=== PATIENT | female | born 1970 | race Caucasian/White ===

== ENCOUNTER 2018-07-19 05:11 | Inpatient (IN) | payer MEDICARE, OTHER ==
[~2018-07-19] VITALS: Ht 162.6 cm; Wt 72.1 kg
[~2018-07-19 05:11] MED LIST: ALBU90OI INH; ALBU90OI6 INH; ALPR.25; ALPR.25 PO; AMIT50 PO; AMOX500 PO; ATOR40TA PO; AZIT500 PO; CALCA500CH PO; CHLO25 PO; CITA20 PO; CYCL10 PO; Citalopram HBr40 MG PO; DULO30 PO; ESOM20 PO; FURO20 PO; GABA300 PO; GABA400 PO; GI COCKTAIL PO; HYDACE5 PO; HYDGUAL120 PO; Humalog100 UNIT/1 SC; INS70/30PN SC; INSU100I6; INSULANPEN SC; LEVEMIR FL100 UNIT/1 SQ; LORA1 PO; Lisinopril2.5 MG PO; MELO7.5 PO; METF500 PO; METO10 PO; METO5A PO; MUPI2TC TOP; Novolog Fl100 UNIT/1; Novolog Fl100 UNIT/1 SC; Novolog100 UNIT/2 SC; OMEP10ER; OMEP40CA12 PO; OMEPRAZOLE MAGN20 MG PO; ONDA4 PO; ONDA4ODT MM; ONDA4ODT PO; PENVK500 PO; PIOG15 PO; PIOG30 PO; PIOG45 PO; POTCHL10ER PO; PRILOSEC OTC; PROBIOTIC WITH1 EACH PO; PROM25 PO; Phenergan25 M1 PO; Prilosec Otc20 MG PO; Prozac20 MG PO; RABE20; RANI150 PO; RXHYDACE PO; SUCR1 PO; SULTRIDS PO; Simvastatin40 MG PO; TRAM50 PO; TRAZ100 PO; VENL37.5ER PO; VITAMIN D-32000 UNIT PO; Zofran Odt4 MG PO
[2018-07-19 05:58] LABS: BASOPHILS ABSOLUTE AUTO 0.05 K/mm3 (0.00-0.23); BASOPHILS PERCENT AUTO 1 % (0-2); EOSINOPHILS ABSOLUTE AUTO 0.02 K/mm3 (0.00-0.68); EOSINOPHILS PERCENT AUTO 0 % (0-6); Hematocrit 47.4 % (33.0-51.0); Hemoglobin 15.6 g/dL (11.5-16.0); IMMATURE GRAN ABSOLUTE AUTO 0.03 K/mm3 (0.00-0.10); IMMATURE GRAN PERCENT AUTO 0 % (0-1); LYMPHOCYTES ABSOLUTE AUTO 1.37 K/mm3 (0.84-5.20); LYMPHOCYTES PERCENT AUTO 17 % (21-46); MONOCYTES PERCENT AUTO 4 % (4-13); Mean Corpuscular HGB 31.3 pg (26.0-34.0); Mean Corpuscular HGB Conc 32.9 g/dL (31.5-36.5); Mean Corpuscular Volume 95 fL (80-100); Mean Platelet Volume 9.6 fL (9.1-12.4); NEUTROPHILS ABSOLUTE AUTO 6.33 K/mm3 (1.96-9.15); NEUTROPHILS PERCENT AUTO 78 % (41-73); Platelet Count 382 K/mm3 (150-400); RDW Standard Deviation 45.6 fL (35.1-46.3); Red Blood Cell Count 4.98 M/mm3 (3.80-5.20)
[2018-07-19 06:13] LABS: Source, Urine Clean Catch
[2018-07-19 06:17] LABS: Bilirubin, Urine Neg (Neg); Blood, Urine Neg (Neg); Glucose Qualitative, Urine 4+ (Neg); Ketones, Urine 4+ (Neg); Leukocyte Esterase, Urine Neg (Neg); Nitrite, Urine Neg (Neg); Protein, Urine 3+ (Neg); Urobilinogen, Urine NORM (Normal)
[2018-07-19 06:18] LABS: Alanine Aminotransfer (ALT/SGP 30 U/L (12-78); Albumin, Blood 3.9 g/dL (3.4-5.0); Alk Phos 118 U/L (50-136); Anion Gap 18 mmol/L (6-16); Aspartate Aminotrans (AST/SGOT 21 U/L (12-37); Bilirubin, Total 1.4 mg/dL (0.1-1.0); Blood Urea Nitrogen 7 mg/dL (8-24); Bun/Creatinine Ratio 16.9 (12.0-20.0); CO2, Blood 14 mmol/L (21-32); Calcium, Blood 8.7 mg/dL (8.5-10.1); Chloride, Blood 104 mmol/L (98-108); Creatinine, Blood 0.42 mg/dL (0.40-1.00); Globulin, Blood 4.1 g/dL (2.2-4.0); Glomerular Filtration Rate >60 (60-); Glucose, Blood 262 mg/dL (70-99); Potassium, Blood 3.3 mmol/L (3.5-5.5); Sodium, Blood 136 mmol/L (136-145)
[2018-07-19 06:19] LABS: Troponin I <0.015 ng/mL (0.000-0.040)
[2018-07-19 06:25] LABS: Appearance, Urine Clear (Clear); Color, Urine Yellow (P-Yellow)
[2018-07-19 06:27] LABS: White Blood Cells, Urine 0-2 /hpf (0-5)
[2018-07-19 06:28] LABS: Bacteria Rare /hpf; Red Blood Cells, Urine 0-2 /hpf (0-2); Squamous Epithelial Cells Few /hpf (Few)
[2018-07-19 06:30] LABS: Beta-hydroxybutyrate 69.8 mg/dL (0.2-2.8)
[2018-07-19 07:58] LABS: U Amphetamine Screen Not Detected; U Barbituate Screen Not Detected; U Benzodiazapine Screen Not Detected; U Buprenorphine Screen Not Detected; U Cannabinoids Screen DETECTED; U Cocaine Screen Not Detected; U Methadone Screen Not Detected; U Methamphetamine Screen Not Detected; U Opiates Screen Not Detected; U Oxycodone Screen Not Detected; U Phencyclidine Screen Not Detected; U Propoxyphene Screen Not Detected
--- NOTE | 2018-07-19 08:20 | NUR ---
FEMALE PATIENT BROUGHT TO ICU2 VIA GURNEY. MOVED TO BED WITH BLACK SLIDER SHEET. LUNGS CLESR T/O. COMP OF SEVERE NAUSEA AND HAVING DRY HEAVES. MED WITH REGLAN AND PROTONIX. INSULIN DRIP AT 6 UNITS/HOUR WITH RESULTS OF 121. DRIP REDUCED TO 3 UNITS/HOUR. NS WITH 20MEQ OF KCL AT 250ML/HOUR. SECOND LITER OF NS INFUSED. SOON SLEEPING QUIETLY. STATES SHE IS UNABLE TO REMEMBER HER LIST OF HOME MEDS.
[2018-07-19 09:34] LABS: Magnesium, Blood 1.2 mg/dL (1.6-2.4); Phosphorus, Blood 1.8 mg/dL (2.5-4.9)
[2018-07-19 12:13] LABS: Influenza A Negative (NEGATIVE); Influenza B Negative (NEGATIVE)
--- NOTE | 2018-07-19 14:08 | NUR ---
UP WITH HELP TO TOILET. D5NS AT 250ML/HOUR, INSULIN DRIP UP TO 4UNITS/HOUR, AMD K-PHOS RIDER AT 120ML/HOUR. STOMACH FEELING BETTER. EATING A SMALL CUP OF JELLO.
[2018-07-19 16:23] LABS: Potassium, Blood 2.9 mmol/L (3.5-5.5)
--- NOTE | 2018-07-19 16:52 | NUR ---
PATIENTS TEMP UP TO 99.9. MED WITH TYLENOL FOR BODY ACHES CONTS ON CHEMBGS Q1 HOUR.D5NS AT 250/HOUR, INSULIN DRIP AT 4 UNITS/HOUR.
--- NOTE | 2018-07-19 17:08 | NUR ---
DR ROBISON CALLED WITH LABS. MESSAGE LEFT.
--- NOTE | 2018-07-19 17:49 | NUR ---
DR ROBISON CALLED BACK WITH NEW ORDERS. INSULIN DRIP AND D5NS DCED AND MED SLIDING SCALE AND LANTUS STARTED. OCC LOOSE MOIST COUGH. STATES SHE HAS BEEN SICK FOR THE PAST SEVERAL DAYS. SLEEPING A LOT TODAY AND NOT EATING WELL.
--- NOTE | 2018-07-19 18:16 | NUR ---
SUMMARY PATIENT CONTINUES TO BE EASILY SOB WITH EXCERTION. UP TO COMMODE WITH MINIMAL ASSISTANCE AND VERBAL COACHING. PATIENT WORKED WITH PT AND AMBULATED SHORT DISTANCE IN ROOM. CONTINUE TO REMIND PATIENT TO DO PURSED LIP BREATHING. PATIENT BATHED AND SHAVED EARLIER. SKIN CARE DONE AFTER BATH, REMOVED SCALY SKIN FROM FEET AND LEGS. WILL GIVE REPORT TO ONCOMING SHIFT WHEN AVAILABLE. HAMILTON DRAINING YELLOW URINE WITH GOOD RESPONSE TO LASIX.
--- NOTE | 2018-07-19 20:12 | NUR ---
1935: CARE ASSUMED, PT CRYING, ROCKING, C/O 9/10 SHOOTING PAIN IN BACK, SPINE, CHEST. STATES IT HURTS TO BREATHE. 12 LEAD EKG W/OUT ACUTE CHANGES. 50 SYD FENTANYL GIVEN IV, IMMED REDUCED SYMPTOMS. DR DAMON NOTIFIED.
[2018-07-19 22:20] LABS: Potassium, Blood 3.1 mmol/L (3.5-5.5)
[2018-07-20 03:42] LABS: BASOPHILS ABSOLUTE AUTO 0.04 K/mm3 (0.00-0.23); BASOPHILS PERCENT AUTO 1 % (0-2); EOSINOPHILS ABSOLUTE AUTO 0.07 K/mm3 (0.00-0.68); EOSINOPHILS PERCENT AUTO 1 % (0-6); Hematocrit 37.8 % (33.0-51.0); Hemoglobin 12.6 g/dL (11.5-16.0); IMMATURE GRAN ABSOLUTE AUTO 0.02 K/mm3 (0.00-0.10); IMMATURE GRAN PERCENT AUTO 0 % (0-1); LYMPHOCYTES ABSOLUTE AUTO 2.52 K/mm3 (0.84-5.20); LYMPHOCYTES PERCENT AUTO 31 % (21-46); MONOCYTES ABSOLUTE AUTO 0.55 K/mm3 (0.16-1.47); MONOCYTES PERCENT AUTO 7 % (4-13); Mean Corpuscular HGB 31.3 pg (26.0-34.0); Mean Corpuscular HGB Conc 33.3 g/dL (31.5-36.5); Mean Corpuscular Volume 94 fL (80-100); Mean Platelet Volume 9.5 fL (9.1-12.4); NEUTROPHILS ABSOLUTE AUTO 5.07 K/mm3 (1.96-9.15); NEUTROPHILS PERCENT AUTO 61 % (41-73); Platelet Count 284 K/mm3 (150-400); RDW Standard Deviation 45.2 fL (35.1-46.3); Red Blood Cell Count 4.02 M/mm3 (3.80-5.20); White Blood Cell Count 8.27 K/mm3 (4.00-11.30)
[2018-07-20 03:54] LABS: Potassium, Blood 2.8 mmol/L (3.5-5.5)
[2018-07-20 04:15] LABS: Alanine Aminotransfer (ALT/SGP 18 U/L (12-78); Albumin, Blood 2.7 g/dL (3.4-5.0); Albumin/Globulin Ratio 0.9 (0.8-1.8); Alk Phos 79 U/L (50-136); Anion Gap 9 mmol/L (6-16); Aspartate Aminotrans (AST/SGOT 9 U/L (12-37); Blood Urea Nitrogen 2 mg/dL (8-24); Bun/Creatinine Ratio 4.9 (12.0-20.0); CO2, Blood 20 mmol/L (21-32); Calcium, Blood 7.4 mg/dL (8.5-10.1); Chloride, Blood 112 mmol/L (98-108); Creatinine, Blood 0.41 mg/dL (0.40-1.00); Glomerular Filtration Rate >60 (60-); Glucose, Blood 151 mg/dL (70-99); Potassium, Blood 2.7 mmol/L (3.5-5.5); Sodium, Blood 141 mmol/L (136-145); Total Protein, Blood 5.7 g/dL (6.4-8.2)
--- NOTE | 2018-07-20 07:29 | NUR ---
Fentanyl given for back & hip pain, little relief from po tylenol. Able to sleep at intervals. Requesting/drinking coffee, states only thing she can tolerate. Attempt to eat crackers resulted in dry heaves, treated w/ reglan IV, resolved. Prilosec given early in AM / pt request for GI upset. Additional KCl given IV in AM for serum K= 2.8. Lab glucose 151.
--- NOTE | 2018-07-20 07:30 | NUR ---
AM ASSESSMENT: PT IS ALERT AND ORIENTED X3. PT IS ANXIOUS AT MOST TIMES. MOVES SELF IN BED AND RM. SBA WITH TNX'S. PT REPORTS CHRONIC, CONSTANT PAIN IN THE LOWER BACK/HIPS. REPORTS SHE WAS TAKEN OFF HER FLEXERIL THAT SHE HAS "BEEN ON FOR 10 YEARS, COLD TURKEY." PT BEING MEDICATED WITH FENTANYL IV. WILL DISCUSS PAIN MANAGEMENT WITH . LUNGS ARE CLEAR, BUT DIMINISHED IN THE LOWER LOBES BILATERALLY. HR REGULAR, SR. PT HAS NS W/KCL @ 150ML/HR AND KCL IVP. ABD SOFT, ROUND, NON-TENDER. PT C/O OF INTERMITTENT NAUSEA. PT ATE WELL FOR BREAKFAST. C/O OF INCREASED NAUSEA AFTER EATING. PT OOB TO TOILET TO VOID CLEAR, SALMA COLORED URINE.
--- NOTE | 2018-07-20 07:52 | NUR ---
PT UPDATE: PT REPORTS LOWER BACK/BILATERAL HIP PAIN, 03/29. PT TX'D WITH FENTANYL IV. PT REPORTS SHE NORMALLY HAS BETTER PAIN CONTROL AFTER BEING TAKEN OFF HER FLEXERIL. PT'S MOOD LABILE AT THIS TIME AND BECOMES EASILY TEARFUL AT TIMES. ABLE TO CONSOLE PT WITH CONVERSATION.
--- NOTE | 2018-07-20 08:45 | NUR ---
DR ROBISON IN TO ASSESS PT. PT REPORTS NAUSEA. WILL MEDICATE PER ORDERS ONCE VERIFIED. RESUMED PT ON FLEXERIL PT REPORTS SHE USED TO TAKE THIS AT HOME AND FOUND IT VERY HELPFUL FOR HER BACK PAIN. PT CHANGED TO MEDICAL, NO TELEMETRY STATUS.
--- NOTE | 2018-07-20 10:11 | NUR ---
DR GAR HERE TO ASSESS PT. SEE NEW ORDERS.
--- NOTE | 2018-07-20 15:25 | NUR ---
PT UPDATE: PT REMAINS PAINFUL IN THE LOWER BACK/BILATERAL HIPS DESPITE RESTARTING FLEXERIL AND APPLYING HEAT PAD. PT MEDICATED WITH FENTANYL IV AND STIMULI REDUCTION DONE.
--- NOTE | 2018-07-20 15:37 | NUR ---
REPORTED OFF TO MIGDALIA SALCEDO WHOM WILL ASSUME CARE OF THIS PT ONCE SHE IS TNX'D TO 340.
--- NOTE | 2018-07-20 16:12 | NUR ---
XFER'D TO 340 REC REPORT FROM ANN FULLER TRANSPORTED VIA W/C @ 2504
[2018-07-21 05:08] LABS: BASOPHILS ABSOLUTE AUTO 0.03 K/mm3 (0.00-0.23); BASOPHILS PERCENT AUTO 1 % (0-2); EOSINOPHILS ABSOLUTE AUTO 0.09 K/mm3 (0.00-0.68); EOSINOPHILS PERCENT AUTO 2 % (0-6); Hematocrit 36.1 % (33.0-51.0); Hemoglobin 12.1 g/dL (11.5-16.0); IMMATURE GRAN ABSOLUTE AUTO 0.01 K/mm3 (0.00-0.10); IMMATURE GRAN PERCENT AUTO 0 % (0-1); LYMPHOCYTES ABSOLUTE AUTO 2.53 K/mm3 (0.84-5.20); LYMPHOCYTES PERCENT AUTO 48 % (21-46); MONOCYTES ABSOLUTE AUTO 0.38 K/mm3 (0.16-1.47); MONOCYTES PERCENT AUTO 7 % (4-13); Mean Corpuscular HGB 31.1 pg (26.0-34.0); Mean Corpuscular HGB Conc 33.5 g/dL (31.5-36.5); Mean Corpuscular Volume 93 fL (80-100); Mean Platelet Volume 9.6 fL (9.1-12.4); NEUTROPHILS ABSOLUTE AUTO 2.26 K/mm3 (1.96-9.15); NEUTROPHILS PERCENT AUTO 43 % (41-73); Platelet Count 264 K/mm3 (150-400); RDW Coefficient Variation 13.2 % (11.7-14.2); RDW Standard Deviation 44.6 fL (35.1-46.3); Red Blood Cell Count 3.89 M/mm3 (3.80-5.20)
[2018-07-21 05:30] LABS: Alanine Aminotransfer (ALT/SGP 17 U/L (12-78); Albumin, Blood 2.6 g/dL (3.4-5.0); Alk Phos 73 U/L (50-136); Anion Gap 8 mmol/L (6-16); Aspartate Aminotrans (AST/SGOT 11 U/L (12-37); Bilirubin, Total 0.3 mg/dL (0.1-1.0); Blood Urea Nitrogen 2 mg/dL (8-24); Bun/Creatinine Ratio 4.8 (12.0-20.0); CO2, Blood 26 mmol/L (21-32); Calcium, Blood 7.7 mg/dL (8.5-10.1); Chloride, Blood 111 mmol/L (98-108); Creatinine, Blood 0.41 mg/dL (0.40-1.00); Globulin, Blood 2.7 g/dL (2.2-4.0); Glomerular Filtration Rate >60 (60-); Glucose, Blood 225 mg/dL (70-99); Potassium, Blood 3.4 mmol/L (3.5-5.5); Sodium, Blood 145 mmol/L (136-145); Total Protein, Blood 5.3 g/dL (6.4-8.2)
--- NOTE | 2018-07-21 06:12 | NUR ---
SHIFT SUMMARY PT AWAKE ON/OFF T/O NIGHT, REPORTS SHE STRUGGLES W/INSOMNIA & TENDS TO NAP IN 2 HR PERIODS. FREQUENTLY ASKS TO BE UNHOOKED FROM IV FLUIDS TO GO OUTSIDE TO SMOKE, AMBULATES INDEPENDENTLY. AOX4. VSS. DENIES SOB. REPORTS 9/10 PAIN IN LOWER BACK/HIPS, MEDICATED 2X W/NORCO PER ORDERS. REPORTS NAUSEA THIS AM & WAS MEDICATED W/4MG ZOFRAN PER ORDERS. CHEM BG 189 @HS MEDICATED W/3U HUMALOG & 10U LANTUS PER ORDERS. CALL LIGHT IS IN REACH.
--- NOTE | 2018-07-21 12:57 | NUR ---
SHIFT SUMMARY/DC PT HAS HAD NO ACUTE CHANGES THIS SHIFT, MEDICATED 1X FOR PAIN, NO OTHER COMPLAINTS OF ANY KIND. PT HAS WALKED OUT TO SMOKE INDEP SEVERAL TIMES DURING SHIFT. REVIEWED DC INSTRUCTIONS, PT VERBALIZED UNDERSTANDING, WALKED OUT TO DC IN PRIVATE VEHICLE @ 1255.
== END 2018-07-21 12:58 | disposition home or self-care (01) | DRG 639 ==
LOC: ER 05:11 → ICUW 05:12 → ICUE 08:23 → MEDS 07-20 16:03 → ENPENDDIS 07-21 11:13 → MEDS 07-21 12:58
PROVIDERS: Emergency Medicine; ADMIT Internal Medicine
DX: E11.10 Type 2 diabetes mellitus with ketoacidosis without coma (principal); K21.9 Gastro-esophageal reflux disease without esophagitis; M79.7 Fibromyalgia; E11.40 Type 2 diabetes mellitus with diabetic neuropathy, unspecified; F17.210 Nicotine dependence, cigarettes, uncomplicated; E87.6 Hypokalemia; Z79.4 Long term (current) use of insulin
CPT/HCPCS: 36415; 71045; 80051; 80053; 81001; 82010; 82947; 83690; 83735; 84100; 84484; 85025; 87804; 93005; 93010; 96361; 96365; 96366; 96367; 96372; 96374; 96375; 96376; 99285-25; C9113; G0378; J1650; J1815; J2060; J2405; J2550; J2765; J3010; J3475; J3480; J7030; J7042; J7060

== ENCOUNTER 2018-08-24 16:37 | Inpatient (IN) | payer MEDICARE, OTHER ==
[~2018-08-24] VITALS: Ht 162.6 cm; Wt 59.7 kg
[2018-08-24] MEDS ORDERED: BASAGLAR K100 UNIT/1 SC (17:11)
[2018-08-24] MEDS ORDERED: Novolog100 UNIT/2 SC (17:12)
[2018-08-24 17:45] LABS: Calcium, Ionized (POC) 1.14 mmol/L (1.10-1.46); Chloride (POC) 99 mmol/L (98-108); Creatinine (POC) 0.5 mg/dL (0.6-1.0); Glucose (ISTAT POC) 407 mg/dL (70-99); Potassium (POC) 3.9 mmol/L (3.5-5.5); Sodium (POC) 135 mmol/L (135-148); Total CO2 (POC) 13 mmol/L (21-32)
[2018-08-24 17:46] LABS: BASOPHILS ABSOLUTE AUTO 0.06 K/mm3 (0.00-0.23); BASOPHILS PERCENT AUTO 0 % (0-2); EOSINOPHILS ABSOLUTE AUTO 0.01 K/mm3 (0.00-0.68); EOSINOPHILS PERCENT AUTO 0 % (0-6); Hematocrit 50.7 % (33.0-51.0); Hemoglobin 16.8 g/dL (11.5-16.0); IMMATURE GRAN ABSOLUTE AUTO 0.07 K/mm3 (0.00-0.10); IMMATURE GRAN PERCENT AUTO 1 % (0-1); LYMPHOCYTES ABSOLUTE AUTO 2.19 K/mm3 (0.84-5.20); LYMPHOCYTES PERCENT AUTO 15 % (21-46); MONOCYTES ABSOLUTE AUTO 0.36 K/mm3 (0.16-1.47); MONOCYTES PERCENT AUTO 2 % (4-13); Mean Corpuscular HGB 30.5 pg (26.0-34.0); Mean Corpuscular HGB Conc 33.1 g/dL (31.5-36.5); Mean Corpuscular Volume 92 fL (80-100); NEUTROPHILS PERCENT AUTO 82 % (41-73); RDW Standard Deviation 44.2 fL (35.1-46.3); White Blood Cell Count 14.99 K/mm3 (4.00-11.30)
[2018-08-24 17:50] LABS: Mean Platelet Volume 10.8 fL (9.1-12.4); Platelet Count 474 K/mm3 (150-400)
[2018-08-24 18:13] LABS: Alanine Aminotransfer (ALT/SGP 34 U/L (12-78); Albumin, Blood 4.9 g/dL (3.4-5.0); Alk Phos 172 U/L (50-136); Anion Gap 27 mmol/L (6-16); Aspartate Aminotrans (AST/SGOT 29 U/L (12-37); Bilirubin, Total 1.5 mg/dL (0.1-1.0); Blood Urea Nitrogen 12 mg/dL (8-24); Bun/Creatinine Ratio 18.7 (12.0-20.0); CO2, Blood 13 mmol/L (21-32); Calcium, Blood 9.5 mg/dL (8.5-10.1); Chloride, Blood 94 mmol/L (98-108); Creatinine, Blood 0.64 mg/dL (0.40-1.00); Globulin, Blood 4.8 g/dL (2.2-4.0); Glomerular Filtration Rate >60 (60-); Glucose, Blood 372 mg/dL (70-99); Potassium, Blood 4.1 mmol/L (3.5-5.5); Sodium, Blood 134 mmol/L (136-145); Total Protein, Blood 9.7 g/dL (6.4-8.2); Troponin I <0.015 ng/mL (0.000-0.040)
[2018-08-24] MEDS ORDERED: Aspirin EC81 MG PO (19:22)
[2018-08-24] MEDS ORDERED: PROM25 PO (19:24)
[2018-08-24 19:50] LABS: Base Excess Venous -13.6 mmol/L; Bicarbonate Venous 14.6 mmol/L (24.0-30.0); PCO2 Venous 35.7 mmHg (38-42); PO2 Venous 51.7 mmHg (38-42); pH Blood Venous 7.21 (7.34-7.37)
[2018-08-24 21:30] LABS: Source, Urine Clean Catch
[2018-08-24 21:46] LABS: Bilirubin, Urine Neg (Neg); Blood, Urine 1+ (Neg); Glucose Qualitative, Urine 4+ (Neg); Ketones, Urine 4+ (Neg); Leukocyte Esterase, Urine Neg (Neg); Nitrite, Urine Neg (Neg); Protein, Urine 3+ (Neg); Specific Gravity, Urine 1.025 (1.003-1.022); Urobilinogen, Urine NORM (Normal)
[2018-08-24 21:54] LABS: Appearance, Urine Clear (Clear); Color, Urine Yellow (P-Yellow)
[2018-08-24 21:55] LABS: Bacteria Mod /hpf; Hyaline Casts 0-2 /lpf (0-2); Mucus Light (0-Heavy); Red Blood Cells, Urine 0-2 /hpf (0-2); Squamous Epithelial Cells Few /hpf (Few); White Blood Cells, Urine 0-2 /hpf (0-5)
[2018-08-24 21:56] LABS: U Amphetamine Screen Not Detected; U Barbituate Screen Not Detected; U Benzodiazapine Screen Not Detected; U Buprenorphine Screen Not Detected; U Cannabinoids Screen DETECTED; U Cocaine Screen Not Detected; U Methadone Screen Not Detected; U Methamphetamine Screen Not Detected; U Opiates Screen Not Detected; U Oxycodone Screen Not Detected; U Phencyclidine Screen Not Detected; U Propoxyphene Screen Not Detected
[2018-08-24 22:53] LABS: Adenovirus Not Detected (NOT DETECT); Bordetella pertussis Not Detected (NOT DETECT); Chlamydophila pneumoniae Not Detected (NOT DETECT); Coronavirus 229E Not Detected (NOT DETECT); Coronavirus HKU1 Not Detected (NOT DETECT); Coronavirus NL63 Not Detected (NOT DETECT); Coronavirus OC43 Not Detected (NOT DETECT); Human Metapneumovirus Not Detected (NOT DETECT); Human Rhinovirus/Enterovirus Not Detected (NOT DETECT); Influenza A Not Detected (NOT DETECT); Influenza A/2009-H1 Not Detected (NOT DETECT); Influenza A/H1 Not Detected (NOT DETECT); Influenza A/H3 Not Detected (NOT DETECT); Influenza B Not Detected (NOT DETECT); Mycoplasma pneumoniae Not Detected (NOT DETECT); Parainfluenza Virus 1 Not Detected (NOT DETECT); Parainfluenza Virus 2 Not Detected (NOT DETECT); Parainfluenza Virus 3 Not Detected (NOT DETECT); Parainfluenza Virus 4 Not Detected (NOT DETECT); Respiratory Syncytial Virus Not Detected (NOT DETECT)
[2018-08-24 23:33] LABS: Magnesium, Blood 2.2 mg/dL (1.6-2.4); Phosphorus, Blood 2.7 mg/dL (2.5-4.9)
[2018-08-24 23:48] LABS: Anion Gap 18 mmol/L (6-16); Blood Urea Nitrogen 13 mg/dL (8-24); Bun/Creatinine Ratio 21.5 (12.0-20.0); CO2, Blood 16 mmol/L (21-32); Calcium, Blood 9.3 mg/dL (8.5-10.1); Chloride, Blood 104 mmol/L (98-108); Creatinine, Blood 0.61 mg/dL (0.40-1.00); Glomerular Filtration Rate >60 (60-); Glucose, Blood 266 mg/dL (70-99); Potassium, Blood 3.4 mmol/L (3.5-5.5); Sodium, Blood 138 mmol/L (136-145)
--- NOTE | 2018-08-25 | NUR ---
PT WAS ADMITTED TO ICU-3 FROM ER W DKA. PT AWAKE, COOPERATIVE, BUT FEELS MISERABLE. PT WAS NAUSEATED & RETCHING IN EMESIS BAG. MED W ZOFRAN & REGLAN WHICH SEEM TO HELP & PT LYING IN BED AT THIS TIME. SHORTLY AFTER ARRIVAL, ONE OF PT IV'S NO LONGER PATENT. NEW SITE STARTED USING ULTRASOUND, PT IS DIFFICULT IV START. UP TO BSC W SB ASSIST, VOIDS WO DIFF. AWAIT LAB RESULTS. CALL LIGHT IN REACH.
[2018-08-25 05:47] LABS: Anion Gap 9 mmol/L (6-16); Blood Urea Nitrogen 11 mg/dL (8-24); Bun/Creatinine Ratio 20.9 (12.0-20.0); CO2, Blood 20 mmol/L (21-32); Calcium, Blood 8.8 mg/dL (8.5-10.1); Chloride, Blood 110 mmol/L (98-108); Creatinine, Blood 0.53 mg/dL (0.40-1.00); Glomerular Filtration Rate >60 (60-); Glucose, Blood 239 mg/dL (70-99); Potassium, Blood 4.4 mmol/L (3.5-5.5); Sodium, Blood 139 mmol/L (136-145)
--- NOTE | 2018-08-25 06:15 | NUR ---
PT NAUSEA MUCH IMPROVED THROUGH THE NIGHT. ABLE TO SLEEP SHORT PERIODS. UP TO BSC ASSIST W LINES ONLY. URINE CONT CONCENTRATED. PT IS TOLERATING SMALL AMTS OF JELLO & WATER. INSULIN CONT AT 3UNITS/HR. CONT TO MONITOR.
--- NOTE | 2018-08-25 07:45 | NUR ---
RECEIVED REPORT AND ASSUMED CARE OF PATIENT. FAMILY AT BEDSIDE. PT IS NON-RESPONSIVE TO PAINFUL STIMULUS, HOWEVER SHE DOES TRY TO OPEN HER EYES TO STERNAL RUB. PT CONTINUES TO BE INTUBATED, VENT SETTINGS ARE: AC: 16/350/8/50%. PT IS NOT SEDATED OR RESTRAINED. TUBE FEEDING WAS RUNNING AT 40 ML/HOUR; HOWEVER, RESIDUAL IS 270 ML. PLACED TF ON HOLD AND REINSTILLED 250 ML. WILL KEEP TF ON HOLD AND REEVALUATE IN AN HOUR. PT CONTINUES TO BE IN AFIB BETWEEN 90-120'S, AMIODARONE RUNNING AT 1.0 ML/HR. HEPARIN AT 21 UNITS/HR. VASOPRESSIN AT 0.04 UNITS/MIN, LEVOPHED AT 8 MCG/MIN.
--- NOTE | 2018-08-25 09:11 | NUR ---
RECEIVED REPORT AND ASSUMED CARE OF PATIENT. SHE IS RESTING, CBG Q1 HR. PT CBG RANGING IN 230-250 RANGE. INSULIN RUNNING AT 3 UNITS/HR. WILL CONTINUE TO MONITOR CLOSELY.
--- NOTE | 2018-08-25 09:12 | NUR ---
CALLED DR. LOMELI TO REPORT ANINON GAP HAS CLOSED AND PATIENT BLOOD SUGARS HAVE BEEN STABLIZING. DR ORDERED LANTUS 20 UNITS NOW AND CONTINUE 20 UNITS BID, COVER WITH MEDIUM SLIDING SCALE ACHS. ADVANCE DIET. PLACED ORDERS IN COMPUTER AND WILL CONTINUE TO MONTIOR CLOSELY. ADMINISTERED 20 UNITS LANTUS AND WILL CONTINUE IV INSULIN AT 3 UNITS/HR FOR TWO HOURS.
[2018-08-25 09:13] LABS: Potassium, Blood 3.5 mmol/L (3.5-5.5)
--- NOTE | 2018-08-25 10:48 | NUR ---
PT INSULIN DRIP DISCONTINUED AT THIS TIME.
--- NOTE | 2018-08-25 17:00 | NUR ---
ASSUMED CARE: PT RESTING QUIETLY IN ROOM. C/O GENERAL ACHES AND PAINS. ASKING ABOUT WHEN SHE CAN BE TRANSFERRED TO MEDICAL FLOOR. NO FURTHER NEEDS OR CONCERNS.
--- NOTE | 2018-08-25 17:51 | NUR ---
SHIFT SUMMARY: PT INDEPENDENT IN ROOM. MEDICAL STATUS, ELECTRIC ORGAN CHECKER GAVE PERMISSION FOR PT TO LEAVE UNIT TO TAKE A WALK. CBG COVERED FOR DINNER. NO FURTHER NEEDS OR CONCERNS NOTED
[2018-08-25 17:52] LABS: Potassium, Blood 3.9 mmol/L (3.5-5.5)
--- NOTE | 2018-08-25 19:01 | NUR ---
Lengthy conversation with Tatiana. She is tearful and openly talked about her life stressors and recent losses. she responded well to theraputic listening, gentle funeral pre arrangement counselor, and emotional affirmation. She knows she needs to take better care of herself, but is uncertain how to do better. She will benefit from illness management education and continued encouragement. I will remain available.
--- NOTE | 2018-08-25 19:30 | NUR ---
ASSUMED PT CARE AT 1915 PT UP IN ROOM; INDEPENDENT. WANTED TO GO OUTSIDE TO SMOKE. NO COMPLAINTS FROM PT.
--- NOTE | 2018-08-26 00:19 | NUR ---
ASSUMED CARE FROM MIGDALIA BENAVIDEZ
--- NOTE | 2018-08-26 00:20 | NUR ---
END OF SHIFT SUMMARY PT HAS BEEN IN AND OUT TO SMOKE MULITPLE TIMES. PT IS COMPLETELY INDEPENDENT IN ALL ADL'S. PT REQUESTED PEANUT BUTTER AND JELLY SANDWICH WITH CRACKERS AND PUDDING. PT CONSUMED 75% OF SNACK. BEDSIDE REPORT GIVEN TO MIGDALIA PATTERSON.
[2018-08-26 03:45] LABS: BASOPHILS ABSOLUTE AUTO 0.05 K/mm3 (0.00-0.23); BASOPHILS PERCENT AUTO 1 % (0-2); EOSINOPHILS ABSOLUTE AUTO 0.13 K/mm3 (0.00-0.68); EOSINOPHILS PERCENT AUTO 2 % (0-6); Hematocrit 43.3 % (33.0-51.0); Hemoglobin 14.3 g/dL (11.5-16.0); IMMATURE GRAN ABSOLUTE AUTO 0.02 K/mm3 (0.00-0.10); IMMATURE GRAN PERCENT AUTO 0 % (0-1); LYMPHOCYTES PERCENT AUTO 42 % (21-46); MONOCYTES ABSOLUTE AUTO 0.63 K/mm3 (0.16-1.47); MONOCYTES PERCENT AUTO 7 % (4-13); Mean Corpuscular HGB 30.3 pg (26.0-34.0); Mean Corpuscular Volume 92 fL (80-100); Mean Platelet Volume 9.5 fL (9.1-12.4); NEUTROPHILS ABSOLUTE AUTO 4.18 K/mm3 (1.96-9.15); NEUTROPHILS PERCENT AUTO 49 % (41-73); Platelet Count 399 K/mm3 (150-400); RDW Coefficient Variation 13.2 % (11.7-14.2); RDW Standard Deviation 44.4 fL (35.1-46.3); Red Blood Cell Count 4.72 M/mm3 (3.80-5.20); White Blood Cell Count 8.61 K/mm3 (4.00-11.30)
[2018-08-26 04:06] LABS: Albumin, Blood 3.5 g/dL (3.4-5.0); Anion Gap 8 mmol/L (6-16); Blood Urea Nitrogen 12 mg/dL (8-24); Bun/Creatinine Ratio 25.4 (12.0-20.0); CO2, Blood 24 mmol/L (21-32); Chloride, Blood 106 mmol/L (98-108); Creatinine, Blood 0.47 mg/dL (0.40-1.00); Glomerular Filtration Rate >60 (60-); Glucose, Blood 232 mg/dL (70-99); Phosphorus, Blood 2.2 mg/dL (2.5-4.9); Potassium, Blood 3.5 mmol/L (3.5-5.5); Sodium, Blood 138 mmol/L (136-145)
--- NOTE | 2018-08-26 05:59 | NUR ---
SHIFT SUMMARY NO ACUTE CHANGES OVERNIGHT. PT LEFT UNIT EVERY HOUR TO GO OUTSIDE TO HER CAR AND SMOKE. PT REPORTS NO DIZZINESS, NAUSEA, OR VOMITING. VITAL SIGNS STABLE. WILL REPORT TO DAYSHIFT NURSE.
--- NOTE | 2018-08-26 07:07 | NUR ---
ASSUMED CARE: PT RESTING IN BED BUT AWAKE, ALERT AND ORIENTED. DENIES NEEDS OR CONCERNS AT THIS TIME. INDEPENDENT IN ROOM. IVS SL
[2018-08-26] MEDS ORDERED: CEPH500 PO (10:56)
[2018-08-26] MEDS ORDERED: ACET325 PO (10:56)
[2018-08-26] MEDS ORDERED: SACC250C PO (10:57)
--- NOTE | 2018-08-26 12:45 | NUR ---
PT REQUESTED TO GO OUTSIDE TO SMOKE. EDUCATED THAT ONCE THE POTASSIUM PHOSPHATE IS COMPLETE SHE CAN GO HOME. PT BEGGED TO GO SMOKE SINCE IT HAS BEEN THREE HOURS. DISCONNECTED FROM IV BUT INFORMED PT THAT THE LONGER SHE IS GONE THE LONGER THE IV WILL TAKE TO COMPLETE
--- NOTE | 2018-08-26 15:46 | NUR ---
IV'S DC'D BY SENIOR MAINTENANCE TECHNICIAN. DISCUSSED WITH PT SICK DAY CARE FOR DIABETES AND INSTRUCTED ON ANTIBIOTIC USE. INFORMED ABOUT FOLLOW UP APPOINTMENTS. DENIED FURTHER NEEDS OR CONCERNS. AMBULATORY UPON DISCHARGE.
== END 2018-08-26 15:42 | disposition home or self-care (01) | DRG 638 ==
LOC: ER 16:37 → ICUW 19:14 → ICUE 20:58
PROVIDERS: Emergency Medicine; Family Medicine; Nurse Practitioner Acute Care; ADMIT Hospitalist
DX: E10.10 Type 1 diabetes mellitus with ketoacidosis without coma (principal); N39.0 Urinary tract infection, site not specified; I10 Essential (primary) hypertension; I16.0 Hypertensive urgency; E10.42 Type 1 diabetes mellitus with diabetic polyneuropathy; K21.9 Gastro-esophageal reflux disease without esophagitis; M79.7 Fibromyalgia; M19.90 Unspecified osteoarthritis, unspecified site; F41.9 Anxiety disorder, unspecified; F32.9 Major depressive disorder, single episode, unspecified; F17.210 Nicotine dependence, cigarettes, uncomplicated; Z88.5 Allergy status to narcotic agent; Z88.8 Allergy status to other drugs, medicaments and biological substances; Z79.4 Long term (current) use of insulin; Z79.899 Other long term (current) drug therapy
CPT/HCPCS: 36415; 71045; 80047; 80048; 80051; 80053; 80069; 81001; 82010; 82803; 82947; 83735; 84100; 84484; 85014; 85025; 87486; 87581; 87633; 87798; 93005; 93010; 96361; 96365; 96375; 96376; 99285-25; C9113; J0696; J1650; J1815; J2405; J2550; J2765; J3010; J3480; J7030; J7042; J7060; J7120

== ENCOUNTER 2018-09-25 11:24 | Emergency (ER) | payer MEDICARE, OTHER ==
[~2018-09-25] VITALS: Ht 162.6 cm; Wt 68.0 kg
[~2018-09-25 11:24] MED LIST changes: +ACET325 PO; +Aspirin EC81 MG PO; +BASAGLAR K100 UNIT/1 SC; +CEPH500 PO; +SACC250C PO
[2018-09-25 12:30] LABS: BASOPHILS ABSOLUTE AUTO 0.03 K/mm3 (0.00-0.23); BASOPHILS PERCENT AUTO 0 % (0-2); EOSINOPHILS PERCENT AUTO 0 % (0-6); Hematocrit 51.2 % (33.0-51.0); IMMATURE GRAN ABSOLUTE AUTO 0.06 K/mm3 (0.00-0.10); IMMATURE GRAN PERCENT AUTO 0 % (0-1); LYMPHOCYTES ABSOLUTE AUTO 1.38 K/mm3 (0.84-5.20); LYMPHOCYTES PERCENT AUTO 9 % (21-46); MONOCYTES ABSOLUTE AUTO 0.72 K/mm3 (0.16-1.47); MONOCYTES PERCENT AUTO 5 % (4-13); Mean Corpuscular HGB 31.2 pg (26.0-34.0); Mean Corpuscular HGB Conc 33.2 g/dL (31.5-36.5); Mean Corpuscular Volume 94 fL (80-100); Mean Platelet Volume 9.9 fL (9.1-12.4); NEUTROPHILS ABSOLUTE AUTO 12.89 K/mm3 (1.96-9.15); NEUTROPHILS PERCENT AUTO 85 % (41-73); Platelet Count 496 K/mm3 (150-400); RDW Standard Deviation 48.5 fL (35.1-46.3); Red Blood Cell Count 5.45 M/mm3 (3.80-5.20); White Blood Cell Count 15.08 K/mm3 (4.00-11.30)
[2018-09-25 12:37] LABS: Base Excess Venous -7.8 mmol/L; Bicarbonate Venous 19.4 mmol/L (24.0-30.0); PCO2 Venous 30.4 mmHg (38-42); PO2 Venous 115 mmHg (38-42); pH Blood Venous 7.37 (7.34-7.37)
[2018-09-25 12:42] LABS: Source, Urine Clean Catch
[2018-09-25 12:52] LABS: Alanine Aminotransfer (ALT/SGP 29 U/L (12-78); Albumin, Blood 4.4 g/dL (3.4-5.0); Albumin/Globulin Ratio 0.9 (0.8-1.8); Alk Phos 138 U/L (50-136); Anion Gap 25 mmol/L (6-16); Aspartate Aminotrans (AST/SGOT 14 U/L (12-37); Bilirubin, Total 2.1 mg/dL (0.1-1.0); Blood Urea Nitrogen 27 mg/dL (8-24); Bun/Creatinine Ratio 41.7 (12.0-20.0); CO2, Blood 16 mmol/L (21-32); Calcium, Blood 9.5 mg/dL (8.5-10.1); Chloride, Blood 88 mmol/L (98-108); Creatinine, Blood 0.65 mg/dL (0.40-1.00); Globulin, Blood 4.7 g/dL (2.2-4.0); Glomerular Filtration Rate >60 (60-); Glucose, Blood 492 mg/dL (70-99); Magnesium, Blood 2.3 mg/dL (1.6-2.4); Potassium, Blood 2.8 mmol/L (3.5-5.5); Sodium, Blood 129 mmol/L (136-145); Total Protein, Blood 9.1 g/dL (6.4-8.2)
[2018-09-25 13:03] LABS: Bilirubin, Urine Neg (Neg); Blood, Urine Neg (Neg); Glucose Qualitative, Urine 4+ (Neg); Ketones, Urine 4+ (Neg); Leukocyte Esterase, Urine Neg (Neg); Nitrite, Urine Neg (Neg); Protein, Urine 3+ (Neg); Urobilinogen, Urine NORM (Normal)
[2018-09-25 13:24] LABS: Appearance, Urine Clear (Clear); Color, Urine Pale Yellow (P-Yellow)
[2018-09-25 13:26] LABS: Bacteria Rare /hpf; Red Blood Cells, Urine 0-2 /hpf (0-2); Squamous Epithelial Cells Few /hpf (Few); White Blood Cells, Urine 0-2 /hpf (0-5)
[2018-09-25] MEDS ORDERED: Zofran4 MG PO (16:38)
== END 2018-09-25 17:26 | disposition home or self-care (01) ==
LOC: ER 11:24
PROVIDERS: Physician Assistant
DX: R11.2 Nausea with vomiting, unspecified (principal); E11.9 Type 2 diabetes mellitus without complications; E80.7 Disorder of bilirubin metabolism, unspecified; Z88.5 Allergy status to narcotic agent; Z88.8 Allergy status to other drugs, medicaments and biological substances; Z79.899 Other long term (current) drug therapy; Z79.4 Long term (current) use of insulin; K21.9 Gastro-esophageal reflux disease without esophagitis; F17.210 Nicotine dependence, cigarettes, uncomplicated
CPT/HCPCS: 36415; 76705; 80053; 81001; 82803; 82947; 83690; 83735; 85025; 93005; 93010; 96365; 96367; 96375; 99284-25; J2405; J2550; J2765; J3480; J7030

== ENCOUNTER 2018-09-27 10:32 | Inpatient (IN) | payer MEDICARE, OTHER ==
[~2018-09-27] VITALS: Ht 162.6 cm; Wt 65.5 kg
[~2018-09-27 10:32] MED LIST changes: +Zofran4 MG PO
[2018-09-27 11:34] LABS: BASOPHILS ABSOLUTE AUTO 0.06 K/mm3 (0.00-0.23); BASOPHILS PERCENT AUTO 1 % (0-2); EOSINOPHILS ABSOLUTE AUTO 0.04 K/mm3 (0.00-0.68); EOSINOPHILS PERCENT AUTO 0 % (0-6); Hematocrit 54.5 % (33.0-51.0); Hemoglobin 17.7 g/dL (11.5-16.0); IMMATURE GRAN ABSOLUTE AUTO 0.07 K/mm3 (0.00-0.10); IMMATURE GRAN PERCENT AUTO 1 % (0-1); LYMPHOCYTES ABSOLUTE AUTO 1.93 K/mm3 (0.84-5.20); LYMPHOCYTES PERCENT AUTO 19 % (21-46); MONOCYTES ABSOLUTE AUTO 0.72 K/mm3 (0.16-1.47); MONOCYTES PERCENT AUTO 7 % (4-13); Mean Corpuscular HGB 30.9 pg (26.0-34.0); Mean Corpuscular HGB Conc 32.5 g/dL (31.5-36.5); Mean Corpuscular Volume 95 fL (80-100); Mean Platelet Volume 9.6 fL (9.1-12.4); NEUTROPHILS ABSOLUTE AUTO 7.42 K/mm3 (1.96-9.15); NEUTROPHILS PERCENT AUTO 73 % (41-73); Platelet Count 518 K/mm3 (150-400); RDW Coefficient Variation 13.6 % (11.7-14.2); RDW Standard Deviation 47.7 fL (35.1-46.3); Red Blood Cell Count 5.73 M/mm3 (3.80-5.20); White Blood Cell Count 10.24 K/mm3 (4.00-11.30)
[2018-09-27 11:35] LABS: Base Excess Venous -13.9 mmol/L; Bicarbonate Venous 14.5 mmol/L (24.0-30.0); PCO2 Venous 32.4 mmHg (38-42); PO2 Venous 36.7 mmHg (38-42); pH Blood Venous 7.23 (7.34-7.37)
[2018-09-27 12:01] LABS: Source, Urine Clean Catch
[2018-09-27 12:12] LABS: Bilirubin, Urine Neg (Neg); Blood, Urine 1+ (Neg); Glucose Qualitative, Urine 4+ (Neg); Ketones, Urine 4+ (Neg); Leukocyte Esterase, Urine Neg (Neg); Nitrite, Urine Neg (Neg); Protein, Urine 3+ (Neg); Specific Gravity, Urine 1.025 (1.003-1.022); Urobilinogen, Urine NORM (Normal)
[2018-09-27 12:25] LABS: Appearance, Urine Hazy (Clear); Color, Urine Pale Yellow (P-Yellow)
[2018-09-27 12:26] LABS: Bacteria Rare /hpf; Mucus Light (0-Heavy); Squamous Epithelial Cells Mod /hpf (Few); White Blood Cells, Urine Not Seen /hpf (0-5)
[2018-09-27 12:55] LABS: Alanine Aminotransfer (ALT/SGP 26 U/L (12-78); Albumin, Blood 4.4 g/dL (3.4-5.0); Alk Phos 124 U/L (50-136); Anion Gap 20 mmol/L (6-16); Aspartate Aminotrans (AST/SGOT 12 U/L (12-37); Bilirubin, Total 1.5 mg/dL (0.1-1.0); Blood Urea Nitrogen 13 mg/dL (8-24); Bun/Creatinine Ratio 25.4 (12.0-20.0); CO2, Blood 14 mmol/L (21-32); Calcium, Blood 9.5 mg/dL (8.5-10.1); Chloride, Blood 99 mmol/L (98-108); Creatinine, Blood 0.51 mg/dL (0.40-1.00); Globulin, Blood 4.6 g/dL (2.2-4.0); Glomerular Filtration Rate >60 (60-); Glucose, Blood 345 mg/dL (70-99); Potassium, Blood 2.9 mmol/L (3.5-5.5); Sodium, Blood 133 mmol/L (136-145)
[2018-09-27 12:59] LABS: Beta-hydroxybutyrate 73.7 mg/dL (0.2-2.8)
[2018-09-27] MEDS ORDERED: MELO7.5 PO (14:47)
[2018-09-27 14:56] LABS: Base Excess Venous -14.1 mmol/L; Bicarbonate Venous 14.5 mmol/L (24.0-30.0); PO2 Venous 62.3 mmHg (38-42); pH Blood Venous 7.22 (7.34-7.37)
[2018-09-27 15:24] LABS: Alanine Aminotransfer (ALT/SGP 17 U/L (12-78); Albumin, Blood 3.3 g/dL (3.4-5.0); Alk Phos 89 U/L (50-136); Anion Gap 17 mmol/L (6-16); Aspartate Aminotrans (AST/SGOT 5 U/L (12-37); Bilirubin, Total 1.1 mg/dL (0.1-1.0); Blood Urea Nitrogen 11 mg/dL (8-24); Bun/Creatinine Ratio 22.5 (12.0-20.0); CO2, Blood 14 mmol/L (21-32); Calcium, Blood 7.6 mg/dL (8.5-10.1); Chloride, Blood 107 mmol/L (98-108); Creatinine, Blood 0.49 mg/dL (0.40-1.00); Ethanol (Alcohol), Blood, Med <3 mg/dL; Glomerular Filtration Rate >60 (60-); Glucose, Blood 255 mg/dL (70-99); Magnesium, Blood 1.9 mg/dL (1.6-2.4); Phosphorus, Blood 1.5 mg/dL (2.5-4.9); Sodium, Blood 138 mmol/L (136-145)
[2018-09-27 15:30] LABS: Globulin, Blood 3.3 g/dL (2.2-4.0)
[2018-09-27 15:58] LABS: Total Protein, Blood 6.6 g/dL (6.4-8.2)
[2018-09-27 17:14] LABS: Potassium, Blood 2.9 mmol/L (3.5-5.5)
[2018-09-27 18:54] LABS: Base Excess Venous -8.2 mmol/L; Bicarbonate Venous 18.3 mmol/L (24.0-30.0); PCO2 Venous 33.3 mmHg (38-42); PO2 Venous 43.9 mmHg (38-42); pH Blood Venous 7.33 (7.34-7.37)
[2018-09-27 19:15] LABS: Potassium, Blood 3.3 mmol/L (3.5-5.5)
--- NOTE | 2018-09-27 19:50 | NUR ---
ADMIT PT ARRIVES VIA STRETCHER FROM ER WITH D5W INFUSING AT 200ML/HR, INSULIN AT 3UNITS/HR AND #2 OF 3 BAGS OF KCL INFUSING. PT IS AWAKE AND ALERT, ABLE TO TRANSFER SELF FROM ER BED TO ICU BED. PT REPORTING LOW BACK PAIN "FROM UTI" AND NAUSEA. PT REPORTS BEING NAUSEATED X 6 DAYS AND HAS NOT BEEN COMPLIANT WITH RX MEDS BUT DENIES MISSING INSULIN. VSS, ECG SHOWS SR/ST AND O2 SATS 100% ON RA. PLAN TO RECHECK BG, INITIATE ADMIT ORDERS AND CALL FOR INSULIN PARAMETERS ONCE LABS RETURN.
[2018-09-27 20:09] LABS: Osmolality, Serum 300 mos/KG (275-300)
[2018-09-27 20:23] LABS: Potassium, Blood 5.1 mmol/L (3.5-5.5)
[2018-09-27 20:47] LABS: Base Excess Venous -6.6 mmol/L; Bicarbonate Venous 19.4 mmol/L (24.0-30.0); PCO2 Venous 35.3 mmHg (38-42); PO2 Venous 47.6 mmHg (38-42); pH Blood Venous 7.34 (7.34-7.37)
[2018-09-27 21:59] LABS: U Amphetamine Screen Not Detected; U Barbituate Screen Not Detected; U Benzodiazapine Screen Not Detected; U Buprenorphine Screen Not Detected; U Cannabinoids Screen DETECTED; U Cocaine Screen Not Detected; U Methadone Screen Not Detected; U Methamphetamine Screen Not Detected; U Opiates Screen Not Detected; U Oxycodone Screen Not Detected; U Phencyclidine Screen Not Detected; U Propoxyphene Screen Not Detected
[2018-09-27 22:30] LABS: Potassium, Blood 3.3 mmol/L (3.5-5.5)
[2018-09-28 03:50] LABS: BASOPHILS ABSOLUTE AUTO 0.04 K/mm3 (0.00-0.23); BASOPHILS PERCENT AUTO 1 % (0-2); EOSINOPHILS PERCENT AUTO 1 % (0-6); Hematocrit 38.3 % (33.0-51.0); Hemoglobin 12.9 g/dL (11.5-16.0); IMMATURE GRAN ABSOLUTE AUTO 0.02 K/mm3 (0.00-0.10); IMMATURE GRAN PERCENT AUTO 0 % (0-1); LYMPHOCYTES ABSOLUTE AUTO 3.66 K/mm3 (0.84-5.20); LYMPHOCYTES PERCENT AUTO 49 % (21-46); MONOCYTES ABSOLUTE AUTO 0.61 K/mm3 (0.16-1.47); MONOCYTES PERCENT AUTO 8 % (4-13); Mean Corpuscular HGB 30.6 pg (26.0-34.0); Mean Corpuscular HGB Conc 33.7 g/dL (31.5-36.5); Mean Platelet Volume 9.4 fL (9.1-12.4); NEUTROPHILS ABSOLUTE AUTO 3.07 K/mm3 (1.96-9.15); NEUTROPHILS PERCENT AUTO 41 % (41-73); Platelet Count 323 K/mm3 (150-400); RDW Coefficient Variation 13.3 % (11.7-14.2); RDW Standard Deviation 44.4 fL (35.1-46.3); Red Blood Cell Count 4.22 M/mm3 (3.80-5.20)
[2018-09-28 03:52] LABS: Mean Corpuscular Volume 91 fL (80-100)
[2018-09-28 04:17] LABS: Alanine Aminotransfer (ALT/SGP 17 U/L (12-78); Albumin, Blood 2.9 g/dL (3.4-5.0); Alk Phos 75 U/L (50-136); Anion Gap 9 mmol/L (6-16); Bilirubin, Total 1.1 mg/dL (0.1-1.0); Blood Urea Nitrogen 7 mg/dL (8-24); Bun/Creatinine Ratio 23.6 (12.0-20.0); CO2, Blood 21 mmol/L (21-32); Calcium, Blood 8.2 mg/dL (8.5-10.1); Chloride, Blood 107 mmol/L (98-108); Globulin, Blood 2.9 g/dL (2.2-4.0); Glomerular Filtration Rate >60 (60-); Glucose, Blood 176 mg/dL (70-99); Magnesium, Blood 1.7 mg/dL (1.6-2.4); Phosphorus, Blood 1.1 mg/dL (2.5-4.9); Potassium, Blood 2.6 mmol/L (3.5-5.5); Sodium, Blood 137 mmol/L (136-145); Total Protein, Blood 5.8 g/dL (6.4-8.2)
[2018-09-28 04:18] LABS: Aspartate Aminotrans (AST/SGOT <3 U/L (12-37)
[2018-09-28 04:56] LABS: Osmolality, Serum 279 mos/KG (275-300)
--- NOTE | 2018-09-28 05:29 | NUR ---
CALL TO DR HOLDEN VEGAS UPDTATED WITH AM LABS, GAP CLOSURE AND NORMAL CO2. DR HATCH REQUESTING TO HOLD OFF ON CHANGING OVER TO NORMAL INSULIN DOSING. PLAN TO ADMINITER 30 UNITS NPH AND RESUME NORMAL KALI AT NOON AND NORMAL LONG ACTING AT HS. IN ADDITION, REPLACEMENT FOR K AND PHOS OBTAINED.
--- NOTE | 2018-09-28 06:22 | NUR ---
SHIFT SUMMARY SEE PREVIOUS NOTES FOR SHIFT. PT REMAINS ON INSULIN GTT AT 1.5 UNITS/HR AND D5 AT 200ML/HR WITH BG'S RUNNING 150-160. PT IS REPORTING SHE IS FEELING MUCH BETTER BUT DOES CONTINUE TO REPORT LOW BACK PAIN AND RELATES THIS TO HER RECENT DX OF UTI. PAIN MANAGED WITH TYLENOL, FENTANYL AND WARM BLANKETS. PT DENIES NAUSEA AND IS TOLERATING PO FLUIDS AND FOOD, MEAL ORDERED FOR THIS AM. VSS, ECG SHOWS SR AND O2 SATS 98-100% ON RA.
--- NOTE | 2018-09-28 07:15 | NUR ---
START OF SHIFT NOTE: PATIENT IS RESTING COMFORTABLY, CONTINUES TO C/O BACK PAIN, BUT STATED THAT "TYLENOL HELPED, AND IT IS DOWN TO A 3", AFEBRILE, STATES "I FEEL MUCH BETTER, CAN I GO OUT AND SMOKE", PATIENT INSTRUCTED THAT SHE IS ICU STATUS AND STILL NEEDS THE INSULIN DRIP, PATIENT VERBALIZED UNDERSTANDING, NSR, LUNG SOUNDS CLEAR AND DIMINISHED IN BASES, BTs PRESENT, GETS UP TO BSC, DIET ORDERED, RECEIVED HUMULIN 30 UNITS ORDERED, CALL LIGHT IN REACH, WILL CONTINUE TO MONITOR.
--- NOTE | 2018-09-28 08:30 | NUR ---
DIETARY IN TO SEE PATIENT AND DISCUSS DIET.
[2018-09-28 15:45] LABS: Anion Gap 8 mmol/L (6-16); Blood Urea Nitrogen 5 mg/dL (8-24); Bun/Creatinine Ratio 17.2 (12.0-20.0); CO2, Blood 23 mmol/L (21-32); Calcium, Blood 8.4 mg/dL (8.5-10.1); Chloride, Blood 108 mmol/L (98-108); Creatinine, Blood 0.29 mg/dL (0.40-1.00); Glomerular Filtration Rate >60 (60-); Glucose, Blood 243 mg/dL (70-99); Phosphorus, Blood 2.7 mg/dL (2.5-4.9); Potassium, Blood 3.1 mmol/L (3.5-5.5); Sodium, Blood 139 mmol/L (136-145)
--- NOTE | 2018-09-28 17:58 | NUR ---
SHIFT SUMMARY NOTE: PATIENT IS ALERT AND ORIENTED, EATING DINNER, PATIENT IS HUNGRY D/T MULTIPLE DAYS OF NAUSEA/VOMITING, BLOOD SUGARS ARE STILL IN 200'S, DR. SILVATRATE AWARE, INSULIN DRIP OFF, PATIENT IS ON LANTUS AND HUMALOG MEDIUM SLIDING SCALE AT THIS TIME, PATIENT RECEIVED ONE BAG OF POTASSIUM PHOSPHATE THIS AM FOR K+ 2.6 AND PHOS 1.1, LABS WERE REDRAWN THIS AFTERNOON AND K+ 3.1 AND PHOS 2.7, ANOTHER BAG OF POTASSIUM PHOSPHATE WAS HUNG AND IS INFUSING, PATIENT STATED "I JUST WANT TO GO OUT AND SMOKE ONE CIGARETTE, OTHER NURSES HAVE LET ME GO AT THIS POINT", PATIENT WAS INSTRUCTED THAT SHE IS STILL ICU STATUS AND IS ON IV INFUSION, PATIENT VERBALIZED UNDERSTANDING, PATIENT IS UP TO ROOM TOILET INDEPENDENTLY, GOOD URINE OUTPUT WITH CLEAR YELLOW URINE, VSS, RECEIVED MULTIPLE DOSES OF FENTANYL IV, FLEXERIL PO, AND TYLENOL PO FOR ONGOING BACK PAIN, REPORTS THAT PAIN IS UNDER CONTROL AT THIS TIME, AFEBRILE, CALL LIGHT IN REACH, WILL CONTINUE TO MONITOR, AND GIVE REPORT TO ONCOMING PC MAINTENANCE TECHNICIAN.
--- NOTE | 2018-09-28 20:00 | NUR ---
PATIENT AWAKE, UP IN ROOM WITHOUT DIFFICULTY. C/O LOW BACK PAIN, PATIENT VERBALIZED SHE FEELS IT IS FROM HER UTI. INSULIN DRIP REMAINS OFF. PATIENT ANA DINNER AND SNACK OF PEANUT BUTTER AND CRACKERS WITHOUT DIFFICULTY.
--- NOTE | 2018-09-29 01:02 | NUR ---
PATIENT CONTINUES TO C/O LOW BACK PAIN. SLEEPING OFF AND ON. WARM BLANKET PLACED TO BACK AND PRN MEDICATIONS GIVEN PER EMAR. PATIENT HYPOTENSIVE, NO C/O DIZZINESS OR FEELING LIGHT HEADED.
[2018-09-29 04:46] LABS: Hematocrit 37.1 % (33.0-51.0); Hemoglobin 12.5 g/dL (11.5-16.0); Mean Corpuscular HGB 30.9 pg (26.0-34.0); Mean Corpuscular HGB Conc 33.7 g/dL (31.5-36.5); Mean Corpuscular Volume 92 fL (80-100); Mean Platelet Volume 9.7 fL (9.1-12.4); Platelet Count 279 K/mm3 (150-400); RDW Coefficient Variation 13.9 % (11.7-14.2); RDW Standard Deviation 46.9 fL (35.1-46.3); Red Blood Cell Count 4.04 M/mm3 (3.80-5.20); White Blood Cell Count 5.11 K/mm3 (4.00-11.30)
[2018-09-29 05:02] LABS: Anion Gap 9 mmol/L (6-16); Blood Urea Nitrogen 10 mg/dL (8-24); Bun/Creatinine Ratio 32.5 (12.0-20.0); CO2, Blood 26 mmol/L (21-32); Calcium, Blood 8.6 mg/dL (8.5-10.1); Chloride, Blood 107 mmol/L (98-108); Creatinine, Blood 0.31 mg/dL (0.40-1.00); Glomerular Filtration Rate >60 (60-); Glucose, Blood 216 mg/dL (70-99); Potassium, Blood 2.9 mmol/L (3.5-5.5); Sodium, Blood 142 mmol/L (136-145)
--- NOTE | 2018-09-29 06:31 | NUR ---
SUMMARY PATIENT SLEEPING OFF AND ON T/O THE NIGHT. C/O LOW BACK PAIN T/O NIGHT. SEE EMAR FOR MEDICATION TIMES. PATIENT BECOMING HYPOTENSIVE, NS IV BOLUS GIVEN AND LABS DRAWN PER DOCTOR HATCH. PATIENT AWAKENS EASILY WHEN HYPOTENSIVE. MULTIPLE SNACKS GIVEN T/O NIGHT.
--- NOTE | 2018-09-29 07:15 | NUR ---
START OF SHIFT NOTE: RECEIVED REPORT FROM MELITA OBANDO RN, ASSUMED CARE, PATIENT IS RESTING COMFORTABLY AT THIS TIME, EASILY AWOKEN, ALERT AND ORIENTED, NSR WITH LOW BP'S IN 70'S, PATIENT REPORTS NO LIGHTHEADEDNESS OR DIZZINESS, DENIES ANY SHORTNESS OF BREATH BUT CONTINUES TO C/0 BACK PAIN, K+ 2.9 THIS AM AND PHOS AT 4.7, AFEBRILE, LS CLEAR BUT DIMINISHED IN BASES, PATIENT USES ROOM TOILET AND GETS UP INDEPENDENTLY, CALL LIGHT IN REACH, WILL CONTINUE TO MONITOR.
[2018-09-29 07:52] LABS: Phosphorus, Blood 4.7 mg/dL (2.5-4.9)
--- NOTE | 2018-09-29 08:55 | NUR ---
DR. LOMELI IN TO SEE PATIENT, NEW ORDERS RECEIVED, PATIENT STATUS CHANGED TO MEDICAL/SURGICAL FLOOR, PATIENT STATED "THE DOCTOR TOLD ME I AM MEDICAL STATUS NOW SO CAN YOU UNHOOK ME, SO I CAN GO GET MY BAG AND SMOKE A CIGARETTE", PATIENT WAS INSTRUCTED TO WAIT UNTIL AM MEDS ARE GIVEN, DR. LOMELI AWARE OF PATIENT'S REMARK, AND OK WITH PATIENT GOING OUTSIDE, CALL LIGHT IN REACH, WILL CONTINUE TO MONITOR
--- NOTE | 2018-09-29 09:15 | NUR ---
PATIENT LEFT ROOM TO GO OUTSIDE "GET MY BAG FROM MY CAR", DR. SILVATRATE AWARE, PATIENT IS NOW MEDICAL STATUS, WILL CONTINUE TO MONITOR.
--- NOTE | 2018-09-29 09:47 | NUR ---
PATIENT RETURNED TO ROOM AT 0935 HOURS.
--- NOTE | 2018-09-29 10:28 | NUR ---
REPORT CALLED TO MIGDALIA THORPE, TO TAKE PATIENT IN ROOM 333 AT 1025, ILA WILL CALL WHEN ROOM IS CLEAN AND READY.
[2018-09-29] MEDS ORDERED: LEVO750 PO (11:58)
[2018-09-29] MEDS ORDERED: ONDA4ODT PO (12:02)
[2018-09-29] MEDS ORDERED: POTCHL20ER PO (12:07)
--- NOTE | 2018-09-29 12:33 | NUR ---
DISCHARGED PT. DISCHARGE INSTRUCTIONS REVIEWED WITH PT. ORDER FOR PT TO HAVE LAB WORK DONE PROVIDED TO PT; STAPLED TO DISCHARGE INSTRUCTIONS. REVIEWED MEDICATIONS UPDATES WITH PT AND FAXED MEDICATIONS TO [facility] IN [place] PER PT. REQUEST. PT. REFUSED WHEELCHAIR TRANSPORT TO EXIT.PT TO CALL AND MAKE APPOINTMENT WIHT PCP, REPORTS SHE WILL DO SO WHEN DROPPING OFF NEW PT. PACKET AT NEW FACILITY. PT. AMBULATED TO EXIT W/O DIFFICULTY. ENCOURAGED TO RETURN FOR WORSENING SYMPTOMS.
== END 2018-09-29 12:38 | disposition home or self-care (01) | DRG 639 ==
LOC: ER 10:32 → ERHOLD 14:26 → ICUE 19:46
PROVIDERS: Hospitalist; Physician Assistant; ADMIT Family Medicine
DX: E10.10 Type 1 diabetes mellitus with ketoacidosis without coma (principal); F41.9 Anxiety disorder, unspecified; F32.9 Major depressive disorder, single episode, unspecified; E86.0 Dehydration; E87.6 Hypokalemia; M79.7 Fibromyalgia; E10.40 Type 1 diabetes mellitus with diabetic neuropathy, unspecified; R30.0 Dysuria; I10 Essential (primary) hypertension; K21.9 Gastro-esophageal reflux disease without esophagitis; F17.200 Nicotine dependence, unspecified, uncomplicated; Z88.5 Allergy status to narcotic agent; Z88.8 Allergy status to other drugs, medicaments and biological substances; Z79.4 Long term (current) use of insulin; Z79.899 Other long term (current) drug therapy
CPT/HCPCS: 36415; 76705; 80048; 80051; 80053; 81001; 82010; 82803; 82947; 83036; 83690; 83735; 83930; 84100; 85025; 85027; 93005; 93010; 96361; 96365; 96366; 96367; 96375; 96376; 99284-25; 99285-25; C9113; G0480; J0696; J1650; J1815; J2405; J2550; J2765; J3010; J3480; J7030; J7050; J7060; J7070

== ENCOUNTER 2019-01-19 05:56 | Inpatient (IN) | payer MEDICARE, OTHER ==
[~2019-01-19] VITALS: Ht 162.6 cm; Wt 59.8 kg
[~2019-01-19 05:56] MED LIST changes: -ATOR40TA PO; -BASAGLAR K100 UNIT/1 SC; -GABA400 PO; +LEVO750 PO; -OMEPRAZOLE MAGN20 MG PO; +POTCHL20ER PO
[2019-01-19 06:24] LABS: BASOPHILS ABSOLUTE AUTO 0.04 K/mm3 (0.00-0.23); BASOPHILS PERCENT AUTO 0 % (0-2); EOSINOPHILS PERCENT AUTO 0 % (0-6); Hematocrit 48.4 % (33.0-51.0); Hemoglobin 16.1 g/dL (11.5-16.0); IMMATURE GRAN ABSOLUTE AUTO 0.12 K/mm3 (0.00-0.10); IMMATURE GRAN PERCENT AUTO 1 % (0-1); LYMPHOCYTES ABSOLUTE AUTO 1.79 K/mm3 (0.84-5.20); LYMPHOCYTES PERCENT AUTO 10 % (21-46); MONOCYTES ABSOLUTE AUTO 0.95 K/mm3 (0.16-1.47); MONOCYTES PERCENT AUTO 6 % (4-13); Mean Corpuscular HGB 30.5 pg (26.0-34.0); Mean Corpuscular HGB Conc 33.3 g/dL (31.5-36.5); Mean Corpuscular Volume 92 fL (80-100); NEUTROPHILS ABSOLUTE AUTO 14.33 K/mm3 (1.96-9.15); NEUTROPHILS PERCENT AUTO 83 % (41-73); Platelet Count 568 K/mm3 (150-400); RDW Standard Deviation 47.4 fL (35.1-46.3); Red Blood Cell Count 5.28 M/mm3 (3.80-5.20); White Blood Cell Count 17.23 K/mm3 (4.00-11.30)
[2019-01-19 06:46] LABS: Magnesium, Blood 2.3 mg/dL (1.6-2.4)
[2019-01-19] MEDS ORDERED: VENL75ER PO (07:04)
[2019-01-19 07:08] LABS: Base Excess Venous -9.7 mmol/L; Bicarbonate Venous 17.8 mmol/L (24.0-30.0); PCO2 Venous 32.9 mmHg (38-42); PO2 Venous 82.5 mmHg (38-42); pH Blood Venous 7.31 (7.34-7.37)
[2019-01-19 07:15] LABS: Alanine Aminotransfer (ALT/SGP 17 U/L (12-78); Albumin, Blood 4.8 g/dL (3.4-5.0); Alk Phos 159 U/L (50-136); Anion Gap 24 mmol/L (6-16); Aspartate Aminotrans (AST/SGOT 12 U/L (12-37); Bilirubin, Total 1.2 mg/dL (0.1-1.0); Blood Urea Nitrogen 24 mg/dL (8-24); Bun/Creatinine Ratio 32.9 (12.0-20.0); CO2, Blood 15 mmol/L (21-32); Calcium, Blood 10.4 mg/dL (8.5-10.1); Chloride, Blood 94 mmol/L (98-108); Creatinine, Blood 0.73 mg/dL (0.40-1.00); Globulin, Blood 4.7 g/dL (2.2-4.0); Glomerular Filtration Rate >60 (60-); Glucose, Blood 611 mg/dL (70-99); Potassium, Blood 3.9 mmol/L (3.5-5.5); Sodium, Blood 133 mmol/L (136-145); Total Protein, Blood 9.5 g/dL (6.4-8.2)
[2019-01-19 07:17] LABS: Source, Urine Clean Catch
[2019-01-19 07:20] LABS: Bilirubin, Urine Neg (Neg); Blood, Urine Neg (Neg); Glucose Qualitative, Urine 4+ (Neg); Ketones, Urine 4+ (Neg); Leukocyte Esterase, Urine Neg (Neg); Nitrite, Urine Neg (Neg); Protein, Urine 3+ (Neg); Specific Gravity, Urine 1.015 (1.003-1.022); Urobilinogen, Urine NORM (Normal)
[2019-01-19 07:27] LABS: Appearance, Urine Clear (Clear); Color, Urine Yellow (P-Yellow)
[2019-01-19 07:28] LABS: Bacteria Rare /hpf; Red Blood Cells, Urine Not Seen /hpf (0-2); Squamous Epithelial Cells Rare /hpf (Few); White Blood Cells, Urine 0-2 /hpf (0-5)
--- NOTE | 2019-01-19 10:56 | NUR ---
PT ARRIVES FROM ER CURRENTLY ON INSULIN GTT AT 3.4U/HR, WITH AN LR BOLUS AND LR RUNNING ON PUMP AT 100ML/HR. PT. ABLE TO TRANSER SELF TO ICU BED. PT. FLUSHED UPON ARRIVAL. TEMP OF 99.5 UPON ARRIVAL. PT. ON RA, SPO2 >95%. PT. BP WNL. PT. BG TAKEN UPON ARRIVAL-INSULIN GTT DECRESED TO 2 U/HR. PT VSS AT THIS TIME. CALL LIGHT IN REACH, BED IN LOW POSITION.
--- NOTE | 2019-01-19 11:08 | NUR ---
CALL TO DR. CHRISTY FOR ORDERS
[2019-01-19 12:15] LABS: Albumin, Blood 4.5 g/dL (3.4-5.0); Anion Gap 14 mmol/L (6-16); Blood Urea Nitrogen 27 mg/dL (8-24); Bun/Creatinine Ratio 41.4 (12.0-20.0); CO2, Blood 24 mmol/L (21-32); Calcium, Blood 10.4 mg/dL (8.5-10.1); Chloride, Blood 102 mmol/L (98-108); Creatinine, Blood 0.65 mg/dL (0.40-1.00); Glomerular Filtration Rate >60 (60-); Glucose, Blood 295 mg/dL (70-99); Magnesium, Blood 2.3 mg/dL (1.6-2.4); Phosphorus, Blood 3.3 mg/dL (2.5-4.9); Potassium, Blood 3.7 mmol/L (3.5-5.5); Sodium, Blood 140 mmol/L (136-145)
--- NOTE | 2019-01-19 15:02 | NUR ---
CARE ASSUMED/UPDATE CARE ASSUMED AT 1300. PT HAS BEEN SLEEPING SINCE BUT EASILY AWAKENS WHEN VERBALLY STIMULATED. INSULIN GTT INFUSING AT 1 UNIT/HR CURRENTLY. MD CHRISTY CALLED AT 1400, WAS UPDATED ON BLOOD SUGARS, AND MOST RECENT CHEMISTRY DRAW. T.O. TO CONTINUE INFUSING INSULIN GTT AND RECHECK CHEMISTRY. D5 1/2 NS INFUSING PER ORDER SINCE BLOOD SUGAR WAS 240. CALL LIGHT WITHIN REACH. WILL CONTINUE TO MONITOR.
[2019-01-19 16:12] LABS: Albumin, Blood 3.8 g/dL (3.4-5.0); Anion Gap 10 mmol/L (6-16); Blood Urea Nitrogen 23 mg/dL (8-24); CO2, Blood 24 mmol/L (21-32); Calcium, Blood 9.3 mg/dL (8.5-10.1); Chloride, Blood 106 mmol/L (98-108); Creatinine, Blood 0.51 mg/dL (0.40-1.00); Glomerular Filtration Rate >60 (60-); Glucose, Blood 279 mg/dL (70-99); Magnesium, Blood 2.3 mg/dL (1.6-2.4); Phosphorus, Blood 2.9 mg/dL (2.5-4.9); Potassium, Blood 3.7 mmol/L (3.5-5.5); Sodium, Blood 140 mmol/L (136-145)
--- NOTE | 2019-01-19 18:25 | NUR ---
SHIFT SUMMARY PT SLEPT MOST OF AFTERNOON. UP TO TOILET 1 TIME. INSULIN GTT TURNED OFF AT 1815. MIV CHANGED TO NS WITH POTASSIUM. PT TOLERATING PO AT THIS TIME WITH NO NAUSEA OF VOMITING. FENTANYL 25 MCG IVP GIVEN X1 AT 1800. CALL LIGHT WITHIN REACH. WILL GIVE BEDSIDE, HANDOFF REPORT TO NOC RN.
--- NOTE | 2019-01-19 19:00 | NUR ---
RECEIVED HAND OFF FROM DAY NURSE USING SBAR.
--- NOTE | 2019-01-19 20:00 | NUR ---
LYING IN LOW FOWLERS WITH EYES CLOSED. AAO X3, REID, FOLLOWS ALL COMMANDS, REORIENTED TO ROOM, CALL SYSTEM, AND POC, VOICES UNDERSTANDING. RESPIRATIONS EVEN AND UNLABORED ON ROOM AIR. LUNG SOUNDS CLEAR BILATERALLY. ABDOMEN SOFT AND NONDISTENDED. BOWEL SOUNDS PRESENT IN ALL QUADS. CONTINENT OF BOWEL AND BLADDER, USES COMMODE IN ROOM. SCD'S TO BLE. DENIES FURTHER NEEDS OR WANTS AT THIS TIME. SAFETY MEASURES IN PLACE. WILL CONTINUE TO MONITOR.
[2019-01-20 03:41] LABS: BASOPHILS ABSOLUTE AUTO 0.05 K/mm3 (0.00-0.23); BASOPHILS PERCENT AUTO 0 % (0-2); EOSINOPHILS ABSOLUTE AUTO 0.08 K/mm3 (0.00-0.68); EOSINOPHILS PERCENT AUTO 1 % (0-6); Hematocrit 42.6 % (33.0-51.0); Hemoglobin 13.8 g/dL (11.5-16.0); IMMATURE GRAN ABSOLUTE AUTO 0.05 K/mm3 (0.00-0.10); IMMATURE GRAN PERCENT AUTO 0 % (0-1); LYMPHOCYTES ABSOLUTE AUTO 4.22 K/mm3 (0.84-5.20); LYMPHOCYTES PERCENT AUTO 28 % (21-46); MONOCYTES ABSOLUTE AUTO 1.03 K/mm3 (0.16-1.47); MONOCYTES PERCENT AUTO 7 % (4-13); Mean Corpuscular HGB 30.3 pg (26.0-34.0); Mean Corpuscular HGB Conc 32.4 g/dL (31.5-36.5); Mean Corpuscular Volume 94 fL (80-100); Mean Platelet Volume 9.4 fL (9.1-12.4); NEUTROPHILS ABSOLUTE AUTO 9.72 K/mm3 (1.96-9.15); NEUTROPHILS PERCENT AUTO 64 % (41-73); Platelet Count 389 K/mm3 (150-400); RDW Coefficient Variation 14.3 % (11.7-14.2); RDW Standard Deviation 49.5 fL (35.1-46.3); Red Blood Cell Count 4.55 M/mm3 (3.80-5.20); White Blood Cell Count 15.15 K/mm3 (4.00-11.30)
[2019-01-20 04:01] LABS: Anion Gap 2 mmol/L (6-16); Blood Urea Nitrogen 20 mg/dL (8-24); Bun/Creatinine Ratio 35.2 (12.0-20.0); CO2, Blood 29 mmol/L (21-32); Chloride, Blood 109 mmol/L (98-108); Creatinine, Blood 0.57 mg/dL (0.40-1.00); Glomerular Filtration Rate >60 (60-); Glucose, Blood 143 mg/dL (70-99); Magnesium, Blood 2.2 mg/dL (1.6-2.4); Phosphorus, Blood 2.4 mg/dL (2.5-4.9); Sodium, Blood 140 mmol/L (136-145)
--- NOTE | 2019-01-20 06:31 | NUR ---
LYING IN SEMI FOWLERS WITH EYES CLOSED. HAS RESTED OFF AND ON THROUGHOUT SHIFT. VOMITED X1, ZOFRAN GIVEN. DENIES FURTHER NEEDS AT THIS TIME. SAFETY MEASURES IN PLACE. WILL GIVE HAND OFF TO ONCOMING SHIFT USING SBAR.
--- NOTE | 2019-01-20 07:52 | NUR ---
NURSING PCU DAYSHIFT: Assumed care of pt at approx 0700. A/O, anxious, cooperative w/care. C/O 7-8 WOOTEN and back pain, acute, treating w/meds, positioning, and cool cloths. Chronic numbness/tingling of all ext's. Ambulates independently and w/o difficulty. Cardiac monitoring in place, NSR, hypertensive, no noted edema, no c/o CP/pressure. L/S cta t/o, O2 sat upper 90's on RA, denies dyspnea, no noted cough. Abd tender, BT+, c/o frequent nausea w/frothy emesis, voiding w/o difficulty. PIV x2, NS w/KCL infusing at 150cc/hr. Pt requests medications for pain and nausea, treating as ordered. Denies any other needs or questions regarding plan of care. Call light in reach and pt is able to use w/o difficulty. Awaiting rounding from PMD, cont to monitor for any changes.
[2019-01-20 10:52] LABS: Alanine Aminotransfer (ALT/SGP 18 U/L (12-78); Albumin, Blood 3.9 g/dL (3.4-5.0); Albumin/Globulin Ratio 1.1 (0.8-1.8); Alk Phos 107 U/L (50-136); Anion Gap 5 mmol/L (6-16); Aspartate Aminotrans (AST/SGOT 15 U/L (12-37); Bilirubin, Direct 0.2 mg/dL (0.0-0.3); Bilirubin, Indirect 0.9 mg/dL (0.1-0.7); Bilirubin, Total 1.1 mg/dL (0.1-1.0); Blood Urea Nitrogen 19 mg/dL (8-24); Bun/Creatinine Ratio 30.2 (12.0-20.0); CO2, Blood 26 mmol/L (21-32); Calcium, Blood 9.1 mg/dL (8.5-10.1); Chloride, Blood 109 mmol/L (98-108); Creatinine, Blood 0.63 mg/dL (0.40-1.00); Globulin, Blood 3.4 g/dL (2.2-4.0); Glomerular Filtration Rate >60 (60-); Glucose, Blood 138 mg/dL (70-99); Potassium, Blood 4.1 mmol/L (3.5-5.5); Sodium, Blood 140 mmol/L (136-145)
[2019-01-20 11:01] LABS: Total Protein, Blood 7.3 g/dL (6.4-8.2)
--- NOTE | 2019-01-20 17:19 | NUR ---
NURSING ICU DAYSHIFT SUMMARY: Pt has continued to c/o N/V t/o majority of shift as well as -04/28 abd/back/head pain, treating w/meds as ordered. Was able to have uninterrupted rest t/o afternoon, appeared comfortable during this time. Abd U/S completed, results reviewed. Increasing HTN noted t/o afternoon, PMD notified, PRN cardiac meds not required as SBP remains below 180. NS w/KCL continues to infuse at 150cc/hr, K+phos rider administered as ordered. S/O currently at bedside. Update provided, pt and s/o denied any questions. Pt denies any current needs, call light in reach, cont to monitor until rpt is given to NOC RN.
--- NOTE | 2019-01-21 02:48 | NUR ---
48 year old Female contyinues on IVF with potassium and she asks frequently to be saline locked to smoke. Tolerating diet clear full liquid, advanced to ada for BF. She has lt flank and back pain relieved by fentanyl 50 mcg. Medicated for nausea several times.
[2019-01-21 05:50] LABS: Albumin, Blood 3.4 g/dL (3.4-5.0); Anion Gap 6 mmol/L (6-16); Blood Urea Nitrogen 6 mg/dL (8-24); Bun/Creatinine Ratio 14.5 (12.0-20.0); CO2, Blood 28 mmol/L (21-32); Calcium, Blood 8.7 mg/dL (8.5-10.1); Chloride, Blood 108 mmol/L (98-108); Creatinine, Blood 0.42 mg/dL (0.40-1.00); Glomerular Filtration Rate >60 (60-); Glucose, Blood 80 mg/dL (70-99); Phosphorus, Blood 3.4 mg/dL (2.5-4.9); Potassium, Blood 3.3 mmol/L (3.5-5.5); Sodium, Blood 142 mmol/L (136-145)
[2019-01-21] MEDS ORDERED: METO5A PO (11:58)
--- NOTE | 2019-01-21 12:55 | NUR ---
PATIENT DISCHARGE THE PATIENT WAS DISCHARGED HOME WITH HER FRIEND, AFTER DISCHARGE INSTRUCTIONS WERE GIVEN TO TO THE PATIENT. THE PATIENT LEFT THE HOSPITAL WITHOUT CONCERN OR COMPLAINT.
== END 2019-01-21 12:55 | disposition home or self-care (01) | DRG 638 ==
LOC: ER 05:56 → ICUW 05:57 → ICUE 10:21 → MEDS 01-20 18:47
PROVIDERS: Emergency Medicine; ADMIT Internal Medicine
DX: E11.10 Type 2 diabetes mellitus with ketoacidosis without coma (principal); E87.1 Hypo-osmolality and hyponatremia; Z79.4 Long term (current) use of insulin; E11.43 Type 2 diabetes mellitus with diabetic autonomic (poly)neuropathy; K31.84 Gastroparesis; I16.0 Hypertensive urgency; E86.0 Dehydration; E87.6 Hypokalemia; E83.39 Other disorders of phosphorus metabolism; E11.42 Type 2 diabetes mellitus with diabetic polyneuropathy; I10 Essential (primary) hypertension; I35.0 Nonrheumatic aortic (valve) stenosis; F32.9 Major depressive disorder, single episode, unspecified; F41.9 Anxiety disorder, unspecified; K21.9 Gastro-esophageal reflux disease without esophagitis; G89.4 Chronic pain syndrome; M79.7 Fibromyalgia; M81.0 Age-related osteoporosis without current pathological fracture; F17.210 Nicotine dependence, cigarettes, uncomplicated
CPT/HCPCS: 36415; 74176; 76705; 80048; 80053; 80069; 80076; 81001; 82803; 82947; 83690; 83735; 84100; 85025; 96361; 96365; 96366; 96375; 96376; 99285-25; A9270; C9113; J1650; J1815; J2405; J2550; J2765; J3010; J3480; J7030; J7060; J7120

== ENCOUNTER 2019-01-31 09:44 | Emergency (ER) | payer MEDICARE, OTHER ==
[~2019-01-31] VITALS: Ht 162.6 cm; Wt 59.0 kg
[~2019-01-31 09:44] MED LIST changes: +VENL75ER PO
[2019-01-31 10:35] LABS: BASOPHILS ABSOLUTE AUTO 0.05 K/mm3 (0.00-0.23); BASOPHILS PERCENT AUTO 0 % (0-2); EOSINOPHILS ABSOLUTE AUTO 0.01 K/mm3 (0.00-0.68); EOSINOPHILS PERCENT AUTO 0 % (0-6); Hematocrit 46.7 % (33.0-51.0); Hemoglobin 15.7 g/dL (11.5-16.0); IMMATURE GRAN ABSOLUTE AUTO 0.06 K/mm3 (0.00-0.10); IMMATURE GRAN PERCENT AUTO 0 % (0-1); LYMPHOCYTES PERCENT AUTO 12 % (21-46); MONOCYTES ABSOLUTE AUTO 0.51 K/mm3 (0.16-1.47); MONOCYTES PERCENT AUTO 3 % (4-13); Mean Corpuscular HGB 30.8 pg (26.0-34.0); Mean Corpuscular HGB Conc 33.6 g/dL (31.5-36.5); Mean Corpuscular Volume 92 fL (80-100); Mean Platelet Volume 9.6 fL (9.1-12.4); NEUTROPHILS ABSOLUTE AUTO 12.83 K/mm3 (1.96-9.15); NEUTROPHILS PERCENT AUTO 84 % (41-73); Platelet Count 517 K/mm3 (150-400); RDW Coefficient Variation 13.6 % (11.7-14.2); RDW Standard Deviation 46.5 fL (35.1-46.3); White Blood Cell Count 15.36 K/mm3 (4.00-11.30)
[2019-01-31 10:44] LABS: Alanine Aminotransfer (ALT/SGP 16 U/L (12-78); Albumin, Blood 4.2 g/dL (3.4-5.0); Alk Phos 116 U/L (50-136); Anion Gap 16 mmol/L (6-16); Aspartate Aminotrans (AST/SGOT 10 U/L (12-37); Bilirubin, Total 1.2 mg/dL (0.1-1.0); Blood Urea Nitrogen 8 mg/dL (8-24); Bun/Creatinine Ratio 17.5 (12.0-20.0); CO2, Blood 19 mmol/L (21-32); Calcium, Blood 9.2 mg/dL (8.5-10.1); Chloride, Blood 100 mmol/L (98-108); Creatinine, Blood 0.46 mg/dL (0.40-1.00); Globulin, Blood 4.2 g/dL (2.2-4.0); Glomerular Filtration Rate >60 (60-); Glucose, Blood 305 mg/dL (70-99); Potassium, Blood 3.7 mmol/L (3.5-5.5); Sodium, Blood 135 mmol/L (136-145); Total Protein, Blood 8.4 g/dL (6.4-8.2)
[2019-01-31 13:24] LABS: Anion Gap 10 mmol/L (6-16); Blood Urea Nitrogen 7 mg/dL (8-24); Bun/Creatinine Ratio 17.6 (12.0-20.0); CO2, Blood 20 mmol/L (21-32); Calcium, Blood 7.3 mg/dL (8.5-10.1); Chloride, Blood 112 mmol/L (98-108); Glomerular Filtration Rate >60 (60-); Glucose, Blood 198 mg/dL (70-99); Potassium, Blood 3.4 mmol/L (3.5-5.5); Sodium, Blood 142 mmol/L (136-145)
[2019-01-31] MEDS ORDERED: Zofran8 MG PO (14:44)
[2019-01-31] MEDS ORDERED: PROM25 PO (14:44)
== END 2019-01-31 15:20 | disposition home or self-care (01) ==
LOC: ER 09:44
PROVIDERS: Emergency Medicine
DX: R11.2 Nausea with vomiting, unspecified (principal); E11.10 Type 2 diabetes mellitus with ketoacidosis without coma; R10.9 Unspecified abdominal pain; M54.5 Low back pain; Z88.5 Allergy status to narcotic agent; Z88.8 Allergy status to other drugs, medicaments and biological substances; Z79.899 Other long term (current) drug therapy; Z79.4 Long term (current) use of insulin; K21.9 Gastro-esophageal reflux disease without esophagitis; I10 Essential (primary) hypertension; E11.40 Type 2 diabetes mellitus with diabetic neuropathy, unspecified; F32.9 Major depressive disorder, single episode, unspecified; F41.9 Anxiety disorder, unspecified; F17.210 Nicotine dependence, cigarettes, uncomplicated
CPT/HCPCS: 36415; 71045; 80048; 80053; 82947; 83690; 84484; 85025; 93005; 93010; 96361; 96374; 96375; 99284-25; C9113; J1200; J1815; J2765; J7030

== ENCOUNTER 2019-02-03 11:58 | Emergency (ER) | payer MEDICARE, OTHER ==
[~2019-02-03] VITALS: Ht 162.6 cm; Wt 59.0 kg
[~2019-02-03 11:58] MED LIST changes: +Zofran8 MG PO
[2019-02-03 12:28] LABS: BASOPHILS ABSOLUTE AUTO 0.04 K/mm3 (0.00-0.23); BASOPHILS PERCENT AUTO 1 % (0-2); EOSINOPHILS ABSOLUTE AUTO 0.06 K/mm3 (0.00-0.68); EOSINOPHILS PERCENT AUTO 1 % (0-6); Hematocrit 45.5 % (33.0-51.0); Hemoglobin 15.4 g/dL (11.5-16.0); IMMATURE GRAN ABSOLUTE AUTO 0.02 K/mm3 (0.00-0.10); IMMATURE GRAN PERCENT AUTO 0 % (0-1); LYMPHOCYTES ABSOLUTE AUTO 2.25 K/mm3 (0.84-5.20); LYMPHOCYTES PERCENT AUTO 30 % (21-46); MONOCYTES ABSOLUTE AUTO 0.42 K/mm3 (0.16-1.47); MONOCYTES PERCENT AUTO 6 % (4-13); Mean Corpuscular HGB 31.4 pg (26.0-34.0); Mean Corpuscular HGB Conc 33.8 g/dL (31.5-36.5); Mean Corpuscular Volume 93 fL (80-100); Mean Platelet Volume 9.3 fL (9.1-12.4); NEUTROPHILS ABSOLUTE AUTO 4.63 K/mm3 (1.96-9.15); NEUTROPHILS PERCENT AUTO 62 % (41-73); Platelet Count 500 K/mm3 (150-400); RDW Coefficient Variation 13.2 % (11.7-14.2); RDW Standard Deviation 45.2 fL (35.1-46.3); Red Blood Cell Count 4.91 M/mm3 (3.80-5.20); White Blood Cell Count 7.42 K/mm3 (4.00-11.30)
[2019-02-03 12:37] LABS: Source, Urine Clean Catch
[2019-02-03 12:40] LABS: Bilirubin, Urine Neg (Neg); Blood, Urine Neg (Neg); Glucose Qualitative, Urine 4+ (Neg); Ketones, Urine 4+ (Neg); Leukocyte Esterase, Urine Neg (Neg); Nitrite, Urine Neg (Neg); Protein, Urine 2+ (Neg); Urobilinogen, Urine NORM (Normal)
[2019-02-03 12:49] LABS: Alanine Aminotransfer (ALT/SGP 15 U/L (12-78); Alk Phos 99 U/L (50-136); Anion Gap 13 mmol/L (6-16); Aspartate Aminotrans (AST/SGOT 9 U/L (12-37); Bilirubin, Total 1.2 mg/dL (0.1-1.0); Blood Urea Nitrogen 7 mg/dL (8-24); Bun/Creatinine Ratio 16.1 (12.0-20.0); CO2, Blood 22 mmol/L (21-32); Calcium, Blood 9.1 mg/dL (8.5-10.1); Chloride, Blood 101 mmol/L (98-108); Creatinine, Blood 0.44 mg/dL (0.40-1.00); Glomerular Filtration Rate >60 (60-); Glucose, Blood 275 mg/dL (70-99); Potassium, Blood 3.3 mmol/L (3.5-5.5); Sodium, Blood 136 mmol/L (136-145); Troponin I <0.015 ng/mL (0.000-0.040)
[2019-02-03 12:50] LABS: Appearance, Urine Clear (Clear); Color, Urine Yellow (P-Yellow)
[2019-02-03 13:05] LABS: Amorphous Light (0-Heavy); Bacteria Few /hpf; Red Blood Cells, Urine 0-2 /hpf (0-2); Squamous Epithelial Cells Many /hpf (Few)
[2019-02-03] MEDS ORDERED: Zofran8 MG PO (16:27)
[2019-02-03] MEDS ORDERED: PROM25 PO (16:27)
== END 2019-02-03 16:24 | disposition home or self-care (01) ==
LOC: ER 11:58
PROVIDERS: Emergency Medicine
DX: M54.5 Low back pain (principal); R11.2 Nausea with vomiting, unspecified; E11.9 Type 2 diabetes mellitus without complications; K21.9 Gastro-esophageal reflux disease without esophagitis; M19.90 Unspecified osteoarthritis, unspecified site; Z79.4 Long term (current) use of insulin; Z79.899 Other long term (current) drug therapy; Z88.5 Allergy status to narcotic agent; Z88.8 Allergy status to other drugs, medicaments and biological substances; F17.210 Nicotine dependence, cigarettes, uncomplicated
CPT/HCPCS: 71046; 80053; 81001; 83690; 84484; 85025; 93005; 93010; 96361; 96374; 96375; 96376; 99284-25; J1885; J2405; J7120

== ENCOUNTER 2019-02-08 11:11 | Observation (INO) | payer MEDICARE, OTHER ==
[~2019-02-08] VITALS: Ht 162.6 cm; Wt 59.0 kg
[2019-02-08 11:41] LABS: BASOPHILS ABSOLUTE AUTO 0.05 K/mm3 (0.00-0.23); BASOPHILS PERCENT AUTO 1 % (0-2); EOSINOPHILS ABSOLUTE AUTO 0.07 K/mm3 (0.00-0.68); EOSINOPHILS PERCENT AUTO 1 % (0-6); Hematocrit 42.6 % (33.0-51.0); Hemoglobin 14.7 g/dL (11.5-16.0); IMMATURE GRAN ABSOLUTE AUTO 0.03 K/mm3 (0.00-0.10); IMMATURE GRAN PERCENT AUTO 0 % (0-1); LYMPHOCYTES ABSOLUTE AUTO 2.48 K/mm3 (0.84-5.20); LYMPHOCYTES PERCENT AUTO 26 % (21-46); MONOCYTES ABSOLUTE AUTO 0.42 K/mm3 (0.16-1.47); MONOCYTES PERCENT AUTO 4 % (4-13); Mean Corpuscular HGB 31.3 pg (26.0-34.0); Mean Corpuscular HGB Conc 34.5 g/dL (31.5-36.5); Mean Corpuscular Volume 91 fL (80-100); Mean Platelet Volume 9.8 fL (9.1-12.4); NEUTROPHILS ABSOLUTE AUTO 6.54 K/mm3 (1.96-9.15); NEUTROPHILS PERCENT AUTO 68 % (41-73); Platelet Count 440 K/mm3 (150-400); RDW Coefficient Variation 13.2 % (11.7-14.2); RDW Standard Deviation 44.2 fL (35.1-46.3); White Blood Cell Count 9.59 K/mm3 (4.00-11.30)
[2019-02-08 11:56] LABS: Source, Urine Clean Catch
[2019-02-08 12:01] LABS: Appearance, Urine Clear (Clear); Bilirubin, Urine Neg (Neg); Blood, Urine Neg (Neg); Color, Urine Yellow (P-Yellow); Glucose Qualitative, Urine 4+ (Neg); Ketones, Urine 3+ (Neg); Leukocyte Esterase, Urine Neg (Neg); Nitrite, Urine Neg (Neg); Protein, Urine 1+ (Neg); Urobilinogen, Urine NORM (Normal)
[2019-02-08 12:01] LABS: Alanine Aminotransfer (ALT/SGP 15 U/L (12-78); Albumin, Blood 3.9 g/dL (3.4-5.0); Albumin/Globulin Ratio 1.1 (0.8-1.8); Alk Phos 87 U/L (50-136); Anion Gap 6 mmol/L (6-16); Aspartate Aminotrans (AST/SGOT 11 U/L (12-37); Bilirubin, Total 0.8 mg/dL (0.1-1.0); Blood Urea Nitrogen 3 mg/dL (8-24); Bun/Creatinine Ratio 8.6 (12.0-20.0); CO2, Blood 29 mmol/L (21-32); Chloride, Blood 101 mmol/L (98-108); Creatinine, Blood 0.35 mg/dL (0.40-1.00); Globulin, Blood 3.4 g/dL (2.2-4.0); Glomerular Filtration Rate >60 (60-); Glucose, Blood 217 mg/dL (70-99); Potassium, Blood 2.7 mmol/L (3.5-5.5); Sodium, Blood 136 mmol/L (136-145); Total Protein, Blood 7.3 g/dL (6.4-8.2)
[2019-02-08 13:07] LABS: Base Excess Venous 7.2 mmol/L; Bicarbonate Venous 29.8 mmol/L (24.0-30.0); PCO2 Venous 48.9 mmHg (38-42); PO2 Venous 89.4 mmHg (38-42); pH Blood Venous 7.42 (7.34-7.37)
[2019-02-08] MEDS ORDERED: ATOR40TA PO (13:55)
[2019-02-08] MEDS ORDERED: GABA400 PO (13:55)
[2019-02-08] MEDS ORDERED: BASAGLAR K100 UNIT/1 SC (13:55)
[2019-02-08] MEDS ORDERED: OMEP20ER PO (13:56)
[2019-02-08] MEDS ORDERED: LISI5 PO (13:56)
[2019-02-08] MEDS ORDERED: VENLAFAXINE HCL75 MG PO (13:57)
[2019-02-08] MEDS ORDERED: Novolog100 UNIT/2 SC (14:15)
[2019-02-08] MEDS ORDERED: INSULANPEN SC (16:12)
[2019-02-09 04:45] LABS: Anion Gap 6 mmol/L (6-16); Blood Urea Nitrogen 3 mg/dL (8-24); Bun/Creatinine Ratio 5.8 (12.0-20.0); CO2, Blood 29 mmol/L (21-32); Calcium, Blood 7.9 mg/dL (8.5-10.1); Chloride, Blood 108 mmol/L (98-108); Creatinine, Blood 0.52 mg/dL (0.40-1.00); Glomerular Filtration Rate >60 (60-); Glucose, Blood 158 mg/dL (70-99); Potassium, Blood 3.3 mmol/L (3.5-5.5); Sodium, Blood 143 mmol/L (136-145)
--- NOTE | 2019-02-09 05:17 | NUR ---
SHIFT SUMMARY PT SLEEPING IN ROOM COMFORTABLY AT THIS TIME. NO ACUTE CHANGHES IN STATUS T/O NIGHT. PT REMAINED PAINFUL, W/ CRAMPS IN LOWER EXT, AND BACK. PT HAD ALL 3 BAGS OF KCL INFUSED IN PIV, TOLERATED FAIR. PT WAS ABLE TO SLEEP COMFORTABLY FOR SEVERAL HOURS, AND WAS ABLE TO TOLERATE PO MEDS BEFORE BED. PT AWOKE MIDDLE OF THE NIGHT HUNGRY AND TOLERATED JELLO WELL. PT ON CLEAR LIQUID DIET. RESP EVEN UNLABORED WHILE SLEEPING, W/ SATS >92%. PT RESP TACHY UPON WAKING, D/T PT REPORTING PAIN. CALL LIGHT IN REACH.
== END 2019-02-09 16:40 | disposition home or self-care (01) ==
LOC: ER 11:11 → PCU 11:12
PROVIDERS: Emergency Medicine; ADMIT Hospitalist
DX: E87.6 Hypokalemia (principal); R11.2 Nausea with vomiting, unspecified; E10.40 Type 1 diabetes mellitus with diabetic neuropathy, unspecified; I10 Essential (primary) hypertension; G89.29 Other chronic pain; I35.0 Nonrheumatic aortic (valve) stenosis; K21.9 Gastro-esophageal reflux disease without esophagitis; M79.7 Fibromyalgia; M19.90 Unspecified osteoarthritis, unspecified site; F17.200 Nicotine dependence, unspecified, uncomplicated; Z79.899 Other long term (current) drug therapy; Z79.4 Long term (current) use of insulin; Z88.5 Allergy status to narcotic agent; Z88.8 Allergy status to other drugs, medicaments and biological substances
CPT/HCPCS: 36415; 74176; 80048; 80053; 82803; 82947; 83690; 83735; 85025; 96361; 96365; 96366; 96368; 96372; 96375; 96376; 99285-25; A9270; C9113; G0378; J0780; J1650; J2405; J2765; J3475; J3480; J7030; J7040

== ENCOUNTER 2019-02-28 11:13 | Day surgery (SDC) | payer MEDICARE, OTHER ==
[~2019-02-28] VITALS: Ht 162.6 cm; Wt 64.6 kg
[~2019-02-28 11:13] MED LIST changes: +ATOR40TA PO; +BASAGLAR K100 UNIT/1 SC; +GABA400 PO; +LISI5 PO; +OMEP20ER PO; +VENLAFAXINE HCL75 MG PO
--- NOTE | 2019-02-28 11:30 | NUR ---
02/28/19 1130 Meagan Anders Notified of delay at [phone]
[2019-02-28] MEDS ORDERED: VENL75ER (14:18)
[2019-02-28] MEDS ORDERED: METO10 ×2 (14:18→14:19)
== END 2019-02-28 15:35 | disposition home or self-care (01) ==
LOC: ORSCSDS 11:13
PROVIDERS: Internal Medicine Gastroenterology
PROC: 0DB68ZX Excision of Stomach, Via Natural or Artificial Opening Endoscopic, Diagnostic (ICD-10-PCS; principal; 2019-02-28 12:30)
PROC: 0DB58ZX Excision of Esophagus, Via Natural or Artificial Opening Endoscopic, Diagnostic (ICD-10-PCS; principal; 2019-02-28 12:30)
DX: R11.2 Nausea with vomiting, unspecified (principal); K21.0 Gastro-esophageal reflux disease with esophagitis; R10.9 Unspecified abdominal pain; R19.7 Diarrhea, unspecified; E11.9 Type 2 diabetes mellitus without complications; I10 Essential (primary) hypertension; M79.7 Fibromyalgia; F17.210 Nicotine dependence, cigarettes, uncomplicated; Z79.4 Long term (current) use of insulin; Z79.899 Other long term (current) drug therapy
CPT/HCPCS: 36415; 80053; 82947; 85025; 88305; 88342; J2704; J7120

== ENCOUNTER 2019-03-21 16:52 | Emergency (ER) | payer OTHER ==
[~2019-03-21] VITALS: Ht 162.6 cm; Wt 61.0 kg
[~2019-03-21 16:52] MED LIST changes: +METO10; +VENL75ER
[2019-03-21 17:41] LABS: Base Excess Venous -1.5 mmol/L; Bicarbonate Venous 23.8 mmol/L (24.0-30.0); PCO2 Venous 33.7 mmHg (38-42); PO2 Venous 117 mmHg (38-42); pH Blood Venous 7.44 (7.34-7.37)
[2019-03-21 17:42] LABS: BASOPHILS ABSOLUTE AUTO 0.01 K/mm3 (0.00-0.23); BASOPHILS PERCENT AUTO 0 % (0-2); EOSINOPHILS PERCENT AUTO 0 % (0-6); Hematocrit 44.5 % (33.0-51.0); Hemoglobin 15.1 g/dL (11.5-16.0); IMMATURE GRAN ABSOLUTE AUTO 0.03 K/mm3 (0.00-0.10); IMMATURE GRAN PERCENT AUTO 0 % (0-1); LYMPHOCYTES ABSOLUTE AUTO 1.57 K/mm3 (0.84-5.20); LYMPHOCYTES PERCENT AUTO 13 % (21-46); MONOCYTES ABSOLUTE AUTO 0.19 K/mm3 (0.16-1.47); MONOCYTES PERCENT AUTO 2 % (4-13); Mean Corpuscular HGB 30.7 pg (26.0-34.0); Mean Corpuscular HGB Conc 33.9 g/dL (31.5-36.5); Mean Corpuscular Volume 90 fL (80-100); Mean Platelet Volume 9.8 fL (9.1-12.4); NEUTROPHILS ABSOLUTE AUTO 10.47 K/mm3 (1.96-9.15); NEUTROPHILS PERCENT AUTO 85 % (41-73); Platelet Count 473 K/mm3 (150-400); RDW Coefficient Variation 12.3 % (11.7-14.2); RDW Standard Deviation 40.8 fL (35.1-46.3); Red Blood Cell Count 4.92 M/mm3 (3.80-5.20); White Blood Cell Count 12.27 K/mm3 (4.00-11.30)
[2019-03-21 17:57] LABS: Alanine Aminotransfer (ALT/SGP 15 U/L (12-78); Albumin, Blood 4.4 g/dL (3.4-5.0); Alk Phos 128 U/L (50-136); Anion Gap 11 mmol/L (6-16); Aspartate Aminotrans (AST/SGOT 11 U/L (12-37); Bilirubin, Total 0.8 mg/dL (0.1-1.0); Blood Urea Nitrogen 7 mg/dL (8-24); Bun/Creatinine Ratio 18.9 (12.0-20.0); CO2, Blood 24 mmol/L (21-32); Calcium, Blood 9.9 mg/dL (8.5-10.1); Chloride, Blood 98 mmol/L (98-108); Creatinine, Blood 0.37 mg/dL (0.40-1.00); Globulin, Blood 4.2 g/dL (2.2-4.0); Glomerular Filtration Rate >60 (60-); Glucose, Blood 300 mg/dL (70-99); Potassium, Blood 3.4 mmol/L (3.5-5.5); Sodium, Blood 133 mmol/L (136-145); Total Protein, Blood 8.6 g/dL (6.4-8.2)
[2019-03-21 18:55] LABS: Source, Urine Clean Catch
[2019-03-21 18:59] LABS: Bilirubin, Urine Neg (Neg); Blood, Urine Neg (Neg); Color, Urine Yellow (P-Yellow); Glucose Qualitative, Urine 4+ (Neg); Ketones, Urine 4+ (Neg); Leukocyte Esterase, Urine Neg (Neg); Nitrite, Urine Neg (Neg); Protein, Urine 3+ (Neg); Urobilinogen, Urine NORM (Normal)
[2019-03-21 19:07] LABS: Appearance, Urine Clear (Clear); Bacteria Few /hpf; Red Blood Cells, Urine 0-2 /hpf (0-2); Squamous Epithelial Cells Rare /hpf (Few); White Blood Cells, Urine 0-2 /hpf (0-5)
== END 2019-03-21 19:53 | disposition home or self-care (01) ==
LOC: ER 16:52
PROVIDERS: Emergency Medicine
DX: E10.65 Type 1 diabetes mellitus with hyperglycemia (principal); E10.42 Type 1 diabetes mellitus with diabetic polyneuropathy; R19.7 Diarrhea, unspecified; R11.2 Nausea with vomiting, unspecified; K21.9 Gastro-esophageal reflux disease without esophagitis; I10 Essential (primary) hypertension; F32.9 Major depressive disorder, single episode, unspecified; F41.9 Anxiety disorder, unspecified; F17.210 Nicotine dependence, cigarettes, uncomplicated; R07.9 Chest pain, unspecified; D72.829 Elevated white blood cell count, unspecified; Z88.5 Allergy status to narcotic agent; Z88.8 Allergy status to other drugs, medicaments and biological substances; Z79.899 Other long term (current) drug therapy
CPT/HCPCS: 36415; 80053; 81001; 82803; 82947; 84484; 85025; 93005; 93010; 96361; 96374; 96375; 99284-25; J2405; J2550; J7030

== ENCOUNTER 2019-03-22 09:22 | Emergency (ER) | payer OTHER ==
[~2019-03-22] VITALS: Ht 162.6 cm; Wt 61.0 kg
[2019-03-22 09:47] LABS: BASOPHILS ABSOLUTE AUTO 0.04 K/mm3 (0.00-0.23); BASOPHILS PERCENT AUTO 0 % (0-2); EOSINOPHILS PERCENT AUTO 0 % (0-6); Hematocrit 47.5 % (33.0-51.0); Hemoglobin 16.3 g/dL (11.5-16.0); IMMATURE GRAN ABSOLUTE AUTO 0.06 K/mm3 (0.00-0.10); IMMATURE GRAN PERCENT AUTO 0 % (0-1); LYMPHOCYTES ABSOLUTE AUTO 2.88 K/mm3 (0.84-5.20); LYMPHOCYTES PERCENT AUTO 18 % (21-46); MONOCYTES ABSOLUTE AUTO 1.11 K/mm3 (0.16-1.47); MONOCYTES PERCENT AUTO 7 % (4-13); Mean Corpuscular HGB Conc 34.3 g/dL (31.5-36.5); Mean Corpuscular Volume 90 fL (80-100); Mean Platelet Volume 9.7 fL (9.1-12.4); NEUTROPHILS ABSOLUTE AUTO 11.94 K/mm3 (1.96-9.15); NEUTROPHILS PERCENT AUTO 75 % (41-73); Platelet Count 576 K/mm3 (150-400); RDW Coefficient Variation 12.6 % (11.7-14.2); RDW Standard Deviation 41.5 fL (35.1-46.3); Red Blood Cell Count 5.26 M/mm3 (3.80-5.20); White Blood Cell Count 16.03 K/mm3 (4.00-11.30)
[2019-03-22 10:04] LABS: Alanine Aminotransfer (ALT/SGP 14 U/L (12-78); Albumin, Blood 4.5 g/dL (3.4-5.0); Alk Phos 138 U/L (50-136); Anion Gap 14 mmol/L (6-16); Aspartate Aminotrans (AST/SGOT 11 U/L (12-37); Beta-hydroxybutyrate 33.1 mg/dL (0.2-2.8); Blood Urea Nitrogen 17 mg/dL (8-24); Bun/Creatinine Ratio 31.5 (12.0-20.0); CO2, Blood 23 mmol/L (21-32); Calcium, Blood 10.2 mg/dL (8.5-10.1); Chloride, Blood 95 mmol/L (98-108); Creatinine, Blood 0.54 mg/dL (0.40-1.00); Globulin, Blood 4.6 g/dL (2.2-4.0); Glomerular Filtration Rate >60 (60-); Glucose, Blood 387 mg/dL (70-99); Potassium, Blood 3.3 mmol/L (3.5-5.5); Sodium, Blood 132 mmol/L (136-145); Total Protein, Blood 9.1 g/dL (6.4-8.2)
[2019-03-22 11:03] LABS: Source, Urine Clean Catch
[2019-03-22 11:06] LABS: Appearance, Urine Clear (Clear); Bilirubin, Urine Neg (Neg); Blood, Urine 1+ (Neg); Color, Urine Yellow (P-Yellow); Glucose Qualitative, Urine 4+ (Neg); Ketones, Urine 4+ (Neg); Leukocyte Esterase, Urine Neg (Neg); Nitrite, Urine Neg (Neg); Protein, Urine 3+ (Neg); Urobilinogen, Urine NORM (Normal)
[2019-03-22 11:21] LABS: Bacteria Not Seen /hpf; Red Blood Cells, Urine Rare /hpf (0-2); Squamous Epithelial Cells Rare /hpf (Few); White Blood Cells, Urine Not Seen /hpf (0-5)
[2019-03-23] MEDS ORDERED: PROM25 PO (10:26)
[2019-03-23] MEDS ORDERED: ONDA8 PO (10:26)
[2019-03-23] MEDS ORDERED: PROM25 PR (14:35)
[2019-03-23] MEDS ORDERED: Zofran8 MG PO (14:35)
== END 2019-03-22 13:42 | disposition home or self-care (01) ==
LOC: ER 09:22
PROVIDERS: Physician Assistant
DX: E11.65 Type 2 diabetes mellitus with hyperglycemia (principal); Z88.5 Allergy status to narcotic agent; Z88.8 Allergy status to other drugs, medicaments and biological substances; Z79.899 Other long term (current) drug therapy; Z79.4 Long term (current) use of insulin; K21.9 Gastro-esophageal reflux disease without esophagitis; F17.210 Nicotine dependence, cigarettes, uncomplicated
CPT/HCPCS: 36415; 80053; 81001; 82010; 82947; 85025; 96361; 96374; 96375; 99283-25; J1170; J1815; J2405; J2550; J7030

== ENCOUNTER 2019-03-23 10:14 | Emergency (ER) | payer OTHER ==
[~2019-03-23] VITALS: Ht 162.6 cm; Wt 60.8 kg
[2019-03-23] MEDS ORDERED: PROM25 PO (10:26)
[2019-03-23] MEDS ORDERED: ONDA8 PO (10:26)
[2019-03-23 10:50] LABS: BASOPHILS ABSOLUTE AUTO 0.04 K/mm3 (0.00-0.23); BASOPHILS PERCENT AUTO 0 % (0-2); EOSINOPHILS ABSOLUTE AUTO 0.01 K/mm3 (0.00-0.68); EOSINOPHILS PERCENT AUTO 0 % (0-6); Hematocrit 45.9 % (33.0-51.0); Hemoglobin 15.3 g/dL (11.5-16.0); IMMATURE GRAN ABSOLUTE AUTO 0.05 K/mm3 (0.00-0.10); IMMATURE GRAN PERCENT AUTO 0 % (0-1); LYMPHOCYTES ABSOLUTE AUTO 2.33 K/mm3 (0.84-5.20); LYMPHOCYTES PERCENT AUTO 19 % (21-46); MONOCYTES PERCENT AUTO 6 % (4-13); Mean Corpuscular HGB 30.8 pg (26.0-34.0); Mean Corpuscular HGB Conc 33.3 g/dL (31.5-36.5); Mean Platelet Volume 9.7 fL (9.1-12.4); NEUTROPHILS ABSOLUTE AUTO 8.96 K/mm3 (1.96-9.15); NEUTROPHILS PERCENT AUTO 74 % (41-73); Platelet Count 530 K/mm3 (150-400); RDW Coefficient Variation 12.6 % (11.7-14.2); RDW Standard Deviation 43.4 fL (35.1-46.3); Red Blood Cell Count 4.96 M/mm3 (3.80-5.20); White Blood Cell Count 12.09 K/mm3 (4.00-11.30)
[2019-03-23 10:50] LABS: Calcium, Ionized (POC) 1.08 mmol/L (1.10-1.46); Chloride (POC) 98 mmol/L (98-108); Creatinine (POC) 0.5 mg/dL (0.6-1.0); Glucose (ISTAT POC) 263 mg/dL (70-99); Potassium (POC) 3.4 mmol/L (3.5-5.5); Sodium (POC) 135 mmol/L (135-148); Total CO2 (POC) 24 mmol/L (21-32)
[2019-03-23 10:53] LABS: Mean Corpuscular Volume 93 fL (80-100)
[2019-03-23 11:05] LABS: Magnesium, Blood 2.2 mg/dL (1.6-2.4)
[2019-03-23 11:07] LABS: Alanine Aminotransfer (ALT/SGP 16 U/L (12-78); Albumin, Blood 4.3 g/dL (3.4-5.0); Alk Phos 122 U/L (50-136); Anion Gap 15 mmol/L (6-16); Aspartate Aminotrans (AST/SGOT 7 U/L (12-37); Blood Urea Nitrogen 16 mg/dL (8-24); Bun/Creatinine Ratio 32.9 (12.0-20.0); CO2, Blood 22 mmol/L (21-32); Calcium, Blood 9.1 mg/dL (8.5-10.1); Chloride, Blood 99 mmol/L (98-108); Creatinine, Blood 0.49 mg/dL (0.40-1.00); Globulin, Blood 4.1 g/dL (2.2-4.0); Glomerular Filtration Rate >60 (60-); Glucose, Blood 262 mg/dL (70-99); Potassium, Blood 3.2 mmol/L (3.5-5.5); Sodium, Blood 136 mmol/L (136-145); Total Protein, Blood 8.4 g/dL (6.4-8.2)
[2019-03-23 11:22] LABS: Bicarbonate Venous 22.6 mmol/L (24.0-30.0); PCO2 Venous 43.5 mmHg (38-42); PO2 Venous 118 mmHg (38-42); pH Blood Venous 7.34 (7.34-7.37)
[2019-03-23] MEDS ORDERED: Zofran8 MG PO (14:35)
[2019-03-23] MEDS ORDERED: PROM25 PR (14:35)
[2019-03-23 14:39] LABS: U Amphetamine Screen Not Detected; U Barbituate Screen Not Detected; U Benzodiazapine Screen Not Detected; U Buprenorphine Screen Not Detected; U Cannabinoids Screen DETECTED; U Cocaine Screen Not Detected; U Methadone Screen Not Detected; U Methamphetamine Screen Not Detected; U Opiates Screen Not Detected; U Oxycodone Screen Not Detected; U Phencyclidine Screen Not Detected; U Propoxyphene Screen Not Detected
== END 2019-03-23 14:55 | disposition home or self-care (01) ==
LOC: ER 10:14
PROVIDERS: Emergency Medicine; Physician Assistant
DX: E11.9 Type 2 diabetes mellitus without complications (principal); R11.2 Nausea with vomiting, unspecified; Z88.5 Allergy status to narcotic agent; Z88.8 Allergy status to other drugs, medicaments and biological substances; Z79.4 Long term (current) use of insulin; Z79.899 Other long term (current) drug therapy; F17.200 Nicotine dependence, unspecified, uncomplicated
CPT/HCPCS: 36415; 80047; 80053; 82803; 82947; 83690; 83735; 85014; 85025; 96361; 96374; 96375; 99284-25; J1170; J1200; J2405; J2765; J7120

== ENCOUNTER → 2019-04-08 | Outpatient (CLI) | payer OTHER ==
[~2019-04-08] MED LIST changes: +ONDA8 PO; +PROM25 PR
[2019-04-08 14:12] LABS: Source, Urine Clean Catch
[2019-04-08 17:21] LABS: Bilirubin, Urine Neg (Neg); Blood, Urine 2+ (Neg); Glucose Qualitative, Urine 4+ (Neg); Ketones, Urine Neg (Neg); Leukocyte Esterase, Urine 2+ (Neg); Nitrite, Urine Neg (Neg); Protein, Urine 2+ (Neg); Urobilinogen, Urine NORM (Normal); pH, Urine 6.5 (5.0-8.0)
[2019-04-08 17:37] LABS: Color, Urine Yellow (P-Yellow)
[2019-04-08 17:38] LABS: Appearance, Urine Cloudy (Clear); White Blood Cells, Urine 50-100 /hpf (0-5)
[2019-04-08 17:39] LABS: Bacteria Many /hpf; Squamous Epithelial Cells Few /hpf (Few)
== END | disposition home or self-care (01) ==
LOC: LAB 14:10 → LAB SHORT 14:10 → LAB FUT 02-25 15:35
PROVIDERS: Internal Medicine Gastroenterology
DX: R31.9 Hematuria, unspecified (principal); R19.7 Diarrhea, unspecified
CPT/HCPCS: 81001; 87077; 87086; 87186

== ENCOUNTER 2019-08-21 09:16 | Emergency (ER) | payer OTHER ==
[~2019-08-21] VITALS: Ht 162.6 cm; Wt 72.6 kg
[2019-08-21 09:52] LABS: BASOPHILS ABSOLUTE AUTO 0.04 K/mm3 (0.00-0.23); BASOPHILS PERCENT AUTO 0 % (0-2); EOSINOPHILS PERCENT AUTO 0 % (0-6); Hematocrit 44.4 % (33.0-51.0); Hemoglobin 14.9 g/dL (11.5-16.0); IMMATURE GRAN ABSOLUTE AUTO 0.07 K/mm3 (0.00-0.10); IMMATURE GRAN PERCENT AUTO 0 % (0-1); LYMPHOCYTES ABSOLUTE AUTO 2.23 K/mm3 (0.84-5.20); LYMPHOCYTES PERCENT AUTO 11 % (21-46); MONOCYTES ABSOLUTE AUTO 1.36 K/mm3 (0.16-1.47); MONOCYTES PERCENT AUTO 7 % (4-13); Mean Corpuscular HGB 29.2 pg (26.0-34.0); Mean Corpuscular HGB Conc 33.6 g/dL (31.5-36.5); Mean Corpuscular Volume 87 fL (80-100); NEUTROPHILS ABSOLUTE AUTO 16.24 K/mm3 (1.96-9.15); NEUTROPHILS PERCENT AUTO 81 % (41-73); Platelet Count 613 K/mm3 (150-400); RDW Coefficient Variation 13.6 % (11.7-14.2); RDW Standard Deviation 43.6 fL (35.1-46.3); Red Blood Cell Count 5.11 M/mm3 (3.80-5.20); White Blood Cell Count 19.94 K/mm3 (4.00-11.30)
[2019-08-21 09:54] LABS: Base Excess Venous -2.4 mmol/L; Bicarbonate Venous 23.6 mmol/L (24.0-30.0); PCO2 Venous 28.6 mmHg (38-42); PO2 Venous 135 mmHg (38-42); pH Blood Venous 7.48 (7.34-7.37)
[2019-08-21 10:07] LABS: Alanine Aminotransfer (ALT/SGP 21 U/L (12-78); Albumin, Blood 4.3 g/dL (3.4-5.0); Albumin/Globulin Ratio 0.9 (0.8-1.8); Alk Phos 140 U/L (50-136); Anion Gap 14 mmol/L (6-16); Aspartate Aminotrans (AST/SGOT 10 U/L (12-37); Blood Urea Nitrogen 26 mg/dL (8-24); Bun/Creatinine Ratio 31.9 (12.0-20.0); CO2, Blood 21 mmol/L (21-32); Calcium, Blood 9.3 mg/dL (8.5-10.1); Chloride, Blood 94 mmol/L (98-108); Creatinine, Blood 0.81 mg/dL (0.40-1.00); Globulin, Blood 4.7 g/dL (2.2-4.0); Glomerular Filtration Rate >60 (60-); Glucose, Blood 493 mg/dL (70-99); Potassium, Blood 3.7 mmol/L (3.5-5.5); Sodium, Blood 129 mmol/L (136-145)
[2019-08-21 10:18] LABS: Beta-hydroxybutyrate 24.4 mg/dL (0.2-2.8); Glucose, Blood 513 mg/dL (70-99)
[2019-08-21 12:30] LABS: Source, Urine Clean Catch
[2019-08-21 12:35] LABS: Bilirubin, Urine Neg (Neg); Blood, Urine 1+ (Neg); Glucose Qualitative, Urine 4+ (Neg); Ketones, Urine 3+ (Neg); Leukocyte Esterase, Urine Neg (Neg); Nitrite, Urine Neg (Neg); Protein, Urine 2+ (Neg); Urobilinogen, Urine NORM (Normal)
[2019-08-21 12:37] LABS: Appearance, Urine Clear (Clear); Color, Urine Yellow (P-Yellow)
[2019-08-21 12:40] LABS: White Blood Cells, Urine Not Seen /hpf (0-5)
[2019-08-21 12:41] LABS: Amorphous Mod (0-Heavy); Bacteria Few /hpf; Red Blood Cells, Urine 0-2 /hpf (0-2); Squamous Epithelial Cells Many /hpf (Few)
[2019-08-21] MEDS ORDERED: ONDA4ODT MM (13:21)
[2019-08-21] MEDS ORDERED: PHENERGAN25 MG PR (13:21)
[2019-08-22] MEDS ORDERED: METO10 PO (21:53)
== END 2019-08-21 17:09 | disposition home or self-care (01) ==
LOC: ER 09:16
PROVIDERS: Emergency Medicine
DX: E10.43 Type 1 diabetes mellitus with diabetic autonomic (poly)neuropathy (principal); K31.84 Gastroparesis; E10.65 Type 1 diabetes mellitus with hyperglycemia; R10.9 Unspecified abdominal pain; K21.9 Gastro-esophageal reflux disease without esophagitis; F17.200 Nicotine dependence, unspecified, uncomplicated; Z88.5 Allergy status to narcotic agent; Z88.8 Allergy status to other drugs, medicaments and biological substances; Z79.899 Other long term (current) drug therapy
CPT/HCPCS: 36415; 51701; 71045; 80053; 81001; 82010; 82803; 82947; 83605; 85025; 96361-59; 96372-59; 96374-59; 99284-25; J1200; J1630; J1815; J2060; J2405; J2550; J3010; J7030

== ENCOUNTER 2019-08-22 18:44 | Emergency (ER) | payer OTHER ==
[~2019-08-22] VITALS: Ht 162.6 cm; Wt 70.3 kg
[~2019-08-22 18:44] MED LIST changes: +PHENERGAN25 MG PR
[2019-08-22 19:32] LABS: BASOPHILS ABSOLUTE AUTO 0.08 K/mm3 (0.00-0.23); BASOPHILS PERCENT AUTO 1 % (0-2); EOSINOPHILS ABSOLUTE AUTO 0.06 K/mm3 (0.00-0.68); EOSINOPHILS PERCENT AUTO 0 % (0-6); Hematocrit 45.4 % (33.0-51.0); Hemoglobin 15.3 g/dL (11.5-16.0); IMMATURE GRAN ABSOLUTE AUTO 0.08 K/mm3 (0.00-0.10); IMMATURE GRAN PERCENT AUTO 1 % (0-1); LYMPHOCYTES ABSOLUTE AUTO 4.68 K/mm3 (0.84-5.20); LYMPHOCYTES PERCENT AUTO 27 % (21-46); MONOCYTES ABSOLUTE AUTO 1.23 K/mm3 (0.16-1.47); MONOCYTES PERCENT AUTO 7 % (4-13); Mean Corpuscular HGB 29.8 pg (26.0-34.0); Mean Corpuscular HGB Conc 33.7 g/dL (31.5-36.5); Mean Corpuscular Volume 88 fL (80-100); Mean Platelet Volume 9.5 fL (9.1-12.4); NEUTROPHILS ABSOLUTE AUTO 11.12 K/mm3 (1.96-9.15); NEUTROPHILS PERCENT AUTO 65 % (41-73); Platelet Count 519 K/mm3 (150-400); RDW Coefficient Variation 13.6 % (11.7-14.2); Red Blood Cell Count 5.14 M/mm3 (3.80-5.20); White Blood Cell Count 17.25 K/mm3 (4.00-11.30)
[2019-08-22 19:42] LABS: Base Excess Venous 0.6 mmol/L; Bicarbonate Venous 25.9 mmol/L (24.0-30.0); PO2 Venous 128 mmHg (38-42); pH Blood Venous 7.52 (7.34-7.37)
[2019-08-22 19:54] LABS: Alanine Aminotransfer (ALT/SGP 27 U/L (12-78); Albumin, Blood 4.1 g/dL (3.4-5.0); Albumin/Globulin Ratio 0.9 (0.8-1.8); Alk Phos 132 U/L (50-136); Anion Gap 10 mmol/L (6-16); Aspartate Aminotrans (AST/SGOT 35 U/L (12-37); Bilirubin, Total 0.8 mg/dL (0.1-1.0); Blood Urea Nitrogen 18 mg/dL (8-24); Bun/Creatinine Ratio 39.4 (12.0-20.0); CO2, Blood 23 mmol/L (21-32); Calcium, Blood 9.4 mg/dL (8.5-10.1); Chloride, Blood 102 mmol/L (98-108); Creatinine, Blood 0.46 mg/dL (0.40-1.00); Globulin, Blood 4.5 g/dL (2.2-4.0); Glomerular Filtration Rate >60 (60-); Glucose, Blood 216 mg/dL (70-99); Potassium, Blood 4.1 mmol/L (3.5-5.5); Sodium, Blood 135 mmol/L (136-145); Total Protein, Blood 8.6 g/dL (6.4-8.2)
[2019-08-22] MEDS ORDERED: METO10 PO (21:53)
[2019-08-22 21:54] LABS: Source, Urine Clean Catch
[2019-08-22 21:55] LABS: Bilirubin, Urine Neg (Neg); Blood, Urine 1+ (Neg); Glucose Qualitative, Urine 4+ (Neg); Ketones, Urine 4+ (Neg); Leukocyte Esterase, Urine Neg (Neg); Nitrite, Urine Neg (Neg); Protein, Urine 2+ (Neg); Urobilinogen, Urine NORM (Normal)
[2019-08-22 22:06] LABS: Appearance, Urine Clear (Clear); Color, Urine Yellow (P-Yellow)
[2019-08-22 22:08] LABS: Red Blood Cells, Urine 0-2 /hpf (0-2); White Blood Cells, Urine 0-2 /hpf (0-5)
[2019-08-22 22:09] LABS: Bacteria Rare /hpf; Squamous Epithelial Cells Few /hpf (Few)
== END 2019-08-22 22:05 | disposition home or self-care (01) ==
LOC: ER 18:44
PROVIDERS: Physician Assistant
DX: E10.43 Type 1 diabetes mellitus with diabetic autonomic (poly)neuropathy (principal); K31.84 Gastroparesis; K21.9 Gastro-esophageal reflux disease without esophagitis; F17.200 Nicotine dependence, unspecified, uncomplicated; Z88.5 Allergy status to narcotic agent; Z79.899 Other long term (current) drug therapy; Z79.4 Long term (current) use of insulin
CPT/HCPCS: 36415; 71046; 74176; 80053; 81001; 82803; 85025; 93005; 93010; 96361; 96374; 96375; 99284-25; A9270-GY; C9113; J1200; J1630; J2405; J2765; J7030

== ENCOUNTER 2019-12-13 16:26 | Inpatient (IN) | payer OTHER ==
[~2019-12-13] VITALS: Ht 162.6 cm; Wt 76.6 kg
[~2019-12-13 16:26] MED LIST changes: +Novolog100 UNIT/2
[2019-12-13 17:04] LABS: Source, Urine Voided
[2019-12-13 17:10] LABS: BASOPHILS ABSOLUTE AUTO 0.05 K/mm3 (0.00-0.23); BASOPHILS PERCENT AUTO 0 % (0-2); EOSINOPHILS PERCENT AUTO 0 % (0-6); Hemoglobin 14.7 g/dL (11.5-16.0); IMMATURE GRAN PERCENT AUTO 1 % (0-1); LYMPHOCYTES ABSOLUTE AUTO 1.83 K/mm3 (0.84-5.20); LYMPHOCYTES PERCENT AUTO 7 % (21-46); MONOCYTES ABSOLUTE AUTO 1.43 K/mm3 (0.16-1.47); MONOCYTES PERCENT AUTO 5 % (4-13); Mean Corpuscular HGB 27.8 pg (26.0-34.0); Mean Corpuscular Volume 87 fL (80-100); Mean Platelet Volume 10.4 fL (9.1-12.4); NEUTROPHILS ABSOLUTE AUTO 23.55 K/mm3 (1.96-9.15); NEUTROPHILS PERCENT AUTO 87 % (41-73); Platelet Count 430 K/mm3 (150-400); Red Blood Cell Count 5.28 M/mm3 (3.80-5.20); White Blood Cell Count 27.06 K/mm3 (4.00-11.30)
[2019-12-13 17:11] LABS: Bilirubin, Urine Neg (Neg); Blood, Urine 2+ (Neg); Glucose Qualitative, Urine 4+ (Neg); Ketones, Urine 4+ (Neg); Leukocyte Esterase, Urine Neg (Neg); Nitrite, Urine Neg (Neg); Protein, Urine 3+ (Neg); Urobilinogen, Urine NORM (Normal)
[2019-12-13] MEDS ORDERED: BUPR100ER PO (17:15)
[2019-12-13] MEDS ORDERED: IPRATROPIUM 0.02% NEB (17:15)
[2019-12-13] MEDS ORDERED: PREG300 PO (17:16)
[2019-12-13] MEDS ORDERED: Amitriptyline100 MG PO (17:17)
[2019-12-13 17:18] LABS: Appearance, Urine Clear (Clear); Color, Urine Yellow (P-Yellow)
[2019-12-13 17:22] LABS: Bacteria Rare /hpf; Hyaline Casts 0-2 /lpf (0-2); Red Blood Cells, Urine Rare /hpf (0-2); Squamous Epithelial Cells Rare /hpf (Few); White Blood Cells, Urine Not Seen /hpf (0-5)
[2019-12-13 17:32] LABS: Alanine Aminotransfer (ALT/SGP 23 U/L (12-78); Albumin, Blood 3.7 g/dL (3.4-5.0); Albumin/Globulin Ratio 0.8 (0.8-1.8); Alk Phos 148 U/L (50-136); Anion Gap 17 mmol/L (6-16); Aspartate Aminotrans (AST/SGOT 33 U/L (12-37); Bilirubin, Total 1.1 mg/dL (0.1-1.0); Blood Urea Nitrogen 17 mg/dL (8-24); Bun/Creatinine Ratio 27.2 (12.0-20.0); CO2, Blood 12 mmol/L (21-32); Calcium, Blood 9.5 mg/dL (8.5-10.1); Chloride, Blood 102 mmol/L (98-108); Creatinine, Blood 0.62 mg/dL (0.40-1.00); Globulin, Blood 4.9 g/dL (2.2-4.0); Glomerular Filtration Rate >60 (60-); Glucose, Blood 416 mg/dL (70-99); Potassium, Blood 4.4 mmol/L (3.5-5.5); Sodium, Blood 131 mmol/L (136-145); Total Protein, Blood 8.6 g/dL (6.4-8.2)
[2019-12-13 21:30] LABS: Anion Gap 12 mmol/L (6-16); Blood Urea Nitrogen 15 mg/dL (8-24); Bun/Creatinine Ratio 25.1 (12.0-20.0); CO2, Blood 14 mmol/L (21-32); Calcium, Blood 8.3 mg/dL (8.5-10.1); Chloride, Blood 111 mmol/L (98-108); Glomerular Filtration Rate >60 (60-); Glucose, Blood 317 mg/dL (70-99); Magnesium, Blood 2.2 mg/dL (1.6-2.4); Phosphorus, Blood 2.5 mg/dL (2.5-4.9); Sodium, Blood 137 mmol/L (136-145)
[2019-12-13 21:52] LABS: U Amphetamine Screen Not Detected; U Barbituate Screen Not Detected; U Benzodiazapine Screen Not Detected; U Buprenorphine Screen Not Detected; U Cannabinoids Screen DETECTED; U Cocaine Screen Not Detected; U Methadone Screen Not Detected; U Methamphetamine Screen Not Detected; U Opiates Screen Not Detected; U Oxycodone Screen Not Detected; U Phencyclidine Screen Not Detected; U Propoxyphene Screen Not Detected
--- NOTE | 2019-12-13 22:10 | NUR ---
PT TO ICU 14 VIA NATALIIA WITH ED RN, PT ALERT AND ORIENTED TO SELF, EVENT, YEAR AND FOLLOWING DIRECTIONS. O2 SATURATIONS>90% ON RA, MONITOR SHOWS SINUS RHYTHM WITH HR 120'S. SKIN IS HOT AND FLUSHED OTHERWISE C/D/I. NS BOLUS, 40meq POTASSIUM IN 1L NS, AND INSULIN GTT @ 5u/hr INFUSING UPON ARRIVAL, PT CBG 316 UPON ARRIVAL TO UNIT. PT REPORTS BEING SICK FOR APPROX 2-3 DAYS, STS HAS BEEN CHECKING BLOOD GLUCOSE AND READINGS HAVE BEEN IN THE 400'S, PT STS DID NOT COME TO THE HOSPITAL UNTIL HER DAUGHTER "MADE" HER. PT BEGAN DRY HEAVING AND REPORTS 10/10 MID UPPER GASTRIC PAIN. ZOFRAN ADMINISTERED WITH NO RELEIF, REGLAN ADMINISTERED WITH GOOD EFFECT. CALL PLACED TO [facility]ATION ASSISTANT REGARDING ABD PN, DRY HEAVING, 2150 CBG OF 236 AND CLARIFICATION ON FLUID ORDERS. ORDERS TO DC LR AND 40meq POTASSIUM IN 1L NS, MAYLOX FOR MID UPPER GASTRIC PAIN, ONE ADDITIONAL 1L NS BOLUS AND THEN START D5 1/2 NS @ 200ml/hr.
[2019-12-14 01:22] LABS: Anion Gap 11 mmol/L (6-16); Blood Urea Nitrogen 12 mg/dL (8-24); Bun/Creatinine Ratio 25.3 (12.0-20.0); CO2, Blood 16 mmol/L (21-32); Calcium, Blood 7.8 mg/dL (8.5-10.1); Chloride, Blood 114 mmol/L (98-108); Creatinine, Blood 0.47 mg/dL (0.40-1.00); Glomerular Filtration Rate >60 (60-); Glucose, Blood 249 mg/dL (70-99); Potassium, Blood 3.6 mmol/L (3.5-5.5); Sodium, Blood 141 mmol/L (136-145)
[2019-12-14 05:10] LABS: BASOPHILS ABSOLUTE AUTO 0.03 K/mm3 (0.00-0.23); BASOPHILS PERCENT AUTO 0 % (0-2); EOSINOPHILS ABSOLUTE AUTO 0.03 K/mm3 (0.00-0.68); EOSINOPHILS PERCENT AUTO 0 % (0-6); Hematocrit 37.1 % (33.0-51.0); IMMATURE GRAN ABSOLUTE AUTO 0.12 K/mm3 (0.00-0.10); IMMATURE GRAN PERCENT AUTO 1 % (0-1); LYMPHOCYTES ABSOLUTE AUTO 2.75 K/mm3 (0.84-5.20); LYMPHOCYTES PERCENT AUTO 13 % (21-46); MONOCYTES ABSOLUTE AUTO 1.24 K/mm3 (0.16-1.47); MONOCYTES PERCENT AUTO 6 % (4-13); Mean Corpuscular HGB Conc 32.3 g/dL (31.5-36.5); Mean Corpuscular Volume 87 fL (80-100); NEUTROPHILS PERCENT AUTO 80 % (41-73); Platelet Count 351 K/mm3 (150-400); RDW Coefficient Variation 15.3 % (11.7-14.2); RDW Standard Deviation 48.3 fL (35.1-46.3); Red Blood Cell Count 4.29 M/mm3 (3.80-5.20); White Blood Cell Count 21.07 K/mm3 (4.00-11.30)
[2019-12-14 05:27] LABS: Anion Gap 9 mmol/L (6-16); Blood Urea Nitrogen 10 mg/dL (8-24); Bun/Creatinine Ratio 21.8 (12.0-20.0); CO2, Blood 16 mmol/L (21-32); Calcium, Blood 7.8 mg/dL (8.5-10.1); Chloride, Blood 113 mmol/L (98-108); Creatinine, Blood 0.46 mg/dL (0.40-1.00); Glomerular Filtration Rate >60 (60-); Glucose, Blood 224 mg/dL (70-99); Potassium, Blood 3.9 mmol/L (3.5-5.5); Sodium, Blood 138 mmol/L (136-145)
--- NOTE | 2019-12-14 06:31 | NUR ---
SHIFT SUMMARY PT RESTED WELL T/O SHIFT, AROUSES EASILY WITH NURSING CARE, REMAINS ORIENTED TO SELF, EVENT, LOCATION AND FOLLOWING DIRECTIONS. O2 SATURATIONS>90% ON RA, MONITOR SHOWS SINUS RHYTHM WITH HR 100-110, BP STABLE, PT AFEBRILE. PT REPORTS MID UPPER GASTRIC PAIN, WORSE WITH PALPATION, IMPROVED AFTER MAYLOX, NAUSEA PERSISTS, ZOFRAN AND REGLAN ADMINISTERED. INSULIN GTT INFUSTING AT 5u/hr, MOST RECENT CBG 193, D5 1/5NS INFUSING @ 200ml/hr. PT UP TO BSC WITH SBA. CALL LIGHT WITHIN REACH.
--- NOTE | 2019-12-14 08:30 | NUR ---
PT SLEEPS MAINLY WHEN NOT DISTURBED. AWAKENS TO VOICE AND IS ORIENTED X 4. PT REPORTS 10/10 HEADACHE AND BACKPAIN-MED WITH TYLENOL 65O MG PO AND ULTRAM 50 MG PO X1-SEE EMAR. PT APPEARS ANXIOUS, SHE IS TREMBLING AND MOANING-OCCASIONALLY, CRIES OUT. ASSISTED PT OOB TO BSC WITH STANDBY ASSIST WITH IV TUBING. PT GIVEN SPONGE BATH AND PARTIAL LINEN CHANGE COMPLETED. PT TOLERATED WELL. PT AFEBRILE. ECG SHOW ST WITH RATE 100-110'S. LUNGS COARSE THROUGH OUT. SATS>90% ON RA. PT HAS OCCASIONAL, MOIST, NON-PRODUCTIVE COUGH. DENIES SOB. ABDOMEN SLIGHTLY DISTENDED AND TENDER TO PALPATION. PT REPORTS NAUSEA-MED WITH ZOFRAN 4 MG IVP X 1. PT GIVEN ROUTINE MEDS WITH A SIP OF WATER. ABLE TO SWALLOW WITHOUT DIFFICULTY. CONTINUES ON INSULIN DRIP-SEE FLOWSHEET FOR TITIRATION. ANTICIPATE INITIATED DIET TODAY AND CHANGE TO SC INSULIN.
--- NOTE | 2019-12-14 10:18 | NUR ---
PT SLEEPS WHEN NOT DISTURBED, BUT WHEN AWAKENED-CONTINUES TO REPORT 10/10 HEADACHE AND BACKPAIN.
--- NOTE | 2019-12-14 10:54 | NUR ---
DR. HORNER DOING ROUNDS. UPDATED TO CURRENT VS, CBG, AND STATUS. ORDERS GIVEN FOR STAT CMP, MG+, AND PHOS.
[2019-12-14 11:48] LABS: Alanine Aminotransfer (ALT/SGP 19 U/L (12-78); Albumin, Blood 2.6 g/dL (3.4-5.0); Albumin/Globulin Ratio 0.7 (0.8-1.8); Alk Phos 102 U/L (50-136); Anion Gap 10 mmol/L (6-16); Aspartate Aminotrans (AST/SGOT 23 U/L (12-37); Bilirubin, Total 0.4 mg/dL (0.1-1.0); Blood Urea Nitrogen 8 mg/dL (8-24); Bun/Creatinine Ratio 19.1 (12.0-20.0); CO2, Blood 17 mmol/L (21-32); Calcium, Blood 7.5 mg/dL (8.5-10.1); Chloride, Blood 111 mmol/L (98-108); Creatinine, Blood 0.42 mg/dL (0.40-1.00); Globulin, Blood 3.8 g/dL (2.2-4.0); Glomerular Filtration Rate >60 (60-); Glucose, Blood 174 mg/dL (70-99); Phosphorus, Blood 0.9 mg/dL (2.5-4.9); Potassium, Blood 3.3 mmol/L (3.5-5.5); Sodium, Blood 138 mmol/L (136-145); Total Protein, Blood 6.4 g/dL (6.4-8.2)
--- NOTE | 2019-12-14 13:30 | NUR ---
CLEAR LIQUID DIET INITIATED-1ST DOSE LANTUS 10 UNITS SC GIVEN. WILL DISCONTINUE INSULIN DRIP IN 30 MINUTES.
--- NOTE | 2019-12-14 16:40 | NUR ---
PT UP TO BEDSIDE COMMODE TO VOID. PT INCONTINENT OF URINE. SPONGE BATH, SHAMPOO, AND LINEN CHANGE COMPLETED. PT REPORTS 8/10 HEADACHE AND BACK PAIN. ALSO, REPORTS NAUSEA. TOLERATING SIPS OF CLEAR LIQUIDS ONLY-MED WITH REGLAN 5 MG IVP X 1 FOR NAUSEA AND ULTRAM 50 MG PO FOR PAIN. CBG 285-DR. HORNER UPDATED TO PT CURRENT VS AND STATUS. IVF RATE DECREASED TO 100 CC/HR-TO FINISH THIS BAG OF D51/2 NS, THEN CHANGE TO NS @ 100CC/HR.
[2019-12-14 17:42] LABS: Anion Gap 8 mmol/L (6-16); Blood Urea Nitrogen 5 mg/dL (8-24); Bun/Creatinine Ratio 11.1 (12.0-20.0); CO2, Blood 19 mmol/L (21-32); Chloride, Blood 108 mmol/L (98-108); Creatinine, Blood 0.45 mg/dL (0.40-1.00); Glomerular Filtration Rate >60 (60-); Glucose, Blood 271 mg/dL (70-99); Phosphorus, Blood 1.8 mg/dL (2.5-4.9); Potassium, Blood 3.4 mmol/L (3.5-5.5); Sodium, Blood 135 mmol/L (136-145)
--- NOTE | 2019-12-14 17:57 | NUR ---
PT AWAKENED AND SUMMONED RN TO ROOM. UP TO BSC TO VOID WITHOUT DIFFICULTY. PT STATES THAT SHE IS HUNGRY. CLEAR LIQUIDS AT BEDSIDE WITHIN PT REACH.
--- NOTE | 2019-12-14 18:50 | NUR ---
PT RESTING QUIETLY WHEN NOT DISTURBED. NO NOTED DISTRESS. REPORTS PHONED TO MIGDALIA SALCEDO IN PREP TO TRANSFER PT TO ROOM 309.
--- NOTE | 2019-12-14 20:12 | NUR ---
PT RESTING IN BED, SPOKE WITH MATIAS NEGRON, PT LEAVING ICU FOR MEDICAL FLOOR.
[2019-12-15 00:42] LABS: Adenovirus Not Detected (NOT DETECT); Bordetella pertussis Not Detected (NOT DETECT); Chlamydophila pneumoniae Not Detected (NOT DETECT); Coronavirus 229E Not Detected (NOT DETECT); Coronavirus HKU1 Not Detected (NOT DETECT); Coronavirus NL63 Not Detected (NOT DETECT); Coronavirus OC43 Not Detected (NOT DETECT); Human Metapneumovirus Not Detected (NOT DETECT); Human Rhinovirus/Enterovirus Not Detected (NOT DETECT); Influenza A/2009-H1 Not Detected (NOT DETECT); Influenza A/H1 Not Detected (NOT DETECT); Influenza A/H3 Not Detected (NOT DETECT); Influenza B Not Detected (NOT DETECT); Mycoplasma pneumoniae Not Detected (NOT DETECT); Parainfluenza Virus 1 Not Detected (NOT DETECT); Parainfluenza Virus 2 Not Detected (NOT DETECT); Parainfluenza Virus 3 Not Detected (NOT DETECT); Parainfluenza Virus 4 Not Detected (NOT DETECT); Respiratory Syncytial Virus Not Detected (NOT DETECT)
[2019-12-15 04:47] LABS: BASOPHILS ABSOLUTE AUTO 0.03 K/mm3 (0.00-0.23); BASOPHILS PERCENT AUTO 0 % (0-2); EOSINOPHILS ABSOLUTE AUTO 0.04 K/mm3 (0.00-0.68); EOSINOPHILS PERCENT AUTO 0 % (0-6); Hematocrit 34.7 % (33.0-51.0); Hemoglobin 11.2 g/dL (11.5-16.0); IMMATURE GRAN ABSOLUTE AUTO 0.07 K/mm3 (0.00-0.10); IMMATURE GRAN PERCENT AUTO 1 % (0-1); LYMPHOCYTES ABSOLUTE AUTO 2.12 K/mm3 (0.84-5.20); LYMPHOCYTES PERCENT AUTO 18 % (21-46); MONOCYTES ABSOLUTE AUTO 0.73 K/mm3 (0.16-1.47); MONOCYTES PERCENT AUTO 6 % (4-13); Mean Corpuscular HGB 27.5 pg (26.0-34.0); Mean Corpuscular HGB Conc 32.3 g/dL (31.5-36.5); Mean Corpuscular Volume 85 fL (80-100); NEUTROPHILS ABSOLUTE AUTO 9.04 K/mm3 (1.96-9.15); NEUTROPHILS PERCENT AUTO 75 % (41-73); Platelet Count 301 K/mm3 (150-400); RDW Coefficient Variation 15.1 % (11.7-14.2); RDW Standard Deviation 47.3 fL (35.1-46.3); Red Blood Cell Count 4.07 M/mm3 (3.80-5.20); White Blood Cell Count 12.03 K/mm3 (4.00-11.30)
[2019-12-15 05:09] LABS: Alanine Aminotransfer (ALT/SGP 15 U/L (12-78); Albumin, Blood 2.4 g/dL (3.4-5.0); Albumin/Globulin Ratio 0.6 (0.8-1.8); Alk Phos 99 U/L (50-136); Anion Gap 10 mmol/L (6-16); Aspartate Aminotrans (AST/SGOT 18 U/L (12-37); Bilirubin, Total 0.6 mg/dL (0.1-1.0); Blood Urea Nitrogen 4 mg/dL (8-24); CO2, Blood 19 mmol/L (21-32); Calcium, Blood 7.6 mg/dL (8.5-10.1); Chloride, Blood 110 mmol/L (98-108); Creatinine, Blood 0.44 mg/dL (0.40-1.00); Globulin, Blood 3.8 g/dL (2.2-4.0); Glomerular Filtration Rate >60 (60-); Glucose, Blood 210 mg/dL (70-99); Sodium, Blood 139 mmol/L (136-145); Total Protein, Blood 6.2 g/dL (6.4-8.2)
--- NOTE | 2019-12-15 05:39 | NUR ---
SHIFT SUMMARY PT WAS PCU XFER THIS SHIFT (2044), NO ACUTE CHANGES SINCE ASSUMING CARE, PT REPORTS JUST GENERALLY "NOT FEELING WELL" C/O BACK & WOOTEN & N, MEDS PER SEP, APPLIED KPAD TO LOWER BACK, PT HAS SLEPT OFF/ON SINCE COMING TO ROOM, REQ MEDICATIONS IF ARROUSED, A&O ST BY ASSIST TO BR (D/T WEAKNESS & LINES), SLEEPING AT THIS TIME, CALL LIGHT IN REACH, WILL CONT TO MONITOR UNTIL REPORT GIVEN TO DAY RN.
--- NOTE | 2019-12-15 16:07 | NUR ---
PT IS A/OX3, COOPERATIVE, THE PT IS UP IND IN HER ROOM, THE PT SLEPT FOR MOST OF THE DAY, CO/ NAUSEA AND PAIN T/O THE DAY, THE PT WAS MEDICATED FOR PAIN X2 2 SO FAR TOADY AND FOR NAUSEA X2 SO FAR TODAY, PT APPEARS TO BE BREATHING EASILY ON RA. PT HAS A NON PRODUCTIVE COUGH CALL LIGHT IN REACH, WILL CONTINUE TO MONITOR AND ASSESS FOR CHANGES
--- NOTE | 2019-12-16 04:03 | NUR ---
SHIFT SUMMARY PT HAS HAD NO ACUTE CHANGES THIS SHIFT, MEDICATED PER MAR FOR NAUSEA & PAIN (LOW BACK/HEAD), PT REPORTS FEELING BETTER TONIGHT, HAS BEEN INDEP TO BR & REQUESTING SNACKS (HAD HAD POOR PO INTAKE UP TO TONIGHT), PT SLEEPING NOW, CALL LIGHT IN REACH, WILL CONT TO MONITOR UNTIL REPORT GIVEN TO DAY RN.
[2019-12-16 05:10] LABS: BASOPHILS ABSOLUTE AUTO 0.03 K/mm3 (0.00-0.23); BASOPHILS PERCENT AUTO 0 % (0-2); EOSINOPHILS ABSOLUTE AUTO 0.06 K/mm3 (0.00-0.68); EOSINOPHILS PERCENT AUTO 1 % (0-6); Hematocrit 33.2 % (33.0-51.0); Hemoglobin 10.7 g/dL (11.5-16.0); IMMATURE GRAN ABSOLUTE AUTO 0.04 K/mm3 (0.00-0.10); IMMATURE GRAN PERCENT AUTO 1 % (0-1); LYMPHOCYTES ABSOLUTE AUTO 1.68 K/mm3 (0.84-5.20); LYMPHOCYTES PERCENT AUTO 21 % (21-46); MONOCYTES ABSOLUTE AUTO 0.58 K/mm3 (0.16-1.47); MONOCYTES PERCENT AUTO 7 % (4-13); Mean Corpuscular HGB 27.5 pg (26.0-34.0); Mean Corpuscular HGB Conc 32.2 g/dL (31.5-36.5); Mean Corpuscular Volume 85 fL (80-100); Mean Platelet Volume 10.1 fL (9.1-12.4); NEUTROPHILS ABSOLUTE AUTO 5.73 K/mm3 (1.96-9.15); NEUTROPHILS PERCENT AUTO 71 % (41-73); Platelet Count 311 K/mm3 (150-400); RDW Standard Deviation 46.7 fL (35.1-46.3); Red Blood Cell Count 3.89 M/mm3 (3.80-5.20); White Blood Cell Count 8.12 K/mm3 (4.00-11.30)
[2019-12-16 05:41] LABS: Anion Gap 11 mmol/L (6-16); Blood Urea Nitrogen 3 mg/dL (8-24); CO2, Blood 23 mmol/L (21-32); Calcium, Blood 7.7 mg/dL (8.5-10.1); Chloride, Blood 107 mmol/L (98-108); Creatinine, Blood 0.43 mg/dL (0.40-1.00); Glomerular Filtration Rate >60 (60-); Glucose, Blood 178 mg/dL (70-99); Phosphorus, Blood 1.7 mg/dL (2.5-4.9); Potassium, Blood 2.5 mmol/L (3.5-5.5); Sodium, Blood 141 mmol/L (136-145)
--- NOTE | 2019-12-16 07:44 | NUR ---
ASSUMED PATIENT CARE. PATIENT RESTING COMFORTABLY IN BED, NO SIGNS OF ACUTE DISTRESS. WCTM.
[2019-12-16 12:43] LABS: Anion Gap 11 mmol/L (6-16); Blood Urea Nitrogen 2 mg/dL (8-24); Bun/Creatinine Ratio 5.3 (12.0-20.0); CO2, Blood 24 mmol/L (21-32); Chloride, Blood 103 mmol/L (98-108); Creatinine, Blood 0.38 mg/dL (0.40-1.00); Glomerular Filtration Rate >60 (60-); Glucose, Blood 250 mg/dL (70-99); Phosphorus, Blood 2.7 mg/dL (2.5-4.9); Potassium, Blood 2.8 mmol/L (3.5-5.5); Sodium, Blood 138 mmol/L (136-145)
--- NOTE | 2019-12-16 19:19 | NUR ---
RELINQUISHED PATIENT CARE.
--- NOTE | 2019-12-16 19:23 | NUR ---
NO ACUTE EVENTS THIS SHIFT. PATIENT WAS VERY PAINFUL AND NAUSEOUS AT START OF SHIFT, PAIN/NAUSEA GRADUALLY LESS SEVERE BY END OF SHIFT. CONTINUED TO ALTERNATE PHENERGAN AND REGLAN. VSS THROUGH SHIFT, PATIENT ABLE TO AMBULATE INDEPENDENTLY TO BATHROOM. DR. HORNER NOTIFIED OF SEVERE STOMACH PAIN AND UPSET, GI COCKTAIL STARTED TODAY. PLAN IS TO CONTINUE PAIN/NAUSEA MANAGEMENT, BLOOD GLUCOSE MANAGEMENT, AND IV ABX.
--- NOTE | 2019-12-16 22:00 | NUR ---
PATIENT NAUSEOUS AND RECEIVED IV REGLAN PER EMAR. REPORTED BACK PAIN AND RECEIVED IV TRAMADOL PER EMAR. PO MEDICATION GIVEN AFTER REGLAN WAS EFFECTIVE. CALL LIGHT IN REACH.
--- NOTE | 2019-12-17 03:52 | NUR ---
SHIFT SUMMARY PATIENT NAUSEOUS T/O SHIFT. IV REGLAN AND IV PHENERGAN ALTERNATED PER EMAR. ABLE TO TAKE PO MEDICATION AFTER IV REGLAN FIRST GIVEN. AXOX 4 AND INDEPENDENT. REPORTED BACK PAIN AND ULTRAM GIVEN PER EMAR. PIV REMAINS INTACT. NS INFUSING AT 100 mL/HR. CBG 142. LABOR LAW PROFESSOR REPORTS ST 101. VSS/AFEBRILE. GI COCKTAIL FINISHED THREE OF THREE. CALL LIGHT IN REACH. BED IN LOWEST POSITION. WILL CONTINUE TO MONITOR UNTIL DAY SHIFT NURSE ASSUMES CARE.
[2019-12-17 04:52] LABS: Anion Gap 9 mmol/L (6-16); Blood Urea Nitrogen 3 mg/dL (8-24); Bun/Creatinine Ratio 6.5 (12.0-20.0); CO2, Blood 25 mmol/L (21-32); Calcium, Blood 8.1 mg/dL (8.5-10.1); Chloride, Blood 106 mmol/L (98-108); Creatinine, Blood 0.46 mg/dL (0.40-1.00); Glomerular Filtration Rate >60 (60-); Glucose, Blood 213 mg/dL (70-99); Magnesium, Blood 2.2 mg/dL (1.6-2.4); Phosphorus, Blood 2.3 mg/dL (2.5-4.9); Potassium, Blood 2.6 mmol/L (3.5-5.5); Sodium, Blood 140 mmol/L (136-145)
--- NOTE | 2019-12-17 07:08 | NUR ---
ASSUMED PATIENT CARE. PATIENT RESTING COMFORTABLY IN BED, CONVERSING WITH NURSING STAFF. POTASSIUM RUNNING. NO SIGNS OF ACUTE DISTRESS, WCTM.
--- NOTE | 2019-12-17 19:05 | NUR ---
RELINQUISHED PATIENT CARE.
--- NOTE | 2019-12-17 19:10 | NUR ---
NO ACUTE EVENTS THIS SHIFT. PATIENT WAS AUBREY PAINFUL/NASEOUS THIS MORING, SEVERITY LESSENED THROUGH SHIFT. PATIENT'S K+ REMAINED LOW, IV K+ GIVEN OVER SHIFT, SHOWED IMPROVEMENT FROM 0415 OF 2.6 TO 1019 OF 2.9. PATIENT HAS BEEN TRENDING HYPERTENSIVE, BP OF 172/99 THIS MORNING, DR. HORNER NOTIFIED AND PO LOSARTAN AND METOPROLOL ORDERED. PATIENT CONTINUED TO BE ABLE TO AMBULATE INDEPENDENTLY IN ROOM. IV ACCESS MAINTAINED, NEW IV STARTED IN L. WRIST SITE. PATIENT WAS ABLE TO TOLERATE MORE PO INTAKE TODAY. IV FLUIDS DISCONTINUED. PLAN IS TO CONTINUE DIABETIC MANAGEMENT AND ANTIBIOTIC COURSE.
--- NOTE | 2019-12-18 03:07 | NUR ---
SHIFT SUMMARY PATIENT LESS NAUSEOUS AND HAS NOT REQUIRED IV ANTIMETIC MEDICATION AT THIS POINT. PIV REMAINS INTACT. IV K+ BAG 3 OF 3 COMPLETE AND IV ABX INFUSED. CBG 186. CHILD DAY CARE TEACHER REPORTS NSR 97. VSS/AFEBRILE. DENIES PAIN AND SOB. PATIENT ABLE TO EAT JELLO, ICE CREAM, AND CRACKERS. PATIENT AWAKE FIRST HALF OF SHIFT. CALL LIGHT IN REACH. BED IN LOWEST POSITION. WILL CONTINUE TO MONITOR UNTIL DAY SHIFT NURSE ASSUMES CARE.
[2019-12-18 05:49] LABS: Albumin, Blood 2.2 g/dL (3.4-5.0); Alk Phos 94 U/L (50-136); Anion Gap 9 mmol/L (6-16); Aspartate Aminotrans (AST/SGOT 10 U/L (12-37); Bilirubin, Total 0.3 mg/dL (0.1-1.0); Blood Urea Nitrogen 7 mg/dL (8-24); Bun/Creatinine Ratio 14.2 (12.0-20.0); CO2, Blood 27 mmol/L (21-32); Calcium, Blood 8.8 mg/dL (8.5-10.1); Chloride, Blood 106 mmol/L (98-108); Creatinine, Blood 0.49 mg/dL (0.40-1.00); Glomerular Filtration Rate >60 (60-); Glucose, Blood 187 mg/dL (70-99); Magnesium, Blood 2.3 mg/dL (1.6-2.4); Phosphorus, Blood 3.5 mg/dL (2.5-4.9); Potassium, Blood 2.9 mmol/L (3.5-5.5); Sodium, Blood 142 mmol/L (136-145)
[2019-12-18 05:51] LABS: Alanine Aminotransfer (ALT/SGP 15 U/L (12-78); Albumin/Globulin Ratio 0.5 (0.8-1.8); Globulin, Blood 4.4 g/dL (2.2-4.0); Total Protein, Blood 6.6 g/dL (6.4-8.2)
--- NOTE | 2019-12-18 06:42 | NUR ---
HOSPITALIST DR MCGINNIS ORDERED K+ PO 40 MEQ X ONE WITH K+ AT 2.9 THIS AM.
--- NOTE | 2019-12-18 10:43 | NUR ---
PT IV PAINFUL WITH USE, UNABLE TO TOLERATE FLUSH. REMOVED. GAGANDEEP NEGRON ATTEMPTED IV START, UNSUCCESSFUL. GELY NEGRON FROM SURGICAL FLOOR WAS ABLE TO PLACE RAC #18 AFTER SEVERAL ATTEMPTS. PT WITH INCREASING NAUSEA THIS MORNING, MEDICATED WITH 5 IV REGLAN THRU NEW IV. AM MEDS WILL BE GIVEN WHEN PT NAUSEA IS CONTROLLED.
--- NOTE | 2019-12-18 11:38 | NUR ---
PT CONTINUES TO HAVE NAUSEA, REFUSING AM ORAL MEDS, 25 MG IV PHENEGRAN DILUTED WITH 10CC NS GIVEN FOR NAUSEA, PT STATES SHE IS JUST NOT FEELING WELL, NOT LIKE THIS MORNING. WILL CONTINUE TO MONITOR.
--- NOTE | 2019-12-18 18:02 | NUR ---
PT REFUSING MEALS D/T ONGOING NAUSEA, MEDICATED WITH IV REGLAN AND PHENGREN PER EMAR, PT REPORTS SMALL AMT RELIEF. DR HORNER AWARE OF PT'S CONTINUING NAUSEA. NO ACUTE CHANGES NOTED THIS SHIFT, WILL CONTINUE TO MONITOR AND REPORT TO ONCOMING RN.
--- NOTE | 2019-12-19 03:19 | NUR ---
SHIFT SUMMARY PATIENT HAD NO ACUTE CHANGES OBSERVED. NAUSEOUS X ONE AND IV REGLAN GIVEN PER EMAR. ABLE TO TAKE PO MEDICATION AFTER N/V RESOLVED. AXOX 4 AND INDEPENDENT IN ROOM. PATIENT SHOWERED THIS SHIFT. VSS/AFEBRILE. DENIES PAIN AND SOB. CBG 200. PIV REMAINS INTACT. DOOR TO DOOR SALESPERSON REPORTS ST 104. CALL LIGHT IN REACH. BED IN LOWEST POSITION. WILL CONTINUE TO MONITOR UNTIL DAY SHIFT NURSE ASSUMES CARE.
--- NOTE | 2019-12-19 11:08 | NUR ---
K-RIDER POTASSIUM IV D/C D/T INABILITY TO ESTABLISH IV ACCESS. DR. KEVIN DAWKINS MD WILL PUT IN PO ORDER FOR ORAL POTASSIUM.
[2019-12-19] MEDS ORDERED: ACET325 PO (14:17)
[2019-12-19] MEDS ORDERED: LOSA25 PO (14:18)
[2019-12-19] MEDS ORDERED: DOCU100 PO (14:19)
[2019-12-19] MEDS ORDERED: METO25ER PO (14:19)
[2019-12-19] MEDS ORDERED: SENNA LAXATIVE8.6 MG PO (14:20)
[2019-12-19] MEDS ORDERED: METO10 PO (14:21)
[2019-12-19] MEDS ORDERED: ONDA4ODT PO (14:22)
[2019-12-19] MEDS ORDERED: POTA10T PO (15:11)
--- NOTE | 2019-12-19 15:30 | NUR ---
Discharge Summary A/Ox3, pleasant and cooperative. Independent in room. Patient discharged to home. Discharge paperwork and education reviewed with patient, no questions, copies provided. Meds faxed to [place]. F/U unable to schedule, patient to schedule f/u appointment. Escorted by this RN via ambulation, patient declined wheelchair. Personal belongings sent home. Transportation home via personal vehicle, patient eager to go home before bank closes so she can pay her rent. No other concerns, patient tolerated breakfast and lunch well. Medicated x 1 for pain, c/o nausea this morning but is now feeling much better.
[2019-12-20 08:30] LABS: Calcium, Ionized (POC) 1.21 mmol/L (1.10-1.46); Chloride (POC) 104 mmol/L (98-108); Creatinine (POC) 0.5 mg/dL (0.6-1.0); Glucose (ISTAT POC) 424 mg/dL (70-99); Potassium (POC) 4.7 mmol/L (3.5-5.5); Sodium (POC) 132 mmol/L (135-148); Total CO2 (POC) 14 mmol/L (21-32)
== END 2019-12-19 15:23 | disposition home or self-care (01) | DRG 637 ==
LOC: ER 16:26 → ICUW 20:21 → MEDS 20:21 → ICUW 20:30 → MEDS 12-14 20:25
PROVIDERS: Emergency Medicine; Internal Medicine; Nurse Practitioner Acute Care; ADMIT Internal Medicine
PROC: 8E0ZXY6 Isolation (ICD-10-PCS; principal; 2019-12-13)
DX: E10.10 Type 1 diabetes mellitus with ketoacidosis without coma (principal); A41.9 Sepsis, unspecified organism; J18.9 Pneumonia, unspecified organism; K21.9 Gastro-esophageal reflux disease without esophagitis; M79.7 Fibromyalgia; M19.90 Unspecified osteoarthritis, unspecified site; F17.200 Nicotine dependence, unspecified, uncomplicated; I10 Essential (primary) hypertension; E10.43 Type 1 diabetes mellitus with diabetic autonomic (poly)neuropathy; I35.0 Nonrheumatic aortic (valve) stenosis; F32.9 Major depressive disorder, single episode, unspecified; F41.9 Anxiety disorder, unspecified; G89.29 Other chronic pain; E10.40 Type 1 diabetes mellitus with diabetic neuropathy, unspecified; Z20.828 Contact with and (suspected) exposure to other viral communicable diseases; E87.6 Hypokalemia; E86.0 Dehydration
CPT/HCPCS: 0099U; 36415; 71045; 74177; 80047; 80048; 80053; 81001; 82010; 82088; 82746; 82947; 83605; 83690; 83735; 84100; 84132; 84145; 84244; 84443; 85014; 85025; 87040; 93005; 93010; 94760; 96361; 96374-59; 96375; 99285-25; A9270; A9270-GY; C9113; J0456; J0696; J1650; J1815; J1956; J2060; J2405; J2550; J2765; J3480; J7030; J7042; J7050; J7060; Q9967; U0002

== ENCOUNTER 2019-12-24 11:50 | Emergency (ER) | payer OTHER ==
[~2019-12-24] VITALS: Ht 162.6 cm; Wt 74.8 kg
[~2019-12-24 11:50] MED LIST changes: +Amitriptyline100 MG PO; +BUPR100ER PO; +DOCU100 PO; +IPRATROPIUM 0.02% NEB; +LOSA25 PO; +METO25ER PO; +POTA10T PO; +PREG300 PO; +SENNA LAXATIVE8.6 MG PO
[2019-12-24 12:33] LABS: BASOPHILS ABSOLUTE AUTO 0.08 K/mm3 (0.00-0.23); BASOPHILS PERCENT AUTO 1 % (0-2); EOSINOPHILS ABSOLUTE AUTO 0.13 K/mm3 (0.00-0.68); EOSINOPHILS PERCENT AUTO 1 % (0-6); Hematocrit 41.3 % (33.0-51.0); Hemoglobin 13.2 g/dL (11.5-16.0); IMMATURE GRAN ABSOLUTE AUTO 0.07 K/mm3 (0.00-0.10); IMMATURE GRAN PERCENT AUTO 1 % (0-1); LYMPHOCYTES ABSOLUTE AUTO 2.02 K/mm3 (0.84-5.20); LYMPHOCYTES PERCENT AUTO 19 % (21-46); MONOCYTES ABSOLUTE AUTO 0.61 K/mm3 (0.16-1.47); MONOCYTES PERCENT AUTO 6 % (4-13); Mean Corpuscular HGB 27.5 pg (26.0-34.0); Mean Corpuscular Volume 86 fL (80-100); Mean Platelet Volume 9.8 fL (9.1-12.4); NEUTROPHILS PERCENT AUTO 72 % (41-73); Platelet Count 599 K/mm3 (150-400); RDW Standard Deviation 47.3 fL (35.1-46.3); White Blood Cell Count 10.51 K/mm3 (4.00-11.30)
[2019-12-24 12:53] LABS: Alanine Aminotransfer (ALT/SGP 19 U/L (12-78); Albumin, Blood 3.2 g/dL (3.4-5.0); Albumin/Globulin Ratio 0.6 (0.8-1.8); Alk Phos 137 U/L (50-136); Anion Gap 6 mmol/L (6-16); Aspartate Aminotrans (AST/SGOT 9 U/L (12-37); Beta-hydroxybutyrate 1.9 mg/dL (0.2-2.8); Bilirubin, Total 0.3 mg/dL (0.1-1.0); Blood Urea Nitrogen 7 mg/dL (8-24); Bun/Creatinine Ratio 13.9 (12.0-20.0); CO2, Blood 28 mmol/L (21-32); Calcium, Blood 9.7 mg/dL (8.5-10.1); Chloride, Blood 98 mmol/L (98-108); Creatinine, Blood 0.51 mg/dL (0.40-1.00); Globulin, Blood 5.2 g/dL (2.2-4.0); Glomerular Filtration Rate >60 (60-); Glucose, Blood 316 mg/dL (70-99); Potassium, Blood 4.3 mmol/L (3.5-5.5); Sodium, Blood 132 mmol/L (136-145); Total Protein, Blood 8.4 g/dL (6.4-8.2)
[2019-12-24 14:24] LABS: Source, Urine Clean Catch
[2019-12-24 14:27] LABS: Bilirubin, Urine Neg (Neg); Blood, Urine Neg (Neg); Glucose Qualitative, Urine 4+ (Neg); Ketones, Urine 3+ (Neg); Leukocyte Esterase, Urine Neg (Neg); Nitrite, Urine Neg (Neg); Protein, Urine 1+ (Neg); Urobilinogen, Urine NORM (Normal)
[2019-12-24 14:29] LABS: Appearance, Urine Clear (Clear); Color, Urine Yellow (P-Yellow)
[2019-12-24] MEDS ORDERED: Norco 5-325 Ta1 EACH PO (16:26)
[2019-12-24] MEDS ORDERED: PROM25 PO (16:26)
== END 2019-12-24 16:53 | disposition home or self-care (01) ==
LOC: ER 11:50
PROVIDERS: Emergency Medicine
DX: R19.7 Diarrhea, unspecified (principal); R11.2 Nausea with vomiting, unspecified; R10.9 Unspecified abdominal pain; R05 Cough; Z88.5 Allergy status to narcotic agent; Z88.8 Allergy status to other drugs, medicaments and biological substances; Z79.899 Other long term (current) drug therapy; E10.9 Type 1 diabetes mellitus without complications; K21.9 Gastro-esophageal reflux disease without esophagitis; M79.7 Fibromyalgia
CPT/HCPCS: 36415; 71045; 80053; 82010; 82947; 83690; 84484; 85025; 93005; 93010; 96361; 96374; 96375; 96376; 99284-25; J1170; J1200; J1630; J2405; J7120

== ENCOUNTER 2020-03-23 15:56 | Emergency (ER) | payer OTHER ==
[~2020-03-23] VITALS: Ht 162.6 cm; Wt 74.8 kg
[~2020-03-23 15:56] MED LIST changes: +Norco 5-325 Ta1 EACH PO
[2020-03-23 16:10] LABS: Source, Urine Clean Catch
[2020-03-23 16:18] LABS: Appearance, Urine Clear (Clear); Bilirubin, Urine Neg (Neg); Blood, Urine Neg (Neg); Color, Urine Yellow (P-Yellow); Glucose Qualitative, Urine 4+ (Neg); Ketones, Urine 4+ (Neg); Leukocyte Esterase, Urine Neg (Neg); Nitrite, Urine Neg (Neg); Protein, Urine 2+ (Neg); Urobilinogen, Urine NORM (Normal)
[2020-03-23 16:27] LABS: BASOPHILS ABSOLUTE AUTO 0.06 K/mm3 (0.00-0.23); BASOPHILS PERCENT AUTO 0 % (0-2); EOSINOPHILS ABSOLUTE AUTO 0.02 K/mm3 (0.00-0.68); EOSINOPHILS PERCENT AUTO 0 % (0-6); Hematocrit 44.3 % (33.0-51.0); Hemoglobin 13.9 g/dL (11.5-16.0); IMMATURE GRAN ABSOLUTE AUTO 0.07 K/mm3 (0.00-0.10); IMMATURE GRAN PERCENT AUTO 1 % (0-1); LYMPHOCYTES ABSOLUTE AUTO 1.93 K/mm3 (0.84-5.20); LYMPHOCYTES PERCENT AUTO 13 % (21-46); MONOCYTES PERCENT AUTO 2 % (4-13); Mean Corpuscular HGB 26.5 pg (26.0-34.0); Mean Corpuscular HGB Conc 31.4 g/dL (31.5-36.5); Mean Corpuscular Volume 84 fL (80-100); NEUTROPHILS ABSOLUTE AUTO 12.37 K/mm3 (1.96-9.15); NEUTROPHILS PERCENT AUTO 84 % (41-73); Platelet Count 462 K/mm3 (150-400); RDW Coefficient Variation 15.7 % (11.7-14.2); RDW Standard Deviation 48.5 fL (35.1-46.3); Red Blood Cell Count 5.25 M/mm3 (3.80-5.20); White Blood Cell Count 14.75 K/mm3 (4.00-11.30)
[2020-03-23 16:27] LABS: Bacteria Not Seen /hpf; Red Blood Cells, Urine Not Seen /hpf (0-2); Squamous Epithelial Cells Rare /hpf (Few); White Blood Cells, Urine Not Seen /hpf (0-5)
[2020-03-23 16:51] LABS: Alanine Aminotransfer (ALT/SGP 26 U/L (12-78); Albumin, Blood 3.9 g/dL (3.4-5.0); Albumin/Globulin Ratio 0.8 (0.8-1.8); Alk Phos 171 U/L (50-136); Anion Gap 7 mmol/L (6-16); Aspartate Aminotrans (AST/SGOT 22 U/L (12-37); Bilirubin, Total 0.6 mg/dL (0.1-1.0); Blood Urea Nitrogen 7 mg/dL (8-24); CO2, Blood 26 mmol/L (21-32); Calcium, Blood 9.1 mg/dL (8.5-10.1); Chloride, Blood 101 mmol/L (98-108); Globulin, Blood 4.8 g/dL (2.2-4.0); Glomerular Filtration Rate >60 (60-); Glucose, Blood 315 mg/dL (70-99); Potassium, Blood 4.2 mmol/L (3.5-5.5); Sodium, Blood 134 mmol/L (136-145); Total Protein, Blood 8.7 g/dL (6.4-8.2)
[2020-03-23] MEDS ORDERED: METO10 PO (18:33)
[2020-03-25] MEDS ORDERED: NOVOLOG100 UNIT/2 SC (11:40)
[2020-03-25] MEDS ORDERED: PREGABALIN300 MG PO (11:41)
[2020-03-25] MEDS ORDERED: PRILOSEC OTC20 MG PO (11:42)
[2020-03-25] MEDS ORDERED: ATROVENT HFA12.9 GM INH (11:44)
[2020-03-27] MEDS ORDERED: METO10SY PO (08:46)
[2020-03-27] MEDS ORDERED: ONDA4ODT MM (08:47)
[2020-03-27] MEDS ORDERED: PROM25 PO (08:48)
== END 2020-03-23 18:49 | disposition home or self-care (01) ==
LOC: ER 15:56
PROVIDERS: Physician Assistant
DX: E10.65 Type 1 diabetes mellitus with hyperglycemia (principal); E10.43 Type 1 diabetes mellitus with diabetic autonomic (poly)neuropathy; K31.84 Gastroparesis; K21.9 Gastro-esophageal reflux disease without esophagitis; Z88.5 Allergy status to narcotic agent; Z88.8 Allergy status to other drugs, medicaments and biological substances; Z79.899 Other long term (current) drug therapy
CPT/HCPCS: 74176; 76705; 80053; 81001; 82947; 83690; 85025; 93005; 93010; 96374; 96375; 99284-25; J1200; J1630; J2405; J7030

== ENCOUNTER 2020-03-30 09:20 | Inpatient (IN) | payer OTHER ==
[~2020-03-30] VITALS: Ht 162.6 cm; Wt 81.0 kg
[~2020-03-30 09:20] MED LIST changes: +ATROVENT HFA12.9 GM INH; +NOVOLOG100 UNIT/2 SC; +PREGABALIN300 MG PO; +PRILOSEC OTC20 MG PO
[2020-03-30 09:55] LABS: Calcium, Ionized (POC) 1.08 mmol/L (1.10-1.46); Chloride (POC) 94 mmol/L (98-108); Creatinine (POC) 0.5 mg/dL (0.6-1.0); Glucose (ISTAT POC) 329 mg/dL (70-99); Hemoglobin (POC) 15.6 g/dL (12.0-16.0); Potassium (POC) 3.2 mmol/L (3.5-5.5); Sodium (POC) 135 mmol/L (135-148); Total CO2 (POC) 26 mmol/L (21-32)
[2020-03-30 10:02] LABS: Base Excess Venous 3.8 mmol/L; PCO2 Venous 34.2 mmHg (38-42); PO2 Venous 159 mmHg (38-42)
[2020-03-30 10:09] LABS: BASOPHILS ABSOLUTE AUTO 0.07 K/mm3 (0.00-0.23); BASOPHILS PERCENT AUTO 1 % (0-2); EOSINOPHILS ABSOLUTE AUTO 0.13 K/mm3 (0.00-0.68); EOSINOPHILS PERCENT AUTO 1 % (0-6); Hematocrit 43.1 % (33.0-51.0); Hemoglobin 14.1 g/dL (11.5-16.0); IMMATURE GRAN ABSOLUTE AUTO 0.05 K/mm3 (0.00-0.10); IMMATURE GRAN PERCENT AUTO 0 % (0-1); LYMPHOCYTES ABSOLUTE AUTO 2.92 K/mm3 (0.84-5.20); LYMPHOCYTES PERCENT AUTO 24 % (21-46); MONOCYTES ABSOLUTE AUTO 0.77 K/mm3 (0.16-1.47); MONOCYTES PERCENT AUTO 6 % (4-13); Mean Corpuscular HGB 27.1 pg (26.0-34.0); Mean Corpuscular HGB Conc 32.7 g/dL (31.5-36.5); Mean Corpuscular Volume 83 fL (80-100); Mean Platelet Volume 10.2 fL (9.1-12.4); NEUTROPHILS PERCENT AUTO 67 % (41-73); Platelet Count 417 K/mm3 (150-400); RDW Coefficient Variation 16.3 % (11.7-14.2); RDW Standard Deviation 48.5 fL (35.1-46.3); White Blood Cell Count 12.04 K/mm3 (4.00-11.30)
[2020-03-30 10:31] LABS: Alanine Aminotransfer (ALT/SGP 24 U/L (12-78); Albumin, Blood 3.7 g/dL (3.4-5.0); Albumin/Globulin Ratio 0.9 (0.8-1.8); Alk Phos 145 U/L (50-136); Anion Gap 10 mmol/L (6-16); Aspartate Aminotrans (AST/SGOT 11 U/L (12-37); Bilirubin, Total 0.9 mg/dL (0.1-1.0); Blood Urea Nitrogen 11 mg/dL (8-24); Bun/Creatinine Ratio 18.9 (12.0-20.0); CO2, Blood 29 mmol/L (21-32); Calcium, Blood 8.8 mg/dL (8.5-10.1); Chloride, Blood 97 mmol/L (98-108); Creatinine, Blood 0.58 mg/dL (0.40-1.00); Globulin, Blood 4.2 g/dL (2.2-4.0); Glomerular Filtration Rate >60 (60-); Glucose, Blood 339 mg/dL (70-99); Potassium, Blood 3.1 mmol/L (3.5-5.5); Sodium, Blood 136 mmol/L (136-145); Total Protein, Blood 7.9 g/dL (6.4-8.2)
[2020-03-30 11:34] LABS: Source, Urine Clean Catch
[2020-03-30 11:36] LABS: Bilirubin, Urine Neg (Neg); Blood, Urine Neg (Neg); Glucose Qualitative, Urine 4+ (Neg); Ketones, Urine 4+ (Neg); Leukocyte Esterase, Urine Neg (Neg); Nitrite, Urine Neg (Neg); Protein, Urine 1+ (Neg); Urobilinogen, Urine NORM (Normal); pH, Urine 6.5 (5.0-8.0)
[2020-03-30 11:38] LABS: Appearance, Urine Clear (Clear); Color, Urine Yellow (P-Yellow)
--- NOTE | 2020-03-30 17:33 | NUR ---
PT ADMITTED FROM ER THIS SHIFT. SHE HAS SLEPT SINCE SHE ARRIVED. FLUIDS RUNNING. CALL LIGHT WITH IN REACH.
[2020-03-31 04:35] LABS: BASOPHILS ABSOLUTE AUTO 0.06 K/mm3 (0.00-0.23); BASOPHILS PERCENT AUTO 1 % (0-2); EOSINOPHILS ABSOLUTE AUTO 0.09 K/mm3 (0.00-0.68); EOSINOPHILS PERCENT AUTO 1 % (0-6); Hematocrit 39.6 % (33.0-51.0); Hemoglobin 12.7 g/dL (11.5-16.0); IMMATURE GRAN ABSOLUTE AUTO 0.02 K/mm3 (0.00-0.10); IMMATURE GRAN PERCENT AUTO 0 % (0-1); LYMPHOCYTES ABSOLUTE AUTO 2.31 K/mm3 (0.84-5.20); LYMPHOCYTES PERCENT AUTO 29 % (21-46); MONOCYTES ABSOLUTE AUTO 0.53 K/mm3 (0.16-1.47); MONOCYTES PERCENT AUTO 7 % (4-13); Mean Corpuscular HGB 27.1 pg (26.0-34.0); Mean Corpuscular HGB Conc 32.1 g/dL (31.5-36.5); Mean Corpuscular Volume 84 fL (80-100); Mean Platelet Volume 9.8 fL (9.1-12.4); NEUTROPHILS ABSOLUTE AUTO 4.86 K/mm3 (1.96-9.15); NEUTROPHILS PERCENT AUTO 62 % (41-73); Platelet Count 354 K/mm3 (150-400); RDW Coefficient Variation 16.4 % (11.7-14.2); RDW Standard Deviation 50.4 fL (35.1-46.3); Red Blood Cell Count 4.69 M/mm3 (3.80-5.20); White Blood Cell Count 7.87 K/mm3 (4.00-11.30)
--- NOTE | 2020-03-31 04:47 | NUR ---
OIL AND GAS RECRUITER SUMMARY PT AAOX4 AND INDEPENDENT IN ROOM. CONTINUES TO HAVE SOME NAUSEA THROUGH THE NIGHT BUT NO VOMITING. MEDICATED FOR NAUSEA W/ ZOFRAN AND REGLAN WITH SOME RELIEF. PT ALSO COMPLAINING OF SOME LOWER BACK PAIN AT AN 8/10, TYLENOL INEFFECTIVE. RECIEVED ONE TIME DOSE ORDER FOR OXYCODONE WHICH PT REPORTED BROUGHT PAIN DOWN TO 2/10 AND ALLOWED HER TO SLEEP FOR A FEW HOURS. PT HYPERTENISVE WITH MORNING VITALS, SBP 190'S. PT REPORTED SHE WASNT SURE IF SHE GOT HER BP MEDS FOR THE LAST DAY OR TWO. SPOKE WITH DR MARIE REGARDING BP, RECIEVED ORDER TO GIVE 0900 BP MEDS EARLY. OTHER VSS, WILL CONTINUE TO MONITOR.
[2020-03-31 05:11] LABS: Alanine Aminotransfer (ALT/SGP 20 U/L (12-78); Albumin, Blood 3.4 g/dL (3.4-5.0); Albumin/Globulin Ratio 0.9 (0.8-1.8); Alk Phos 128 U/L (50-136); Anion Gap 13 mmol/L (6-16); Aspartate Aminotrans (AST/SGOT 11 U/L (12-37); Bilirubin, Total 0.6 mg/dL (0.1-1.0); Blood Urea Nitrogen 5 mg/dL (8-24); CO2, Blood 23 mmol/L (21-32); Calcium, Blood 8.1 mg/dL (8.5-10.1); Chloride, Blood 99 mmol/L (98-108); Globulin, Blood 3.8 g/dL (2.2-4.0); Glomerular Filtration Rate >60 (60-); Glucose, Blood 249 mg/dL (70-99); Magnesium, Blood 1.6 mg/dL (1.6-2.4); Potassium, Blood 2.9 mmol/L (3.5-5.5); Sodium, Blood 135 mmol/L (136-145); Total Protein, Blood 7.2 g/dL (6.4-8.2)
--- NOTE | 2020-03-31 18:13 | NUR ---
SHIFT SUMMARY- PT IS A/O, PLESANT AND COOPERATIVE. SHE IS INDEPENDENT IN THE ROOM. SHE WAS ADVANCED TO A SOFT DIET THIS AFTERNOON AND HAS BEEN TOLERATING WELL. NO VOMITING THIS SHIFT. NAUSEA THIS MORNING BUT FELT BETTER AFTER EATING. HER BLOOD SUGARS HAVE BEEN ELEVATED AND REQUIRED COVERAGE. HER BLOOD PRESSURE WAS ELEVATED THIS MORNING AND PRN HYDRALIZINE WAS ORDERED, ALTHOUGH HER BLOOD PRESSURE DROPPED AFTER MORNING NAUSEA MEDICATIONS. HER BLOOD PRESSURE HAS REMAINED STABLE THIS AFTERNOON.
[2020-04-01 05:24] LABS: Albumin, Blood 3.2 g/dL (3.4-5.0); Anion Gap 9 mmol/L (6-16); Blood Urea Nitrogen 11 mg/dL (8-24); Bun/Creatinine Ratio 19.1 (12.0-20.0); CO2, Blood 23 mmol/L (21-32); Calcium, Blood 8.9 mg/dL (8.5-10.1); Chloride, Blood 105 mmol/L (98-108); Creatinine, Blood 0.58 mg/dL (0.40-1.00); Glomerular Filtration Rate >60 (60-); Glucose, Blood 373 mg/dL (70-99); Magnesium, Blood 1.9 mg/dL (1.6-2.4); Phosphorus, Blood 1.9 mg/dL (2.5-4.9); Potassium, Blood 3.4 mmol/L (3.5-5.5); Sodium, Blood 137 mmol/L (136-145)
--- NOTE | 2020-04-01 05:49 | NUR ---
SHIFT SUMMARY PT IS A 49 Y/O FEMALE, ADMITTED FOR INTRACTABLE N/V. SHE IS A&O X 4, INDEPENDENT IN THE ROOM, AND GOES OUTSIDE FREQUENTLY TO SMOKE. PT WAS MEDICATED ONCE FOR NAUSEA WITH PRN REGLAN. NO COMPLAINTS OF PAIN OR SOB. VITAL SIGNS STABLE. PT RECEIVING NS @ 75 ML/HR, AND FINISHED HER SECOND BAG OF K+ DURING THE NIGHT. PT DID NOT SLEEP MUCH DURING THE NIGHT. NO ACUTE CHANGES IN PT CONDITION NOTED. WILL CONTINUE TO MONITOR AND TREAT PER EMAR UNTIL HAND OFF TO DAY SHIFT RN.
--- NOTE | 2020-04-01 16:55 | NUR ---
SHIFT SUMMARY- PT IS A/O, PLESANT AND COOPERATIVE. SHE WAS NAUSIOUS THIS MORNING DID NOT RESOLVE WITH MEDICATIONS. HER BLOOD PRESSURE WAS ELEVATED. COVERED WITH HYDRALAZINE. BLOOD SUGAR LEVELS WERE ELEVATED AND REQUIRED COVERAGE THROUGHOUT THE SHIFT. PT ATE LUNCH AND AND DINNER AND BEGAN TO FEEL MUCH BETTER THIS AFTERNOON. PT SWITCH FROM NS TO 1/2 NS FOR THE BP. SHE WAS AMBULATING THIS AFTERNOON.
--- NOTE | 2020-04-01 23:25 | NUR ---
NEW IV PLACED BY RAQUEL UTBBS TO R.FA VIA US D/T PREVIOUS IV NO LONGER PATENT.
--- NOTE | 2020-04-02 01:41 | NUR ---
PT BEGAN SHIFT A/OX4 BUT HAS PROGRESSIVELY GROWN MORE CONFUSED W/SPEECH THAT FLUCTUATES BETWEEN BEING COHERENT/LEUCID THEN NONSENSICAL. SHE LACKS AWARENESS OF HER CHANGE IN MENTATION AND BECOMES FRUSTRATED W/STAFF ATTEMPTING TO REORIENT HER AT THESE TIMES. SHE'S BEEN OUTSIDE TO SMOKE MULTIPLE TIMES AND TRIES TO LEAVE WITHIN MOMENTS OF RETURNING TO HER ROOM W/A NEW REASON TO "GO TO HER CAR". SHE'S MENTIONED NEEDING TO "GO SPECIAL FORCES SPECIALIST HER KIDS AROUND THE CORNER", WANTING TO "GRAB THE TEDDYBEAR FROM HER CAR FOR HER GRANDKIDS" AND NEEDING TO GET "DIABETIC SHAKE FROM THE TRUNK". STAFF CONTINUE TO EDUCATE AND REORIENT PRN W/PT ENCOURAGED TO ATTEMPT TO GET SOME REST. SHE'S NOW WANDERING AROUND HER ROOM SOMEWHAT AIMLESSLY BUT HAS STEADY GAIT AT THIS TIME AND TYPICALLY ISN'T A FALL RISK. WILL MONITOR CLOSELY.
--- NOTE | 2020-04-02 01:59 | NUR ---
CHECKED CBG DUE TO MENTATION CHANGES AND CBG NOW 232 WHICH IS IMPROVED FROM PREVIOUS. STAFF QUESTIONING WHETHER AMS IS POSSIBLY R/T RECIEVING ATIVAN AT BEDTIME WHICH WAS A NEW MED ON DAY SHIFT (04/02/20). WILL EVALUATE FOR CHANGE AND/OR WORSENING.
[2020-04-02 05:13] LABS: BASOPHILS ABSOLUTE AUTO 0.06 K/mm3 (0.00-0.23); BASOPHILS PERCENT AUTO 1 % (0-2); EOSINOPHILS ABSOLUTE AUTO 0.16 K/mm3 (0.00-0.68); EOSINOPHILS PERCENT AUTO 2 % (0-6); Hematocrit 37.2 % (33.0-51.0); Hemoglobin 12.1 g/dL (11.5-16.0); IMMATURE GRAN ABSOLUTE AUTO 0.03 K/mm3 (0.00-0.10); IMMATURE GRAN PERCENT AUTO 0 % (0-1); LYMPHOCYTES ABSOLUTE AUTO 3.81 K/mm3 (0.84-5.20); LYMPHOCYTES PERCENT AUTO 35 % (21-46); MONOCYTES ABSOLUTE AUTO 0.88 K/mm3 (0.16-1.47); MONOCYTES PERCENT AUTO 8 % (4-13); Mean Corpuscular HGB 27.3 pg (26.0-34.0); Mean Corpuscular HGB Conc 32.5 g/dL (31.5-36.5); Mean Corpuscular Volume 84 fL (80-100); Mean Platelet Volume 9.9 fL (9.1-12.4); NEUTROPHILS ABSOLUTE AUTO 5.95 K/mm3 (1.96-9.15); NEUTROPHILS PERCENT AUTO 55 % (41-73); Platelet Count 359 K/mm3 (150-400); RDW Coefficient Variation 16.5 % (11.7-14.2); RDW Standard Deviation 50.9 fL (35.1-46.3); Red Blood Cell Count 4.43 M/mm3 (3.80-5.20); White Blood Cell Count 10.89 K/mm3 (4.00-11.30)
[2020-04-02 05:57] LABS: Alanine Aminotransfer (ALT/SGP 17 U/L (12-78); Albumin, Blood 3.3 g/dL (3.4-5.0); Albumin/Globulin Ratio 0.9 (0.8-1.8); Alk Phos 104 U/L (50-136); Anion Gap 12 mmol/L (6-16); Aspartate Aminotrans (AST/SGOT 19 U/L (12-37); Bilirubin, Total 0.5 mg/dL (0.1-1.0); Blood Urea Nitrogen 15 mg/dL (8-24); Bun/Creatinine Ratio 21.1 (12.0-20.0); C-REACTIVE PROTEIN, EXT RANGE 0.651 mg/dL (0.000-0.300); CO2, Blood 21 mmol/L (21-32); Chloride, Blood 103 mmol/L (98-108); Creatinine, Blood 0.71 mg/dL (0.40-1.00); Globulin, Blood 3.5 g/dL (2.2-4.0); Glomerular Filtration Rate >60 (60-); Glucose, Blood 282 mg/dL (70-99); Potassium, Blood 3.2 mmol/L (3.5-5.5); Sodium, Blood 136 mmol/L (136-145); Thyroid Stimulating Hormone 0.904 uIU/mL (0.360-4.800); Total Protein, Blood 6.8 g/dL (6.4-8.2)
--- NOTE | 2020-04-02 06:07 | NUR ---
SUMMARY: PT BEGAN SHIFT A/OX4 AND PLEASANT/COOPERATIVE W/CARE BUT BECAME QUITE CONFUSED, SEEMING SOMEWHAT DELIRIOUS NIGHT PROGRESSED AND HAD DIFFICULTY REORIENTING DESPITE STAFF ATTEMPTS TO DO SO. SHE WENT OUTSIDE ALL T/O NOCTE TO SMOKE AND FOR VARIOUS OTHER BIZARRE REQUESTS. SEE PREVIOUS NOTES FOR DETAILS. STAFF ENCOURAGED HER TO REMAIN IN ROOM TO GET REST AND IVF BUT SHE'D BECOME ANXIOUS/AGGITATED WHEN THIS WAS PROPOSED. BEHAVIOR WAS VERY BIZARRE AND ATYPICAL FOR HER, OFTEN WANDERING AIMLESSLY IN ROOM OR BECOMING DISORIENTED AND ATTEMPTING TO ENTER OTHER PT ROOMS. SHE BECAME MORE COHERENT AGAIN THIS AM AND HAD VERY LITTLE RECOLLECTION OF NIGHT'S EVENTS BUT SHE DID RECALL GOING OUTSIDE OFTEN AND FEELING ANXIOUS. SHE WAS STARTED ON ATIVAN ON 04/01/20 AND HAD HS DOSE BUT DID NOT SLEEP AT ALL. STAFF ARE QUESTIONING WHETHER ATIVAN IN ADDITION TO OTHER SCHEDULED MEDS AND PAIRED W/NO SLEEP COULD HAVE LED TO THIS DELIRIOUS BEHAVIOR. HER BP WAS MUCH LOWER THIS SHIFT BUT WAS ON TREND FOR WHERE SHE'D BEEN ON DAY SHIFT. SHE WAS ASYMPTOMATIC OF CARDIAC DISTRESS AND DENIED DIZZYNESS. CBG WAS CHECKED DURING NIGHT FOR SUSPICION OF HYPO/HYPER- GLYCEMIA BUT HAD IMPROVED AND WAS STABLE. IVF INFUSED WHEN PT WAS IN ROOM BUT SHE SPENT MUCH TIME DISCONNECTED WHILE OUTSIDE. NEW IV WAS PLACED W/US D/T IV NO LONGER PATENT. SHE WAS MEDICATED W/COMPAZINE FOR IMPROVEMENT IN PT C/O OF NAGGING NAUSEA THIS AM. STAFF QUESTION WHETHER SMOKE OUTSIDE COULD'VE BEEN CONTRIBUTING FACTOR. SHE WILL LIKELY DC TODAY BUT STAFF ARE UNSURE WHETHER ATIVAN SHOULD BE CONTINUED, WILL ENSURE DAY STAFF ARE AWARE. NO ACUTE CHANGES, VSS/AFEBRILE. WCTM AND REPORT TO DAY RN.
--- NOTE | 2020-04-02 11:03 | NUR ---
PATIENT DISCHARGED AT 11:02. IV DC'D.
[2020-04-03] MEDS ORDERED: Bentyl20 MG PO (17:08)
[2020-04-03] MEDS ORDERED: PROM25 PR (17:08)
== END 2020-04-02 11:01 | disposition home or self-care (01) | DRG 392 ==
LOC: ER 09:20 → MEDS 09:21 → ENPENDDIS 04-02 10:49 → MEDS 04-02 11:01
PROVIDERS: Internal Medicine; Physician Assistant; ADMIT Internal Medicine
DX: R11.2 Nausea with vomiting, unspecified (principal); E10.40 Type 1 diabetes mellitus with diabetic neuropathy, unspecified; F41.9 Anxiety disorder, unspecified; F32.9 Major depressive disorder, single episode, unspecified; I10 Essential (primary) hypertension; E87.6 Hypokalemia; E83.42 Hypomagnesemia; E83.51 Hypocalcemia; Z79.4 Long term (current) use of insulin; Z96.41 Presence of insulin pump (external) (internal); M79.7 Fibromyalgia; G89.29 Other chronic pain; F17.210 Nicotine dependence, cigarettes, uncomplicated
CPT/HCPCS: 36415; 71045; 80047; 80053; 80069; 82330; 82803; 82947; 83690; 83735; 84443; 84484; 85014; 85025; 85651; 86140; 93005; 93010; 96365; 96367; 96375; 99285-25; A9270; A9270-GY; J0360; J0610; J0780; J1170; J1200; J1630; J1650; J1885; J2405; J2550; J2765; J3475; J3480; J7030; J7120

== ENCOUNTER 2020-04-19 12:16 | Emergency (ER) | payer OTHER | END 2020-04-19 19:50 | disposition home or self-care (01) | LOC: ER 12:16 | DX: R11.2 Nausea with vomiting, unspecified (principal); R10.9 Unspecified abdominal pain; E11.40 Type 2 diabetes mellitus with diabetic neuropathy, unspecified; I10 Essential (primary) hypertension; F32.9 Major depressive disorder, single episode, unspecified; F41.9 Anxiety disorder, unspecified; K21.9 Gastro-esophageal reflux disease without esophagitis; F17.200 Nicotine dependence, unspecified, uncomplicated; Z88.5 Allergy status to narcotic agent; Z88.8 Allergy status to other drugs, medicaments and biological substances; Z79.4 Long term (current) use of insulin; Z79.899 Other long term (current) drug therapy ==

== ENCOUNTER 2020-08-02 18:25 | Inpatient (IN) | payer OTHER ==
[~2020-08-02] VITALS: Ht 162.6 cm; Wt 82.8 kg
[~2020-08-02 18:25] MED LIST changes: +AMIT25 PO; -Amitriptyline100 MG PO; +Bentyl20 MG PO; +NOVOLOG FL100 UNIT/2; -Novolog100 UNIT/2
[2020-08-02 19:53] LABS: BASOPHILS ABSOLUTE AUTO 0.03 K/mm3 (0.00-0.23); BASOPHILS PERCENT AUTO 0 % (0-2); EOSINOPHILS PERCENT AUTO 0 % (0-6); Hematocrit 44.8 % (33.0-51.0); Hemoglobin 14.4 g/dL (11.5-16.0); IMMATURE GRAN ABSOLUTE AUTO 0.05 K/mm3 (0.00-0.10); IMMATURE GRAN PERCENT AUTO 0 % (0-1); LYMPHOCYTES ABSOLUTE AUTO 1.86 K/mm3 (0.84-5.20); LYMPHOCYTES PERCENT AUTO 13 % (21-46); MONOCYTES ABSOLUTE AUTO 0.38 K/mm3 (0.16-1.47); MONOCYTES PERCENT AUTO 3 % (4-13); Mean Corpuscular HGB 26.5 pg (26.0-34.0); Mean Corpuscular HGB Conc 32.1 g/dL (31.5-36.5); Mean Corpuscular Volume 83 fL (80-100); Mean Platelet Volume 10.3 fL (9.1-12.4); NEUTROPHILS ABSOLUTE AUTO 12.54 K/mm3 (1.96-9.15); NEUTROPHILS PERCENT AUTO 84 % (41-73); Platelet Count 550 K/mm3 (150-400); RDW Coefficient Variation 15.5 % (11.7-14.2); RDW Standard Deviation 46.7 fL (35.1-46.3); Red Blood Cell Count 5.43 M/mm3 (3.80-5.20); White Blood Cell Count 14.86 K/mm3 (4.00-11.30)
[2020-08-02 20:04] LABS: Alanine Aminotransfer (ALT/SGP 30 U/L (12-78); Albumin, Blood 4.1 g/dL (3.4-5.0); Albumin/Globulin Ratio 0.8 (0.8-1.8); Alk Phos 219 U/L (50-136); Anion Gap 15 mmol/L (6-16); Aspartate Aminotrans (AST/SGOT 28 U/L (12-37); Bilirubin, Total 0.7 mg/dL (0.1-1.0); Blood Urea Nitrogen 16 mg/dL (8-24); Bun/Creatinine Ratio 30.2 (12.0-20.0); CO2, Blood 20 mmol/L (21-32); Calcium, Blood 10.4 mg/dL (8.5-10.1); Chloride, Blood 99 mmol/L (98-108); Creatinine, Blood 0.53 mg/dL (0.40-1.00); Globulin, Blood 5.2 g/dL (2.2-4.0); Glomerular Filtration Rate >60 (60-); Glucose, Blood 340 mg/dL (70-99); Potassium, Blood 4.7 mmol/L (3.5-5.5); Sodium, Blood 134 mmol/L (136-145); Total Protein, Blood 9.3 g/dL (6.4-8.2)
[2020-08-03 01:35] LABS: Source, Urine Clean Catch
[2020-08-03 01:38] LABS: Bilirubin, Urine Neg (Neg); Blood, Urine Neg (Neg); Glucose Qualitative, Urine 4+ (Neg); Ketones, Urine 4+ (Neg); Leukocyte Esterase, Urine Neg (Neg); Nitrite, Urine Neg (Neg); Protein, Urine 2+ (Neg); Urobilinogen, Urine NORM (Normal)
[2020-08-03 01:39] LABS: Appearance, Urine Clear (Clear); Color, Urine Yellow (P-Yellow)
[2020-08-03 01:46] LABS: Base Excess Venous -9.1 mmol/L; Bicarbonate Venous 18.1 mmol/L (24.0-30.0); PO2 Venous 88.8 mmHg (38-42); pH Blood Venous 7.34 (7.34-7.37)
[2020-08-03 01:52] LABS: U Amphetamine Screen Not Detected; U Barbituate Screen Not Detected; U Benzodiazapine Screen Not Detected; U Buprenorphine Screen Not Detected; U Cannabinoids Screen DETECTED; U Cocaine Screen Not Detected; U Methadone Screen Not Detected; U Methamphetamine Screen Not Detected; U Opiates Screen DETECTED; U Oxycodone Screen Not Detected; U Phencyclidine Screen Not Detected; U Propoxyphene Screen Not Detected
[2020-08-03 01:58] LABS: Bacteria Not Seen /hpf; Red Blood Cells, Urine Not Seen /hpf (0-2); Squamous Epithelial Cells Not Seen /hpf (Few); White Blood Cells, Urine Not Seen /hpf (0-5)
[2020-08-03 02:37] LABS: PCO2 Arterial 33.7 mmHg (35-45); PO2 Arterial 72.9 mmHg (80-100); pH Blood Arterial 7.33 (7.35-7.45)
[2020-08-03 04:20] LABS: Anion Gap 18 mmol/L (6-16); Blood Urea Nitrogen 21 mg/dL (8-24); CO2, Blood 16 mmol/L (21-32); Chloride, Blood 102 mmol/L (98-108); Creatinine, Blood 0.64 mg/dL (0.40-1.00); Glomerular Filtration Rate >60 (60-); Glucose, Blood 418 mg/dL (70-99); Potassium, Blood 4.2 mmol/L (3.5-5.5); Sodium, Blood 136 mmol/L (136-145)
[2020-08-03 04:50] LABS: Influenza A, PCR Negative (NEGATIVE); Influenza B, PCR Negative (NEGATIVE); Resp Syncytial Virus, PCR Negative (NEGATIVE); SARS-Cov-2 (COVID-19) PCR, MMC Negative (NEGATIVE)
[2020-08-03 05:46] LABS: Source, Urine Catheter
[2020-08-03 05:52] LABS: Bilirubin, Urine Neg (Neg); Blood, Urine Neg (Neg); Glucose Qualitative, Urine 4+ (Neg); Ketones, Urine 4+ (Neg); Leukocyte Esterase, Urine Neg (Neg); Nitrite, Urine Neg (Neg); Protein, Urine 2+ (Neg); Specific Gravity, Urine 1.025 (1.003-1.022); Urobilinogen, Urine NORM (Normal)
[2020-08-03 06:01] LABS: Appearance, Urine Clear (Clear); Color, Urine Yellow (P-Yellow)
[2020-08-03 06:03] LABS: Red Blood Cells, Urine 0-2 /hpf (0-2); White Blood Cells, Urine 0-2 /hpf (0-5)
[2020-08-03 06:04] LABS: Bacteria Rare /hpf; Squamous Epithelial Cells Rare /hpf (Few)
--- NOTE | 2020-08-03 06:38 | NUR ---
RECEIVED VIA GUERNEY FROM ED AT 0420. COVID PENDING AT THAT TIME AND RESULT NOTED TO BE NEGATIVE. CONSTANT GARBLED SPEECH AND CALLS STAFF MOTHER. RESTLESS AND MOVING CONSTANTLY IN BED. NO DIRECT PAIN AREA REPORTED. OCCASIONALLY SAYS " I AM SICK.I HAVE TO PEE , MY STOMACH HURTS." NO EMESIS . ASPIRATION PRECAUTIONS TAKEN AND EMESIS BAG AVAILABLE AT ALL TIMES. SAFETY PRECAUTIONS TAKEN AND EXPLAINED , DOES NOT COMPREHEND MOST REVIEWS OF CARE GIVEN. PLACED HAMILTON AND ANOTHER IV SITE BY SOY SITE IMMEDIATELY ON ADMIT TO ROOM. YADIEL PUTS TUBING AND DEVICES IN MOUTH IF TO DRINK THEM. MOUTH SWABS TOLERATED. NPO. CONFUSED GARBLED , UNCLEAR STATEMENTS. FINALLY RESPONDS TO CORRECT SELF W/ NAME AND DATE. CONSTANTLY STATES , PER PT SHE HAS TO GET OUT OF BED TO PEE. INSULIN GTT W/ LR STARTED ON ADMIT TO ROOM. STARTED AT 2 UNITS .NOW 3 . VOIDED 300 ML ON BED [place]O PRE HAMILTON. ST AVERAGE 122. WNL SAT ON RA.
--- NOTE | 2020-08-03 08:37 | NUR ---
PT IS CONFUSED WITH GARBLED SPEECH. A/O TO SELF ONLY. WILL FOLLOW SIMPLE COMMANDS AND KNOWS WHAT IS NEEDED WHEN IT IS TIME FOR BLOOD SUGAR CHECK. MOVES AROUND IN BED FREQUENTLY. ON INSULIN GTT. NO SIGN OF DISTRESS. BED ALARM ARMED FOR SAFETY.
--- NOTE | 2020-08-03 09:26 | NUR ---
CALLED DR. LIN TO UPDATE HER ON GLUCOSE, LAST LABS DRAWN, AND PT IS STILL TACYCARDIC. NEW ORDERS FOR REPEAT BMP AND 1L BOLUS.
[2020-08-03 10:09] LABS: Anion Gap 11 mmol/L (6-16); Blood Urea Nitrogen 22 mg/dL (8-24); Bun/Creatinine Ratio 35.8 (12.0-20.0); CO2, Blood 20 mmol/L (21-32); Calcium, Blood 8.8 mg/dL (8.5-10.1); Chloride, Blood 110 mmol/L (98-108); Creatinine, Blood 0.61 mg/dL (0.40-1.00); Glomerular Filtration Rate >60 (60-); Glucose, Blood 305 mg/dL (70-99); Potassium, Blood 3.8 mmol/L (3.5-5.5); Sodium, Blood 141 mmol/L (136-145)
[2020-08-03] MEDS ORDERED: Bentyl20 MG PO (11:58)
[2020-08-03] MEDS ORDERED: HYDR1TAB94 PO (11:59)
[2020-08-03] MEDS ORDERED: METO5A PO (12:05)
[2020-08-03] MEDS ORDERED: PHENERGAN25 MG PR (12:07)
[2020-08-03] MEDS ORDERED: POTA10T PO (12:07)
[2020-08-03] MEDS ORDERED: PROM25 PO (12:08)
[2020-08-03] MEDS ORDERED: PREG150 PO (12:08)
--- NOTE | 2020-08-03 14:20 | NUR ---
PT TOLERATED CLEAR LIQUID DIET THIS AFTERNOON. NO NAUSEA OR VOMITING SINCE. PT'S SPEECH IS BECOMING MORE CLEAR. HAS BEEN LESS IMPULSIVE AND FOLLOWING DIRECTIONS. PT WAS MADE MEDICAL STATUS. REPORT GIVEN TO SHREYA NEGRON WHO WILL ASSUME CARE.
--- NOTE | 2020-08-03 14:47 | NUR ---
PT REPORT RECEIVED FROM RN. ICU. PT TRANSPORTED HERE TO ROOM AT 1440 PT C/O PAIN IN BACK. BED IN LOW POSITION, CALL LITE IN REACH, BED ALARM ON FOR SAFETY
--- NOTE | 2020-08-03 15:38 | NUR ---
PT STATES 9/10 PAIN. GAVE TYLENOL TO START. WAS COMPLAINING MUCH, RETUNRED TO CHECK ON PT. IS NOW RESTING, CALM, EYES CLOSED, RESP EASY, UNLABORED. DID NOT DISTURB
--- NOTE | 2020-08-03 18:29 | NUR ---
CARINE CALLED. 2 ORDERS LYRICA. CALLED DAUGHTER. SHE STATES MIGHT HAVE BEEN 300 BUT NOW LAST ADMIT WAS CHANGED TO 150 BID. CALLED WITH INFO. SHE OKAYED 150. CALLED PHA. CLAUDIO, MADE AWARE OF CHANGE.
--- NOTE | 2020-08-03 18:43 | NUR ---
PT PLEASANT SINCE TRANSFER. SOME COMPLAINTS OF PAIN IN BACK TO FLANK, SOME ON RT RIB.STATES ONLY WHEN DEEP BREATHE. MOSTLY IN BACK. SOME NAUSEA, TREATED FOR PAIN AND NAUSEA. ENCOURAGING TO EAT SOME. OBTAINED DR ORDERS FOR MEDS TO BE GIVEN. BED IN LOW POSITION, CALL LITE IN REACH, BED ALARM ON FOR SAFETY
--- NOTE | 2020-08-03 19:42 | NUR ---
AWAKE. C/O NAUSEA AND PAIN, DID NOT EAT MUCH OF DINNER ON TRAY. RECEIVED PHENERGAN IV FOR NAUSEA AND AN ANALGESIC FOR PAIN. IVF OF LR INFUSING. CALL LIGHT IN REACH
--- NOTE | 2020-08-04 04:00 | NUR ---
SHIFT SUMMARY AWAKE AT INTERVALS WITH C/O NAUSEA AND PAIN. SEE MAR FOR DETAILS WHEN MEDICATED. IVF OF LR INFUSING AT 150 ML/HR PER MD ORDERS AND CONTINUES T RECEIVE IV ANTIBIOTICS. RESTING QUIETLY AT THIS TIME. CALL LIGHT IN REACH
[2020-08-04 10:30] LABS: BASOPHILS ABSOLUTE AUTO 0.08 K/mm3 (0.00-0.23); BASOPHILS PERCENT AUTO 1 % (0-2); EOSINOPHILS PERCENT AUTO 1 % (0-6); Hematocrit 38.4 % (33.0-51.0); Hemoglobin 12.1 g/dL (11.5-16.0); IMMATURE GRAN ABSOLUTE AUTO 0.02 K/mm3 (0.00-0.10); IMMATURE GRAN PERCENT AUTO 0 % (0-1); LYMPHOCYTES ABSOLUTE AUTO 2.54 K/mm3 (0.84-5.20); LYMPHOCYTES PERCENT AUTO 36 % (21-46); MONOCYTES ABSOLUTE AUTO 0.52 K/mm3 (0.16-1.47); MONOCYTES PERCENT AUTO 7 % (4-13); Mean Corpuscular HGB 26.6 pg (26.0-34.0); Mean Corpuscular HGB Conc 31.5 g/dL (31.5-36.5); Mean Corpuscular Volume 84 fL (80-100); Mean Platelet Volume 9.6 fL (9.1-12.4); NEUTROPHILS ABSOLUTE AUTO 3.87 K/mm3 (1.96-9.15); NEUTROPHILS PERCENT AUTO 54 % (41-73); Platelet Count 356 K/mm3 (150-400); RDW Coefficient Variation 15.9 % (11.7-14.2); RDW Standard Deviation 49.6 fL (35.1-46.3); Red Blood Cell Count 4.55 M/mm3 (3.80-5.20); White Blood Cell Count 7.13 K/mm3 (4.00-11.30)
[2020-08-04 10:54] LABS: Alanine Aminotransfer (ALT/SGP 33 U/L (12-78); Albumin, Blood 3.2 g/dL (3.4-5.0); Albumin/Globulin Ratio 0.8 (0.8-1.8); Alk Phos 157 U/L (50-136); Anion Gap 10 mmol/L (6-16); Aspartate Aminotrans (AST/SGOT 31 U/L (12-37); Bilirubin, Total 0.6 mg/dL (0.1-1.0); Blood Urea Nitrogen 11 mg/dL (8-24); Bun/Creatinine Ratio 27.2 (12.0-20.0); CO2, Blood 24 mmol/L (21-32); Calcium, Blood 8.4 mg/dL (8.5-10.1); Chloride, Blood 103 mmol/L (98-108); Creatinine, Blood 0.41 mg/dL (0.40-1.00); Glomerular Filtration Rate >60 (60-); Glucose, Blood 237 mg/dL (70-99); Potassium, Blood 3.2 mmol/L (3.5-5.5); Sodium, Blood 137 mmol/L (136-145)
[2020-08-04 10:55] LABS: Total Protein, Blood 7.2 g/dL (6.4-8.2)
--- NOTE | 2020-08-04 17:40 | NUR ---
SHIFT SUMMARY PATIENT ALERT AND ORIENTED THROUGHOUT THIS SHIFT. PATIENT EXPERIENCING NAUSEA THROUGHOUT THIS SHIFT WITH VOMITING THIS AM. PATIENT MEDICATED FOR PAIN IN HER BACK AND HEAD THROUGHOUT THIS SHIFT. PATIENT CONTINUES TO STATE GENERAL NOT FEELING WELL. PATIENT CONTINUES ON IV ANTIBIOTICS. PATIENT REMAINS IN BED THROUGHOUT THIS SHIFT WITH C PRIVILAGES. PATIENT ATE VERY LITTLE THIS SHIFT DUE TO NOT FEELING WELL WELL NOT HAVING HER DENTURES TO EAT WITH, STATING SHE WILL CHOKE WITHOUT THEM, YET REFUSES TRYING PUREED FOODS. PATIENT CURRENTLY LAYING IN BED.
--- NOTE | 2020-08-05 04:53 | NUR ---
SHIFT SUMMARY: BP AND PULSE ELEVATED INITIALLY TONIGHT. PT WAS PAINFUL AND NAUSEAUS. REASSESSED AFTER ANALGESIC AND ANTIEMETIC, BOTH BP AND PULSE IMPROVED. PT HAS SLEPT MINIMALLY. UNCOMFORTABLE IN HOSPITAL BED. EGG CRATE MATTRESS PLACED. PT NAUSEAUS WITHOUT VOMITING. ATTEMPTED TO EAT YOGURT AND JELLO BUT REPORTS NAUSEA PREVENTS PO INTAKE DESPITE RECEIVING ZOFRAN AND PHENERGAN. ABD TENDER THROUGHOUT W/PALPATION. PT REPORTS THAT SHE HAD 1 EPISODE OF DIARRHEA YESTERDAY. WILL CONT TO MONITOR.
[2020-08-05 04:56] LABS: BASOPHILS ABSOLUTE AUTO 0.05 K/mm3 (0.00-0.23); BASOPHILS PERCENT AUTO 1 % (0-2); EOSINOPHILS PERCENT AUTO 1 % (0-6); Hematocrit 36.3 % (33.0-51.0); Hemoglobin 11.2 g/dL (11.5-16.0); IMMATURE GRAN ABSOLUTE AUTO 0.03 K/mm3 (0.00-0.10); IMMATURE GRAN PERCENT AUTO 0 % (0-1); LYMPHOCYTES ABSOLUTE AUTO 3.36 K/mm3 (0.84-5.20); LYMPHOCYTES PERCENT AUTO 40 % (21-46); MONOCYTES ABSOLUTE AUTO 0.64 K/mm3 (0.16-1.47); MONOCYTES PERCENT AUTO 8 % (4-13); Mean Corpuscular HGB 26.2 pg (26.0-34.0); Mean Corpuscular HGB Conc 30.9 g/dL (31.5-36.5); Mean Corpuscular Volume 85 fL (80-100); Mean Platelet Volume 9.4 fL (9.1-12.4); NEUTROPHILS ABSOLUTE AUTO 4.28 K/mm3 (1.96-9.15); NEUTROPHILS PERCENT AUTO 51 % (41-73); Platelet Count 348 K/mm3 (150-400); RDW Coefficient Variation 15.3 % (11.7-14.2); RDW Standard Deviation 47.6 fL (35.1-46.3); Red Blood Cell Count 4.27 M/mm3 (3.80-5.20); White Blood Cell Count 8.46 K/mm3 (4.00-11.30)
[2020-08-05 05:28] LABS: Albumin, Blood 2.9 g/dL (3.4-5.0); Anion Gap 10 mmol/L (6-16); Blood Urea Nitrogen 9 mg/dL (8-24); Bun/Creatinine Ratio 20.4 (12.0-20.0); CO2, Blood 21 mmol/L (21-32); Calcium, Blood 7.7 mg/dL (8.5-10.1); Chloride, Blood 105 mmol/L (98-108); Creatinine, Blood 0.44 mg/dL (0.40-1.00); Glomerular Filtration Rate >60 (60-); Glucose, Blood 197 mg/dL (70-99); Magnesium, Blood 2.1 mg/dL (1.6-2.4); Potassium, Blood 3.1 mmol/L (3.5-5.5); Sodium, Blood 136 mmol/L (136-145)
--- NOTE | 2020-08-05 05:39 | NUR ---
CALL TO HOSPITALIST / K+ 3.1 SPOKE W/ DR. MARIE, RECEIVED ONE TIME ORDER FOR PO K+ 40MEQ.
--- NOTE | 2020-08-05 16:30 | NUR ---
DISCHARGE NOTE PATIENT DISCHARGED TO HOME. PATIENT ALERT AND ORIENTED THIS SHIFT. PATIENT TOLERATED A PEANUT BUTTER AND JELLY SANDWICH THIS AFTERNOON. HAMILTON CATHETER REMOVED, PATIENT ABLE TO URINATE PRIOR TO DISCHARGE. PATIENT MEDICATED FOR PAIN THROUGHOUT THIS SHIFT. PATIENT STATES NAUSEA MUCH IMPROVED THIS SHIFT. PATIENT ABLE TO AMBULATE WITHOUT ASSISTANCE TO THE BATHROOM AND BACK TO BED. PATIENT'S DAUGHTER PROVIDING TRANSPORATION. PATIENT PROVIDED WITH DISCHARGE AND MEDICATION INSTRUCTIONS, NO QUESTIONS AT THIS TIME. PATIENT TO VEHICLE BY FREDIS Alvarado CNA.
== END 2020-08-05 16:36 | disposition home or self-care (01) | DRG 637 ==
LOC: ER 18:25 → ICUE 08-03 04:24 → ICUW 08-03 04:24 → ICUE 08-03 04:34 → MEDS 08-03 14:30
PROVIDERS: Emergency Medicine; Internal Medicine; Physician Assistant; ADMIT Internal Medicine
DX: E11.10 Type 2 diabetes mellitus with ketoacidosis without coma (principal); G93.41 Metabolic encephalopathy; E11.43 Type 2 diabetes mellitus with diabetic autonomic (poly)neuropathy; K31.84 Gastroparesis; I10 Essential (primary) hypertension; E87.6 Hypokalemia; Z20.822 Contact with and (suspected) exposure to COVID-19; M79.7 Fibromyalgia; I35.0 Nonrheumatic aortic (valve) stenosis; E11.40 Type 2 diabetes mellitus with diabetic neuropathy, unspecified; G89.4 Chronic pain syndrome; F17.210 Nicotine dependence, cigarettes, uncomplicated; M19.90 Unspecified osteoarthritis, unspecified site; K52.9 Noninfective gastroenteritis and colitis, unspecified; K21.9 Gastro-esophageal reflux disease without esophagitis; F41.9 Anxiety disorder, unspecified; Z79.4 Long term (current) use of insulin
CPT/HCPCS: 0241U; 36415; 36600; 51702; 70450; 71045; 74177; 80048; 80053; 80069; 81001; 82150; 82803; 82947; 83605; 83690; 83735; 83930; 84145; 85025; 87040; 93005; 93010; 96361; 96365; 96375; 96376; 99285-25; A9270; G0480; J1630; J1650; J1815; J2270; J2405; J2543; J2550; J3010; J7030; J7120; Q9967

== ENCOUNTER 2020-09-15 11:49 | Inpatient (IN) | payer OTHER ==
[~2020-09-15] VITALS: Ht 165.1 cm; Wt 80.9 kg
[~2020-09-15 11:49] MED LIST changes: +HYDR1TAB94 PO; +PREG150 PO
[2020-09-15 12:21] LABS: Source, Urine Catheter
[2020-09-15 12:30] LABS: Appearance, Urine Hazy (Clear); Bilirubin, Urine Neg (Neg); Blood, Urine Neg (Neg); Color, Urine Yellow (P-Yellow); Glucose Qualitative, Urine 4+ (Neg); Ketones, Urine 4+ (Neg); Leukocyte Esterase, Urine Neg (Neg); Nitrite, Urine Neg (Neg); Protein, Urine 1+ (Neg); Specific Gravity, Urine 1.015 (1.003-1.022); Urobilinogen, Urine NORM (Normal)
[2020-09-15 12:48] LABS: Amorphous Mod (0-Heavy); Bacteria Rare /hpf; Red Blood Cells, Urine 0-2 /hpf (0-2); Squamous Epithelial Cells Rare /hpf (Few); White Blood Cells, Urine 0-2 /hpf (0-5)
[2020-09-15 12:56] LABS: BASOPHILS ABSOLUTE AUTO 0.03 K/mm3 (0.00-0.23); BASOPHILS PERCENT AUTO 0 % (0-2); EOSINOPHILS PERCENT AUTO 0 % (0-6); Hematocrit 46.6 % (33.0-51.0); Hemoglobin 15.1 g/dL (11.5-16.0); IMMATURE GRAN PERCENT AUTO 1 % (0-1); LYMPHOCYTES PERCENT AUTO 11 % (21-46); MONOCYTES ABSOLUTE AUTO 0.83 K/mm3 (0.16-1.47); MONOCYTES PERCENT AUTO 4 % (4-13); Mean Corpuscular HGB 26.4 pg (26.0-34.0); Mean Corpuscular HGB Conc 32.4 g/dL (31.5-36.5); Mean Corpuscular Volume 82 fL (80-100); Mean Platelet Volume 10.5 fL (9.1-12.4); NEUTROPHILS PERCENT AUTO 84 % (41-73); Platelet Count 578 K/mm3 (150-400); RDW Coefficient Variation 16.4 % (11.7-14.2); RDW Standard Deviation 46.7 fL (35.1-46.3); Red Blood Cell Count 5.71 M/mm3 (3.80-5.20); White Blood Cell Count 20.26 K/mm3 (4.00-11.30)
[2020-09-15 12:58] LABS: U Amphetamine Screen Not Detected; U Barbituate Screen Not Detected; U Benzodiazapine Screen Not Detected; U Buprenorphine Screen Not Detected; U Cannabinoids Screen DETECTED; U Cocaine Screen Not Detected; U Methadone Screen Not Detected; U Methamphetamine Screen Not Detected; U Opiates Screen Not Detected; U Oxycodone Screen Not Detected; U Phencyclidine Screen Not Detected; U Propoxyphene Screen Not Detected
[2020-09-15 14:40] LABS: Alanine Aminotransfer (ALT/SGP 22 U/L (12-78); Albumin, Blood 3.3 g/dL (3.4-5.0); Albumin/Globulin Ratio 0.7 (0.8-1.8); Alk Phos 201 U/L (50-136); Anion Gap 21 mmol/L (6-16); Aspartate Aminotrans (AST/SGOT 8 U/L (12-37); Bilirubin, Total 0.5 mg/dL (0.1-1.0); Blood Urea Nitrogen 33 mg/dL (8-24); Bun/Creatinine Ratio 22.3 (12.0-20.0); CO2, Blood 16 mmol/L (21-32); CPK Creatine Kinase 93 U/L (26-193); Calcium, Blood 8.6 mg/dL (8.5-10.1); Chloride, Blood 91 mmol/L (98-108); Creatinine, Blood 1.48 mg/dL (0.40-1.00); Globulin, Blood 4.7 g/dL (2.2-4.0); Glomerular Filtration Rate 39 (60-); Glucose, Blood 547 mg/dL (70-99); Potassium, Blood 4.9 mmol/L (3.5-5.5); Sodium, Blood 128 mmol/L (136-145); Troponin I <0.015 ng/mL (0.000-0.040)
[2020-09-15] MEDS ORDERED: PREGABALIN PO (14:51)
[2020-09-15 15:45] LABS: PCO2 Arterial 28.8 mmHg (35-45); PO2 Arterial 70.4 mmHg (80-100); pH Blood Arterial 7.34 (7.35-7.45)
[2020-09-15 17:13] LABS: Albumin, Blood 3.2 g/dL (3.4-5.0); Anion Gap 19 mmol/L (6-16); Blood Urea Nitrogen 27 mg/dL (8-24); Bun/Creatinine Ratio 23.7 (12.0-20.0); CO2, Blood 14 mmol/L (21-32); Calcium, Blood 8.3 mg/dL (8.5-10.1); Chloride, Blood 103 mmol/L (98-108); Creatinine, Blood 1.14 mg/dL (0.40-1.00); Glomerular Filtration Rate 53 (60-); Glucose, Blood 378 mg/dL (70-99); Phosphorus, Blood 3.8 mg/dL (2.5-4.9); Potassium, Blood 4.3 mmol/L (3.5-5.5); Sodium, Blood 136 mmol/L (136-145)
--- NOTE | 2020-09-15 18:46 | NUR ---
PT ARRIVED TO PCU 5 VIA GURNEY FROM ED, PT IS MOANING, UNABLE TO ANSWER QUESTIONS, SHAKING, LEGS ARE MOTTLED, B/P UP, LUNGS ARE CLEAR BUT NOT COOPERATING WITH CARE, SO NOT DEEP BREATHS, HRR, ST IN THE 120'S, NO EDEMA NOTED, IV SITES ARE CLEAR AND PATENT, SKIN CLEAR, FACE FLUSHED, CURLED UP ON HER SIDE, MOANS WITH MOVEMENT, FELY, CALL LIGHT IN REACH.
[2020-09-15 20:59] LABS: Albumin, Blood 3.2 g/dL (3.4-5.0); Anion Gap 16 mmol/L (6-16); Blood Urea Nitrogen 24 mg/dL (8-24); Bun/Creatinine Ratio 28.9 (12.0-20.0); CO2, Blood 15 mmol/L (21-32); Calcium, Blood 8.4 mg/dL (8.5-10.1); Chloride, Blood 108 mmol/L (98-108); Creatinine, Blood 0.83 mg/dL (0.40-1.00); Glomerular Filtration Rate >60 (60-); Glucose, Blood 301 mg/dL (70-99); Phosphorus, Blood 3.2 mg/dL (2.5-4.9); Potassium, Blood 4.4 mmol/L (3.5-5.5); Sodium, Blood 139 mmol/L (136-145)
--- NOTE | 2020-09-15 21:39 | NUR ---
CALLED DR BROWN REGARDING PT HAVING NAUSEA AND SEVERE PAIN. PT UNABLE TO TAKE PO MEDS; PHENERGAN PO ORDERED DUE TO PT HAVING POOR IV ACCESS; FENTANYL IV ORDERED FOR SEVERE PAIN.
--- NOTE | 2020-09-15 21:43 | NUR ---
ASSUMED CARE PT IN BED SLEEPING. PT ON NC 2L O2 SATS >92%. BP, HR, SPO2 ARE WNL. TEMP OF 99.3. PT BECAME RESTLESS AND STATED SHE WAS NAUSEOUS AND IN SEVERE PAIN. LUE IV INFUSING NS @200; ACCESS FOR ADDITIONAL IV WAS ATTEMPTED. PT USED BEDPAN AND HAS ATTENDS IN PLACE. WILL CONTINUE TO MONITOR.
[2020-09-16 00:34] LABS: Anion Gap 14 mmol/L (6-16); Blood Urea Nitrogen 21 mg/dL (8-24); Bun/Creatinine Ratio 29.3 (12.0-20.0); CO2, Blood 17 mmol/L (21-32); Calcium, Blood 8.2 mg/dL (8.5-10.1); Chloride, Blood 109 mmol/L (98-108); Creatinine, Blood 0.72 mg/dL (0.40-1.00); Glomerular Filtration Rate >60 (60-); Glucose, Blood 289 mg/dL (70-99); Magnesium, Blood 2.2 mg/dL (1.6-2.4); Phosphorus, Blood 2.8 mg/dL (2.5-4.9); Sodium, Blood 140 mmol/L (136-145)
[2020-09-16 03:51] LABS: BASOPHILS ABSOLUTE AUTO 0.03 K/mm3 (0.00-0.23); BASOPHILS PERCENT AUTO 0 % (0-2); EOSINOPHILS ABSOLUTE AUTO 0.01 K/mm3 (0.00-0.68); EOSINOPHILS PERCENT AUTO 0 % (0-6); Hematocrit 38.2 % (33.0-51.0); Hemoglobin 12.3 g/dL (11.5-16.0); IMMATURE GRAN ABSOLUTE AUTO 0.06 K/mm3 (0.00-0.10); IMMATURE GRAN PERCENT AUTO 0 % (0-1); LYMPHOCYTES ABSOLUTE AUTO 2.45 K/mm3 (0.84-5.20); LYMPHOCYTES PERCENT AUTO 16 % (21-46); MONOCYTES ABSOLUTE AUTO 0.88 K/mm3 (0.16-1.47); MONOCYTES PERCENT AUTO 6 % (4-13); Mean Corpuscular HGB 26.3 pg (26.0-34.0); Mean Corpuscular HGB Conc 32.2 g/dL (31.5-36.5); Mean Corpuscular Volume 82 fL (80-100); Mean Platelet Volume 9.6 fL (9.1-12.4); NEUTROPHILS ABSOLUTE AUTO 11.86 K/mm3 (1.96-9.15); NEUTROPHILS PERCENT AUTO 78 % (41-73); Platelet Count 411 K/mm3 (150-400); RDW Coefficient Variation 16.3 % (11.7-14.2); RDW Standard Deviation 48.2 fL (35.1-46.3); Red Blood Cell Count 4.67 M/mm3 (3.80-5.20); White Blood Cell Count 15.29 K/mm3 (4.00-11.30)
[2020-09-16 04:06] LABS: Anion Gap 15 mmol/L (6-16); Blood Urea Nitrogen 19 mg/dL (8-24); Bun/Creatinine Ratio 29.3 (12.0-20.0); CO2, Blood 17 mmol/L (21-32); Calcium, Blood 8.5 mg/dL (8.5-10.1); Chloride, Blood 108 mmol/L (98-108); Creatinine, Blood 0.65 mg/dL (0.40-1.00); Glomerular Filtration Rate >60 (60-); Glucose, Blood 261 mg/dL (70-99); Potassium, Blood 3.8 mmol/L (3.5-5.5); Sodium, Blood 140 mmol/L (136-145)
--- NOTE | 2020-09-16 05:15 | NUR ---
SHIFT SUMMARY PT HAS HAS BEEN ANXIOUS AND CONFUSED AT TIMES WHEN AWAKE, REPORTS VERY PAINFUL 10/10 IN JAW AND MOUTH AND REPORTS OF NAUSEA ON AND OFF AND BEGINS DRY HEAVING WITH NO EMISIS. PT IS NPO. VITALS HAVE BEEN STABLE HEART RATE IS @ [place]; PT IS ON ROOM AIR WITH SATS >92% PT ANXIOUS WHEN AWAKE AND LETHARGIC AT TIMES. PT DID VERBALIZE SHE HAD TO PEE DURING THE NIGHT BUT NOW IS INCONTINENT IN BRIEF. ATTENDS IS IN PLACE. PT IS Q4 CBG'S WITH RAPID AND LONG LASTING INSULIN IN PLACE OF THE INSULIN PUMP SHE HAD IN PLACE WHEN ADMITTED.
[2020-09-16 12:17] LABS: Albumin, Blood 2.9 g/dL (3.4-5.0); Anion Gap 10 mmol/L (6-16); Blood Urea Nitrogen 14 mg/dL (8-24); Bun/Creatinine Ratio 26.6 (12.0-20.0); CO2, Blood 18 mmol/L (21-32); Chloride, Blood 113 mmol/L (98-108); Creatinine, Blood 0.53 mg/dL (0.40-1.00); Glomerular Filtration Rate >60 (60-); Glucose, Blood 196 mg/dL (70-99); Magnesium, Blood 2.1 mg/dL (1.6-2.4); Phosphorus, Blood 1.6 mg/dL (2.5-4.9); Sodium, Blood 141 mmol/L (136-145)
[2020-09-16 12:34] LABS: Beta-hydroxybutyrate 33.7 mg/dL (0.2-2.8)
--- NOTE | 2020-09-16 18:01 | NUR ---
SHIFT SUMMARY; ASSUMED CARE AT 0700, RESTING IN BED IN LOW FOWLERS. A/A/OX4, VSS, MEDICATED WITH INSULIN DURING SHIFT NEEDED. SLEEPING THROUGHOUT DAY, AWAKES TO VERBAL STIMULI WHEN IN ROOM. INTERMITANT NAUSEA WITH DRY HEAVES THROUGHOUT SHIFT, MEDICATED PER ORDERS. IV NS INFUSING AT 100ML/HR PER ORDERS, REPOSITIONS SELF FREQUENTLY IN BED, SEVERAL INCONTINANT VOIDS WITH ATTENDS CHANGE AND JAVY CARE. WILL CONTINUE TO MONITOR AND TREAT UNTIL CHANGE OF SHIFT.
[2020-09-17 04:21] LABS: Hematocrit 35.1 % (33.0-51.0); Hemoglobin 11.2 g/dL (11.5-16.0); Mean Corpuscular HGB 26.7 pg (26.0-34.0); Mean Corpuscular HGB Conc 31.9 g/dL (31.5-36.5); Mean Corpuscular Volume 84 fL (80-100); Mean Platelet Volume 9.7 fL (9.1-12.4); Platelet Count 390 K/mm3 (150-400); RDW Coefficient Variation 16.4 % (11.7-14.2); RDW Standard Deviation 49.2 fL (35.1-46.3); White Blood Cell Count 8.04 K/mm3 (4.00-11.30)
[2020-09-17 04:42] LABS: Albumin, Blood 2.9 g/dL (3.4-5.0); Anion Gap 11 mmol/L (6-16); Beta-hydroxybutyrate 27.5 mg/dL (0.2-2.8); Blood Urea Nitrogen 9 mg/dL (8-24); Bun/Creatinine Ratio 17.3 (12.0-20.0); CO2, Blood 18 mmol/L (21-32); Calcium, Blood 8.5 mg/dL (8.5-10.1); Chloride, Blood 111 mmol/L (98-108); Creatinine, Blood 0.52 mg/dL (0.40-1.00); Glomerular Filtration Rate >60 (60-); Glucose, Blood 177 mg/dL (70-99); Potassium, Blood 3.5 mmol/L (3.5-5.5); Sodium, Blood 140 mmol/L (136-145)
--- NOTE | 2020-09-17 06:33 | NUR ---
SHIFT SUMMARY PT IS ALERT. REPORTS OF PAIN 10/10 WHEN WAKES UP BUT FALLS BACK TO SLEEP. STARTS DRY HEAVING ON AN OFF BUT FALLS BACK TO SLEEP. VITALS HAVE BEEN STABLE. SHE HAS CALLED OUT FOR THE BEDPAN WITHOUT AN INCONT EPISODE. THERE HAVE BEEN NO ACUTE CHANGES.
--- NOTE | 2020-09-17 18:13 | NUR ---
SUMMARY NO ACUTE CHANGES NOTED THROUGH THE DAY. NAUSEA & PAIN MANAGED PER EMAR. PT HAS REFUSED TO ADVANCE HER DIET PASSED CLEAR LIQUIDS, STATES SHE IS TOO NAUSEOUS. PT/OT WERE IN TODAY, LOTS OF ENC & MOTIVATION TO GET PT MOVING. PT DID SIT IN THE CHAIR AT THE BEDSIDE THIS EVENING FOR OVER AN HR. EDUCATION PROVIDED. PT REMAINS ON RA, VSS, DENIES CP/SOB. PT WILL BE TRANSFERED TO MEDICAL FLOOR, ROOM 337. REPORT CALLED TO RN. PT TRANSPORTED VIA .
--- NOTE | 2020-09-17 19:45 | NUR ---
SHIFT SUMMARY: PATIENT XFR FROM PCU-05 THIS SHIFT. PT A&O; CALM AND COOPERATIVE WITH CARE. MEDICATED FOR PAIN AND NAUSEA BEFORE ARRIVAL ON MEDICAL. PATIENT ASKS FOR LIQUIDS (POPSICLES AND YOGURT). ROOM AIR; VSS. PT & OT FOLLOWING. REPORT GIVEN TO ONCOMING RN.
--- NOTE | 2020-09-18 00:37 | NUR ---
NAUSEA *LATE ENTRY* SINCE 1929 PT REPORTED FEELING NAUSEOUS. MEDICATED c SCHEDULED REGLAN @1999 & AFTERWARDS PT REPORTED ABD "HURTING", FEELING MORE NAUSEOUS, ABD TENDER TO MILD PALPATION "ALLOVER" UPPER QUADRANTS. HYPERACTIVE BT & PT STARTED VIOLENTLY DRY HEAVING, NO EMESIS PRODUCED. MEDICATED c 4MG ZOFRAN @2112. NAUSEA DECREASED FOR ROUGHLY 2 HRS & THEN PT STARTED VIOLENTLY DRY HEAVING AGAIN. INFORMED SASHA W & SHE ORDERED PROMETHAZINE 12.5-25MG Q4P. GAVE 12.5 MG PHENERGAN @2351 & PT HAS BEEN ABLE TO REST W/O DRY HEAVING FOR PAST HR, WILL CONT TO MONITOR.
--- NOTE | 2020-09-18 03:40 | NUR ---
SHIFT SUMMARY AOX4. VSS. TELE AFIB @99. REPORTS 9/10 [place]ARP ABD PAIN, MOUTH PAIN R/T PREVIOUS TOOTH EXTRACTION BEFORE COMING TO HOSPITAL & CHRONIC BACK PAIN. MEDICATED 1X c TYLENOL & 1X c 25MCG FENTANYL, PAIN LEVEL DECREASED TO 6/10 & PT ABLE TO GET REST. VERY NAUSEATED @BEGINNING OF SHIFT & WHILE AWAKE, READ PREVIOUS NOTE. SMALL SIPS OF WATER CAUSE PT TO START DRY HEAVING. ABD VERY TENDER TO PALPATION IN BILAT UPPER QUADRANTS. HYPERACTIVE BT. REPORTS LACK OF APPETITE, ONLY TOLERATING SMALL AMOUNTS OF FLUID/FOOD. MEDICATED c ZOFRAN, REGLAN & PHENERGAN PER ORDERS, NO EMESIS. PT UNSURE WHEN LAST BM WAS SINCE SHE HAS NOT BEEN EATING MUCH. CBG CHECKED Q4. HELD HS LOSARTAN, BP STABLE & PT REPORTED ONLY TAKES MED IN AM. NS RUNNING @150ML/HR. CALL LIGHT IN REACH & I WILL CONT TO MONITOR.
[2020-09-18 05:57] LABS: Albumin, Blood 3.1 g/dL (3.4-5.0); Anion Gap 14 mmol/L (6-16); Blood Urea Nitrogen 7 mg/dL (8-24); Bun/Creatinine Ratio 13.9 (12.0-20.0); CO2, Blood 14 mmol/L (21-32); Calcium, Blood 8.4 mg/dL (8.5-10.1); Chloride, Blood 110 mmol/L (98-108); Glomerular Filtration Rate >60 (60-); Glucose, Blood 222 mg/dL (70-99); Phosphorus, Blood 2.5 mg/dL (2.5-4.9); Potassium, Blood 3.7 mmol/L (3.5-5.5); Sodium, Blood 138 mmol/L (136-145)
[2020-09-18 06:07] LABS: Beta-hydroxybutyrate 53.6 mg/dL (0.2-2.8)
[2020-09-18 15:17] LABS: BASOPHILS ABSOLUTE AUTO 0.05 K/mm3 (0.00-0.23); BASOPHILS PERCENT AUTO 1 % (0-2); EOSINOPHILS ABSOLUTE AUTO 0.03 K/mm3 (0.00-0.68); EOSINOPHILS PERCENT AUTO 0 % (0-6); Hematocrit 36.3 % (33.0-51.0); Hemoglobin 11.5 g/dL (11.5-16.0); IMMATURE GRAN ABSOLUTE AUTO 0.04 K/mm3 (0.00-0.10); IMMATURE GRAN PERCENT AUTO 1 % (0-1); LYMPHOCYTES ABSOLUTE AUTO 3.01 K/mm3 (0.84-5.20); LYMPHOCYTES PERCENT AUTO 36 % (21-46); MONOCYTES ABSOLUTE AUTO 0.62 K/mm3 (0.16-1.47); MONOCYTES PERCENT AUTO 7 % (4-13); Mean Corpuscular HGB 26.6 pg (26.0-34.0); Mean Corpuscular HGB Conc 31.7 g/dL (31.5-36.5); Mean Corpuscular Volume 84 fL (80-100); Mean Platelet Volume 9.5 fL (9.1-12.4); NEUTROPHILS ABSOLUTE AUTO 4.73 K/mm3 (1.96-9.15); NEUTROPHILS PERCENT AUTO 56 % (41-73); NRBC ABSOLUTE 0.03 K/mm3 (0.00-0.02); NRBC Auto 0.4 /100 WBC (0.0-0.2); Platelet Count 348 K/mm3 (150-400); RDW Coefficient Variation 16.1 % (11.7-14.2); RDW Standard Deviation 49.7 fL (35.1-46.3); Red Blood Cell Count 4.32 M/mm3 (3.80-5.20); White Blood Cell Count 8.48 K/mm3 (4.00-11.30)
[2020-09-18 15:33] LABS: CPK Creatine Kinase 71 U/L (26-193); Lactate Dehydrogenase (Ld),Bld 371 U/L (100-240)
[2020-09-18 15:34] LABS: Albumin, Blood 2.8 g/dL (3.4-5.0); Anion Gap 13 mmol/L (6-16); Blood Urea Nitrogen 6 mg/dL (8-24); Bun/Creatinine Ratio 12.8 (12.0-20.0); CO2, Blood 13 mmol/L (21-32); Calcium, Blood 8.2 mg/dL (8.5-10.1); Chloride, Blood 112 mmol/L (98-108); Creatinine, Blood 0.47 mg/dL (0.40-1.00); Glomerular Filtration Rate >60 (60-); Glucose, Blood 238 mg/dL (70-99); Potassium, Blood 4.4 mmol/L (3.5-5.5); Sodium, Blood 138 mmol/L (136-145)
--- NOTE | 2020-09-18 17:05 | NUR ---
ALERT. ORIENTED. POOR MOTIVATION. STEADY GAIT IN ROOM. POOR APPETITE. ENCOURAGED TO TAKE IN NUTRITION AND FOR MOBILITY. UNLABORED RESPIRATIONS. MEDICATED T/O DAY FOR NAUSEA. HAS NOT VOMITED THIS SHIFT. WCTM
[2020-09-19 05:34] LABS: Albumin, Blood 2.6 g/dL (3.4-5.0); Anion Gap 12 mmol/L (6-16); Beta-hydroxybutyrate 33.3 mg/dL (0.2-2.8); Blood Urea Nitrogen 6 mg/dL (8-24); Bun/Creatinine Ratio 11.4 (12.0-20.0); CO2, Blood 17 mmol/L (21-32); Calcium, Blood 8.6 mg/dL (8.5-10.1); Chloride, Blood 111 mmol/L (98-108); Creatinine, Blood 0.53 mg/dL (0.40-1.00); Glomerular Filtration Rate >60 (60-); Glucose, Blood 213 mg/dL (70-99); Phosphorus, Blood 2.7 mg/dL (2.5-4.9); Potassium, Blood 3.2 mmol/L (3.5-5.5); Sodium, Blood 140 mmol/L (136-145)
--- NOTE | 2020-09-19 05:38 | NUR ---
SHIFT SUMMARY AOX4. VSS. WHILE MOANING & TEARFUL PT REPORTED 03/29 "ALLOVER" ABD PAIN & CRAMPING, MEDICATED c 12.5 MG PHENERGAN 2X, SCHEDULED REGLAN 1X, SCOPALAMINE PATCH PLACED & ZOFRAN 1X T/O NIGHT. HYPOACTIVE BT. TENDER GAURDED ABD c MILD DISTENTION. ONLY HAD VIOLENT DRY HEAVES 1X LAST NIGHT c NO EMESIS. PT STATES ABD DISCOMFORT IS "BETTER" & STATES SHE FEELS HUNGRY, ASKS FOR POPSICLE. STATES NO BM IN ROUGHLY 1 WK R/T POOR PO INTAKE. HAS VERY MINIMAL APPETITIE R/T NAUSEA. HS CBG @238, PROVIDED COVERAGE PER ORDERS. CALL LT IN REACH, WILL MONITOR UNTIL DAY NURSE ASSUMES CARE.
--- NOTE | 2020-09-19 17:44 | NUR ---
PATIENT A/OX4, UP INDEPENDENT TO RESTROOM TODAY. REPORTS NAUSEA HAS STARTED TO IMPROVE, APPETITE REMAINS POOR. NO EMESIS THIS SHIFT. MEDICATING WITH PHENERGAN AND REGLAN. ZOFRAN DID NOT SEEM TO HELP MUCH. NS@150ML/HR INFUSING. POWERGLIDE TO COLLEEN WNL. SS INSULIN COVERAGE NEEDED WITH ALL MEALS TODAY. FAMILY TO BRING IN INSULIN PUMP TONIGHT AND THIS CAN REPLACE SS AND SEMGLEE. DR. CHRISTY WANTS HER TO USE HER HOME REGIMEN TO MANAGE. SKIN INTACT. VSS, ON RA. CALLS APPROPRIATELY FOR ASSISTANCE.
[2020-09-20 06:07] LABS: Albumin, Blood 2.7 g/dL (3.4-5.0); Anion Gap 11 mmol/L (6-16); Beta-hydroxybutyrate 31.7 mg/dL (0.2-2.8); Blood Urea Nitrogen 2 mg/dL (8-24); Bun/Creatinine Ratio 4.5 (12.0-20.0); CO2, Blood 22 mmol/L (21-32); Calcium, Blood 8.3 mg/dL (8.5-10.1); Chloride, Blood 108 mmol/L (98-108); Creatinine, Blood 0.44 mg/dL (0.40-1.00); Glomerular Filtration Rate >60 (60-); Glucose, Blood 146 mg/dL (70-99); Phosphorus, Blood 2.2 mg/dL (2.5-4.9); Potassium, Blood 3.1 mmol/L (3.5-5.5); Sodium, Blood 141 mmol/L (136-145)
--- NOTE | 2020-09-20 06:20 | NUR ---
SHIFT SUMMARY- PT. A&OX3, INDEPENDENT IN THE ROOM. PT. STARTED LAST NIGHT ON HER OMNIPOD INSULIN PUMP. MICHELE AND KETAN BREWER. HOME REGIMEN REVIEWED WITH CERTIFIED FIRST ASSISTANT AND HOSPITALIST. DISCUSSED WITH PT. PROTOCOL FOR USING OWN INSULIN PUMP WHILE IN THE HOSPITAL AND PT. INFORMED TO NOTIFY NURSE WHEN DELIVERING INSULIN VIA PUMP. PT. VERBALIZED UNDERSTANDING. C/O NA LAST NIGHT, MEDICATED PER EMAR WITH MINIMAL EFFECT. PT. RESTED ON/OFF THE REST OF THE NIGHT, NO APPARENT DISTRESS NOTED. VSS. CALL LIGHT WITHIN REACH AND SIDE RAILS UPX2. WILL CONT TO MONITOR.
[2020-09-20] MEDS ORDERED: AMOX500 PO (14:29)
[2020-09-20] MEDS ORDERED: TRANSDERM-SCOP1 EAC1 TD (14:30)
[2020-09-20] MEDS ORDERED: PROMETHAZINE12.5 MG PO (14:31)
--- NOTE | 2020-09-20 15:54 | NUR ---
PATIENT D/C'D TO HOME VIA [facility]AXI. RX MEDICATIONS FAXED TO [facility]. DC INSTRUCTIONS AND EDUCATION DISCUSSED WITH PATIENT AND COPY PROVIDED. PATIENT DENIES ANY FURTHER QUESTIONS OR CONCERNS. BELONGINGS SENT HOME WITH PATIENT.
== END 2020-09-20 16:02 | disposition home or self-care (01) | DRG 638 ==
LOC: ER 11:49 → MEDS 15:15 → PCU 15:15 → MEDS 09-17 18:39
PROVIDERS: Emergency Medicine; ADMIT Internal Medicine
DX: E11.10 Type 2 diabetes mellitus with ketoacidosis without coma (principal); E87.2 Acidosis; R65.10 Systemic inflammatory response syndrome (SIRS) of non-infectious origin without acute organ dysfunction; N17.9 Acute kidney failure, unspecified; E11.40 Type 2 diabetes mellitus with diabetic neuropathy, unspecified; I35.0 Nonrheumatic aortic (valve) stenosis; G89.4 Chronic pain syndrome; F17.210 Nicotine dependence, cigarettes, uncomplicated; M79.7 Fibromyalgia; E86.0 Dehydration; K21.9 Gastro-esophageal reflux disease without esophagitis; F41.9 Anxiety disorder, unspecified; F32.9 Major depressive disorder, single episode, unspecified; I95.9 Hypotension, unspecified; E83.39 Other disorders of phosphorus metabolism; E11.43 Type 2 diabetes mellitus with diabetic autonomic (poly)neuropathy; K31.84 Gastroparesis; F12.90 Cannabis use, unspecified, uncomplicated; Z96.41 Presence of insulin pump (external) (internal); E87.6 Hypokalemia; Z79.4 Long term (current) use of insulin
CPT/HCPCS: 36415; 36600; 74177; 80048; 80053; 80069; 81001; 82010; 82550; 82803; 82947; 83605; 83615; 83690; 83735; 84484; 85025; 85027; 87040; 93005; 93010; 96365-59; 96375; 97116; 97161; 97165; 97535; 99285-25; A9270; C1751; J0360; J1650; J2405; J2543; J2550; J2765; J3010; J3480; J7030; J7060; P9612; Q9967

== ENCOUNTER 2021-01-25 19:06 | Emergency (ER) | payer OTHER ==
[~2021-01-25] VITALS: Ht 172.7 cm; Wt 102.1 kg
[~2021-01-25 19:06] MED LIST changes: +PREGABALIN PO; +PROMETHAZINE12.5 MG PO; +TRANSDERM-SCOP1 EAC1 TD
[2021-01-25 19:39] LABS: BASOPHILS ABSOLUTE AUTO 0.08 K/mm3 (0.00-0.23); BASOPHILS PERCENT AUTO 1 % (0-2); EOSINOPHILS ABSOLUTE AUTO 0.18 K/mm3 (0.00-0.68); EOSINOPHILS PERCENT AUTO 2 % (0-6); Hematocrit 36.1 % (33.0-51.0); Hemoglobin 11.2 g/dL (11.5-16.0); IMMATURE GRAN ABSOLUTE AUTO 0.06 K/mm3 (0.00-0.10); IMMATURE GRAN PERCENT AUTO 1 % (0-1); LYMPHOCYTES ABSOLUTE AUTO 3.67 K/mm3 (0.84-5.20); LYMPHOCYTES PERCENT AUTO 30 % (21-46); MONOCYTES ABSOLUTE AUTO 0.89 K/mm3 (0.16-1.47); MONOCYTES PERCENT AUTO 7 % (4-13); Mean Corpuscular HGB 24.4 pg (26.0-34.0); Mean Corpuscular Volume 79 fL (80-100); Mean Platelet Volume 10.3 fL (9.1-12.4); NEUTROPHILS ABSOLUTE AUTO 7.34 K/mm3 (1.96-9.15); NEUTROPHILS PERCENT AUTO 60 % (41-73); Platelet Count 361 K/mm3 (150-400); RDW Coefficient Variation 17.7 % (11.7-14.2); RDW Standard Deviation 50.1 fL (35.1-46.3); Red Blood Cell Count 4.59 M/mm3 (3.80-5.20); White Blood Cell Count 12.22 K/mm3 (4.00-11.30)
[2021-01-25 19:49] LABS: Albumin, Blood 3.4 g/dL (3.4-5.0); Albumin/Globulin Ratio 0.8 (0.8-1.8); Bilirubin, Total 0.2 mg/dL (0.1-1.0); Bun/Creatinine Ratio 11.4 (12.0-20.0); Calcium, Blood 9.1 mg/dL (8.5-10.1); Creatinine, Blood 1.05 mg/dL (0.40-1.00); Globulin, Blood 4.1 g/dL (2.2-4.0); Potassium, Blood 3.8 mmol/L (3.5-5.5); Total Protein, Blood 7.5 g/dL (6.4-8.2)
== END 2021-01-25 23:51 | disposition home or self-care (01) ==
LOC: ER 19:06
PROVIDERS: Emergency Medicine
DX: S70.02XA Contusion of left hip, initial encounter (principal); E11.40 Type 2 diabetes mellitus with diabetic neuropathy, unspecified; I10 Essential (primary) hypertension; F17.210 Nicotine dependence, cigarettes, uncomplicated; K21.9 Gastro-esophageal reflux disease without esophagitis; Z88.5 Allergy status to narcotic agent; Z88.8 Allergy status to other drugs, medicaments and biological substances; Z79.899 Other long term (current) drug therapy
CPT/HCPCS: 36415; 70450; 74177; 80053; 83690; 85025; 93005; 93010; 96374-59; 99284-25; G0480; J2550; Q9967

== ENCOUNTER 2021-01-29 21:29 | Inpatient (IN) | payer OTHER ==
[~2021-01-29] VITALS: Ht 165.1 cm; Wt 79.0 kg
[2021-01-29 22:39] LABS: BASOPHILS ABSOLUTE AUTO 0.06 K/mm3 (0.00-0.23); BASOPHILS PERCENT AUTO 1 % (0-2); EOSINOPHILS ABSOLUTE AUTO 0.13 K/mm3 (0.00-0.68); EOSINOPHILS PERCENT AUTO 1 % (0-6); Hematocrit 38.9 % (33.0-51.0); Hemoglobin 12.3 g/dL (11.5-16.0); IMMATURE GRAN ABSOLUTE AUTO 0.06 K/mm3 (0.00-0.10); IMMATURE GRAN PERCENT AUTO 1 % (0-1); LYMPHOCYTES PERCENT AUTO 21 % (21-46); MONOCYTES ABSOLUTE AUTO 1.24 K/mm3 (0.16-1.47); MONOCYTES PERCENT AUTO 10 % (4-13); Mean Corpuscular HGB 24.4 pg (26.0-34.0); Mean Corpuscular HGB Conc 31.6 g/dL (31.5-36.5); Mean Corpuscular Volume 77 fL (80-100); Mean Platelet Volume 10.3 fL (9.1-12.4); NEUTROPHILS ABSOLUTE AUTO 8.12 K/mm3 (1.96-9.15); NEUTROPHILS PERCENT AUTO 66 % (41-73); Platelet Count 400 K/mm3 (150-400); RDW Coefficient Variation 17.9 % (11.7-14.2); RDW Standard Deviation 48.9 fL (35.1-46.3); Red Blood Cell Count 5.05 M/mm3 (3.80-5.20); White Blood Cell Count 12.21 K/mm3 (4.00-11.30)
[2021-01-29 22:54] LABS: Alanine Aminotransfer (ALT/SGP 26 U/L (12-78); Albumin, Blood 3.7 g/dL (3.4-5.0); Albumin/Globulin Ratio 0.9 (0.8-1.8); Alk Phos 155 U/L (50-136); Anion Gap 9 mmol/L (6-16); Aspartate Aminotrans (AST/SGOT 16 U/L (12-37); Bilirubin, Total 0.3 mg/dL (0.1-1.0); Blood Urea Nitrogen 19 mg/dL (8-24); Bun/Creatinine Ratio 10.5 (12.0-20.0); CO2, Blood 25 mmol/L (21-32); Calcium, Blood 9.5 mg/dL (8.5-10.1); Chloride, Blood 101 mmol/L (98-108); Creatinine, Blood 1.81 mg/dL (0.40-1.00); Ethanol (Alcohol), Blood, Med <3 mg/dL; Globulin, Blood 4.2 g/dL (2.2-4.0); Glomerular Filtration Rate 29 (60-); Glucose, Blood 277 mg/dL (70-99); Magnesium, Blood 2.2 mg/dL (1.6-2.4); Potassium, Blood 3.9 mmol/L (3.5-5.5); Sodium, Blood 135 mmol/L (136-145); Total Protein, Blood 7.9 g/dL (6.4-8.2); Troponin I <0.015 ng/mL (0.000-0.040)
[2021-01-29 23:52] LABS: Source, Urine Catheter
[2021-01-29 23:55] LABS: International Normalized Ratio 1.01; Prothrombin Time Results 10.9 Sec (9.7-11.5)
[2021-01-29 23:58] LABS: Appearance, Urine Clear (Clear); Blood, Urine 1+ (Neg); Color, Urine Amber (P-Yellow); Glucose Qualitative, Urine 2+ (Neg); Ketones, Urine 1+ (Neg); Leukocyte Esterase, Urine 1+ (Neg); Nitrite, Urine Neg (Neg); Protein, Urine 3+ (Neg); Specific Gravity, Urine 1.015 (1.003-1.022); Urobilinogen, Urine 1+ (Normal)
[2021-01-29 23:59] LABS: Bilirubin, Urine 2+ (Neg)
[2021-01-30 00:04] LABS: Amorphous Light (0-Heavy); Bacteria Few /hpf; Red Blood Cells, Urine 0-2 /hpf (0-2); Squamous Epithelial Cells Few /hpf (Few)
[2021-01-30 00:09] LABS: U Amphetamine Screen Not Detected; U Barbituate Screen Not Detected; U Benzodiazapine Screen DETECTED; U Buprenorphine Screen Not Detected; U Cannabinoids Screen DETECTED; U Cocaine Screen Not Detected; U Methadone Screen Not Detected; U Methamphetamine Screen Not Detected; U Opiates Screen Not Detected; U Oxycodone Screen Not Detected; U Phencyclidine Screen Not Detected; U Propoxyphene Screen Not Detected
[2021-01-30 05:11] LABS: Bun/Creatinine Ratio 16.9 (12.0-20.0); Calcium, Blood 9.2 mg/dL (8.5-10.1); Creatinine, Blood 1.36 mg/dL (0.40-1.00); Potassium, Blood 4.5 mmol/L (3.5-5.5)
[2021-01-30 05:20] LABS: Cholesterol 224 mg/dL (50-200); HDL Cholesterol 45 mg/dL (>39); Low Density Lipoprotein Chol 134 mg/dL (0-110); Triglycerides 225 mg/dL (30-160); Very Low Density Lipoprot Chol 45 mg/dL (6-32)
--- NOTE | 2021-01-30 14:55 | NUR ---
TYLENOL DC C/O HIP PAIN, RECEIVED V.O. FROM DR. MERINO FOR TYLENOL SUPPOSITORY 650 MG Q6 PRN. EMAR UPDATED.
--- NOTE | 2021-01-30 17:24 | NUR ---
Shift Summary A/Ox3 to self, family, year/season. Thought she was still at [facility]. Easily reoriented. C/O back and hip pain, medicated per EMAR. Somnolent throughout shift, unable to stay fully awake. Able to reposition self in bed. Had MRI today. Records requested from [facility] and placed in chart, Dr. Wallace notified. Diet changed to NPO d/t lethargy and at daughter Richelle's request; however, also received T.O. from Dr. Wallace to advance diet as tolerates. Orders updated. LR @ 125 continuous. Message left at [employer]'s extension [phone] RE order for EEG. PT rounded, but patient too somnolent for therapy eval. Zio patch taken off briefly for MRI, had cardiology staff replace to [facility]. SHAMAR.
--- NOTE | 2021-01-31 05:04 | NUR ---
SHIFT SUMMARY A/O TO SELF AND FAMILY, CONTINUES TO BE SOMNOLENT. CURRENTLY NPO D/T MENTATION STATUS. C/O NAUSEA, MEDICATED PER EMAR. SISTER AT BEDSIDE T/O NIGHT. VSS, NO ACUTE CHANGES AT THIS TIME. BED IN LOWEST POSITION WITH CALL LIGHT IN REACH. WILL CONTINUE TO MONITOR AND REPORT TO ONCOMING RN.
[2021-01-31 05:14] LABS: BASOPHILS ABSOLUTE AUTO 0.05 K/mm3 (0.00-0.23); BASOPHILS PERCENT AUTO 1 % (0-2); EOSINOPHILS ABSOLUTE AUTO 0.14 K/mm3 (0.00-0.68); EOSINOPHILS PERCENT AUTO 3 % (0-6); Hematocrit 36.5 % (33.0-51.0); Hemoglobin 11.4 g/dL (11.5-16.0); IMMATURE GRAN ABSOLUTE AUTO 0.01 K/mm3 (0.00-0.10); IMMATURE GRAN PERCENT AUTO 0 % (0-1); LYMPHOCYTES ABSOLUTE AUTO 2.51 K/mm3 (0.84-5.20); LYMPHOCYTES PERCENT AUTO 49 % (21-46); MONOCYTES PERCENT AUTO 8 % (4-13); Mean Corpuscular HGB 24.7 pg (26.0-34.0); Mean Corpuscular HGB Conc 31.2 g/dL (31.5-36.5); Mean Corpuscular Volume 79 fL (80-100); Mean Platelet Volume 10.5 fL (9.1-12.4); NEUTROPHILS ABSOLUTE AUTO 2.07 K/mm3 (1.96-9.15); NEUTROPHILS PERCENT AUTO 40 % (41-73); Platelet Count 339 K/mm3 (150-400); RDW Coefficient Variation 18.1 % (11.7-14.2); Red Blood Cell Count 4.62 M/mm3 (3.80-5.20); White Blood Cell Count 5.18 K/mm3 (4.00-11.30)
[2021-01-31 05:35] LABS: Albumin, Blood 3.1 g/dL (3.4-5.0); Anion Gap 6 mmol/L (6-16); Blood Urea Nitrogen 19 mg/dL (8-24); Bun/Creatinine Ratio 29.1 (12.0-20.0); CO2, Blood 25 mmol/L (21-32); Calcium, Blood 8.8 mg/dL (8.5-10.1); Chloride, Blood 108 mmol/L (98-108); Creatinine, Blood 0.65 mg/dL (0.40-1.00); Glomerular Filtration Rate >60 (60-); Glucose, Blood 185 mg/dL (70-99); Phosphorus, Blood 3.6 mg/dL (2.5-4.9); Potassium, Blood 3.8 mmol/L (3.5-5.5); Sodium, Blood 139 mmol/L (136-145)
--- NOTE | 2021-01-31 16:42 | NUR ---
PT HAS HAD NAUSEA AND VOMITTING MOST OF THE MORNING. MEDS ADJSUTED AND VOMITING SUBSIDED BY 1300. PT ABLE TO SLEEP. PT CONTINUES TO SHAKE AT TIMES BUT DOES NOT LOOSE CONSCIOUSNESS. DAUGHTER AT BEDSIDE. PT ABLE TO ANSWER YES AND NO QUESTIONS. PADS AND SIDERAILS UP. DOCTOR HAS BEEN NOTIFIED OF ANY CHANGES AND IN ROOM THROUGHOUT THE SHIFT TO MONITOR PATIENT. ZIO PATCH IN PLACE. CALL LIGHT WITHIN REACH .
--- NOTE | 2021-02-01 04:48 | NUR ---
ELECTRONIC WARFARE TECHNICAL SUMMARY PT STILL SOMNOLENT WITH MINIMAL VERBAL COMMUNICATION. CAN ANSWER SOME YES/NO QUESTIONS AND WILL SOMETIMES ANSWER WITH SHORT SENTENCES. START OF SHIFT PT EXPERIENCING UNCONTROLLED N/V AND BACK/ABD PAIN. PER PT'S DTR THE TORADOL THAT SHE RECIEVED EARLIER IN THE DAY WORKED A LITTLE BIT FOR HER SO SPOKE WITH DR OLIVAREZ ABOUT ADDITIONAL PAIN CONTROL AND RECIEVED ORDER FOR TORADOL AND FENTANYL. GAVE PT 30 MG IV TORADOL AND 5 MG IV REGLAN AND PT FINALLY ABLE TO SLEEP AN HOUR OR SO AFTER. PER REQUEST OF PT'S DTR GAVE PT ADDITIONAL ZOFRAN AND FENTANYL WHILE PT WAS STILL CALM TO KEEP AHEAD OF PAIN AND NAUSEA. PT WOKE UP AGAIN AROUND 0300 AND WAS RESTLESS AND MOANING BUT FELL BACK TO SLEEP SOON AFTER. VSS, WILL CONTINUE TO MONITOR.
--- NOTE | 2021-02-01 18:45 | NUR ---
CALLED BY PATIENTS DAUGHTER INTO THE ROOM BECAUSE PATIENT IS MORE CONFUSED AND THEY HAVE WITNESSED 2 OR 3 SEIZURES. PATIENT WAS ABLE TO HAVE A CONVERATION WITH ONE OF HER DAUGHTER THIS AFTERNOON AND NOW DOES NOT RECOGNIZE THEM. WHILE IN THE ROOM, PATIENT HAD A 30 SECOND EPISODE THAT COULD BE A SEIZURE. SHE BECAME VERY RED IN THE FACE AND DIAPHORETIC. TOES WERE CURLED UNDER, JAW CLENCHED AND SHE WAS ROCKING SIDE TO SIDE. DR BROWN NOTIFIED AND KEPPRA DOSE INCREASED.
--- NOTE | 2021-02-02 05:05 | NUR ---
CARPENTERS SUMMARY PT CONTINUES TO BE SOMNOLENT WITH MINIMAL VERBAL COMMUNICATION. STILL HAVING SHORT SEIZURE LIKE EPISODES THROUGHOUT THE NIGHT. IV KEPPRA DOSE INCREASED AND GIVEN AT BEDTIME. MEDICATED MULTIPLE TIMES THROUGHOUT THE NIGHT FOR PAIN AND NAUSEA. PT'S SISTER AND DAUGHTERS AT BEDSIDE THROUGH THE NIGHT AND HAVE BEEN VERY HELPFUL WITH ATTENDING TO THE PT AND CHANGING HER ATTENDS NEEDED. PT SEEMS TO URINATE DURING HER EPISODES. VITALS HAVE BEEN STABLE, WILL CONTINUE TO MONITOR.
[2021-02-02 09:07] LABS: BASOPHILS ABSOLUTE AUTO 0.06 K/mm3 (0.00-0.23); BASOPHILS PERCENT AUTO 1 % (0-2); EOSINOPHILS ABSOLUTE AUTO 0.08 K/mm3 (0.00-0.68); EOSINOPHILS PERCENT AUTO 1 % (0-6); Hematocrit 37.6 % (33.0-51.0); Hemoglobin 11.6 g/dL (11.5-16.0); IMMATURE GRAN ABSOLUTE AUTO 0.03 K/mm3 (0.00-0.10); IMMATURE GRAN PERCENT AUTO 0 % (0-1); LYMPHOCYTES ABSOLUTE AUTO 1.92 K/mm3 (0.84-5.20); LYMPHOCYTES PERCENT AUTO 26 % (21-46); MONOCYTES ABSOLUTE AUTO 0.46 K/mm3 (0.16-1.47); MONOCYTES PERCENT AUTO 6 % (4-13); Mean Corpuscular HGB 24.6 pg (26.0-34.0); Mean Corpuscular HGB Conc 30.9 g/dL (31.5-36.5); Mean Corpuscular Volume 80 fL (80-100); Mean Platelet Volume 10.1 fL (9.1-12.4); NEUTROPHILS ABSOLUTE AUTO 4.74 K/mm3 (1.96-9.15); NEUTROPHILS PERCENT AUTO 65 % (41-73); Platelet Count 351 K/mm3 (150-400); RDW Coefficient Variation 18.5 % (11.7-14.2); RDW Standard Deviation 52.9 fL (35.1-46.3); Red Blood Cell Count 4.71 M/mm3 (3.80-5.20); White Blood Cell Count 7.29 K/mm3 (4.00-11.30)
[2021-02-02 09:28] LABS: Albumin, Blood 3.7 g/dL (3.4-5.0); Anion Gap 11 mmol/L (6-16); Blood Urea Nitrogen 14 mg/dL (8-24); Bun/Creatinine Ratio 29.4 (12.0-20.0); CO2, Blood 18 mmol/L (21-32); Calcium, Blood 8.9 mg/dL (8.5-10.1); Chloride, Blood 108 mmol/L (98-108); Creatinine, Blood 0.48 mg/dL (0.40-1.00); Glomerular Filtration Rate >60 (60-); Glucose, Blood 224 mg/dL (70-99); Phosphorus, Blood 2.5 mg/dL (2.5-4.9); Sodium, Blood 137 mmol/L (136-145)
[2021-02-02 10:28] LABS: Prolactin 36.6 ng/mL (2.74-19.64)
[2021-02-02 15:37] LABS: Dilantin (Phenytoin), Total 36.7 ug/mL (10.0-20.0)
--- NOTE | 2021-02-02 17:49 | NUR ---
PATIENT MORE ALERT THIS AFTERNOON AND SEIZURE ACTIVITY HAS STOPPED SINCE ABOUT 1400. PATIENT WAS ABLE TO GET UP TO THE COMMODE WITH 2 ASSIST AND A GAIT BELT, OTHERWISE PATIENT HAS BEEN INCONTIENT. ABDOMINAL PAIN AND HEADACHE CONTINUE. FENTANYL USED TO TREAT PAIN. ABLE TO TOLERATE SOME ICE CHIPS WITHOUT VOMITTING. VALIUM STARTED AND IS HELPING PATIENT TO RELAX. PHENYTOIN STARTED ALONG WITH THE KEPPRA, BUT D/C'D DO TO CRITICALLY HIGH LEVEL. PHENYTOIN LEVEL TO BE RECHECKED IN AM. FAMILY AT BEDSIDE ASSISTING WITH CARE. POWERGLIDE TO PEGGY BAKERL, LR @ 50ML/HR INFUSING.
--- NOTE | 2021-02-03 05:05 | NUR ---
SHIFT SUMMARY PT CONTINUES TO HAVE PAIN AND SPASMS T/O SHIFT. PT MEDICATED PER EMAR, BUT HAS REQUIRED ADDITIONAL PAIN MEDICATIONS FOR BREAKTHROUGH PAIN WHAT HAS BEEN ORDERED HAS NOT BEEN ADEQUATE IN CONTROLLING PT PAIN. PROVIDERS CALLED X2 THIS SHIFT. RECEIVED ADDITIONAL ORDERS FOR FENTANYL AND DILAUDID. DILAUDID SEEMED TO WORK BEST FOR CONTROLLING PAIN, HOWEVER IT WAS ONLY A ONE TIME ORDER. PT HAD SOME VERY BRIEF PERIODS WHERE SHE WAS MORE ALERT MAKING EYE CONTACT AND MORE RESPONSIVE WHEN PEOPLE WERE TALKING TO HER AND ANSWERING QUESTION, AND EVEN AT ONE POINT SAIS GOOD MORNING TO THIS RN. PT A/O TO SELF AND FAMILY ONLY, FOLLOWS SOME DIRECTIONS WITH CONSTANT REMINDERS. PT HAS GOTTEN OOB TO USE BSC THIS SHIFT, DID WELL WITH 2 PA, INCONTINENT AT TIMES. VITALS ARE STABLE. IVF, AND KEPPRA ORDERED. LAB ATTEMPTED DRAW THIS AM, AND PT BECAME REALLY WORKED UP AND AGITATED WITH NEEDLE STICK. FAMILY REQUEST THAT LAB COME BACK LATER FOR DRAW. LAB TO COME BACK AROUND 0900. BED IN LOWEST POSITION, CALL LIGHT WITHIN REACH.
[2021-02-03 11:36] LABS: Dilantin (Phenytoin), Total 28.3 ug/mL (10.0-20.0)
--- NOTE | 2021-02-03 18:03 | NUR ---
FAMILY AT BEDSIDE THROUGH OUT THE SHIFT. PT HAS HAD NO SEIZURES THIS SHIFT . COMPLAINS OF ITCHING AND BURNING IN HER VAGINA. MEDICATIONS ORDERED NEEDED. PT REMAINS NPO AND COMPLAINS OF INTENSE PAIN WITH ANY INTRODUCTION OF WATER.
--- NOTE | 2021-02-04 05:19 | NUR ---
SHIFT SUMMARY: PT IS RESPONSIVE TO VERBAL AND PAINFUL STIMULI. FAMILY IN THE ROOM TO ASSIST WITH CARE, ONE DAUGHTER STAYED OVERNIGHT. PT DISPLAYED S/S FOR PAIN ON SEVERAL OCCASIONS, MEDICATING PER EMAR. PT AND FAMILY REPORTS STOMACH UPSET, MEDICATING WITH ANTI-NAUSEA MEDS PER EMAR. PT SHOWS NO S/S FOR SOB OR VOMITING. PT SLEPT MOST OF THE NIGHT. FLUIDS RUNNING ORDERED. POWERGLIDE POSITIONAL BUT FUNCTIONAL THROUGHOUT THE NIGHT. NO ACUTE CHANGES OR COMPLICATIONS THIS SHIFT. WILL CONTINUE TO MONITOR AND REPORT TO DAY NURSE.
[2021-02-04 05:40] LABS: Albumin, Blood 3.3 g/dL (3.4-5.0); Anion Gap 11 mmol/L (6-16); Blood Urea Nitrogen 5 mg/dL (8-24); Bun/Creatinine Ratio 8.9 (12.0-20.0); CO2, Blood 19 mmol/L (21-32); Calcium, Blood 9.2 mg/dL (8.5-10.1); Chloride, Blood 109 mmol/L (98-108); Creatinine, Blood 0.56 mg/dL (0.40-1.00); Dilantin (Phenytoin), Total 20.2 ug/mL (10.0-20.0); Glomerular Filtration Rate >60 (60-); Glucose, Blood 185 mg/dL (70-99); Magnesium, Blood 1.9 mg/dL (1.6-2.4); Phosphorus, Blood 2.7 mg/dL (2.5-4.9); Potassium, Blood 3.1 mmol/L (3.5-5.5); Sodium, Blood 139 mmol/L (136-145)
--- NOTE | 2021-02-04 16:33 | NUR ---
SHIFT SUMMARY PT ADMITTED FOR SEIZURES; CURRENTLY STABLE, RECEIVING IV KEPPRA PER EMAR. PT NOT CO-OP WITH KEEPING IV PATENT. IV PUMP FREQUENTLY OCCLUDING. FAMILY IN INCREASING AGITATION. ATTEMPTED TO STABLIZE IV SITE TO KEEP IVF'S INFUSING. PT'S DAUGHTER REMOVED NETTING AND COBAN, ALSO ALLOWING PT ACCESS TO PULL AT IV DRSG. PT IS VERY DIFFICULT START AND NOT ABLE TO TAKE IN PO AT THIS TIME. DR BROWN IN TO SEE PT THIS AM AND DISCUSSED PLAN OF CARE WITH PT'S FAMILY. LYRICA TO BE GIVEN TO ASSIST WITH PAIN. PT TO BE MEDICATED WITH REGLAN AND THEN LYRICA IN SPOON OF APPLESAUCE. FAMILY CHOOSING WHEN PT MEDICATED. PT DRY HEAVING LATER AFTER TAKING IN SOME OF APPLESAUCE. PT MEDICATED PER EMAR WITH MEDS AVAILABLE. FAMILY WANTING DR BROWN TO BE NOTIFIED OF NAUSEA. DR BROWN UPDATED ON PT STATUS AND FAMILY REQUEST. NO NEW ORDERS AT THAT TIME. PT TO RECEIVE LYRICA AGAIN TONIGHT. FAMILY AT BS. CALL LT IN REACH.
--- NOTE | 2021-02-04 18:49 | NUR ---
REWRAPPED IV SITE AGAIN TO KEEP FROM OCCLUDING. PT'S DAUGHTERS REMOVED ALL WRAPPING; 2 DAUGHTERS IN RM AT BS INTERFERING WITH CARE NEEDING DONE.
--- NOTE | 2021-02-05 05:09 | NUR ---
SUMMARY PT CONTINUES TO HAVE N/V AND PAIN. PT IS CONFUSED AND HAS DIFFICULTY FOLLOWING SIMPLE DIRECTION. PT FAMILY PRESENT FOR PART OF SHIFT. PT FAMILY STATED THEY WOULD LIKE TO OBTAIN IMAGING OF PT ABD. PT TX PER EMAR W/ SOME RELIEF. PT WAS ABLE TO REST COMFORTABLY FOR SOME OF SHIFT. PT CURRENTLY SLEEPING W/ DRY HEAVES NOTED AT TIMES. CALL LIGHT IN REACH AND BED ALARM ON.
[2021-02-05 06:12] LABS: Albumin, Blood 3.7 g/dL (3.4-5.0); Anion Gap 19 mmol/L (6-16); Blood Urea Nitrogen 4 mg/dL (8-24); Bun/Creatinine Ratio 7.1 (12.0-20.0); CO2, Blood 13 mmol/L (21-32); Calcium, Blood 9.3 mg/dL (8.5-10.1); Chloride, Blood 104 mmol/L (98-108); Creatinine, Blood 0.56 mg/dL (0.40-1.00); Dilantin (Phenytoin), Total 14.6 ug/mL (10.0-20.0); Glomerular Filtration Rate >60 (60-); Glucose, Blood 236 mg/dL (70-99); Magnesium, Blood 1.8 mg/dL (1.6-2.4); Phosphorus, Blood 2.6 mg/dL (2.5-4.9); Sodium, Blood 136 mmol/L (136-145)
--- NOTE | 2021-02-05 16:39 | NUR ---
IT SEEMS LIKE THE PATIENT SEEMS TO DO FINE UNTIL SHE BECOMES NAUSEATED AND SHE GETS THE DRY HEAVES PRETTY SEVERELY. SO LONG THE PATIENT HAS AN ANTI-EMETIC THAT CAN BE GIVEN SHE SEEMS TO RESPOND TO IT WITHIN APPROX 30 MINUTES AND SETTLES DOWN. THE OTHER ISSUE NOTED IS SHE OCCASIONALLY BECOMES ITCHY AND RESPONDS THE THE IV BENADRYL. NEW ORDER FOR SOME PAIN CREAM TO BE PLACED ON HER BACK WAS JUST ADDED TO HER EMAR AND PLACED ON THE PATIENT; IT APPEARS THOUGH IT MIGHT ACCTUALLY BURN HER OPPOSED TO HELP THE PATIENT, SOMETHING TO CONTINUE TO MONITOR. THE PATIENT IS RECIEVING A K-RIDER AT THIS TIME AND TOLERATING WITHOUT COMPLICATION. BP ELEVATED THIS AFTERNOON AND PATIENT RESPONDED WELL TO IV HYDRALAZINE. PATIENT NEEDS CLOSE MONITORING SHE IS UNAWARE OF WHAT SHE IS DOING AND WHEN SHE BECOMES NAUSEATED ESPECIALLY SHE GETS FRANTIC AND ATTEMPTS TO CRAWL OUT OF HER BED. HER DAUGHTERS CALL FREQUENTLY FOR UPDATES, ASKING THE SAME INFORMATION WITH EACH CALL. PATIENT UNABLE TO CALL AND ASK FOR STAFF ASSIST D/T COGNITION SO SHE IS MONITORED EXTRA CLOSELY.
--- NOTE | 2021-02-06 04:35 | NUR ---
summary pt continues to dry heave off and on. pt tx as per emar with some relief. pt is responding more and able to follow simple directions. pt currently quiet and sleeping. call light in reach and bed alarm on.
[2021-02-06 05:15] LABS: Anion Gap 14 mmol/L (6-16); Blood Urea Nitrogen 3 mg/dL (8-24); Bun/Creatinine Ratio 5.7 (12.0-20.0); CO2, Blood 15 mmol/L (21-32); Chloride, Blood 110 mmol/L (98-108); Creatinine, Blood 0.52 mg/dL (0.40-1.00); Dilantin (Phenytoin), Total 10.4 ug/mL (10.0-20.0); Glomerular Filtration Rate >60 (60-); Glucose, Blood 197 mg/dL (70-99); Potassium, Blood 3.1 mmol/L (3.5-5.5); Sodium, Blood 139 mmol/L (136-145)
--- NOTE | 2021-02-06 11:35 | NUR ---
ASSUMED CARE OF PATIENT. TRANSFERED FROM 303 TO ROOM 348 IN ORDER TO MONITOR ON CAMERA FOR PATIENTS SAFETY. REPORT RECEIVED FROM MIGDALIA COUGHLIN. LAB AT BEDSIDE, POWERGLIDE REDRESSED TO SEE IF IT WOULD DRAW BLOOD, HOWEVER IT STILL WILL NOT DRAW. PATIENT ALERT AND ANSWERING QUESTIONS. REPORTS PAIN "ALL OVER." DENIES NAUSEA, ADVANCING TODAY TO CLEARS.
[2021-02-06 11:57] LABS: PCO2 Arterial 15.2 mmHg (35-45); PO2 Arterial 134 mmHg (80-100); pH Blood Arterial 7.32 (7.35-7.45)
--- NOTE | 2021-02-06 12:35 | NUR ---
TRANSFERED PT TO ROOM 348 THE SCU FOR CLOSER OBSERVATION DUE TO HIGH FALL RISK, GAVE REPORT TO LISA NEGRON, CALLED THE PTS DAUGHTER CHRISTINA TO NOTIFY FAMILY OF THE ROOM CHANGE
[2021-02-06 12:36] LABS: Salicylate 3.8 mg/dL (2.8-20.0)
[2021-02-06 12:41] LABS: Acetaminophen, Random <2.0 ug/mL (10.0-30.0)
--- NOTE | 2021-02-06 18:16 | NUR ---
PATIENT CONTINUES TO BE VERY UNCOMFORTABLE THROUGHOUT THIS SHIFT. STATES PAIN AND NAUSEA, VOMITTED AFTER DRINKING WATER. PHENERGAN GIVEN TO TREAT NAUSEA AND TYLENOL GIVEN FOR PAIN. B/P ELEVATED, HYDRALAZINE GIVEN TO TREAT. PPN AND CLINIMIX STARTED. INCONTINENT OF BOWEL AND BLADDER. ELBOWS REDENED FROM RUBBING AGAINST THE BED, FOAM DRESSINGS PLACED FOR PROTECTION. POWERGLIDE TO PEGGY WN, DRESSING CHANGED THIS AM.
--- NOTE | 2021-02-06 20:49 | NUR ---
10mg iv hydralazine given at 1999 for a blood pressure of 196/120. will recheck at 2099. Zofran given for wretching nausea productive of reddish bile colored emesis. patient currently laying in bed moaning rolling back and forth asking staff to help her. bead trimmer notified left arm power glide not functioning in one lumen and very sluggish in the other. unable to run continuous fluids. (currently patient has clinimix with lipids continuous) and her HS dose of IV Keppra due at 2099. bead trimmer to check on power [place].
[2021-02-07 05:08] LABS: BASOPHILS PERCENT AUTO 1 % (0-2); EOSINOPHILS ABSOLUTE AUTO 0.04 K/mm3 (0.00-0.68); EOSINOPHILS PERCENT AUTO 0 % (0-6); Hemoglobin 14.5 g/dL (11.5-16.0); IMMATURE GRAN ABSOLUTE AUTO 0.08 K/mm3 (0.00-0.10); IMMATURE GRAN PERCENT AUTO 1 % (0-1); LYMPHOCYTES ABSOLUTE AUTO 2.31 K/mm3 (0.84-5.20); LYMPHOCYTES PERCENT AUTO 15 % (21-46); MONOCYTES ABSOLUTE AUTO 1.13 K/mm3 (0.16-1.47); MONOCYTES PERCENT AUTO 7 % (4-13); Mean Corpuscular HGB 25.7 pg (26.0-34.0); Mean Corpuscular Volume 78 fL (80-100); Mean Platelet Volume 10.1 fL (9.1-12.4); NEUTROPHILS ABSOLUTE AUTO 12.32 K/mm3 (1.96-9.15); NEUTROPHILS PERCENT AUTO 77 % (41-73); Platelet Count 546 K/mm3 (150-400); RDW Coefficient Variation 19.5 % (11.7-14.2); RDW Standard Deviation 51.5 fL (35.1-46.3); Red Blood Cell Count 5.65 M/mm3 (3.80-5.20); White Blood Cell Count 15.98 K/mm3 (4.00-11.30)
[2021-02-07 05:47] LABS: Magnesium, Blood 2.2 mg/dL (1.6-2.4)
[2021-02-07 06:00] LABS: Alanine Aminotransfer (ALT/SGP 25 U/L (12-78); Albumin, Blood 3.8 g/dL (3.4-5.0); Alk Phos 176 U/L (50-136); Aspartate Aminotrans (AST/SGOT 14 U/L (12-37); Bilirubin, Total 0.4 mg/dL (0.1-1.0); Blood Urea Nitrogen 8 mg/dL (8-24); Bun/Creatinine Ratio 13.9 (12.0-20.0); Calcium, Blood 9.2 mg/dL (8.5-10.1); Chloride, Blood 104 mmol/L (98-108); Creatinine, Blood 0.57 mg/dL (0.40-1.00); Glomerular Filtration Rate >60 (60-); Glucose, Blood 343 mg/dL (70-99); Phosphorus, Blood 2.8 mg/dL (2.5-4.9); Potassium, Blood 2.9 mmol/L (3.5-5.5); Sodium, Blood 133 mmol/L (136-145)
[2021-02-07 06:01] LABS: Albumin/Globulin Ratio 0.8 (0.8-1.8); Anion Gap 20 mmol/L (6-16); CO2, Blood 9 mmol/L (21-32); Globulin, Blood 4.8 g/dL (2.2-4.0); Total Protein, Blood 8.6 g/dL (6.4-8.2)
--- NOTE | 2021-02-07 06:17 | NUR ---
PATIENT EXTREMELY ANXIOUS AND TEARFUL ALL NIGHT. SPOKE WITH EVENING AND HS HOSPITALIST MULTIPLE TIMES REGARDING CONCERNS OF UNRESOLVED HYPERTENSION, INTRACTIBLE NAUSEA AND ANXIETY. TRIED ATIVAN, [place] PHENERGAN, ZOFRAN AND HYDRALAZINE ONCE FOR BLOOD PRESSURE OF 197/120 EARLY IN EVENING. EMESIS HAS CONSISTED OF DARK REDDISH GREEN LIQUID SMELLING OF BILE. THIS MORNING AFTER SPEAKING TO THE NIGHT HOSPITALIST TO INFORM HIMOF DECERASING LOC AND A VENOUS CO2 OF 9, THE DECISION WAS MADE TO MOVE THE PATIENT TO PCU.
[2021-02-07 11:00] LABS: Anion Gap 13 mmol/L (6-16); Blood Urea Nitrogen 10 mg/dL (8-24); Bun/Creatinine Ratio 16.8 (12.0-20.0); CO2, Blood 14 mmol/L (21-32); Calcium, Blood 9.5 mg/dL (8.5-10.1); Chloride, Blood 109 mmol/L (98-108); Glomerular Filtration Rate >60 (60-); Glucose, Blood 260 mg/dL (70-99); Potassium, Blood 3.3 mmol/L (3.5-5.5); Sodium, Blood 136 mmol/L (136-145)
--- NOTE | 2021-02-07 11:19 | NUR ---
PT TRANSFERRED FROM MEDICAL FLOOR TO ICU ROOM 3. PT ARRIVES FROM CT IN HAMLET AND BILATERAL SOFT WRIST RESTRAINTS. PER MEDICAL FLOOR NURSE, PT IS OCCASIONALLY CONFUSED AND ATTEMPTS TO GET OUT OF BED AND IS PULLING IV'S OUT. PT TRANSFERRED TO ICU BED, PT NAUSEOUS AND DRY HEAVING. MINIMALLY RESPONSIVE TO VERBAL STIMULI BUT ABLE TO WEAKLY/EQUALLY SQUEEZE HANDS BILATERALLY ON COMMAND. PUPIL EQUAL WITH BRISK REACTION BILATERALLY. LUNG SOUNDS CLEAR, SHALLOW/TACHYPNEIC BREATHING. ABDOMEN FIRM, DISTENDED WITH HYPOACTIVE BTX4. PT IN ATTENDS D/T INCONTINENCE. PT HAS RED RASH WITH ROUND/RAISED PATCHES T/O ENTIRE BODY. WILL CONSULT WITH HOSPITALIST WHEN AVAILABLE. INSULIN GTT STARTED AT 2 UNITS/HR FOR CBG 330. NS STARTED AT 125 ML/HR WITH ORDER TO TRANSISTION TO D5 1/2 NS WHEN CBG>220. CLINIMIX @ 75 ML/HR. SEE FULL SHIFT ASSESSMENT.
[2021-02-07 13:30] LABS: Anion Gap 12 mmol/L (6-16); Blood Urea Nitrogen 10 mg/dL (8-24); Bun/Creatinine Ratio 18.3 (12.0-20.0); CO2, Blood 16 mmol/L (21-32); Calcium, Blood 9.8 mg/dL (8.5-10.1); Chloride, Blood 109 mmol/L (98-108); Creatinine, Blood 0.55 mg/dL (0.40-1.00); Glomerular Filtration Rate >60 (60-); Glucose, Blood 254 mg/dL (70-99); Potassium, Blood 3.1 mmol/L (3.5-5.5); Sodium, Blood 137 mmol/L (136-145)
--- NOTE | 2021-02-07 14:34 | NUR ---
PT NOTED TO HAVE ZIO PATCH BOX WITH USED PATCH INSIDE. PER INSTRUCTION PACKET PATCH WAS PLACED January TO STAY IN PLACE UNTIL THE January. PER MEDICAL FLOOR NURSE, PATCH WAS REMOVED January FOR CT AND WAS NOT REPLACED. CALLED PT'S PRIMARY CARE PROVIDED DR. PARK FOR DIRECTION REGARDING PATCH. PHYSICIAN'S OFFICE STATES THAT THEY WERE NOT THE ONES THAT PRESCRIBED ZIO PATCH PT DOES NOT HAVE CARDIAC HISTORY. PT'S DAUGHTER AT BEDSIDE AT THIS TIME, PER DAUGHTER PT WAS GIVEN ZIO PATCH AT [facility]. PT'S DAUGHTER STATES THAT PER ZIO REP "OK TO MAIL ZIO PATCH AT THIS TIME PT WAS WEARING ZIO AT TIME OF SEIZURE". PACKAGE SEALED AND GIVEN TO DAUGHTER TO MAIL. DAUGHTER UPDATED WITH PT'S STATUS AND PLAN TO DO LUMBAR PUNCTURE TOMORROW MORNING.
--- NOTE | 2021-02-07 18:20 | NUR ---
SHIFT SUMMARY INSULIN GTT AT 4 UNITS/HR LAST CBG 208. . CLINIMIX @ 75 ML/HR WITH LIPIDS INFUSING AT 25 ML/HR. PT CONTINUES TO HAVE INTERMITTENT NAUSEA THAT IS RESPONSIVE TO PHENERGRAN, NO EPISODES OF VOMITTING. NO NEUROLOGICAL IMPROVEMENT T/O SHIFT. PT ABLE OCCASIONALLY ABLE TO EXPRESS NEEDS BUT IS MORE OFTEN MINIMALLY RESPONSIVE AND ENCEPHALOPATHIC. PLAN FOR LUMBAR PUNCTURE IN THE AM, PT'S DAUGHTER AT BEDSIDE UPDATED WITH PLAN OF ARE. PT REMAINS IN HAMLET AND BILATERAL SOFT WRIST RESTRAINTS. PT MOVES IN BED OCCASIONALLY SITTING UP AND FLINGING LEGS OVER BEDRAIL. BED LOW/LOCKED POSITION. VSS T/O SHIFT. SEE PREVIOUS NOTES FROM THIS SHIFT. WILL REPORT TO ONCOMING NURSE.
--- NOTE | 2021-02-07 19:00 | NUR ---
PT'S DAUGHTER YAMILE CALLED, UPDATED WITH PT'S STATUS AND PLAN FOR LUMBAR PUNCTURE IN AM.
[2021-02-07 19:53] LABS: Anion Gap 10 mmol/L (6-16); Blood Urea Nitrogen 10 mg/dL (8-24); Bun/Creatinine Ratio 19.6 (12.0-20.0); CO2, Blood 19 mmol/L (21-32); Chloride, Blood 109 mmol/L (98-108); Creatinine, Blood 0.51 mg/dL (0.40-1.00); Glomerular Filtration Rate >60 (60-); Glucose, Blood 225 mg/dL (70-99); Potassium, Blood 2.9 mmol/L (3.5-5.5); Sodium, Blood 138 mmol/L (136-145)
--- NOTE | 2021-02-07 22:00 | NUR ---
ASSUMING PT CARE @ 1900: PT LAYING SUPINE IN BED, OFTEN WRITHING & MOANING, PULLING @ RESTRAINTS. PT ABLE TO BE REDIRECTED TO LAY STILL FOR ONLY A MOMENT BUT IS ABLE TO FOLLOW SOME SIMPLE COMMANDS. NODS TO YES/NO QUESTIONS. PT MEDICATED W/ PHENERGAN & FENTANYL & APPEARS MUCH MORE COMFORTABLE @ THIS TIME. PG TO PEGGY IS INCREDIBLY POSITIONAL & OFTEN ALARMS. SURGICAL ELASTIC KNITTER AWARE. WILL CONTINUE TO REPOSITION & RE-EVALUATE TO ENSURE CONSISTENT GTT RATES. SEE INITIAL ASSESSMENTS.
[2021-02-08 01:49] LABS: Alanine Aminotransfer (ALT/SGP 18 U/L (12-78); Albumin, Blood 3.2 g/dL (3.4-5.0); Albumin/Globulin Ratio 0.8 (0.8-1.8); Alk Phos 150 U/L (50-136); Anion Gap 11 mmol/L (6-16); Aspartate Aminotrans (AST/SGOT 19 U/L (12-37); Bilirubin, Total 0.3 mg/dL (0.1-1.0); Blood Urea Nitrogen 9 mg/dL (8-24); Bun/Creatinine Ratio 16.4 (12.0-20.0); CO2, Blood 19 mmol/L (21-32); Calcium, Blood 9.1 mg/dL (8.5-10.1); Chloride, Blood 107 mmol/L (98-108); Creatinine, Blood 0.55 mg/dL (0.40-1.00); Globulin, Blood 4.2 g/dL (2.2-4.0); Glomerular Filtration Rate >60 (60-); Glucose, Blood 241 mg/dL (70-99); Magnesium, Blood 2.2 mg/dL (1.6-2.4); Phosphorus, Blood 1.3 mg/dL (2.5-4.9); Potassium, Blood 2.9 mmol/L (3.5-5.5); Sodium, Blood 137 mmol/L (136-145); Total Protein, Blood 7.4 g/dL (6.4-8.2)
[2021-02-08 01:52] LABS: BASOPHILS ABSOLUTE AUTO 0.08 K/mm3 (0.00-0.23); BASOPHILS PERCENT AUTO 1 % (0-2); EOSINOPHILS ABSOLUTE AUTO 0.07 K/mm3 (0.00-0.68); EOSINOPHILS PERCENT AUTO 1 % (0-6); Hematocrit 42.3 % (33.0-51.0); Hemoglobin 13.7 g/dL (11.5-16.0); IMMATURE GRAN ABSOLUTE AUTO 0.07 K/mm3 (0.00-0.10); IMMATURE GRAN PERCENT AUTO 1 % (0-1); LYMPHOCYTES ABSOLUTE AUTO 2.27 K/mm3 (0.84-5.20); LYMPHOCYTES PERCENT AUTO 20 % (21-46); MONOCYTES ABSOLUTE AUTO 1.01 K/mm3 (0.16-1.47); MONOCYTES PERCENT AUTO 9 % (4-13); Mean Corpuscular HGB 24.8 pg (26.0-34.0); Mean Corpuscular HGB Conc 32.4 g/dL (31.5-36.5); Mean Corpuscular Volume 77 fL (80-100); NEUTROPHILS ABSOLUTE AUTO 8.15 K/mm3 (1.96-9.15); NEUTROPHILS PERCENT AUTO 70 % (41-73); Platelet Count 454 K/mm3 (150-400); RDW Coefficient Variation 19.2 % (11.7-14.2); RDW Standard Deviation 50.6 fL (35.1-46.3); Red Blood Cell Count 5.52 M/mm3 (3.80-5.20); White Blood Cell Count 11.65 K/mm3 (4.00-11.30)
--- NOTE | 2021-02-08 02:15 | NUR ---
UPDATE: PG AGAIN REPOSITIONED & REDRESSED W/ STERILE TECHNIQUE. PATENTCY RETURNS, NO SURROUNDING SWELLING OR INDURATION NOTED, NONTENDER. HOWEVER SKIN SURROUNDING THE INSERTION SITE DOES APPEAR REDDENED & SLIGHTLY EXCORIATED FROM REPEATED ADHESIVE REMOVAL & CLEANSING. PT CONTINUES TO BE MOSTLY NONVERBAL BUT HAS ASKED "CAN I HAVE A LITTLE BIT OF WATER PLEASE" SEVERAL TIMES, SHE IS STILL UNABLE TO COMMUNICATE ALL HER NEEDS, MOANING & PULLING @ RESTRAINTS @ TIMES & UNRESPONSIVE TO ASSESSMENT QUESTIONS.
--- NOTE | 2021-02-08 03:45 | NUR ---
UPDATE: 2ND PG PLACED. INITIAL PG IS NO LONGER PATENT, ONLY ALLOWING INFUSION WHEN THE HUB IS LIFTED TO 90degrees. SURROUNDING AREA IS SOFT, HOWEVER TENDER & BECOMING RED & EXCORIATED D/T REPEATED DRESSING CHANGES. SUSANA, PCU ACQUISITION PROFESSIONAL, CALLED TO BEDSIDE & WAS ABLE TO PLACE AN 2ND LINE. GTTs RESTARTED. INITIAL PG NOT YET REMOVED & PT IS UNABLE TO TOLERATE PAIN OF DRESSING REMOVAL. WILL REEVALUATE W/ DAYTIME RN.
--- NOTE | 2021-02-08 05:00 | NUR ---
UPDATE: MENTATION IMPROVEMENTS. PT'S MENTATION BECOMING MORE CLEAR THE NIGHT PROGRESSES. SHE DOES NOT ALWAYS RESPOND TO QUESTIONS, HOWEVER SHE IS ABLE TO FOLLOW SIMPLE COMMANDS & HAS REQUESTED WATER SEVERAL TIMES. SHE HAS ALSO REQUESTED BLANKETS & FOR STAFF TO "ITCH MY ARM" & POINTS TO THE HER PG. WHEN ASKED WHO SENT HER THE CANDY HER ROOM PT STS "MY IDIOT BROTHER". WHEN ASKED WHY HE IS AN IDIOT PT WAS ABLE TO RESPOND "BECAUSE I'M A TYPE 1 DIABETIC, I CAN'T EAT CANDY". THESE EXCHANGES ARE QUITE AN IMPROVEMENT COMPARED TO PT's INITIAL PRESENTATION & PREVIOUS SHIFT REPORT.
--- NOTE | 2021-02-08 06:33 | NUR ---
SHIFT SUMMARY: PT RESTING IN A SIDE LAYING POSITION, BACK SUPPORTED W/ PILLOWS. SWB RESTRAINTS & HAMLET IN PLACE. PT IS MUCH MORE TOLERANT OF RESTRAINTS, LINES, TUBES, & CORDS COMPARED TO BEGINNING OF SHIFT. SEE PREVIOUS NOTATION FOR PROGRESSION OF MENTATION CHANGES. NO ACUTE CHANGES TO VS, MILD TACHYCARDIA CONTINUES. PT INCONTINENT x2, NO BM. PLAN TO CONTINUE K+ REPLACEMENT TODAY, ACYCLOVIR, & INSULIN UNTIL CO2>20. LP TODAY DEPENDING ON PROVIDER AVAILABILITY. WILL CONTINUE TO MONITOR UNTIL REPORT OFF TO ONCOMING RN. GTTs: INSULIN 4u/hr, CLINIMIX 75ml/hr.
[2021-02-08 08:12] LABS: Anion Gap 11 mmol/L (6-16); Blood Urea Nitrogen 8 mg/dL (8-24); Bun/Creatinine Ratio 15.7 (12.0-20.0); CO2, Blood 18 mmol/L (21-32); Calcium, Blood 9.1 mg/dL (8.5-10.1); Chloride, Blood 108 mmol/L (98-108); Creatinine, Blood 0.51 mg/dL (0.40-1.00); Glomerular Filtration Rate >60 (60-); Glucose, Blood 262 mg/dL (70-99); Potassium, Blood 3.3 mmol/L (3.5-5.5); Sodium, Blood 137 mmol/L (136-145)
[2021-02-08 08:41] LABS: PCO2 Arterial 22.3 mmHg (35-45); PO2 Arterial 95.3 mmHg (80-100); pH Blood Arterial 7.49 (7.35-7.45)
--- NOTE | 2021-02-08 08:58 | NUR ---
ASSUMED CARE OF PT, REPORT RCV'D FROM MIGDALIA CASTREJON. PT ALERT TO SELF ABLE TO WEAKLY FOLLOW DIRECTIONS WITH PROMPTING. PT ANSWERS SIMPLE QUESTIONS INTERMITTENTLY BUT APPEARS VERY LETHARGIC. PT ABLE TO EXPRESS NEED TO USE BEDPAN VS USUAL INCONTINENCE. INSULIN GTT @ 5 UNITS/HR. CLINIMIX @ 75 ML/HR. ABDOMEN DISTENDED, BT HYPOACTIVE X4. PT REMAINS IN BILATERAL SOFT WRIST RESTRAINTS AND HAMLET TO PROTECT LINES/CORDS AND DISCOURAGE UNSAFE AMBULATION. SEE FULL SHIFT ASSESSMENT.
[2021-02-08 11:15] LABS: Glucose, CSF 164 mg/dL (40-70)
[2021-02-08 11:33] LABS: WBC Count, CSF 1 /mm3 (0-5)
[2021-02-08 11:34] LABS: Appearance, CSF Clear (Clear); Color, CSF No Color (No Color)
[2021-02-08 11:48] LABS: Lymphocytes, CSF 59 % (40-80); Monocytes, CSF 41 % (15-45)
[2021-02-08 11:49] LABS: RBC Count, CSF 0 /mm3 (0-0)
[2021-02-08 12:14] LABS: Cryptococcus Neoformans/Gattii Not Detected (NOT DETECT); Enterovirus Not Detected (NOT DETECT); Escherichia Coli K1 Not Detected (NOT DETECT); Haemophilus Influenza Not Detected (NOT DETECT); Herpes Simplex Virus 1 Not Detected (NOT DETECT); Herpes Simplex Virus 2 Not Detected (NOT DETECT); Human Herpesvirus 6 Not Detected (NOT DETECT); Human Parechovirus Not Detected (NOT DETECT); Listeria Monocytogenes Not Detected (NOT DETECT); Neisseria Meningitidis Not Detected (NOT DETECT); Streptococcus Agalactiae Not Detected (NOT DETECT); Streptococcus Pneumoniae Not Detected (NOT DETECT); Varicella Zoster Virus Not Detected (NOT DETECT)
--- NOTE | 2021-02-08 12:31 | NUR ---
PT BACK FROM LUMBAR PUNCTURE. PT TOLERATED PRONE POSITION AND WAS ABLE TO FOLLOW COMMANDS DURING PROCEDURE. PT'S DAUGHTER YAMILE UPDATED.
[2021-02-08 14:04] LABS: Anion Gap 9 mmol/L (6-16); Blood Urea Nitrogen 7 mg/dL (8-24); Bun/Creatinine Ratio 13.8 (12.0-20.0); CO2, Blood 22 mmol/L (21-32); Calcium, Blood 9.2 mg/dL (8.5-10.1); Chloride, Blood 108 mmol/L (98-108); Creatinine, Blood 0.51 mg/dL (0.40-1.00); Glomerular Filtration Rate >60 (60-); Glucose, Blood 193 mg/dL (70-99); Potassium, Blood 2.9 mmol/L (3.5-5.5); Sodium, Blood 139 mmol/L (136-145)
[2021-02-08 15:16] LABS: C-REACTIVE PROTEIN, EXT RANGE 3.53 mg/dL (0.000-0.300); Thyroid Stimulating Hormone 0.459 uIU/mL (0.360-4.800)
--- NOTE | 2021-02-08 17:57 | NUR ---
PT TRANSFERRED TO PCU 1, REPORT GIVEN TO MIGDALIA LUA. DAUGHTER YAMILE UPDATED.
--- NOTE | 2021-02-08 18:00 | NUR ---
Recieved report from [facility] PACKING AND FINAL ASSEMBLY SUPERVISOR. Patient was down in imaging getting her MRI done, energy and conservation technician called and wanted to get something for the patient for agigtation, PACKING AND FINAL ASSEMBLY SUPERVISOR and myself were unable to get a hold of hospitalist to get an order. Patient arrived to PCU 1 via gurney. She was slid to the bed, pt is able to nod when asked if she is having pain, but I cannot make sense at what she is trying to say. [place] vest secured to the bed. Patient closes eyes to rest. Bed alarm on for safety. Call light in reach, will continue to monitor.
--- NOTE | 2021-02-08 18:41 | NUR ---
DR. ANDERSON CALLED BACK, ATIVAN ORDERED NEEDED FOR MRI.
--- NOTE | 2021-02-09 02:56 | NUR ---
PT UPDATE PT APPEARS MORE COMFORTABLE AT THIS TIME FOLLOWING EPISODE OF DRY HEAVING AND ADMIN OF ZOFRAN PRN. CLINIMIX AND LIPIDS INFUSING PER ORDERS AT THIS TIME.
[2021-02-09 03:56] LABS: BASOPHILS ABSOLUTE AUTO 0.04 K/mm3 (0.00-0.23); BASOPHILS PERCENT AUTO 1 % (0-2); EOSINOPHILS PERCENT AUTO 0 % (0-6); Hematocrit 39.8 % (33.0-51.0); Hemoglobin 13.2 g/dL (11.5-16.0); IMMATURE GRAN ABSOLUTE AUTO 0.02 K/mm3 (0.00-0.10); IMMATURE GRAN PERCENT AUTO 0 % (0-1); LYMPHOCYTES ABSOLUTE AUTO 1.58 K/mm3 (0.84-5.20); LYMPHOCYTES PERCENT AUTO 19 % (21-46); MONOCYTES ABSOLUTE AUTO 0.47 K/mm3 (0.16-1.47); MONOCYTES PERCENT AUTO 6 % (4-13); Mean Corpuscular HGB 25.1 pg (26.0-34.0); Mean Corpuscular HGB Conc 33.2 g/dL (31.5-36.5); Mean Corpuscular Volume 76 fL (80-100); Mean Platelet Volume 10.4 fL (9.1-12.4); NEUTROPHILS ABSOLUTE AUTO 6.26 K/mm3 (1.96-9.15); NEUTROPHILS PERCENT AUTO 75 % (41-73); Platelet Count 451 K/mm3 (150-400); RDW Coefficient Variation 19.8 % (11.7-14.2); RDW Standard Deviation 51.2 fL (35.1-46.3); Red Blood Cell Count 5.26 M/mm3 (3.80-5.20); White Blood Cell Count 8.37 K/mm3 (4.00-11.30)
[2021-02-09 04:23] LABS: Alanine Aminotransfer (ALT/SGP 23 U/L (12-78); Albumin, Blood 3.2 g/dL (3.4-5.0); Albumin/Globulin Ratio 0.8 (0.8-1.8); Alk Phos 142 U/L (50-136); Anion Gap 11 mmol/L (6-16); Aspartate Aminotrans (AST/SGOT 15 U/L (12-37); Bilirubin, Total 0.3 mg/dL (0.1-1.0); Blood Urea Nitrogen 10 mg/dL (8-24); Bun/Creatinine Ratio 20.2 (12.0-20.0); CO2, Blood 23 mmol/L (21-32); Chloride, Blood 102 mmol/L (98-108); Globulin, Blood 4.2 g/dL (2.2-4.0); Glomerular Filtration Rate >60 (60-); Glucose, Blood 307 mg/dL (70-99); Magnesium, Blood 2.2 mg/dL (1.6-2.4); Phosphorus, Blood 3.2 mg/dL (2.5-4.9); Potassium, Blood 3.2 mmol/L (3.5-5.5); Sodium, Blood 136 mmol/L (136-145); Total Protein, Blood 7.4 g/dL (6.4-8.2)
--- NOTE | 2021-02-09 07:41 | NUR ---
SHIFT SUMMARY PT APPEARS TO BE AOX3 WHEN INITIALLY ANSWERING QUESTIONS. PT INTERMITTENTLY ANSWERS QUESTIONS OR SAYS "I DON'T KNOW". DIFFICULT TO DETERMINE WHETHER ANSWERS ARE R/T PT CONFUSION AND DISORIENTATION OR SELECTIVE RESPONSES. PT ON TELE. SINUS TACH 100'S-110'S T/O SHIFT. C/O UPPER ABD PAIN T/O NIGHT FREQUENTLY STATED "I'M NOT FEELING WELL" AND BECAME RESTLESS W/MOANING. MEDICATED PER ORDERS WITH PHERGAN, ZOFRAN, AND FENTANYL. PT HAD X2 EPISODES OF DRY HEAVING DURING SHIFT UNTIL AM WHEN PT HAD 200 MLS OF CLEARISH-YELLOW EMESIS OUT AT SHIFT CHANGE. PT MEDICATED WITH PRN PHENERGAN. CLINIMIX AND LIPIDS INFUSING THROUGH PG IN PEGGY. PT APPEARS TO HAVE DIFFICULTY FOLLOWING INSTRUCTIONS FROM STAFF, CONCERN FOR SAFETY RISK SUCH FALLING, PULLING LINES, ETC. REMAINS IN HAMLET VEST.
[2021-02-09 08:48] LABS: Percent Saturation 18.1 % (15.0-50.0)
--- NOTE | 2021-02-09 11:22 | NUR ---
PT ALERT TO SELF, PLACE, PRESIDENT AND YEAR THIS AM. PUPILS ROUND EQUAL AND REACTIVE. AFFECT IS VERY FLAT AND WITHDRAWN. ANSWERING CARE QUESTIONS INTERMITTENTLY. ON ROOM AIR, LUNGS SOUNDING DIMINISHED. TELE SHOWING SINUS TACH WITH HR LOW 100'S. DENIES CHEST PAIN/PRESSURE. VITAL SIGNS SHOW ELEVATED BP. BOWEL TONES HYPOACTIVE. UPON SHIFT ARRIVAL PT VERY NAUSEAOUS AND VOMITTING. MEDICATION GIVEN AT THAT TIME. PT COMPLAINING OF ABDOMINAL PAIN. DR. ANDERSON AWARE. CONSULT FOR DR. CELESTIN IN PLACE. CLINIMIX INFUSING. KEPPRA AND ANTIBIOITICS INFUSED THIS AM. HAMLET VEST IN PLACE FOR SAFETY, PATIENT MOVING AROUND IN BED, SWINGING LEGS OVER SIDE, AND PULLING AT LINES. BED ALARM ON. CALL LIGHT IN REACH. WILL CONTINUE TO MONITOR.
--- NOTE | 2021-02-09 12:34 | NUR ---
PT MEDICATED PRIOR TO MRI WITH ATIVAN. VITAL SIGNS STABLE. [facility]
--- NOTE | 2021-02-09 13:37 | NUR ---
PT RETURNED FROM MRI. NO ACUTE CHANGES. ATTENDS AND LINEN CHANGED. HAMLET VEST IN PLACE. FLUIDS AND NUTRITION OFFERED. PT ABLE TO TAKE SIPS OF SPRITE. CLINIMIX INFUSING. SLEEPING AT THIS TIME. CALL LIGHT IN REACH. WILL CONTINUE TO MONITOR.
--- NOTE | 2021-02-09 14:38 | NUR ---
SPOKE WITH DR. CELESTIN. PLAN FOR UPPER ENDOSCOPY TODAY. COVID SWAB OBTAINED AT THIS TIME. PHYSICAL THERAPY CURRENTLY WORKING WITH PATIENT. WILL CONTINUE TO MONITOR.
[2021-02-09 15:51] LABS: SARS-Cov-2 (COVID-19) PCR, MMC NEGATIVE (NEGATIVE)
--- NOTE | 2021-02-09 16:18 | NUR ---
02/09/21 1618 Aimee Larson History, Chart, Medications and Allergies reviewed before start of procedure. 3-LEAD EKG REVIEWED WITH PHYSICIAN PRIOR TO START OF PROCEDURE. O2 VIA N/C INTACT THROUGHOUT SEDATION/PROCEDURE. PATIENT DETERMINED TO BE ASA APPROPRIATE FOR PROPOFOL SEDATION PRIOR TO START OF PROCEDURE BY . DR ANGELES REVIEWED CHART REQUESTED BY DR CELESTIN AND HE AGREES PT IS APPROPRATIE FOR RN DEEP SEDATION W/ PROPOFOL.
--- NOTE | 2021-02-09 19:24 | NUR ---
SHIFT SUMMARY: PT RETURNED FROM UPPER ENDO. POST VITALS SIGNS IN PLACE. CLINIMIX AND LIPIDS INFUSING. Q6 BLOOD SUGARS. PT COMPLAINS OF NAUSEA, MEDICATED PER EMAR. DIET ADVANCED PER GI. PT ABLE TO TAKE BITES OF PUDDING AND SLIM FAST DRINKS THAT DAUGHTER BROUGHT IN AND WAS OKAYED BY GI. PT REMAINS LETHARGIC. NO ACUTE CHANGES. PER DAUGHTER, TODAY WAS THE MOST SHE HAS SPOKEN AND SEEN PT AWAKE. HAMLET VEST REMAINS IN PLACE. BED ALARM ON WELL. TELE REMAINS SINUS TACH WITH HR LOW 100'S. REPORTED OFF TO ONCOMING RN.
[2021-02-10 03:52] LABS: BASOPHILS ABSOLUTE AUTO 0.04 K/mm3 (0.00-0.23); BASOPHILS PERCENT AUTO 1 % (0-2); EOSINOPHILS ABSOLUTE AUTO 0.01 K/mm3 (0.00-0.68); EOSINOPHILS PERCENT AUTO 0 % (0-6); Hematocrit 35.9 % (33.0-51.0); Hemoglobin 11.8 g/dL (11.5-16.0); IMMATURE GRAN ABSOLUTE AUTO 0.02 K/mm3 (0.00-0.10); IMMATURE GRAN PERCENT AUTO 0 % (0-1); LYMPHOCYTES ABSOLUTE AUTO 1.43 K/mm3 (0.84-5.20); LYMPHOCYTES PERCENT AUTO 19 % (21-46); MONOCYTES ABSOLUTE AUTO 0.56 K/mm3 (0.16-1.47); MONOCYTES PERCENT AUTO 7 % (4-13); Mean Corpuscular HGB 25.3 pg (26.0-34.0); Mean Corpuscular HGB Conc 32.9 g/dL (31.5-36.5); Mean Corpuscular Volume 77 fL (80-100); Mean Platelet Volume 10.9 fL (9.1-12.4); NEUTROPHILS ABSOLUTE AUTO 5.69 K/mm3 (1.96-9.15); NEUTROPHILS PERCENT AUTO 73 % (41-73); Platelet Count 412 K/mm3 (150-400); RDW Coefficient Variation 19.5 % (11.7-14.2); RDW Standard Deviation 53.8 fL (35.1-46.3); Red Blood Cell Count 4.67 M/mm3 (3.80-5.20); White Blood Cell Count 7.75 K/mm3 (4.00-11.30)
[2021-02-10 04:06] LABS: Anion Gap 9 mmol/L (6-16); Blood Urea Nitrogen 13 mg/dL (8-24); Bun/Creatinine Ratio 27.5 (12.0-20.0); CO2, Blood 26 mmol/L (21-32); Calcium, Blood 8.6 mg/dL (8.5-10.1); Chloride, Blood 102 mmol/L (98-108); Creatinine, Blood 0.47 mg/dL (0.40-1.00); Glomerular Filtration Rate >60 (60-); Glucose, Blood 315 mg/dL (70-99); Magnesium, Blood 2.3 mg/dL (1.6-2.4); Phosphorus, Blood 2.6 mg/dL (2.5-4.9); Potassium, Blood 3.2 mmol/L (3.5-5.5); Sodium, Blood 137 mmol/L (136-145)
--- NOTE | 2021-02-10 08:06 | NUR ---
SHIFT SUMMARY PT LETHARGIC THROUGH MOST OF SHIFT, SLEPT HEAVILY. AWOKEN W/VERBAL STIMULI. PT DOES NOT ANSWER ORIENTING QUESTIONS OTHER THAN SHAKING HER HEAD YES WHEN ASKED IF SHE KNOWS WHERE SHE IS. PT UP TO BATHROOM X2 W/THIS RN. AMBULATES W/MINIMAL ASSIST. HAMLET REMOVED FOLLOWING PT VERBALIZING UNDERSTANDING OF NEED TO CALL FOR ASSISTANCE TO AVOID FALLS. PER TELE HR SINUS 80'S-90'S T/O SHIFT. OCCASIONALLY UP IN LOW 100'S. PT HAD NO EPISODES OF VOMITING, C/O SOME NAUSEA AND PAIN IN ABD AND BACK. TOO LETHARGIC WHEN THIS RN TO BEDSIDE TO ADMIN PAIN MEDICATION PER EMAR, HELD D/T PT SOMNOLENCE. CBG'S REMAIN HIGH DESPITE Q6 DOSING AND INCREASE IN SEMGLEE DOSE PER ORDER. PT SPEAKS W/PCT AT BEDSIDE REGARDING SISTER VISITING TODAY. MORE ALERT THAN T/O NIGHT. VSS. CLINIMIX CONTINUES INFUSING PER PEGGY PG PER ORDER.
--- NOTE | 2021-02-10 17:25 | NUR ---
SHIFT SUMMARY PATIENT ALERT WHEN AWAKE AND ORIENTED THROUGHOUT SHIFT. CLINIMIX AND LIPIDS RUNNING. POOR PO INTAKE, TOLERATED SOME FRUIT SALAD FROM HOME. PLAN IS TO DISCHARGE HOME TOMORROW 02/11/21. MEDICATED PER EMAR FOR NAUSEA AND ABD PAIN. SCATTERED PSORIASIS AND RED SPOTS ON SKIN.
--- NOTE | 2021-02-11 06:47 | NUR ---
SUMMARY PT REQUIRING ZOFRAN AND IV SUBLIMAZE TONIGHT. NO EVIDENCE OF SEIZURE ACTIVITY.
[2021-02-11 08:38] LABS: Anion Gap 9 mmol/L (6-16); Blood Urea Nitrogen 13 mg/dL (8-24); Bun/Creatinine Ratio 30.5 (12.0-20.0); CO2, Blood 26 mmol/L (21-32); Calcium, Blood 8.9 mg/dL (8.5-10.1); Chloride, Blood 100 mmol/L (98-108); Creatinine, Blood 0.43 mg/dL (0.40-1.00); Glomerular Filtration Rate >60 (60-); Glucose, Blood 293 mg/dL (70-99); Potassium, Blood 3.9 mmol/L (3.5-5.5); Sodium, Blood 135 mmol/L (136-145)
--- NOTE | 2021-02-11 10:13 | NUR ---
UPON SHIFT ASSESSMENT THIS AM. PATIENT COMPLAINING OF ABDOMINAL PAIN DESCRIBED ALL OVER AND "IN THE PIT OF STOMACH". PT ALSO COMPLAINING OF NAUSEA. MEDICATED PER EMAR WITH LITTLE RELIEF. ALERT AND ORIENTED X3-4. SLOW TO RESPOND AT TIMES. ANSWERING QUESTION APPROPRIATELY. ON ROOM AIR SATING ABOVE 95%. LUNG SOUNDS DIMINSHED. TELE SHOWING SINUS WITH HR 90'S. BP ELEVATED THIS AM, PRN MEDS GIVEN. BOWEL TONES HYPOACTIVE. PT NOT INTERESTED IN EATING THIS AM. STOOL SOFTENERS ORDERED. PT UP TO BSC WITH 1 PERSON ASSIST. ATTENDS IN PLACE WELL. BED ALARM ON FOR SAFETY. CLINIMIX INFUSING. KEPPRA, THIAMINE AND ANTIBIOITC INFUSED THIS AM. SPOKE WITH DR. CELESTIN REGARDING PATIENTS ABDOMINAL PAIN AND NAUSEA. NO NEW ORDERS AT THIS TIME. WILL CONTINUE TO MONITOR.
[2021-02-11 12:08] LABS: LYME IGG/IGM AB <0.91 ISR (0.00-0.90)
--- NOTE | 2021-02-11 15:12 | NUR ---
IGNACIO IN TO VISIT. PT PERKED UP AND MORE ALERT, INTERESTED IN CONVERSATION WITH HER DAUGHTER. STILL COMPLAINS OF NAUSEA AND ABDOMINAL PAIN, REDUCED FROM THIS AM. UP TO BSC WITH NO ISSUES. STRONG AND STEADY ON FEET. PT IN TO WORK WITH PATIENT. WILL CONTINUE TO MONITOR.
--- NOTE | 2021-02-11 18:19 | NUR ---
NO ACUTE CHANGES. PAIN/NAUSEA DECREASING. PT SLEEPING AT THIS TIME. MOST COMFORTABLE LAYING ON SIDE. TAKING SIPS OF WATER. DENIES ANY OTHER FOOD OR DRINK OPTIONS AT THIS TIME. BOWEL TONES PRESENT. CLINIMIX AND LIPIDS INFUSING. VITAL SIGNS STABLE, BP DECREASING WITH PAIN CONTROL. CALL LIGHT IN REACH. WILL CONTINUE TO MONITOR AND REPORT OFF.
[2021-02-12 06:27] LABS: Hematocrit 36.2 % (33.0-51.0); Hemoglobin 11.8 g/dL (11.5-16.0); Mean Corpuscular HGB 25.7 pg (26.0-34.0); Mean Corpuscular HGB Conc 32.6 g/dL (31.5-36.5); Mean Corpuscular Volume 79 fL (80-100); Mean Platelet Volume 11.3 fL (9.1-12.4); Platelet Count 405 K/mm3 (150-400); RDW Coefficient Variation 19.7 % (11.7-14.2); RDW Standard Deviation 54.4 fL (35.1-46.3)
[2021-02-12 06:33] LABS: Anion Gap 9 mmol/L (6-16); Blood Urea Nitrogen 15 mg/dL (8-24); Bun/Creatinine Ratio 32.6 (12.0-20.0); CO2, Blood 27 mmol/L (21-32); Calcium, Blood 8.5 mg/dL (8.5-10.1); Chloride, Blood 97 mmol/L (98-108); Creatinine, Blood 0.46 mg/dL (0.40-1.00); Glomerular Filtration Rate >60 (60-); Glucose, Blood 302 mg/dL (70-99); Potassium, Blood 3.5 mmol/L (3.5-5.5); Sodium, Blood 133 mmol/L (136-145)
--- NOTE | 2021-02-12 06:36 | NUR ---
SHIFT SUMMARY ASSUMED CARE OF PT AT 1900. PT IS A/OX4 BUT PT IS TEARFUL AND PAINFUL. PT STATES THAT SHE WANTS HER PHENRGEN SCHEDUED SO THAT SHE CAN GET HER PAIN UNDER CONTROL. HEART SOUNDS REGULAR, LUNG SOUNDS DIMINISHED. ABD IS DISTENDED AND TENDER. PT C/O ABD PAIN T/O THE NIGHT. PT WAS GIVEN ROXICODONE FOR PAIN. PT WAS CONTIENT TO BSC WITH SBA. URINE CLEAR AND YELLOW. PT WAS GIVEN PHENERGEN WITH GREAT RELEIF UNTIL THIS AM WHEN SHE NEEDED A DOSE OF ZOFRAN FOR BREAK THROUGH NEASEA. CALL LIGHT IN REACH, BED IN LOWEST POSTION, BED ALARM ON.
--- NOTE | 2021-02-12 16:08 | NUR ---
NO ACUTE EVENTS, VSS AND ON ROOM AIR. PT IS ALERT AND ORIENTED, CALLS APPROPRIATELY. PT COMPLAINS OF NAUSEA AND ABDOMINAL PAIN, MEDICATED PER EMAR. PT CONTINUED TO COMPLAIN OF NAUSEA DURING SHIFT, BUT DID NOT WANT ZOFRAN, ONLY WANTED PHENERGAN. PT REFUSED BREAKFAST AND LUNCH. PT STATED SEVERAL TIMES THIS SHIFT THAT SHE WANTED TO GO HOME. THIS RN EDUCATED PT ON CURRENT PLAN OF TREATMENT, THAT SHE IS CURRENTLY GETTING IV MEDICATIONS FOR NAUSEA AND THAT SHE WILL NOT HAVE THIS SUPPORTIVE TREATMENT IF SHE LEAVES AGAINST MEDICAL ADVICE. PT AGREED TO STAY AT THIS TIME. DR. NELSON DAWKINS, [facility].
--- NOTE | 2021-02-12 19:53 | NUR ---
REPORT OBTAINED AT BEDSIDE FROM MIGDALIA BALBUENA, NEAR END OF SHIFT, PT REPORTED PAIN IN ABDOMEN AND RECEIVED ANALGESIA PER MAR, PT VSS, REID, PT DENIES ADDITIONAL CONCERNS AT THIS TIME
--- NOTE | 2021-02-12 20:11 | NUR ---
IV TO PATIENT'S RIGHT UPPER ARM WILL NOT FLUSH. WILL DC IV.
--- NOTE | 2021-02-13 | NUR ---
PATIENT REPORTS TENDERNESS TO LEFT UPPER ARM AND LEFT SHOULDER ABOVE POWERGLIDE SITE. SITE FLUSHES WELL BUT PATIENT REPORTS TENDERNESS WITH FLUSH. SMALL AMOUNT OF BLOOD RETURNED IN TUBING. LEFT UPPER ARM IS TENDER TO THE TOUCH. IV FLUIDS STOPPED AT THIS TIME.
--- NOTE | 2021-02-13 00:50 | NUR ---
CALLED DR. MERINO. NOTIFIED HER PATIENT'S REPEAT CBG WAS 323. REVIEWED INSULIN THAT PATIENT HAD RECEIVED AT HS, HUMALIN 5 UNITS [address] SEMGLEE [address] MERINO ORDERED TO RECHECK CBG IN 2 HOURS.
--- NOTE | 2021-02-13 03:54 | NUR ---
CALLED DR. MERINO AND NOTIFIED HER OF PATIENT'S REPEAT CBG OF 220. SHE SAID THAT WAS FINE, NO COVERAGE NEEDED. NOTIFIED HER PATIENT REPORTING PAIN IN R UPPER ARM/SHOULDER, ABDOMEN, AND EXTREMITIES AND REQUESTED HER ROXICODONE TO BE CHANGED TO Q4H. DR. MERINO STATES TO LEAVE AT Q6H. NOTIFIED HER PATIENT'S LUE IS NOT RED, MEASURES THE SAME IN CIRCUMFERENCE HER OTHER UPPER ARM, BUT IT IS TENDER TO THE TOUCH. ORDERS RECEIVED FOR VENOUS DUPLEX OF LEFT UPPER EXTREMITY.
--- NOTE | 2021-02-13 04:00 | NUR ---
[facility] IN PHARMACY CONFIRMED OK TO GIVE LIPIDS THROUGH PERIPHERAL IV.
--- NOTE | 2021-02-13 07:12 | NUR ---
AT 0630, I REALIZED THAT THE LIPIDS WERE OVERDUE. THEY HAD BEEN SPIKED 02/12/21 AT 1720. 230 MLS HAD BEEN INFUSED. IT IS LATE BECAUSE THEY WERE OFF BECAUSE THERE WAS NO IV FOR A PERIOD OF TIME. CALLED [facility] IN PHARMACY. HE SAID IT WAS OK TO RUN THE LAST 20 MLS OF THE LIPIDS.
--- NOTE | 2021-02-13 07:40 | NUR ---
pt stated she needs nausea medication zofran 4 mg ivp given pt tender to the touch the entire abd asked pt if her esophagus hurts or chest area stated no just abd pt is tearful unable to talk in detail about symptoms
--- NOTE | 2021-02-13 07:47 | NUR ---
SHIFT SUMMARY: PATIENT A/OX3. MEDICATED FOR ABDOMINAL, BACK, LEFT SHOULDER, AND EXTREMITY PAIN WITH ROXICODONE. TOLERATED A FEW BITES OF TACO JACKSON THAT HER DAUGHTERS SENT HER LAST NIGHT. MEDICATED FOR NAUSEA WITH PHENERGAN AND ZOFRAN WITH GOOD RELIEF. UP WITH SBA. POWERGLIDE D/C'D TO L UPPER ARM DUE TO PAIN. ULTRASOUND OF PEGGY ORDERED. CHECKED CBGS SEVERAL TIMES LAST NIGHT PER MD REQUEST, NO ADDITIONAL INSULIN COVERAGE GIVEN. REPORT GIVEN TO ONCOMING RN.
--- NOTE | 2021-02-13 08:51 | NUR ---
pt stated that the zofran is mot working will call for juany marti and nelia
--- NOTE | 2021-02-13 09:30 | NUR ---
dr long given update on pt only a few bites of stella ngo yesterday nothing this am pt had alfredo and sarath with encouragement otherwise was ref these medications req oral phenergan and oral reglan per pt req
--- NOTE | 2021-02-13 10:30 | NUR ---
po phenergan given per new order
--- NOTE | 2021-02-13 17:53 | NUR ---
SHIFT SUMMARY RECEIVED PT TO 348 VIA NATALIIA FROM PCU 1. PT NEEDING TO HAVE BM, TOLERATE EATING FOOD AND BE ABLE TO AMBULATE BEFORE GOING HOME. SUPPOSITORY GIVEN WHEN PT COME TO . PT LATER UP AMBULATING TO [facility] FOR BM AND ABLE TO EAT. PT THEN ABLE TO WALK IN [place] WITH THERAPY WELL. PT'S DAUGHTER BROUGHT IN FOOD; PT ABLE TO TOLERATE THAT AND THEN REPORTED THAT SHE WANTED TO GO HOME. DR DAMON NOTIFIED OF PT STATUS AND REQUEST. D/C ORDERS PLACED. DAUGHTER WANTING MEDICATIONS FAXED TO [facility]; DONE PER PT AND DAUGHTER REQUEST. BJ RN WORKING ON D/C ORDERS AT THIS TIME. CALL LT IN REACH.
[2021-02-13] MEDS ORDERED: Amlodipine Besyl5 MG PO (18:06)
[2021-02-13] MEDS ORDERED: DEXA4 (18:07)
[2021-02-13] MEDS ORDERED: INSULANPEN SC (18:07)
[2021-02-13] MEDS ORDERED: LEVE500 PO (18:07)
[2021-02-13] MEDS ORDERED: Prinivil10 MG PO (18:08)
[2021-02-13] MEDS ORDERED: OXYC5 PO (18:08)
[2021-02-13] MEDS ORDERED: PROM25 PO (18:09)
[2021-02-13] MEDS ORDERED: SUCR1 PO (18:09)
[2021-02-13] MEDS ORDERED: DOCUZEN 8.6-501 EACH PO (18:11)
--- NOTE | 2021-02-13 18:39 | NUR ---
PT'S DAUGHTER TOOK PT'S BELONGINGS OUT TO CAR. PT DECLINED TO HAVE DAUGHTER RETURN TO DISCUSS D/C INSTRUCTIONS WITH HER WELL. D/C INSTRUCTIONS REVIEW WITH PT; VERBALIZED UNDERSTANDING. PT ASSISTED OUT TO CAR VIA W/C BY HARMAN.
== END 2021-02-13 18:39 | disposition home or self-care (01) | DRG 100 ==
LOC: ER 21:29 → MEDS 21:30 → PCU 01-31 15:07 → MEDS 01-31 15:08 → ICUE 02-07 07:00 → PCU 02-08 17:53 → MEDS 02-13 12:31
PROVIDERS: Emergency Medicine; Family Medicine; Internal Medicine; Internal Medicine Gastroenterology; Psychiatry & Neurology Neurology; ADMIT Internal Medicine
PROC: 0DB68ZX Excision of Stomach, Via Natural or Artificial Opening Endoscopic, Diagnostic (ICD-10-PCS; 2021-02-09)
PROC: 0DB58ZX Excision of Esophagus, Via Natural or Artificial Opening Endoscopic, Diagnostic (ICD-10-PCS; 2021-02-09)
PROC: 0DJ08ZZ Inspection of Upper Intestinal Tract, Via Natural or Artificial Opening Endoscopic (ICD-10-PCS; 2021-02-09)
PROC: 0DB98ZX Excision of Duodenum, Via Natural or Artificial Opening Endoscopic, Diagnostic (ICD-10-PCS; principal; 2021-02-09 15:30)
DX: G40.909 Epilepsy, unspecified, not intractable, without status epilepticus (principal); E10.10 Type 1 diabetes mellitus with ketoacidosis without coma; G93.41 Metabolic encephalopathy; N17.9 Acute kidney failure, unspecified; E87.1 Hypo-osmolality and hyponatremia; Z20.822 Contact with and (suspected) exposure to COVID-19; D72.829 Elevated white blood cell count, unspecified; K20.90 Esophagitis, unspecified without bleeding; E87.6 Hypokalemia; R93.0 Abnormal findings on diagnostic imaging of skull and head, not elsewhere classified; E86.0 Dehydration; R47.81 Slurred speech; I10 Essential (primary) hypertension; K21.9 Gastro-esophageal reflux disease without esophagitis; E83.39 Other disorders of phosphorus metabolism; E10.43 Type 1 diabetes mellitus with diabetic autonomic (poly)neuropathy; E10.42 Type 1 diabetes mellitus with diabetic polyneuropathy; K26.9 Duodenal ulcer, unspecified as acute or chronic, without hemorrhage or perforation; F41.9 Anxiety disorder, unspecified; K31.84 Gastroparesis; K59.00 Constipation, unspecified; F32.9 Major depressive disorder, single episode, unspecified; G89.4 Chronic pain syndrome; M79.7 Fibromyalgia; M19.90 Unspecified osteoarthritis, unspecified site; F17.210 Nicotine dependence, cigarettes, uncomplicated; Z88.5 Allergy status to narcotic agent; Z88.8 Allergy status to other drugs, medicaments and biological substances; Z79.4 Long term (current) use of insulin; Z79.899 Other long term (current) drug therapy; Z90.710 Acquired absence of both cervix and uterus; Z98.890 Other specified postprocedural states; Z90.49 Acquired absence of other specified parts of digestive tract
CPT/HCPCS: 36415; 36600; 70450; 70496; 70498; 70553; 71045; 74018; 77003; 80048; 80053; 80061; 80069; 80177; 80185; 81001; 82010; 82140; 82550; 82607; 82728; 82746; 82803; 82945; 82947; 83036; 83540; 83550; 83605; 83735; 84100; 84146; 84157; 84443; 84484; 85025; 85027; 85610; 85651; 86140; 86592; 86618; 87040; 87086; 87483; 88305; 88312; 88341; 88342; 89051; 93005; 93010; 93971; 95819; 96365; 96366; 96372; 96375; 96376; 97110; 97116; 97163; 97530; 99285-25; A9270; A9579; C1751; C9113; G0378; G0480; J0133; J0360; J0696; J1100; J1170; J1200; J1650; J1815; J1885; J1953; J2060; J2405; J2550; J2704; J2765; J3010; J3360; J3411; J3480; J7030; J7050; J7060; J7120; Q2009; Q9967; U0004

== ENCOUNTER 2021-06-06 09:07 | Inpatient (IN) | payer OTHER ==
[~2021-06-06] VITALS: Ht 162.6 cm; Wt 99.8 kg
[~2021-06-06 09:07] MED LIST changes: +Amlodipine Besyl5 MG PO; +DEXA4; +DOCUZEN 8.6-501 EACH PO; +LEVE500 PO; +OXYC5 PO; +Prinivil10 MG PO
[2021-06-06 09:25] LABS: Chloride (POC) 104 mmol/L (98-108); Creatinine (POC) 0.4 mg/dL (0.6-1.0); Glucose (ISTAT POC) 379 mg/dL (70-99); Hemoglobin (POC) 12.2 g/dL (12.0-16.0); Potassium (POC) 4.3 mmol/L (3.5-5.5); Sodium (POC) 134 mmol/L (135-148); Total CO2 (POC) 19 mmol/L (21-32)
[2021-06-06 09:26] LABS: Hematocrit 36.8 % (33.0-51.0); Hemoglobin 11.1 g/dL (11.5-16.0); Mean Corpuscular HGB 22.5 pg (26.0-34.0); Mean Corpuscular HGB Conc 30.2 g/dL (31.5-36.5); Mean Corpuscular Volume 75 fL (80-100); Mean Platelet Volume 9.6 fL (9.1-12.4); Platelet Count 457 K/mm3 (150-400); RDW Coefficient Variation 17.7 % (11.7-14.2); RDW Standard Deviation 47.2 fL (35.1-46.3); Red Blood Cell Count 4.93 M/mm3 (3.80-5.20); White Blood Cell Count 11.85 K/mm3 (4.00-11.30)
[2021-06-06 09:55] LABS: Alanine Aminotransfer (ALT/SGP 24 U/L (12-78); Albumin, Blood 3.7 g/dL (3.4-5.0); Albumin/Globulin Ratio 0.9 (0.8-1.8); Alk Phos 133 U/L (50-136); Anion Gap 11 mmol/L (6-16); Aspartate Aminotrans (AST/SGOT 26 U/L (12-37); Bilirubin, Total 0.6 mg/dL (0.1-1.0); Blood Urea Nitrogen 8 mg/dL (8-24); Bun/Creatinine Ratio 14.7 (12.0-20.0); CHOL/HDL RATIO 2.5; CO2, Blood 22 mmol/L (21-32); Chloride, Blood 102 mmol/L (98-108); Cholesterol 220 mg/dL (50-200); Creatinine, Blood 0.55 mg/dL (0.40-1.00); Globulin, Blood 3.9 g/dL (2.2-4.0); Glomerular Filtration Rate >60 (60-); Glucose, Blood 353 mg/dL (70-99); HDL Cholesterol 88 mg/dL (>39); LDL/HDL RATIO 1.2; Low Density Lipoprotein Chol 108 mg/dL (0-110); Magnesium, Blood 1.8 mg/dL (1.6-2.4); Potassium, Blood 4.1 mmol/L (3.5-5.5); Sodium, Blood 135 mmol/L (136-145); Total Protein, Blood 7.6 g/dL (6.4-8.2); Triglycerides 118 mg/dL (30-160); Very Low Density Lipoprot Chol 23 mg/dL (6-32)
[2021-06-06] MEDS ORDERED: PRED5 PO (11:32)
--- NOTE | 2021-06-06 12:31 | NUR ---
Pt arrived from the heart [facility] about an hour ago. She was sleepy, but awakened easily and answers questions appropriately. HEr two daughters are at the bedside. HOme med list confirmed with both the daughters and the pt. Right radial access site is noted underneath the TR band; small bruise is noted, but there is no swelling, bleeding, hematoma. Pt denies any discomfort at this time. White immoblizer board in place on the wrist, and pt verbalized instructions not to use the arm or hand at this time. At 11:45 the pt c/o sharp pain in the forearm proximal to the TR band site. 2 cc air removed from the TR band and no bleeding noted. PT states that the pain is relieved. Presently she is sleeping comfortably, TR band in place and assessment is unchanged from earlier.
--- NOTE | 2021-06-06 14:38 | NUR ---
Pt c/o chest pain, 7/10 without dyspnea nor diaphoresis. States that the pain is pressure which radiates to her back and is neither better nor worse with any specific activity. She is continuing to c/o of nausea, but has no vomiting. TOlerated her oral meds and ice chips. EKG done, and 1 nitro given SL without relief. Dr. Strong called back to the PCU and asked for update. sTates that pt can have a second NTG at this time, and if it does not give her relief, to give morphine. Pt is lying on her left side now, states that she wants to take a nap. After the 2nd dose of NTG states that the chest discomfort is a little bit better. 2 more cc air deflated from TR band; site remains unchanged from prior assessments.
--- NOTE | 2021-06-06 14:46 | NUR ---
Echocardiogram performed.
--- NOTE | 2021-06-06 16:30 | NUR ---
TR band is now fully deflated. PT has been sleeping without any awakening and complaining of pain/discomfort.
--- NOTE | 2021-06-06 19:00 | NUR ---
TR band is completely removed, and site is without bruising, bleeding, hematoma nor swelling. Pt was ambulatory to the bathroom to void, which was unmeasured. She is c/o nausea and also arthritic pain "all over". Daughter stated earlier that the pt smokes "weed" to help with the pain at home, to which the pt became angry at her daughter, stating that it was embarrassing her to admit that. Left message on Dr. Strong's cell phone, asking for pain medications. No call back yet. PT declined scheduled lyrica at this time for pain. She is lying on her left side now in the bed, white immoblizer board is on, and continuous oximetry in place.
--- NOTE | 2021-06-07 02:49 | NUR ---
PATIENT ALERT AND ORIENTATED, ABLE TO MAKE NEEDS KNOWN, USES CALL LIGHT APPROPRIATELY, BED ALARM ON AND CALL LIGHT WITHIN REACH, LUNGS ARE CLEAR, PULSES X 4 STRONG, NO EDEMA NOTED, RIGHT RADIAL SITE IS CLEAN, NO HEMATOMA, NO REDNESS, BLEEDING AND/OR SWELLING, ABDOMEN IS SOFT NONTENDER HYPOACTIVE BT X 4 WITH C/O NAUSEA GAVE PRN MEDICATION WITHOUT LITTLE RELIEF, C/O OF HEADACHE /10 X 2 TYLENOL GIVEN PATIENT REPORTS LITTLE RELIEF BUT UPON ASSESSMENT PATIENT IS IN A POSITION SLEEPING IN BED.
[2021-06-07 04:06] LABS: Hematocrit 33.6 % (33.0-51.0); Hemoglobin 10.3 g/dL (11.5-16.0); Mean Corpuscular HGB 22.7 pg (26.0-34.0); Mean Corpuscular HGB Conc 30.7 g/dL (31.5-36.5); Mean Corpuscular Volume 74 fL (80-100); Mean Platelet Volume 9.6 fL (9.1-12.4); Platelet Count 397 K/mm3 (150-400); RDW Coefficient Variation 17.4 % (11.7-14.2); RDW Standard Deviation 46.1 fL (35.1-46.3); Red Blood Cell Count 4.53 M/mm3 (3.80-5.20); White Blood Cell Count 8.14 K/mm3 (4.00-11.30)
[2021-06-07 04:25] LABS: Anion Gap 4 mmol/L (6-16); Blood Urea Nitrogen 13 mg/dL (8-24); Bun/Creatinine Ratio 23.1 (12.0-20.0); CO2, Blood 29 mmol/L (21-32); Calcium, Blood 9.1 mg/dL (8.5-10.1); Chloride, Blood 107 mmol/L (98-108); Creatinine, Blood 0.56 mg/dL (0.40-1.00); Glomerular Filtration Rate >60 (60-); Glucose, Blood 160 mg/dL (70-99); Potassium, Blood 3.6 mmol/L (3.5-5.5); Sodium, Blood 140 mmol/L (136-145)
[2021-06-07 06:08] LABS: BASOPHILS PERCENT MAN 0 % (0-2); EOSINOPHILS ABSOLUTE MAN 0.16 K/mm3 (0.00-0.68); EOSINOPHILS PERCENT MAN 2 % (0-6); LYMPHOCYTES % ATYPICAL MANUAL 4 % (0-0); LYMPHOCYTES ABSOLUTE MAN 2.52 K/mm3 (0.84-5.20); LYMPHOCYTES PERCENT MAN 27 % (21-46); MONOCYTES PERCENT MAN 5 % (4-13); NEUTROPHILS ABSOLUTE MAN 5.04 K/mm3 (1.96-9.15); SEG NEUTROPHILS PERCENT MAN 62 % (41-73); TOTAL CELLS COUNTED 100
--- NOTE | 2021-06-07 13:08 | NUR ---
PT REPORTING SOB/CHEST PRESSURE. PT STATES IT STARTED AROUND 1230 "I DIDN'T WANT TO TELL ANYONE BECAUSE I WANT TO GO HOME TODAY." SEE DOCUMENTED VS. DR OSEGUERA NOTIFIED AND NEW ORDERS RECEIVED. PRIMARY RN UPDATED ON PT STATUS.
--- NOTE | 2021-06-07 16:38 | NUR ---
SHIFT SUMMARY; ASSUMED CARE AT 0700. POST ANGIO YESTERDAY. RIGHT RADIAL SITE WITH TEGADERM AND ARM BOARD IN PLACE. NO SWELLING OR BRUISING TO AREA. A/A/OX4. C/O FEELING LIKE COULDN'T CATCH BREATH WITH CP IN AFTERNOON. DR. Lopez CONTACTED BY FELLOW NURSE RN WHO GAVE MEDS ORDERED. DR. Lopez TO ROOM THIS EVENING. PT STATES IS FEELING GOOD ENOUGH TO GO HOME. RISKS/BENEFITS DISCUSSED BY DR. Lopez. DISCHARGE INSTRUCTIONS PROVIDED. DENIES CP AT THIS TIME. DAUGHTER IN ROOM FOR CONVERSATION. DISCHARGE INSTRUCTIONS PROVIDED. LOADING DOSE OF PLAVIX GIVEN PER EMAR PRIOR TO DISCHARGE.
[2021-06-07] MEDS ORDERED: ASPI81CH PO (17:18)
[2021-06-07] MEDS ORDERED: ATOR40TA PO (17:20)
[2021-06-07] MEDS ORDERED: CLOP75 PO (17:20)
[2021-06-07] MEDS ORDERED: METO25 PO (17:21)
[2021-06-07] MEDS ORDERED: Isosorbide Mono30 MG PO (17:21)
[2021-06-07] MEDS ORDERED: NITR.4SL SL (17:22)
--- NOTE | 2021-06-08 11:23 | NUR ---
PATIENT'S FAMILY MEMBER CALLED AND SAID THAT SHE WENT TO [place] TO EMERGENCY DEPARTMENT NURSE THE PATIENT'S MEDICATIONS AND [facility] SAID THAT THEY HAD NOT RECEIVED ANY PRESCRIPTIONS. PATIENT FLOW MOLECULAR BIOLOGY PROFESSOR PIOTR RAVI SAID THAT SHE HEARD [facility] CALL THE PRESCRIPTIONS IN YESTERDAY. I PRINTED OUT DISCHARGE MEDS AND CALLED [facility]. [facility] SAID THAT "SOMEONE CALLED IN THE MEDICATIONS THIS MORNING" AND THAT THEY HAD THE PRESCRIPTIONS THAT THEY NEEDED. SAID THEY GOT THEM AFTER THE PATIENT'S FAMILY MEMBER LEFT. FAXED THE PRESCRIPTIONS OVER TO [facility]. CALLED FAMILY MEMBER AND NOTIFIED THEM THAT [facility] HAS PRESCRIPTIONS.
== END 2021-06-07 17:40 | disposition home or self-care (01) | DRG 247 ==
LOC: ER 09:07 → ICUW 09:15 → PCU 09:25
PROVIDERS: Internal Medicine Interventional Cardiology; ADMIT Emergency Medicine
PROC: 027035Z Dilation of Coronary Artery, One Artery with Two Drug-eluting Intraluminal Devices, Percutaneous Approach (ICD-10-PCS; principal; 2021-06-06)
PROC: B2111ZZ Fluoroscopy of Multiple Coronary Arteries using Low Osmolar Contrast (ICD-10-PCS; 2021-06-06)
PROC: 4A023N7 Measurement of Cardiac Sampling and Pressure, Left Heart, Percutaneous Approach (ICD-10-PCS; 2021-06-06)
PROC: 3E02340 Introduction of Influenza Vaccine into Muscle, Percutaneous Approach (ICD-10-PCS; 2021-06-06)
DX: I21.19 ST elevation (STEMI) myocardial infarction involving other coronary artery of inferior wall (principal); Z23 Encounter for immunization; E10.40 Type 1 diabetes mellitus with diabetic neuropathy, unspecified; I10 Essential (primary) hypertension; I35.0 Nonrheumatic aortic (valve) stenosis; F32.A Depression, unspecified; F41.9 Anxiety disorder, unspecified; K21.9 Gastro-esophageal reflux disease without esophagitis; G89.4 Chronic pain syndrome; E66.01 Morbid (severe) obesity due to excess calories; D32.9 Benign neoplasm of meninges, unspecified; M79.7 Fibromyalgia; F17.210 Nicotine dependence, cigarettes, uncomplicated; Z71.6 Tobacco abuse counseling; M19.90 Unspecified osteoarthritis, unspecified site; Z90.49 Acquired absence of other specified parts of digestive tract; Z90.710 Acquired absence of both cervix and uterus; Z98.890 Other specified postprocedural states; Z88.5 Allergy status to narcotic agent; Z88.8 Allergy status to other drugs, medicaments and biological substances; Z79.4 Long term (current) use of insulin; Z79.899 Other long term (current) drug therapy
CPT/HCPCS: 36415; 51702; 76937; 80047; 80048; 80053; 80061; 82947; 83735; 84484; 85014; 85025; 85027; 85347; 86850; 86900; 86901; 90686; 92978; 93005; 93010; 93306; 93454; 96374-59; 96375-59; 99152; 99153; 99285-25; A9270; C1725; C1753; C1769; C1874; C1887; C1894; C9606; J0461; J1644; J1815; J1940; J2250; J2370; J2405; J2550; J3010; J7030; J7040; J7050; Q9967

== ENCOUNTER 2021-07-01 14:27 | Emergency (ER) | payer OTHER ==
[~2021-07-01] VITALS: Ht 162.6 cm; Wt 79.4 kg
[~2021-07-01 14:27] MED LIST changes: +ASPI81CH PO; +CLOP75 PO; +Isosorbide Mono30 MG PO; +METO25 PO; +NITR.4SL SL; +PRED5 PO
[2021-07-01 16:06] LABS: BASOPHILS ABSOLUTE AUTO 0.07 K/mm3 (0.00-0.23); BASOPHILS PERCENT AUTO 1 % (0-2); EOSINOPHILS ABSOLUTE AUTO 0.15 K/mm3 (0.00-0.68); EOSINOPHILS PERCENT AUTO 2 % (0-6); Hematocrit 33.7 % (33.0-51.0); Hemoglobin 10.3 g/dL (11.5-16.0); IMMATURE GRAN ABSOLUTE AUTO 0.03 K/mm3 (0.00-0.10); IMMATURE GRAN PERCENT AUTO 0 % (0-1); LYMPHOCYTES ABSOLUTE AUTO 2.54 K/mm3 (0.84-5.20); LYMPHOCYTES PERCENT AUTO 35 % (21-46); MONOCYTES ABSOLUTE AUTO 0.52 K/mm3 (0.16-1.47); MONOCYTES PERCENT AUTO 7 % (4-13); Mean Corpuscular HGB 22.5 pg (26.0-34.0); Mean Corpuscular HGB Conc 30.6 g/dL (31.5-36.5); Mean Corpuscular Volume 74 fL (80-100); NEUTROPHILS ABSOLUTE AUTO 3.93 K/mm3 (1.96-9.15); NEUTROPHILS PERCENT AUTO 54 % (41-73); Platelet Count 315 K/mm3 (150-400); RDW Standard Deviation 48.2 fL (35.1-46.3); Red Blood Cell Count 4.58 M/mm3 (3.80-5.20); White Blood Cell Count 7.24 K/mm3 (4.00-11.30)
[2021-07-01 16:12] LABS: Alanine Aminotransfer (ALT/SGP 21 U/L (12-78); Albumin, Blood 3.2 g/dL (3.4-5.0); Albumin/Globulin Ratio 0.8 (0.8-1.8); Alk Phos 129 U/L (50-136); Anion Gap 8 mmol/L (6-16); Aspartate Aminotrans (AST/SGOT 18 U/L (12-37); Bilirubin, Total 0.3 mg/dL (0.1-1.0); Blood Urea Nitrogen 12 mg/dL (8-24); Bun/Creatinine Ratio 24.3 (12.0-20.0); CO2, Blood 25 mmol/L (21-32); Calcium, Blood 8.5 mg/dL (8.5-10.1); Chloride, Blood 105 mmol/L (98-108); Creatinine, Blood 0.49 mg/dL (0.40-1.00); Globulin, Blood 3.9 g/dL (2.2-4.0); Glomerular Filtration Rate >60 (60-); Glucose, Blood 269 mg/dL (70-99); Potassium, Blood 4.4 mmol/L (3.5-5.5); Sodium, Blood 138 mmol/L (136-145); Total Protein, Blood 7.1 g/dL (6.4-8.2); Troponin I <0.015 ng/mL (0.000-0.040)
[2021-07-01 17:08] LABS: Influenza A, PCR NEGATIVE (NEGATIVE); Influenza B, PCR NEGATIVE (NEGATIVE); Resp Syncytial Virus, PCR NEGATIVE (NEGATIVE); SARS-Cov-2 (COVID-19) PCR, MMC NEGATIVE (NEGATIVE)
[2021-07-01] MEDS ORDERED: Pepcid40 MG PO (17:48)
== END 2021-07-01 18:04 | disposition home or self-care (01) ==
LOC: ER 14:27
PROVIDERS: Emergency Medicine
DX: J44.9 Chronic obstructive pulmonary disease, unspecified (principal); I25.10 Atherosclerotic heart disease of native coronary artery without angina pectoris; F17.210 Nicotine dependence, cigarettes, uncomplicated; E10.40 Type 1 diabetes mellitus with diabetic neuropathy, unspecified; I10 Essential (primary) hypertension; K21.9 Gastro-esophageal reflux disease without esophagitis; I25.2 Old myocardial infarction; Z79.899 Other long term (current) drug therapy
CPT/HCPCS: 0241U; 36415; 71260; 80053; 83880; 84484; 85025; 93005; 93010; 96374; 99285-25; A9270; J2405; Q9967

== ENCOUNTER 2021-11-23 09:28 | Emergency (ER) | payer OTHER ==
[~2021-11-23] VITALS: Ht 165.1 cm; Wt 97.5 kg
[~2021-11-23 09:28] MED LIST changes: +Pepcid40 MG PO
[2021-11-23 10:02] LABS: Base Excess Venous 4.6 mmol/L; Bicarbonate Venous 28.3 mmol/L (24.0-30.0); PCO2 Venous 38.8 mmHg (38-42); PO2 Venous 89.5 mmHg (38-42); pH Blood Venous 7.47 (7.34-7.37)
[2021-11-23 10:05] LABS: BASOPHILS ABSOLUTE AUTO 0.07 K/mm3 (0.00-0.23); BASOPHILS PERCENT AUTO 1 % (0-2); EOSINOPHILS ABSOLUTE AUTO 0.12 K/mm3 (0.00-0.68); EOSINOPHILS PERCENT AUTO 1 % (0-6); Hematocrit 38.4 % (33.0-51.0); Hemoglobin 11.5 g/dL (11.5-16.0); IMMATURE GRAN ABSOLUTE AUTO 0.06 K/mm3 (0.00-0.10); IMMATURE GRAN PERCENT AUTO 1 % (0-1); LYMPHOCYTES ABSOLUTE AUTO 2.17 K/mm3 (0.84-5.20); LYMPHOCYTES PERCENT AUTO 19 % (21-46); MONOCYTES ABSOLUTE AUTO 0.65 K/mm3 (0.16-1.47); MONOCYTES PERCENT AUTO 6 % (4-13); Mean Corpuscular HGB 21.2 pg (26.0-34.0); Mean Corpuscular HGB Conc 29.9 g/dL (31.5-36.5); Mean Corpuscular Volume 71 fL (80-100); Mean Platelet Volume 9.7 fL (9.1-12.4); NEUTROPHILS ABSOLUTE AUTO 8.11 K/mm3 (1.96-9.15); NEUTROPHILS PERCENT AUTO 73 % (41-73); Platelet Count 371 K/mm3 (150-400); RDW Coefficient Variation 20.6 % (11.7-14.2); RDW Standard Deviation 50.9 fL (35.1-46.3); Red Blood Cell Count 5.42 M/mm3 (3.80-5.20); White Blood Cell Count 11.18 K/mm3 (4.00-11.30)
[2021-11-23 10:21] LABS: Alanine Aminotransfer (ALT/SGP 29 U/L (12-78); Albumin, Blood 3.5 g/dL (3.4-5.0); Albumin/Globulin Ratio 0.9 (0.8-1.8); Alk Phos 173 U/L (50-136); Anion Gap 7 mmol/L (6-16); Aspartate Aminotrans (AST/SGOT 15 U/L (12-37); Beta-hydroxybutyrate 5.2 mg/dL (0.2-2.8); Bilirubin, Total 0.6 mg/dL (0.1-1.0); Blood Urea Nitrogen 14 mg/dL (8-24); Bun/Creatinine Ratio 23.3 (12.0-20.0); CO2, Blood 29 mmol/L (21-32); Chloride, Blood 101 mmol/L (98-108); Globulin, Blood 3.8 g/dL (2.2-4.0); Glomerular Filtration Rate >60 (60-); Glucose, Blood 319 mg/dL (70-99); Potassium, Blood 3.8 mmol/L (3.5-5.5); Sodium, Blood 137 mmol/L (136-145); Total Protein, Blood 7.3 g/dL (6.4-8.2)
[2021-11-23] MEDS ORDERED: Zofran4 MG PO (11:48)
== END 2021-11-23 12:26 | disposition home or self-care (01) ==
LOC: ER 09:28
PROVIDERS: Emergency Medicine
DX: R11.15 Cyclical vomiting syndrome unrelated to migraine (principal); E11.65 Type 2 diabetes mellitus with hyperglycemia; I25.2 Old myocardial infarction; I10 Essential (primary) hypertension; E11.9 Type 2 diabetes mellitus without complications; K21.9 Gastro-esophageal reflux disease without esophagitis; F17.210 Nicotine dependence, cigarettes, uncomplicated; Z95.5 Presence of coronary angioplasty implant and graft; Z79.4 Long term (current) use of insulin; Z79.899 Other long term (current) drug therapy; Z79.82 Long term (current) use of aspirin
CPT/HCPCS: 36415; 74176; 80053; 82010; 82803; 83690; 84484; 85025; 93005; 93010; J1170; J2405; J7030

== ENCOUNTER 2021-11-24 11:47 | Inpatient (IN) | payer OTHER ==
[~2021-11-24] VITALS: Ht 165.1 cm; Wt 96.1 kg
[~2021-11-24 11:47] MED LIST changes: +Carafate1 GM/10 ML PO
[2021-11-24 12:43] LABS: BASOPHILS ABSOLUTE AUTO 0.06 K/mm3 (0.00-0.23); BASOPHILS PERCENT AUTO 1 % (0-2); EOSINOPHILS ABSOLUTE AUTO 0.05 K/mm3 (0.00-0.68); EOSINOPHILS PERCENT AUTO 1 % (0-6); Hematocrit 38.2 % (33.0-51.0); Hemoglobin 11.6 g/dL (11.5-16.0); IMMATURE GRAN ABSOLUTE AUTO 0.05 K/mm3 (0.00-0.10); IMMATURE GRAN PERCENT AUTO 1 % (0-1); LYMPHOCYTES ABSOLUTE AUTO 1.66 K/mm3 (0.84-5.20); LYMPHOCYTES PERCENT AUTO 18 % (21-46); MONOCYTES ABSOLUTE AUTO 0.53 K/mm3 (0.16-1.47); MONOCYTES PERCENT AUTO 6 % (4-13); Mean Corpuscular HGB 21.5 pg (26.0-34.0); Mean Corpuscular HGB Conc 30.4 g/dL (31.5-36.5); Mean Corpuscular Volume 71 fL (80-100); Mean Platelet Volume 9.9 fL (9.1-12.4); NEUTROPHILS ABSOLUTE AUTO 7.06 K/mm3 (1.96-9.15); NEUTROPHILS PERCENT AUTO 75 % (41-73); Platelet Count 421 K/mm3 (150-400); RDW Coefficient Variation 20.9 % (11.7-14.2); RDW Standard Deviation 51.6 fL (35.1-46.3); White Blood Cell Count 9.41 K/mm3 (4.00-11.30)
[2021-11-24 12:46] LABS: Base Excess Venous 6.7 mmol/L; Bicarbonate Venous 29.6 mmol/L (24.0-30.0); PCO2 Venous 48.5 mmHg (38-42); PO2 Venous 114 mmHg (38-42); pH Blood Venous 7.42 (7.34-7.37)
[2021-11-24 13:59] LABS: Beta-hydroxybutyrate 2.8 mg/dL (0.2-2.8)
[2021-11-24 14:03] LABS: Alanine Aminotransfer (ALT/SGP 30 U/L (12-78); Albumin, Blood 3.4 g/dL (3.4-5.0); Albumin/Globulin Ratio 0.9 (0.8-1.8); Alk Phos 165 U/L (50-136); Anion Gap 7 mmol/L (6-16); Aspartate Aminotrans (AST/SGOT 34 U/L (12-37); Bilirubin, Total 0.4 mg/dL (0.1-1.0); Blood Urea Nitrogen 10 mg/dL (8-24); Bun/Creatinine Ratio 18.3 (12.0-20.0); CO2, Blood 29 mmol/L (21-32); Calcium, Blood 8.6 mg/dL (8.5-10.1); Chloride, Blood 103 mmol/L (98-108); Creatinine, Blood 0.55 mg/dL (0.40-1.00); Globulin, Blood 3.8 g/dL (2.2-4.0); Glomerular Filtration Rate >60 (60-); Glucose, Blood 170 mg/dL (70-99); Potassium, Blood 4.3 mmol/L (3.5-5.5); Sodium, Blood 139 mmol/L (136-145); Total Protein, Blood 7.2 g/dL (6.4-8.2)
--- NOTE | 2021-11-24 18:14 | NUR ---
SHIFT SUMMARY PT ARRIVED FROM THE ER AT 1600, C/O INTRACTIBLE N/V. SHE WAS PUT ON A CLEAR LIQUID DIET AND HAS IV FLUIDS RUNNING. HER FAMILY STATED THAT SHE WAS ALSO HAVING ALTERED MENTAL STATUS, SHE WAS HERE IN THE ER YESTERDAY FOR THE SAME ISSUE. SHE IS A TYPE I DIABETIC, AND HAS A HISTORY OF HTN, HX OF [place], SMOKER, GERD, GASTROPARESIS AND MARIJUANA USE. HE IS ALSO C/O ABD PAIN, DESCRIBING IT BURNING SIMILAR TO HEART BURN. SHE IS INDEPENDENT AND CAN WALK TO THE BATHROOM USING HER IV POLE. SHE IS ON RA AT 92%, NO COMPLAINTS OF SOB. PLAN IS TO CONTINUE TO MONITOR AND WILL CONTINUE TO DO SO UNTIL NOC SHIFT ARRIVES.
--- NOTE | 2021-11-24 18:49 | NUR ---
I HAVE REVIEWED THE DOCUMENTATION BY COMMUNITY DEVELOPMENT COORDINATOR EYAD AND AM IN AGREEMNT WITH HER CHARTING
--- NOTE | 2021-11-25 04:06 | NUR ---
SUMMARY: PT A/OX4, CALLS APPROPRIATELY TO SPECIFY NEEDS AND IS PLEASANT AND COOPERATIVE W/CARE. SHE'S INDEPENEDENT IN ROOM BUT AWARE OF LIMITATIONS AND KNOWS TO CALL FOR ASSIST PRN. SHE C/O "EXCRUTIATING" WOOTEN AND NECK PAIN LIMITING ROM THAT WAS ACCOMPANIED BY DIZZINESS. TYLENOL AND ZOFRAN RECIEVED FOR SOME IMPROVEMENT BUT WAS FOLLOWED UP W/FENANYL AND PHENERGAN FOR NEAR COMPLETE RELIEF. SHE'S BEEN SLEEPING OFF/ON T/O NOCTE AND UP TO TOILET AD OLIVERIO. SIPS OF WATER AND ICE CHIPS TOLERATED OK AND 1L NS INFUSION WAS COMPLETED THEN SL'D. NO ACUTE CHANGES. VSS/AFEBRILE, NO ACUTE CHANGES. WCTM AND REPORT TO DAY RN.
[2021-11-25 05:15] LABS: Hematocrit 38.4 % (33.0-51.0); Hemoglobin 11.1 g/dL (11.5-16.0); Mean Corpuscular HGB Conc 28.9 g/dL (31.5-36.5); Mean Corpuscular Volume 73 fL (80-100); Mean Platelet Volume 9.9 fL (9.1-12.4); Platelet Count 348 K/mm3 (150-400); RDW Coefficient Variation 21.1 % (11.7-14.2); RDW Standard Deviation 53.5 fL (35.1-46.3); Red Blood Cell Count 5.28 M/mm3 (3.80-5.20); White Blood Cell Count 9.01 K/mm3 (4.00-11.30)
[2021-11-25 05:53] LABS: Anion Gap 5 mmol/L (6-16); Blood Urea Nitrogen 7 mg/dL (8-24); Bun/Creatinine Ratio 11.7 (12.0-20.0); CO2, Blood 29 mmol/L (21-32); Chloride, Blood 106 mmol/L (98-108); Glomerular Filtration Rate >60 (60-); Glucose, Blood 124 mg/dL (70-99); Magnesium, Blood 2.1 mg/dL (1.6-2.4); Potassium, Blood 3.1 mmol/L (3.5-5.5); Sodium, Blood 140 mmol/L (136-145)
--- NOTE | 2021-11-25 17:27 | NUR ---
SHIFT SUMMARY PT AXO. COMPLAINED OF NAUSEA, MEDICATED PER EMAR. DID NOT TOLERATE IV POTASSIUM ORDERED, DESPITE BEING DELUTED WITH NS. DR CHRISTY NOTIFIED, IV POTASSIUM DC'D AND ORAL ORDERED. DURING ADMINISTRATION AT 1323, THIS NURSE EDUCATED PATIENT ABOUT IMPORTANCE OF EATING SOME JELLO OR DRINKING SOME FLUIDS SO THAT SHE WASNT TAKING THIS MEDICATION ON AN EMPTY STOMACH. PT AGREED BUT DID NOT FOLLOW THROUGH. THIS NURSE ALSO WARNED HER THAT THE PILLS COULD DISOLVE WHILE ATTEMPTING TO SWALLOW. PT STATED THAT SHE "ALREADY KNEW THAT" AND THEN IMMEDIATELY STARTED VOMITING AND MOTIONING FOR THE NURSE TO HELP HER. PT STATED THAT THE PILL "GOT STUCK." AND SHE VOMITED THE PILLS UP ON HER BED. DR CHRISTY NOTIFED THAT PT WAS NOT ABLE TO SWALLOW PILLS AND PT REFUSED TO TAKE THE PILLS IN JELLO OR JUICE. LIQUID POTASSIUM ORDERED AND ADMINISTERED AT 1436. AGAIN THIS NURSE INSISTED THAT PATIENT HAVE ORAL INTAKE WITH THIS MEDICATION. PT SAID "OKAY" BUT DID NOT EAT ANY JELLO OR DRINK ANYTHING. AT 1455 PT COMPLAINED OF SEVERE ABDOMINAL PAIN AND NAUSEA, MEDICATED PER EMAR WITH PHENERGAN THEN ZOFRAN WITH LITTLE TO NO EFFECT. PT ASKED THE NURSE TO CALL THE DOCTOR TO COME AND ASSESS. PT MEDICATED FOR PAIN AT [address] CHRISTY IN ROOM AT 1648 PT RESTING AT THIS TIME. BED IN LOW POSITION, CALL LIGHT WITHIN REACH. PT ASKED NURSE FOR MEDICATION TO "KNOCK" HER "OUT," SO SHE COULD SLEEP, AND MEDICATION SO SHE COULD "FEEL BETTER." VSS
--- NOTE | 2021-11-26 05:52 | NUR ---
SHIFT SUMMARY NOC: PT HAD REPORTS OF HEADACHE PAIN AND BACK PAIN THROUGHOUT NIGHT. PT GIVEN PRN TYLENOL WITH FAIRLY GOOD RELIEF. PT EXPRESSING DESIRE TO PROGRESS DIET TO REGULAR. NO NAUSEA OR VOMITING ON NOC SHIFT.
[2021-11-26 07:58] LABS: Hemoglobin 11.4 g/dL (11.5-16.0); Mean Corpuscular HGB 21.3 pg (26.0-34.0); Mean Corpuscular HGB Conc 29.2 g/dL (31.5-36.5); Mean Corpuscular Volume 73 fL (80-100); Mean Platelet Volume 9.7 fL (9.1-12.4); Platelet Count 377 K/mm3 (150-400); RDW Coefficient Variation 21.1 % (11.7-14.2); Red Blood Cell Count 5.36 M/mm3 (3.80-5.20); White Blood Cell Count 6.17 K/mm3 (4.00-11.30)
[2021-11-26 08:19] LABS: Albumin, Blood 3.1 g/dL (3.4-5.0); Anion Gap 6 mmol/L (6-16); Blood Urea Nitrogen 10 mg/dL (8-24); Bun/Creatinine Ratio 15.9 (12.0-20.0); CO2, Blood 26 mmol/L (21-32); Calcium, Blood 8.5 mg/dL (8.5-10.1); Chloride, Blood 108 mmol/L (98-108); Creatinine, Blood 0.63 mg/dL (0.40-1.00); Glomerular Filtration Rate >60 (60-); Glucose, Blood 160 mg/dL (70-99); Phosphorus, Blood 3.4 mg/dL (2.5-4.9); Potassium, Blood 3.7 mmol/L (3.5-5.5); Sodium, Blood 140 mmol/L (136-145)
--- NOTE | 2021-11-26 12:21 | NUR ---
PATIENT HAD SEVER NAUSEA AND VOMITING THIS AM, MEDICATED WITH ZOFRAN, AND PHENEGRAN, WITH IN AN HOUR, ABD PAIN INCREASED AND COMPLAINED OF CHEST PAIN, REPORTED TO DR CHRISTY, STAT EKG DONE, STAT ABD CT WITH CONTRAST DONE AND TROPONIN. ALL TESTS WERE NEGATIVE. MEDICATED WITH ONE DOSE OF FENTANYL PER DR CHRISTY, PATIENT CONTINUES TO MOAN OUT IN PAIN, DUE TO THE GASTROPARESIS PAIN MEDICATIONS ONLY WORSEN THE PAIN. IV KEPPRA INFUSING, MEDICATED AGAIN WITH ZOFRAN AND PHENEGRAN. CALL LIGHT WITH IN REACH
--- NOTE | 2021-11-26 12:42 | NUR ---
REPORTED TO DR CHRISTY PATIENT CONTINUES TO CRY AND MOAN OUT IN PAIN, UNCONSOLABLE, DR HCRISTY TO REVEIW MEDICATIONS FOR POSSIBLE ANXIETY, PAIN OR GI MEDICATIONS. REPORTED TO NURSE TREE FELLER PATIENTS PAIN, CRYING, AND MOANING
[2021-11-26] MEDS ORDERED: Buspirone HCl15 MG PO (13:30)
--- NOTE | 2021-11-26 16:31 | NUR ---
DR FITZGERALD ROUNDED ON PATIENT, STARTED SCOPALAMINE PATCH, NO FURTHER ORDERS
--- NOTE | 2021-11-26 18:30 | NUR ---
PATIENT MORE ALERT AN DORIENTED, NOT MOANING OR CRYING PRESENTLY, MEDICATED WITH PHENEGRAN, GI COCKTAIL X1 GIVEN, AM MEDS GIVEN LATE PER OK WITH DR CHRISTY, PATIET MEDICATED FOR NAUSEA AND VOMITING 3+ TIMES TODAY. GI CONSULT DR FITZGERALD ROUNDED, STARTED A SCOPALAMINE PATCH, PATIENTS FAMILY VERY EDUCATED ON GASTROPARESIS AND PAIN MEDICATIONS, PATIENT IS A STAND BY TO THE BATHROOM, CALL LIGHT WITH IN REACH, TM
--- NOTE | 2021-11-27 04:51 | NUR ---
SHIFT SUMMARY NOC: PT HAD COMPLAINTS OF NAUSEA AND HEADACHE/BACK PAIN. ZOFRAN GIVEN FOR NUASEA. PT SLEPT IN BED ALL SHIFT.
[2021-11-27] MEDS ORDERED: MIRALAX17 GM PO (12:37)
[2021-11-27] MEDS ORDERED: TRANSDERM-SCOP1 EA10 TOP (12:58)
[2021-11-27] MEDS ORDERED: METO10 PO (13:01)
[2021-11-27] MEDS ORDERED: HUMALOG KW100 UNIT/1 SC (13:01)
[2021-11-27] MEDS ORDERED: PANT40 PO (13:02)
--- NOTE | 2021-11-27 15:04 | NUR ---
DISCHARGE NOTE PATIENT WAS DISCHARGED AT 1400 VIA WHEELCHAIR WITH DAUGHTER. THE PATIENT DECLINED TO HAVE MOST OF DISCHARGE MEDICATIONS FILLED AT THEIR PHARMACY. THE PATIENT STATED THAT THEY ALREADY HAD THE DISCHARGE MEDICATIONS AT HOME. THE PATIENT ONLY WANTED THE SCOPOLAMINE PATCH FILLED AT THE PHARMACY. IV DISCONTINUED AT DISCHARGE. NO DISTRESS NOTED. VITAL SIGNS STABLE. NOTHING FURTHER TO REPORT.
== END 2021-11-27 14:21 | disposition home or self-care (01) | DRG 74 ==
LOC: ER 11:47 → MEDS 15:56
PROVIDERS: Emergency Medicine; ADMIT Internal Medicine
DX: E11.43 Type 2 diabetes mellitus with diabetic autonomic (poly)neuropathy (principal); K22.10 Ulcer of esophagus without bleeding; K26.9 Duodenal ulcer, unspecified as acute or chronic, without hemorrhage or perforation; I25.10 Atherosclerotic heart disease of native coronary artery without angina pectoris; K31.84 Gastroparesis; I35.0 Nonrheumatic aortic (valve) stenosis; F17.210 Nicotine dependence, cigarettes, uncomplicated; M79.7 Fibromyalgia; K21.9 Gastro-esophageal reflux disease without esophagitis; E78.5 Hyperlipidemia, unspecified; G40.909 Epilepsy, unspecified, not intractable, without status epilepticus; I10 Essential (primary) hypertension; F32.A Depression, unspecified; G47.33 Obstructive sleep apnea (adult) (pediatric); E66.9 Obesity, unspecified; E87.6 Hypokalemia; M06.9 Rheumatoid arthritis, unspecified; F12.90 Cannabis use, unspecified, uncomplicated; F41.9 Anxiety disorder, unspecified; K59.00 Constipation, unspecified; G89.4 Chronic pain syndrome; Z95.5 Presence of coronary angioplasty implant and graft; Z90.13 Acquired absence of bilateral breasts and nipples; Z90.710 Acquired absence of both cervix and uterus; I25.2 Old myocardial infarction; Z98.890 Other specified postprocedural states; Z90.6 Acquired absence of other parts of urinary tract; Z71.51 Drug abuse counseling and surveillance of drug abuser; Z88.5 Allergy status to narcotic agent; Z79.4 Long term (current) use of insulin; Z88.8 Allergy status to other drugs, medicaments and biological substances; Z79.82 Long term (current) use of aspirin; Z79.899 Other long term (current) drug therapy
CPT/HCPCS: 36415; 70450; 71045; 74177; 80048; 80053; 80069; 82010; 82803; 82947; 83690; 83735; 84484; 85025; 85027; 93005; 93010; 96365; 96372; 96374; 96375; 96376; 99285-25; A9270; C9113; G0378; J1650; J1953; J2405; J2550; J2765; J3010; J3480; J7030; J7512; Q9967

== ENCOUNTER 2022-02-01 07:36 | Inpatient (IN) | payer OTHER ==
[~2022-02-01] VITALS: Ht 162.6 cm; Wt 98.5 kg
[~2022-02-01 07:36] MED LIST changes: +Buspirone HCl15 MG PO; +HUMALOG KW100 UNIT/1 SC; +MIRALAX17 GM PO; +PANT40 PO; +TRANSDERM-SCOP1 EA10 TOP
[2022-02-01 08:45] LABS: BASOPHILS ABSOLUTE AUTO 0.03 K/mm3 (0.00-0.23); BASOPHILS PERCENT AUTO 0 % (0-2); EOSINOPHILS PERCENT AUTO 0 % (0-6); Hematocrit 39.1 % (33.0-51.0); Hemoglobin 12.3 g/dL (11.5-16.0); IMMATURE GRAN ABSOLUTE AUTO 0.08 K/mm3 (0.00-0.10); IMMATURE GRAN PERCENT AUTO 1 % (0-1); LYMPHOCYTES ABSOLUTE AUTO 1.76 K/mm3 (0.84-5.20); LYMPHOCYTES PERCENT AUTO 11 % (21-46); MONOCYTES ABSOLUTE AUTO 0.67 K/mm3 (0.16-1.47); MONOCYTES PERCENT AUTO 4 % (4-13); Mean Corpuscular HGB 22.3 pg (26.0-34.0); Mean Corpuscular HGB Conc 31.5 g/dL (31.5-36.5); Mean Corpuscular Volume 71 fL (80-100); NEUTROPHILS ABSOLUTE AUTO 14.23 K/mm3 (1.96-9.15); NEUTROPHILS PERCENT AUTO 85 % (41-73); NRBC ABSOLUTE 0.02 K/mm3 (0.00-0.02); NRBC Auto 0.1 /100 WBC (0.0-0.2); RDW Coefficient Variation 19.2 % (11.7-14.2); RDW Standard Deviation 46.7 fL (35.1-46.3); Red Blood Cell Count 5.51 M/mm3 (3.80-5.20); White Blood Cell Count 16.77 K/mm3 (4.00-11.30)
[2022-02-01 08:56] LABS: Bicarbonate Venous 26.3 mmol/L (24.0-30.0); PCO2 Venous 25.4 mmHg (38-42); PO2 Venous 138 mmHg (38-42); pH Blood Venous 7.57 (7.34-7.37)
[2022-02-01 08:57] LABS: Beta-hydroxybutyrate 27.7 mg/dL (0.2-2.8)
[2022-02-01 08:58] LABS: Albumin, Blood 3.7 g/dL (3.4-5.0); Albumin/Globulin Ratio 0.9 (0.8-1.8); Bun/Creatinine Ratio 27.8 (12.0-20.0); Calcium, Blood 9.9 mg/dL (8.5-10.1); Creatinine, Blood 0.54 mg/dL (0.40-1.00); Globulin, Blood 4.3 g/dL (2.2-4.0)
[2022-02-01 09:00] LABS: Mean Platelet Volume 10.6 fL (9.1-12.4); Platelet Count 451 K/mm3 (150-400)
[2022-02-01 09:06] LABS: Source, Urine Clean Catch
[2022-02-01 09:16] LABS: Appearance, Urine Clear (Clear); Bilirubin, Urine Neg (Neg); Blood, Urine 1+ (Neg); Color, Urine Yellow (P-Yellow); Glucose Qualitative, Urine 4+ (Neg); Ketones, Urine 4+ (Neg); Leukocyte Esterase, Urine Neg (Neg); Nitrite, Urine Neg (Neg); Protein, Urine 2+ (Neg); Urobilinogen, Urine NORM (Normal)
[2022-02-01 09:24] LABS: Bacteria Rare /hpf; Red Blood Cells, Urine 0-2 /hpf (0-2); Squamous Epithelial Cells Rare /hpf (Few); White Blood Cells, Urine 0-2 /hpf (0-5)
[2022-02-01 11:05] LABS: U Amphetamine Screen Not Detected; U Barbituate Screen Not Detected; U Benzodiazapine Screen Not Detected; U Buprenorphine Screen Not Detected; U Cannabinoids Screen DETECTED; U Cocaine Screen Not Detected; U Methadone Screen Not Detected; U Methamphetamine Screen Not Detected; U Opiates Screen Not Detected; U Oxycodone Screen Not Detected; U Phencyclidine Screen Not Detected; U Propoxyphene Screen Not Detected
[2022-02-01 15:11] LABS: Influenza A, PCR NEGATIVE (NEGATIVE); Influenza B, PCR NEGATIVE (NEGATIVE); Resp Syncytial Virus, PCR NEGATIVE (NEGATIVE); SARS-Cov-2 (COVID-19) PCR, MMC NEGATIVE (NEGATIVE)
--- NOTE | 2022-02-01 18:53 | NUR ---
PT ARRIVED IN THE UNIT AT 1530, PT IS HERE FOR SYMPTOMATIC HYPERGLYCEMIA. CBG NOW RANGING 200-300 PT WAS STARTED ON SHORT AND LONG ACTING INSULIN. PT ALERT AND ORIENTED X3 GETS CONFUSED RESTLESS IN BED, C/O OF ABD PAIN AND NAUSEA PEPCID AND REGLAN WAS GIVEN AND WAS EFFECTIVE. PT ON CLEAR LIQUID DIET, REFUSED DINNER DUE TO NAUSEA AND DRY HEAVING. NS RUNNING AT 150MLS/HR. PT INCONTINENT OF VOID AT THIS TIME, HAS FREQUENCY AND URGENCY. PT NOW RESTING IN BED. VITALS HRR SR 90-100'S, BP SYSTOLIC 130'S, SATS ABOVE 95% ON RA, AFEBRILE. NO OTHER ISSUES REPORTED WILL REPORT TO ONCOMING SHIFT
--- NOTE | 2022-02-01 21:52 | NUR ---
UPDATE PHYSICIAN NOTIFIED OF PT CRYING IN PAIN STATING "ABD HURTS." SEE EMAR FOR ORDERS
[2022-02-02 04:26] LABS: BASOPHILS ABSOLUTE AUTO 0.05 K/mm3 (0.00-0.23); BASOPHILS PERCENT AUTO 1 % (0-2); EOSINOPHILS ABSOLUTE AUTO 0.04 K/mm3 (0.00-0.68); EOSINOPHILS PERCENT AUTO 0 % (0-6); Hemoglobin 10.7 g/dL (11.5-16.0); IMMATURE GRAN ABSOLUTE AUTO 0.04 K/mm3 (0.00-0.10); IMMATURE GRAN PERCENT AUTO 0 % (0-1); LYMPHOCYTES ABSOLUTE AUTO 2.87 K/mm3 (0.84-5.20); LYMPHOCYTES PERCENT AUTO 30 % (21-46); MONOCYTES ABSOLUTE AUTO 0.69 K/mm3 (0.16-1.47); MONOCYTES PERCENT AUTO 7 % (4-13); Mean Corpuscular HGB 22.6 pg (26.0-34.0); Mean Corpuscular HGB Conc 30.6 g/dL (31.5-36.5); Mean Corpuscular Volume 74 fL (80-100); Mean Platelet Volume 10.3 fL (9.1-12.4); NEUTROPHILS ABSOLUTE AUTO 5.75 K/mm3 (1.96-9.15); NEUTROPHILS PERCENT AUTO 61 % (41-73); Platelet Count 346 K/mm3 (150-400); RDW Coefficient Variation 19.3 % (11.7-14.2); Red Blood Cell Count 4.74 M/mm3 (3.80-5.20); White Blood Cell Count 9.44 K/mm3 (4.00-11.30)
[2022-02-02 04:44] LABS: Magnesium, Blood 2.1 mg/dL (1.6-2.4)
[2022-02-02 04:45] LABS: Beta-hydroxybutyrate 17.3 mg/dL (0.2-2.8); Bun/Creatinine Ratio 24.2 (12.0-20.0); Calcium, Blood 8.6 mg/dL (8.5-10.1); Creatinine, Blood 0.54 mg/dL (0.40-1.00); Phosphorus, Blood 2.6 mg/dL (2.5-4.9); Potassium, Blood 3.6 mmol/L (3.5-5.5)
--- NOTE | 2022-02-02 04:52 | NUR ---
UPDATE PT UNABLE TO VOID. BLADDER SCAN SHOWS 500 ML. ORDERS FOR HAMILTON TO BE PLACED. WILL CONT TO MONITOR.
[2022-02-02 05:27] LABS: Source, Urine Foley catheter
--- NOTE | 2022-02-02 05:37 | NUR ---
SHIFT SUMMARY PT ALERT TO SELF, FAMILY AND LOCATION. PT CONFUSED AT TIMES, UNAWARE OF LOCATION. PT REPORTS SEVERE PAIN IN ABD, CRYING AND YELLING OUT. PHYSICIAN AWARE, SEE EMAR FOR ORDERS. PT MEDICATED FOR PAIN PER PHYSICIAN, PT ABLE TO HAVE RELIEF AND SLEEP AFTER MEDICATED. PT UNABLE TO VOID, RETAINING URINE, SEE NOTES. ORDERS FOR HAMILTON TO BE PLACED. POWERGLIDE DRESSING NOT INTACT, DRESSING CHANGED. PT TURNS FREQUENTLY IN BED, DOES NOT NEED ASSISTANCE. BED ALARM IN PLACE FOR CONFUSION.WILL CONT TO MONITOR UNTIL REPORT GIVEN TO DAYSHIFT RN.
[2022-02-02 05:58] LABS: Appearance, Urine Clear (Clear); Bilirubin, Urine Neg (Neg); Blood, Urine Neg (Neg); Color, Urine Yellow (P-Yellow); Glucose Qualitative, Urine 4+ (Neg); Ketones, Urine 4+ (Neg); Leukocyte Esterase, Urine Neg (Neg); Nitrite, Urine Neg (Neg); Protein, Urine 2+ (Neg); Urobilinogen, Urine NORM (Normal)
[2022-02-02 06:15] LABS: Bacteria Rare /hpf; Hyaline Casts 0-2 /lpf (0-2); Mucus Light (0-Heavy); Red Blood Cells, Urine 0-2 /hpf (0-2); Squamous Epithelial Cells Few /hpf (Few); White Blood Cells, Urine 0-2 /hpf (0-5)
--- NOTE | 2022-02-02 11:14 | NUR ---
ELEVATED BP: PATIENT REPORTING CHEST PAIN AND EXPERIENCING ELEVATED BLOOD PRESSURES (SEE VITALS). PATIENT REPORTS THAT SHE HAS CHEST PAIN AT HOME. PATIENT REPORTS THIS FEELS LIKE CHEST PAIN THAT SHE HAS AT HOME. DISCUSSED HOME MEDICATIONS AND PATIENT STATUS WITH DR. LIN. NEW ORDERS RECEIVED AND ENTERED.
--- NOTE | 2022-02-02 13:17 | NUR ---
CHEST PAIN: PATIENT CONTINUES TO EXPERIENCE CHEST PAIN AFTER PRIOR ORDERS. DISCUSSED PATIENT'S HOME MEDICATIONS AND CURRENT STATUS WITH DR. LIN. NEW ORDERS RECEIVED AND ENTERED.
--- NOTE | 2022-02-02 13:32 | NUR ---
CHEST PAIN: Pt cont to c/o CP afer home metoprolol and imdur doses administered. PMD notified by primary RN, new d/o received. EKG completed, nitro administered as follows: 1328 - CP 9/10, SBP 188, Nitro x1 1331 - CP 9/10 1333 - CP 8/10, SBP 169, Nitro x1 1336 - CP 9/10 1338 - CP 9/10, SBP 168, light snoring No additional nitro administered as first two doses have had no impact on pt's reported CP and pt is falling asleep between BP monitoring and CP assessments. SBP has improved from 180's to 160's. Cont to monitor for any changes.
[2022-02-02] MEDS ORDERED: FURO40 PO (15:42)
[2022-02-02] MEDS ORDERED: ROPI1 PO (15:42)
[2022-02-02] MEDS ORDERED: BRINTELLIX20 MG PO (15:43)
--- NOTE | 2022-02-02 16:06 | NUR ---
MEDICATION LIST UPDATE: SPOKE WITH THE PATIENT'S DAUGHTER SAMMIE TO UPDATE MEDICATION LIST. CHANGES WERE MADE AND ADDITIONAL MEDICATIONS WERE ADDED. NOTIFIED DR. LIN. THE PATIENT'S OTHER DAUGHTER ABIGAIL CALLED TO UPDATE STAFF THAT THE PATIENT'S CONTRACT GRAPHIC DESIGNER SAID THE PATIENT SHOULD NOT HAVE SCOPALAMINE PATCH PLUS ZOFRAN OR THE SCOPALAMINE PATCH PLUS PROMETHAZINE. VERIFIED WITH THE DAUGHTER THAT THIS INCLUDED DURING SITUATIONS WHERE THE PATIENT'S HEART IS BEING MONITORED CLOSELY. MESSAGE LEFT FOR DR. LIN.
--- NOTE | 2022-02-02 19:11 | NUR ---
END OF SHIFT SUMMARY: PATIENT REPORTED STOMACH PAIN AND CHEST PAIN THROUGHOUT THE SHIFT. PATIENT NAUSEATED THROUGHOUT THE SHIFT. NO EMESIS. MEDICATED PER PRNS AND SCHEDULED MEDICATIONS. PATIENT APPEARED MORE COMFORTABLE BY THE END OF THE SHIFT (PATIENT SITTING UP AND LAUGHING WITH HER GRANDDAUGHTERS), BUT CONTINUED TO REPORT PAIN, FATIGUE AND NAUSEA. PATIENT EXPERIENCED ELEVATED BLOOD PRESSURES TODAY (SBP IN THE HIGH 180'S). HOME MEDICATION STARTED AND PRN NITRO GIVEN WITH CHEST PAIN AND ELEVATED BPS. BP IMPROVED BY MID-AFTERNOON. HOME MEDICATION RECONCILIATION VERIFIED WITH THE PATIENT'S DAUGHTERS. CLARIFIED THAT THE PATIENT SHOULD NOT HAVE THE SCOPALAMINE PATCH WITH EITHER ZOFRAN OR PROMETHAZINE PER THE PATIENT'S LABOURERS (PER DAUGHTER'S REPORT). PATIENT IS VERY HESITANT TO AMBULATE. EDUCATION PROVIDED. PATIENT UP TO THE CHAIR AND WALKED AROUND THE END OF THE BED. PATIENT DENIED INCREASED DISCOMFORT WITH MOVEMENT AND CONTINUES TO REFUSE OUT OF BED ACTIVITY WHEN ENCOURAGED.
--- NOTE | 2022-02-03 06:29 | NUR ---
SHIFT SUMMARY PT ALERT AND ORIENTED. CONFUSED AT TIMES. BED ALARM IN PLACE. HR STABLE. BP STABLE. NO CP OR PRESSURE REPORTED. PT REPORTS TO HAVE IRRITATION WITH HAMILTON CATHETER. ORDERS FROM PHYSICIAN TO REMOVE. PT ABLE TO VOID AFTER CATHETER REMOVAL. NS GTT AT 150 ML/HR. PT SBA UP TO COMMODE. ABLE TO TURN SELF IN BED. PT UNABLE TO SLEEP, REQUESTING MELATONIN. PHYSICIAN NOTIFIED, SEE ORDERS. Q 4 CBG CHECKS. OXYGEN SATURAITON MAINTAINED ABOVE 92% ON 2 L VIA NC. CALL LIGHT WITHIN REACH. WILL CONT TO MONITOR UNTIL REPORT GIVEN TO PAWEL NEGRON.
--- NOTE | 2022-02-03 09:26 | NUR ---
Am note Pt sleeping, wakes easily to verbal stimuli; alert, oriented x4, intermittent confusion noted, calm and cooperative with care. Pt denies pain, chest pain/pressure, sob, nausea, and dizziness this am. Pt tele sb-sr 59-62, bp stable. Ls clear t/o, spo2 97% on 3l o2 via nc, titrated to 2l o2 via nc. Pt reports baseline numb/tingling to hands and feet. Abd soft, nontender on palpatation, normoactive bt t/o. Sba in room, encouraged mobility. Ns at 150 ml/hr. Other vss. Will continue to monitor.
--- NOTE | 2022-02-03 12:08 | NUR ---
Pt reporting nausea and asking for antiemetic. Reviewed qt prolonging medications with pharmacy, only medication on board is reglan, notified Dr Valencia, discontinued due to QTc .5. Scopolamine patch in place for nausea at this time. Educated pt on other interventions including movement, warm shower and drinks with kelsie in them. Pt refusing all interventions at this time. Pt states she does not beleive any of them will work, attempted to educated pt again, pt unreceptive at this time, pt requesting to be discharged. Notified Dr Valencia.
--- NOTE | 2022-02-03 14:36 | NUR ---
Dr Valentino at bedside this afternoon, new order for [facility] soft diet, one time dose of xanax, one time dose of gi cocktail and d/c ns. Discussed qt prolonging medication with phamarcy, notified Dr Valentino regarding the gi cocktail, orders to continue with administration, will continue to monitor on camp director.
--- NOTE | 2022-02-03 15:29 | NUR ---
Pt continues to report chest pain, 8/10 post gi cocktail; pt was able to take a couple bites of peaches with no increased nausea noted. Noitifed Dr Valencia, new orders to give one nitro sl. Bp 172/91
--- NOTE | 2022-02-03 15:38 | NUR ---
No relief noted for chest pain with nitro, however pt bp down. Notified MD, suggested to walk patient, educated pt on need for activity and pt states "I m a too sick, I am going to vomit." "I just got my xanax to calm down, can you come back later." When this rn asked when pt would be willing to get up and be active, pt states "I dont know, I cant give you at time." Pt educated on interventions to help reduce symptoms, pt continues to be unreceptive and refuse interventions. Will continue to monitor.
--- NOTE | 2022-02-03 17:12 | NUR ---
Pt up walked a lap around the unit on ra, spo2 >90% while up an moving arounds , pt states nausea has lessened and chest pain 7/10 and "getting better. Pt bp dropped when initially getting out of bed, trending back up. When asked pt states she would still like to go home. Notified MD, plans to discharge home. Pt states her pcp is in the process of ordering a cpap, she will follow up with pcp and [facility] tomorrow.
--- NOTE | 2022-02-03 19:03 | NUR ---
Discharge Instructions Pt reports improved nausea and chest pain. Pt requesting to go home, states "Ill be going home for dinner one way or another." D-dimer and trop checked, negative, notified Dr Valencia, new order for discharge home. Pt educdated on discharge instructions, follow up appointments and medication changes. Prescriptions faxed to [facility] in [place] per pt request. Pt left via [facility] at approx [phone].
== END 2022-02-03 18:55 | disposition home or self-care (01) | DRG 637 ==
LOC: ER 07:36 → ICUW 12:57 → PCU 15:18
PROVIDERS: Internal Medicine; Physician Assistant; ADMIT Internal Medicine
DX: E11.10 Type 2 diabetes mellitus with ketoacidosis without coma (principal); G92.8 Other toxic encephalopathy; R07.9 Chest pain, unspecified; E66.01 Morbid (severe) obesity due to excess calories; I25.2 Old myocardial infarction; F32.A Depression, unspecified; M19.90 Unspecified osteoarthritis, unspecified site; M79.7 Fibromyalgia; Z20.822 Contact with and (suspected) exposure to COVID-19; G47.33 Obstructive sleep apnea (adult) (pediatric); E11.40 Type 2 diabetes mellitus with diabetic neuropathy, unspecified; Z88.8 Allergy status to other drugs, medicaments and biological substances; Z88.5 Allergy status to narcotic agent; Z79.82 Long term (current) use of aspirin; Z79.899 Other long term (current) drug therapy; Z79.02 Long term (current) use of antithrombotics/antiplatelets; R94.5 Abnormal results of liver function studies; Z98.890 Other specified postprocedural states; Z90.710 Acquired absence of both cervix and uterus; I45.81 Long QT syndrome; Z68.37 Body mass index [BMI] 37.0-37.9, adult
CPT/HCPCS: 0241U; 36415; 70450; 71045; 80048; 80053; 81001; 82010; 82803; 82947; 83605; 83690; 83735; 83930; 84100; 84484; 85025; 85379; 93005; 93010; 94762; 96374; 99285-25; A9270; C1751; C9113; J1630; J1650; J1815; J1885; J2405; J2550; J2765; J3010; J7030; J7120

== ENCOUNTER 2022-02-04 17:52 | Observation (INO) | payer OTHER ==
[~2022-02-04] VITALS: Ht 162.6 cm; Wt 95.0 kg
[~2022-02-04 17:52] MED LIST changes: +BRINTELLIX20 MG PO; +FURO40 PO; +ROPI1 PO
[2022-02-04 18:30] LABS: Base Excess Venous 0.5 mmol/L; Bicarbonate Venous 24.9 mmol/L (24.0-30.0); PCO2 Venous 38.3 mmHg (38-42); pH Blood Venous 7.42 (7.34-7.37)
[2022-02-04 18:33] LABS: BASOPHILS ABSOLUTE AUTO 0.06 K/mm3 (0.00-0.23); BASOPHILS PERCENT AUTO 1 % (0-2); EOSINOPHILS ABSOLUTE AUTO 0.11 K/mm3 (0.00-0.68); EOSINOPHILS PERCENT AUTO 1 % (0-6); Hematocrit 36.2 % (33.0-51.0); Hemoglobin 11.4 g/dL (11.5-16.0); IMMATURE GRAN ABSOLUTE AUTO 0.03 K/mm3 (0.00-0.10); IMMATURE GRAN PERCENT AUTO 0 % (0-1); LYMPHOCYTES ABSOLUTE AUTO 2.12 K/mm3 (0.84-5.20); LYMPHOCYTES PERCENT AUTO 24 % (21-46); MONOCYTES ABSOLUTE AUTO 0.68 K/mm3 (0.16-1.47); MONOCYTES PERCENT AUTO 8 % (4-13); Mean Corpuscular HGB 22.8 pg (26.0-34.0); Mean Corpuscular HGB Conc 31.5 g/dL (31.5-36.5); Mean Corpuscular Volume 72 fL (80-100); Mean Platelet Volume 10.4 fL (9.1-12.4); NEUTROPHILS ABSOLUTE AUTO 5.96 K/mm3 (1.96-9.15); NEUTROPHILS PERCENT AUTO 67 % (41-73); Platelet Count 378 K/mm3 (150-400); RDW Coefficient Variation 19.3 % (11.7-14.2); RDW Standard Deviation 48.9 fL (35.1-46.3); Red Blood Cell Count 5.01 M/mm3 (3.80-5.20); White Blood Cell Count 8.96 K/mm3 (4.00-11.30)
[2022-02-04 18:54] LABS: Albumin, Blood 3.6 g/dL (3.4-5.0); Albumin/Globulin Ratio 0.8 (0.8-1.8); Bilirubin, Direct 0.2 mg/dL (0.0-0.3); Bilirubin, Indirect 0.5 mg/dL (0.1-0.7); Bilirubin, Total 0.7 mg/dL (0.1-1.0); Bun/Creatinine Ratio 8.8 (12.0-20.0); Calcium, Blood 9.2 mg/dL (8.5-10.1); Creatinine, Blood 2.15 mg/dL (0.40-1.00); Globulin, Blood 4.3 g/dL (2.2-4.0); Potassium, Blood 2.9 mmol/L (3.5-5.5); Total Protein, Blood 7.9 g/dL (6.4-8.2)
[2022-02-04 19:33] LABS: Beta-hydroxybutyrate 4.4 mg/dL (0.2-2.8)
[2022-02-04 19:49] LABS: Influenza A, PCR NEGATIVE (NEGATIVE); Influenza B, PCR NEGATIVE (NEGATIVE); Resp Syncytial Virus, PCR NEGATIVE (NEGATIVE); SARS-Cov-2 (COVID-19) PCR, MMC NEGATIVE (NEGATIVE)
[2022-02-05 03:32] LABS: BASOPHILS ABSOLUTE AUTO 0.04 K/mm3 (0.00-0.23); BASOPHILS PERCENT AUTO 1 % (0-2); EOSINOPHILS ABSOLUTE AUTO 0.09 K/mm3 (0.00-0.68); EOSINOPHILS PERCENT AUTO 1 % (0-6); Hemoglobin 10.4 g/dL (11.5-16.0); IMMATURE GRAN ABSOLUTE AUTO 0.03 K/mm3 (0.00-0.10); IMMATURE GRAN PERCENT AUTO 0 % (0-1); LYMPHOCYTES ABSOLUTE AUTO 3.08 K/mm3 (0.84-5.20); LYMPHOCYTES PERCENT AUTO 41 % (21-46); MONOCYTES ABSOLUTE AUTO 0.55 K/mm3 (0.16-1.47); MONOCYTES PERCENT AUTO 7 % (4-13); Mean Corpuscular HGB 22.8 pg (26.0-34.0); Mean Corpuscular HGB Conc 30.6 g/dL (31.5-36.5); Mean Corpuscular Volume 74 fL (80-100); Mean Platelet Volume 10.1 fL (9.1-12.4); NEUTROPHILS ABSOLUTE AUTO 3.74 K/mm3 (1.96-9.15); NEUTROPHILS PERCENT AUTO 50 % (41-73); Platelet Count 308 K/mm3 (150-400); RDW Coefficient Variation 19.4 % (11.7-14.2); RDW Standard Deviation 51.5 fL (35.1-46.3); Red Blood Cell Count 4.57 M/mm3 (3.80-5.20); White Blood Cell Count 7.53 K/mm3 (4.00-11.30)
[2022-02-05 03:46] LABS: Bun/Creatinine Ratio 13.2 (12.0-20.0); Calcium, Blood 8.4 mg/dL (8.5-10.1); Creatinine, Blood 1.44 mg/dL (0.40-1.00); Potassium, Blood 3.4 mmol/L (3.5-5.5)
--- NOTE | 2022-02-05 06:49 | NUR ---
NP SUMMARY PT IS ALERT AND COMMUNICATING APPROPRIATELY W STAFF. PT HAS DENIED ANY PAIN OR NAUSEA THIS SHIFT. BP WNL AND STABLE. TELE SHOWING SR IN THE 70'S THIS SHIFT. O2 SATS >90% ON RM AIR WHEN THE PT IS AWAKE HOWEVER, THE PT DESATS RAPIDLY WHEN ASLEEP REQUIRING CPAP W 4L BLEED IN TO MAINTAIN O2 SATS >90%. PT SLEPT COMFORTABLY FOR MOST OF THE NIGHT. WILL REPORT TO ONCOMING RN.
--- NOTE | 2022-02-05 14:27 | NUR ---
DISCHARGE NOTE: PATIENT ALERT AND ORIENTED X4. NEURO AT BASELINE. COMPLAINS OF BLE NUMBNESS/TINGLING. ABOT TO STAND AND WALK IND. ABLE TO TITRATE DOWN TO ROOM AIR THROUGHOUT SHIFT. DENIES SOB. TELE SHOWING SINUS RHYTHM WITH HR 70'S. DENIES CHEST PAIN/PRESSURE. DENIES ABDOMINAL PAIN/NAUSEA. USING BATHROOM WITH SBA. ALL VITAL SIGNS STABLE. BLOOD SUGARS ACHS. DISCHARGE INSTRUCTIONS REVIEWED WITH PATIENT TO STOP LASIX X1 WEEK UNTIL SHE SEES PCP AND THEN DOSE CHANGE TO METOPROLOL. F/U APPOINTMENT DISCUSSED. PATIENT DAUGHTER IN TO INSURANCE UNDERWRITING ASSISTANT PATIENT. IV REMOVED WNL. DENIES OTHER NEEDS PRIOR TO DISCHARGE. LEFT UNIT VIA WHEELCHAIR WITH ALL PERSONAL BELONGINGS.
== END 2022-02-05 14:29 | disposition home or self-care (01) ==
LOC: ER 17:52 → PCU 17:53
PROVIDERS: Family Medicine; Student in an Organized Health Care Education/Training Program; ADMIT Internal Medicine
DX: J96.01 Acute respiratory failure with hypoxia (principal); N17.9 Acute kidney failure, unspecified; E87.6 Hypokalemia; D64.9 Anemia, unspecified; I95.9 Hypotension, unspecified; R07.9 Chest pain, unspecified; I25.10 Atherosclerotic heart disease of native coronary artery without angina pectoris; I25.2 Old myocardial infarction; Z95.5 Presence of coronary angioplasty implant and graft; E11.40 Type 2 diabetes mellitus with diabetic neuropathy, unspecified; I10 Essential (primary) hypertension; E66.9 Obesity, unspecified; G47.33 Obstructive sleep apnea (adult) (pediatric); F17.210 Nicotine dependence, cigarettes, uncomplicated; Z88.4 Allergy status to anesthetic agent; Z88.5 Allergy status to narcotic agent; Z88.8 Allergy status to other drugs, medicaments and biological substances; Z79.82 Long term (current) use of aspirin; Z79.4 Long term (current) use of insulin; Z79.01 Long term (current) use of anticoagulants; Z79.899 Other long term (current) drug therapy; Z20.822 Contact with and (suspected) exposure to COVID-19
CPT/HCPCS: 0241U; 71045; 71260; 80048; 80076; 82010; 82803; 82947; 83735; 83880; 84484; 85025; 85379; 93005; 93010; 94660; 94762; A9270; G0378; J1650; J3480; J7030; J7050; Q9967

== ENCOUNTER 2022-05-14 15:52 | Emergency (ER) | payer OTHER ==
[~2022-05-14] VITALS: Ht 162.6 cm; Wt 99.8 kg
[2022-05-14 16:44] LABS: Base Excess Venous 1.6 mmol/L; Bicarbonate Venous 26.8 mmol/L (24.0-30.0); PCO2 Venous 28.9 mmHg (38-42)
[2022-05-14 16:45] LABS: pH Blood Venous 7.53 (7.34-7.37)
[2022-05-14 16:54] LABS: BASOPHILS ABSOLUTE AUTO 0.05 K/mm3 (0.00-0.23); BASOPHILS PERCENT AUTO 0 % (0-2); EOSINOPHILS ABSOLUTE AUTO 0.02 K/mm3 (0.00-0.68); EOSINOPHILS PERCENT AUTO 0 % (0-6); Hematocrit 46.5 % (33.0-51.0); Hemoglobin 14.8 g/dL (11.5-16.0); IMMATURE GRAN ABSOLUTE AUTO 0.11 K/mm3 (0.00-0.10); IMMATURE GRAN PERCENT AUTO 1 % (0-1); LYMPHOCYTES ABSOLUTE AUTO 2.51 K/mm3 (0.84-5.20); LYMPHOCYTES PERCENT AUTO 15 % (21-46); MONOCYTES ABSOLUTE AUTO 0.64 K/mm3 (0.16-1.47); MONOCYTES PERCENT AUTO 4 % (4-13); Mean Corpuscular HGB 23.8 pg (26.0-34.0); Mean Corpuscular HGB Conc 31.8 g/dL (31.5-36.5); Mean Corpuscular Volume 75 fL (80-100); NEUTROPHILS ABSOLUTE AUTO 12.97 K/mm3 (1.96-9.15); NEUTROPHILS PERCENT AUTO 80 % (41-73); RDW Coefficient Variation 19.6 % (11.7-14.2); Red Blood Cell Count 6.23 M/mm3 (3.80-5.20)
[2022-05-14 18:09] LABS: Mean Platelet Volume 9.7 fL (9.1-12.4); Platelet Count 369 K/mm3 (150-400)
[2022-05-14 18:10] LABS: White Blood Cell Count 13.35 K/mm3 (4.00-11.30)
[2022-05-14 18:45] LABS: Albumin, Blood 3.9 g/dL (3.4-5.0); Bilirubin, Total 0.7 mg/dL (0.1-1.0); Bun/Creatinine Ratio 21.6 (12.0-20.0); Calcium, Blood 9.7 mg/dL (8.5-10.1); Creatinine, Blood 0.65 mg/dL (0.40-1.00); Globulin, Blood 4.1 g/dL (2.2-4.0); Potassium, Blood 3.8 mmol/L (3.5-5.5)
[2022-05-14 19:08] LABS: Source, Urine Clean Catch
[2022-05-14 19:13] LABS: Beta-hydroxybutyrate 17.5 mg/dL (0.2-2.8)
[2022-05-14 19:14] LABS: Appearance, Urine Clear (Clear); Bilirubin, Urine Neg (Neg); Blood, Urine Neg (Neg); Color, Urine Yellow (P-Yellow); Glucose Qualitative, Urine 1+ (Neg); Ketones, Urine 3+ (Neg); Leukocyte Esterase, Urine 1+ (Neg); Nitrite, Urine Neg (Neg); Protein, Urine 2+ (Neg); Specific Gravity, Urine 1.015 (1.003-1.022); Urobilinogen, Urine NORM (Normal)
[2022-05-14 19:24] LABS: Bacteria Rare /hpf; Mucus Mod (0-Heavy); Red Blood Cells, Urine 0-2 /hpf (0-2); Renal Epithelial Few /hpf (0-Rare); Squamous Epithelial Cells Few /hpf (Few); White Blood Cells, Urine 0-2 /hpf (0-5)
[2022-05-14] MEDS ORDERED: ONDA4ODT MM (19:35)
== END 2022-05-14 20:05 | disposition home or self-care (01) ==
LOC: ER 15:52
PROVIDERS: Emergency Medicine
DX: E10.65 Type 1 diabetes mellitus with hyperglycemia (principal); R11.2 Nausea with vomiting, unspecified; E10.40 Type 1 diabetes mellitus with diabetic neuropathy, unspecified; I10 Essential (primary) hypertension; K21.9 Gastro-esophageal reflux disease without esophagitis; F17.210 Nicotine dependence, cigarettes, uncomplicated; Z88.5 Allergy status to narcotic agent; Z88.8 Allergy status to other drugs, medicaments and biological substances; Z79.899 Other long term (current) drug therapy; Z79.84 Long term (current) use of oral hypoglycemic drugs; Z79.82 Long term (current) use of aspirin
CPT/HCPCS: 36415; 71045; 74018; 80053; 81001; 82010; 82803; 82947; 83605; 83690; 84484; 85025; 87086; 93005; 93010; J2405; J7030

== ENCOUNTER 2022-10-02 10:44 | Emergency (ER) | payer OTHER ==
[~2022-10-02] VITALS: Ht 162.6 cm; Wt 90.7 kg
[2022-10-02] MEDS ORDERED: PROC5 PO (13:45)
== END 2022-10-02 14:02 | disposition home or self-care (01) ==
LOC: ER 10:44
DX: E10.43 Type 1 diabetes mellitus with diabetic autonomic (poly)neuropathy (principal); K31.84 Gastroparesis; I10 Essential (primary) hypertension; K21.9 Gastro-esophageal reflux disease without esophagitis; I25.2 Old myocardial infarction; F17.210 Nicotine dependence, cigarettes, uncomplicated; Z88.5 Allergy status to narcotic agent; Z88.8 Allergy status to other drugs, medicaments and biological substances; Z79.899 Other long term (current) drug therapy; Z79.82 Long term (current) use of aspirin; Z79.4 Long term (current) use of insulin
CPT/HCPCS: 36415; J1790

== ENCOUNTER 2023-02-28 22:14 | Observation (INO) | payer OTHER ==
[~2023-02-28] VITALS: Ht 162.6 cm; Wt 89.9 kg
[~2023-02-28 22:14] MED LIST changes: +INSULIN LI100 UNIT/6 SC; +PROC5 PO
[2023-02-28 23:39] LABS: BASOPHILS ABSOLUTE AUTO 0.03 K/mm3 (0.00-0.23); BASOPHILS PERCENT AUTO 0 % (0-2); EOSINOPHILS PERCENT AUTO 0 % (0-6); Hematocrit 41.9 % (33.0-51.0); Hemoglobin 13.3 g/dL (11.5-16.0); IMMATURE GRAN PERCENT AUTO 1 % (0-1); LYMPHOCYTES ABSOLUTE AUTO 0.96 K/mm3 (0.84-5.20); LYMPHOCYTES PERCENT AUTO 6 % (21-46); MONOCYTES ABSOLUTE AUTO 0.46 K/mm3 (0.16-1.47); MONOCYTES PERCENT AUTO 3 % (4-13); Mean Corpuscular HGB Conc 31.7 g/dL (31.5-36.5); Mean Corpuscular Volume 79 fL (80-100); Mean Platelet Volume 10.1 fL (9.1-12.4); NEUTROPHILS ABSOLUTE AUTO 15.22 K/mm3 (1.96-9.15); NEUTROPHILS PERCENT AUTO 91 % (41-73); Platelet Count 416 K/mm3 (150-400); RDW Coefficient Variation 17.8 % (11.7-14.2); RDW Standard Deviation 49.2 fL (35.1-46.3); Red Blood Cell Count 5.32 M/mm3 (3.80-5.20); White Blood Cell Count 16.77 K/mm3 (4.00-11.30)
[2023-03-01 00:06] LABS: Beta-hydroxybutyrate 36.9 mg/dL (0.2-2.8); Magnesium, Blood 1.5 mg/dL (1.6-2.4)
[2023-03-01 00:07] LABS: Albumin, Blood 3.8 g/dL (3.4-5.0); Albumin/Globulin Ratio 0.9 (0.8-1.8); Bilirubin, Total 0.8 mg/dL (0.1-1.0); Bun/Creatinine Ratio 19.6 (12.0-20.0); Calcium, Blood 8.9 mg/dL (8.5-10.1); Creatinine, Blood 0.61 mg/dL (0.40-1.00); Globulin, Blood 4.1 g/dL (2.2-4.0); Potassium, Blood 4.3 mmol/L (3.5-5.5); Total Protein, Blood 7.9 g/dL (6.4-8.2)
[2023-03-01 00:22] LABS: Base Excess Venous -2.3 mmol/L; Bicarbonate Venous 23.1 mmol/L (24.0-30.0); PCO2 Venous 32.7 mmHg (38-42); pH Blood Venous 7.44 (7.34-7.37)
[2023-03-01 01:11] LABS: Source, Urine Clean Catch
[2023-03-01 01:16] LABS: Bilirubin, Urine Neg (Neg); Blood, Urine Neg (Neg); Glucose Qualitative, Urine 4+ (Neg); Ketones, Urine 4+ (Neg); Leukocyte Esterase, Urine Neg (Neg); Nitrite, Urine Neg (Neg); Protein, Urine 1+ (Neg); Urobilinogen, Urine NORM (Normal)
[2023-03-01 01:23] LABS: Appearance, Urine Clear (Clear); Color, Urine Pale Yellow (P-Yellow)
[2023-03-01 05:51] VITALS: BP 137/85
--- NOTE | 2023-03-01 06:46 | NUR ---
PT ADMITTED AT 0545 WITH NAUSEA AND RECENT VOMITING. USED SLIDE SHEET TO TRANSFER PATIENT FROM [facility] TO BED BUT PER PATIENT SHE AMBULATES INDEPENDENTLY WITH CANE. LIVES AT HOME ALONE. DENIES SKIN ISSUES, NONE NOTED WITH FILEMON SALDIVAR. ZOFRAN ADMINISTERED. STARTED NS @ 75 MLS BUT IV INFILTRATED WITHIN A FEW MINUTES. NPO FOR NOW PER PATIENT CHOICE BUT NO ORDER. CBG CHECKS ORDERED Q6, CBG 210 ON ADMISSION, 4 UNITS HUMALOG ADMINISTERED. FIRE SAFETY REVIEWED.
[2023-03-01 07:13] VITALS: BP 155/87
[2023-03-01] MEDS ORDERED: TRANSDERM-SCOP1 EA10 TD (08:40)
[2023-03-01 15:51] VITALS: BP 112/69
--- NOTE | 2023-03-01 17:13 | NUR ---
SHIFT SUMMARY: C/O PERSISTENT NAUSEA DESPITE MEDICATIONS. LBM YESTERDAY PER HER REPORT, STATED SHE "ALWAYS" HAS DIARRHEA, NO BM YET TODAY. C/O 10/10 GENERALIZED PAIN THIS MORNING, WAS MOANING, RESTLESS, AND TACHYPNEIC; GIVEN DILAUDID WITH SOME RELIEF. SOME HOME MEDS ORDERED AND THESE ALSO HELPED WITH PAIN. DID NOT VOMIT AT ALL TODAY, FULL LIQUID DIET ORDERED FOR DINNER TONIGHT. GETTING UP TO BSC WITH SBA. CURRENTLY SMOKES < 0.5 PPD; REFUSED OFFERED NICOTINE PATCH, STATING SHE IS ALLERGIC TO THE ADHESIVE. HAS NO CIGARETTES OR PLANISHER IN HER POSSESSION. CPAP ORDERED FOR HS TONIGHT.
[2023-03-01 19:32] VITALS: BP 111/72
--- NOTE | 2023-03-02 05:38 | NUR ---
NO ACUTE CHANGES NOTED, STILL COMPLAINS OF ABDOMINAL WELL GENERALIZED PAIN. PT ATE PUDDING EARLY THIS MORNING, NO N/V COMPLAINTS AFTER, WILL CONTINUE TO MONITOR. CPAP AND ALBACORE FISHING BOAT CREWMAN IN USE LAST NIGHT. PT STATES HER CPAP HOSES ARE DAMAGED AT HOME SO HAS NOT BEEN USING IT. FIRE SAFETY REVIEWED, DENIES SMOKING AND KEEPING RAW FINISH MILL OPERATOR IN THE HOSPITAL.
[2023-03-02 06:48] VITALS: BP 163/90
[2023-03-02 07:41] VITALS: BP 149/79
--- NOTE | 2023-03-02 12:45 | NUR ---
1230- PT UPSET DUE TO THE "CRAPPY HOSPITAL FOOD." PT EXPLAINED, "THE DOCTOR SAID I HAD TO EAT TO GET OUT OF HERE AND I CAN'T EAT THIS FOOD." RN INFORMED PT THAT FAMILY OR FRIENDS COULD BRING IN FOOD SO SHE COULD EAT. PT GOT EVEN MORE UPSET BECUASE, "THEY LIVE TOO FAR AWAY!" RN OFFERED THE PT FOODS FROM [place] ON FLOOR. PT SAID SHE WOULD EAT STRAWBERRY YOGURT. STRAWBERRY JELLO AND RASPBERRY YOGURT WERE BROUGHT TO THE PT. PT TRIED THE JELLO AND SAID IT WAS "DISGUSTING" AND THREW BOTH JELLO AND YOGURT IN THE TRASH. RN LEFT THE ROOM AND PT CALLED USING THE CALL LIGHT AND WHEN ANSWERED BY PLAYGROUND ATTENDANT, PT SAID SHE WANTED TO LEAVE. CHARGE NURSE KELVIN NOTIFIED AND KELVIN DISCUSSED HOW IF PT WERE TO LEAVE SHE WOULD BE LEAVING AMA. PT ASKED FOR CHARGE TO CALL DOCTOR TO SEE IF SHE COULD BE DC.
--- NOTE | 2023-03-02 13:58 | NUR ---
PT REQUESTED TO SPEAK TO FINANCIAL COMPLIANCE EXAMINER REGARDING HER DISCUSSION WITH MIGDALIA CESPEDES ABOUT EATING FOOD. PT STATED SHE CANNOT EAT THE FOOD HERE BECAUSE "IT CAUSES MY GERD TO FLAIR UP." PT STATED SHE DOES NOT WANT TO LEAVE AMA, SHE JUST WANTS DISCHARGED SO SHE CAN EAT. I EXPLAINED TO PT DOCTOR WOULD LIKELY NOT DISCHARGE HER UNLESS SHE WAS ABLE TO EAT FOOD HERE AND SEE HOW SHE TOLERATES THE FOOD BEFORE HE WOULD DECIDE TO DISCHARGE. PT STATED "STOP TALKING DOWN TO ME, I DON'T LIKE BEING TALKED JEAN MARIE TO." I EXPLAINED TO PT I WAS NOT TRYING TO SOUND LIKE I WAS TALKING DOWN TO HER AND APOLOGIZED FOR SOUNDING THAT WAY. I OFFERED PT TO GET PUDDING OR SOMETHING ELSE FOR HER OR SHE COULD HAVE FAMILY BRING IN FOODS SHE CAN TOLERATE. PT STATED SHE DID NOT WANT TO DO THAT AND PREFERS TO LEAVE AND ASKED ME TO ASK DR. DAMON IF SHE CAN JUST LEAVE. I CALLED DR. DAMON AND EXPLAINED PT WANTS TO BE DISCHARGED WITHOUT EATING ANYTHING. DR. DAMON STATED IF PT DOES NOT WANT TO EAT OR DRINK ANYTHING SHE WILL NEED TO LEAVE AMA. DR. DAMON ALSO STATED PT JUST NEEDS TO DRINK FLUIDS AND LONG HER PAIN AND NAUSEA CAN BE MANAGED WITH MEDICATIONS SHE CAN TAKE AT HOME. RUBINA RN REQUESTED WHILE I WAS TALKING TO DR. DAMON PT WAS REQUESTING TO TAKE HOME MEDICATION XANAX FOR HER ANXIETY. DR. DAMON ORDERED XANAX 0.25 MG Q8 PRN. RUBINA UPDATED WITH DR. DAMONS ORDERS.
--- NOTE | 2023-03-02 14:24 | NUR ---
1400- PT IS BEING EXTREMELY ARGUMENTATIVE AND DEMANDING HER XANAX IS ORDERED. RN ASKED PT TO STOP YELLING AND PT CONTINUED TO YELL. RN LEFT THE ROOM AND INFORMED CHARGE NURSE.
--- NOTE | 2023-03-02 14:27 | NUR ---
PT ASKED TO BE DISCHARGED. DR. DAMON NOTIFIED. GUIDELINES GIVEN IN ORDER FOR DC TO BE SAFE. PT INFORMED AND AGREEABLE.
--- NOTE | 2023-03-02 14:35 | NUR ---
PT INFORMED THIS RN SHE IS "MAGICALLY HEALED." PT ALSO STATED SHE IS "READY TO RUN A MARATHON." DR. DAMON NOTIFIED. PT IS NOT HAVING ANY PAIN, N/V AND NOT REQUIRING ANY PAIN/NAUSEA MEDS. PT WISHES TO BE DC. DR. DAMON INFORMED.
--- NOTE | 2023-03-02 16:29 | NUR ---
DC- PT WAS BROUGHT DOWN IN WC BY TRAY WORKER AND PICKED UP BY DAUGHTER IN STABLE CONDITION. PT LEFT WITH ALL BELONGINGS. PT SIGNED ALL DC PAPERWORK.
== END 2023-03-02 16:24 | disposition home or self-care (01) ==
LOC: ER 22:14 → MEDS 22:15
PROVIDERS: Emergency Medicine; ADMIT Internal Medicine
DX: E10.43 Type 1 diabetes mellitus with diabetic autonomic (poly)neuropathy (principal); K31.84 Gastroparesis; G89.4 Chronic pain syndrome; K76.0 Fatty (change of) liver, not elsewhere classified; G40.909 Epilepsy, unspecified, not intractable, without status epilepticus; E83.42 Hypomagnesemia; E10.65 Type 1 diabetes mellitus with hyperglycemia; E86.0 Dehydration; I25.10 Atherosclerotic heart disease of native coronary artery without angina pectoris; I10 Essential (primary) hypertension; M79.7 Fibromyalgia; Z88.8 Allergy status to other drugs, medicaments and biological substances; Z88.5 Allergy status to narcotic agent
CPT/HCPCS: 71045; 74176; 80053; 82010; 82803; 82947; 83690; 83735; 84484; 85025; 93005; 93010; 94660; 94762; 96361; 96365; 96366; 96372; 96374; 96375; 96376; 99285-25; A9270; C1751; C9113; G0378; J0780; J1170; J1650; J1815; J1953; J2405; J2765; J3475; J7030; J7120

== ENCOUNTER → 2023-03-16 | Outpatient (CLI) | payer OTHER ==
[~2023-03-16] MED LIST changes: +COMPAZINE10 MG PO; +Cipro500 MG PO; +ISOSORBIDE MONO30 MG PO; +METR500 PO; +SEMGLEE (Y100 UNIT/2 SC; +TRANSDERM-SCOP1 EA10 TD
== END | disposition home or self-care (01) ==
LOC: LAB SHORT 07:25 → LAB 07:25 → PLD 07:25
DX: L60.2 Onychogryphosis (principal); B35.1 Tinea unguium
CPT/HCPCS: 88305; 88312

== ENCOUNTER 2023-03-20 15:53 | Emergency (ER) | payer OTHER ==
[~2023-03-20] VITALS: Ht 172.7 cm; Wt 99.8 kg
[~2023-03-20 15:53] MED LIST changes: -COMPAZINE10 MG PO; -Cipro500 MG PO; -ISOSORBIDE MONO30 MG PO; -METR500 PO; -SEMGLEE (Y100 UNIT/2 SC
[2023-03-20 16:17] LABS: BASOPHILS ABSOLUTE AUTO 0.05 K/mm3 (0.00-0.23); BASOPHILS PERCENT AUTO 1 % (0-2); EOSINOPHILS ABSOLUTE AUTO 0.08 K/mm3 (0.00-0.68); EOSINOPHILS PERCENT AUTO 1 % (0-6); Hematocrit 43.3 % (33.0-51.0); IMMATURE GRAN ABSOLUTE AUTO 0.04 K/mm3 (0.00-0.10); IMMATURE GRAN PERCENT AUTO 0 % (0-1); LYMPHOCYTES ABSOLUTE AUTO 1.95 K/mm3 (0.84-5.20); LYMPHOCYTES PERCENT AUTO 21 % (21-46); MONOCYTES ABSOLUTE AUTO 0.33 K/mm3 (0.16-1.47); MONOCYTES PERCENT AUTO 4 % (4-13); Mean Corpuscular HGB 25.2 pg (26.0-34.0); Mean Corpuscular HGB Conc 32.3 g/dL (31.5-36.5); Mean Corpuscular Volume 78 fL (80-100); Mean Platelet Volume 10.1 fL (9.1-12.4); NEUTROPHILS ABSOLUTE AUTO 6.85 K/mm3 (1.96-9.15); NEUTROPHILS PERCENT AUTO 74 % (41-73); Platelet Count 352 K/mm3 (150-400); RDW Coefficient Variation 18.7 % (11.7-14.2); RDW Standard Deviation 51.3 fL (35.1-46.3); Red Blood Cell Count 5.55 M/mm3 (3.80-5.20)
[2023-03-20 16:40] LABS: Albumin, Blood 4.1 g/dL (3.4-5.0); Albumin/Globulin Ratio 1.2 (0.8-1.8); Bilirubin, Total 0.7 mg/dL (0.1-1.0); Bun/Creatinine Ratio 12.7 (12.0-20.0); Calcium, Blood 9.3 mg/dL (8.5-10.1); Creatinine, Blood 0.47 mg/dL (0.40-1.00); Globulin, Blood 3.5 g/dL (2.2-4.0); Potassium, Blood 3.9 mmol/L (3.5-5.5); Total Protein, Blood 7.6 g/dL (6.4-8.2)
[2023-03-20 19:13] LABS: Source, Urine Clean Catch
[2023-03-20 19:16] LABS: Appearance, Urine Clear (Clear); Bilirubin, Urine Neg (Neg); Blood, Urine Neg (Neg); Color, Urine Yellow (P-Yellow); Glucose Qualitative, Urine 4+ (Neg); Ketones, Urine 4+ (Neg); Leukocyte Esterase, Urine Neg (Neg); Nitrite, Urine Neg (Neg); Protein, Urine 2+ (Neg); Urobilinogen, Urine NORM (Normal)
[2023-03-20 19:30] LABS: Red Blood Cells, Urine Not Seen /hpf (0-2); Squamous Epithelial Cells Few /hpf (Few); White Blood Cells, Urine 0-2 /hpf (0-5)
[2023-03-20 19:31] LABS: Bacteria Rare /hpf
[2023-03-20 21:30] VITALS: BP 187/98
[2023-03-20] MEDS ORDERED: CEPH500 PO (23:34)
[2023-03-20] MEDS ORDERED: METR500 PO (23:34)
== END 2023-03-21 00:43 | disposition home or self-care (01) ==
LOC: ER 15:53
PROVIDERS: Physician Assistant
DX: K52.9 Noninfective gastroenteritis and colitis, unspecified (principal); Z88.8 Allergy status to other drugs, medicaments and biological substances; Z88.5 Allergy status to narcotic agent; Z79.899 Other long term (current) drug therapy; Z79.4 Long term (current) use of insulin; Z79.82 Long term (current) use of aspirin; K21.9 Gastro-esophageal reflux disease without esophagitis; E10.40 Type 1 diabetes mellitus with diabetic neuropathy, unspecified; M19.90 Unspecified osteoarthritis, unspecified site; I10 Essential (primary) hypertension; I25.2 Old myocardial infarction; F17.210 Nicotine dependence, cigarettes, uncomplicated
CPT/HCPCS: 71046; 74177; 80053; 81001; 85025; 96361; 96374-59; 96375; 96376; 99285-25; J0696; J0780; J1170; J1200; J2765; J3010; J7030; Q9967

== ENCOUNTER 2023-03-24 08:06 | Emergency (ER) | payer OTHER ==
[~2023-03-24] VITALS: Ht 162.6 cm; Wt 90.7 kg
[~2023-03-24 08:06] MED LIST changes: +METR500 PO
[2023-03-24 08:35] LABS: BASOPHILS ABSOLUTE AUTO 0.05 K/mm3 (0.00-0.23); BASOPHILS PERCENT AUTO 0 % (0-2); EOSINOPHILS ABSOLUTE AUTO 0.03 K/mm3 (0.00-0.68); EOSINOPHILS PERCENT AUTO 0 % (0-6); Hematocrit 46.6 % (33.0-51.0); Hemoglobin 14.5 g/dL (11.5-16.0); IMMATURE GRAN ABSOLUTE AUTO 0.04 K/mm3 (0.00-0.10); IMMATURE GRAN PERCENT AUTO 0 % (0-1); LYMPHOCYTES ABSOLUTE AUTO 2.65 K/mm3 (0.84-5.20); LYMPHOCYTES PERCENT AUTO 23 % (21-46); MONOCYTES ABSOLUTE AUTO 0.56 K/mm3 (0.16-1.47); MONOCYTES PERCENT AUTO 5 % (4-13); Mean Corpuscular HGB 25.1 pg (26.0-34.0); Mean Corpuscular HGB Conc 31.1 g/dL (31.5-36.5); Mean Corpuscular Volume 81 fL (80-100); Mean Platelet Volume 10.4 fL (9.1-12.4); NEUTROPHILS ABSOLUTE AUTO 8.11 K/mm3 (1.96-9.15); NEUTROPHILS PERCENT AUTO 71 % (41-73); Platelet Count 376 K/mm3 (150-400); RDW Coefficient Variation 19.3 % (11.7-14.2); RDW Standard Deviation 54.8 fL (35.1-46.3); Red Blood Cell Count 5.78 M/mm3 (3.80-5.20); White Blood Cell Count 11.44 K/mm3 (4.00-11.30)
[2023-03-24 08:53] LABS: Albumin, Blood 3.9 g/dL (3.4-5.0); Bilirubin, Total 0.7 mg/dL (0.1-1.0); Bun/Creatinine Ratio 13.6 (12.0-20.0); Calcium, Blood 9.3 mg/dL (8.5-10.1); Creatinine, Blood 0.59 mg/dL (0.40-1.00); Globulin, Blood 3.8 g/dL (2.2-4.0); Potassium, Blood 4.1 mmol/L (3.5-5.5); Total Protein, Blood 7.7 g/dL (6.4-8.2)
[2023-03-24 11:45] VITALS: BP 114/62
[2023-03-25] MEDS ORDERED: PRED5 PO (22:44)
[2023-03-25] MEDS ORDERED: NOVOLOG100 UNIT/2 SC (22:49)
[2023-03-25] MEDS ORDERED: ISOSORBIDE MONO30 MG PO (22:49)
[2023-03-25] MEDS ORDERED: SEMGLEE (Y100 UNIT/2 SC (22:52)
[2023-03-25] MEDS ORDERED: COMPAZINE10 MG PO (23:42)
[2023-03-25] MEDS ORDERED: METR500 PO (23:44)
[2023-03-25] MEDS ORDERED: Cipro500 MG PO (23:45)
== END 2023-03-24 12:14 | disposition home or self-care (01) ==
LOC: ER 08:06
PROVIDERS: Emergency Medicine
DX: R11.2 Nausea with vomiting, unspecified (principal); F17.210 Nicotine dependence, cigarettes, uncomplicated; K21.9 Gastro-esophageal reflux disease without esophagitis; I10 Essential (primary) hypertension; I25.2 Old myocardial infarction; E10.40 Type 1 diabetes mellitus with diabetic neuropathy, unspecified; Z79.4 Long term (current) use of insulin; Z79.2 Long term (current) use of antibiotics; Z79.82 Long term (current) use of aspirin; Z79.02 Long term (current) use of antithrombotics/antiplatelets; Z88.5 Allergy status to narcotic agent; Z88.8 Allergy status to other drugs, medicaments and biological substances; Z79.899 Other long term (current) drug therapy
CPT/HCPCS: 80053; 83690; 85025; 96374; 96375; 99284-25; J1170; J1200; J1790; J2765

== ENCOUNTER 2023-03-25 16:00 | Inpatient (IN) | payer OTHER ==
[2023-03-25 17:01] LABS: BASOPHILS ABSOLUTE AUTO 0.08 K/mm3 (0.00-0.23); BASOPHILS PERCENT AUTO 1 % (0-2); EOSINOPHILS ABSOLUTE AUTO 0.02 K/mm3 (0.00-0.68); EOSINOPHILS PERCENT AUTO 0 % (0-6); Hematocrit 50.6 % (33.0-51.0); Hemoglobin 16.4 g/dL (11.5-16.0); IMMATURE GRAN ABSOLUTE AUTO 0.05 K/mm3 (0.00-0.10); IMMATURE GRAN PERCENT AUTO 0 % (0-1); LYMPHOCYTES ABSOLUTE AUTO 2.67 K/mm3 (0.84-5.20); LYMPHOCYTES PERCENT AUTO 19 % (21-46); MONOCYTES ABSOLUTE AUTO 0.65 K/mm3 (0.16-1.47); MONOCYTES PERCENT AUTO 5 % (4-13); Mean Corpuscular HGB 25.2 pg (26.0-34.0); Mean Corpuscular HGB Conc 32.4 g/dL (31.5-36.5); Mean Corpuscular Volume 78 fL (80-100); Mean Platelet Volume 10.1 fL (9.1-12.4); NEUTROPHILS PERCENT AUTO 75 % (41-73); Platelet Count 535 K/mm3 (150-400); RDW Coefficient Variation 19.7 % (11.7-14.2); RDW Standard Deviation 52.8 fL (35.1-46.3); Red Blood Cell Count 6.51 M/mm3 (3.80-5.20); White Blood Cell Count 14.07 K/mm3 (4.00-11.30)
[2023-03-25 17:28] LABS: Albumin, Blood 4.7 g/dL (3.4-5.0); Albumin/Globulin Ratio 1.1 (0.8-1.8); Bilirubin, Total 0.9 mg/dL (0.1-1.0); Bun/Creatinine Ratio 20.9 (12.0-20.0); Calcium, Blood 10.7 mg/dL (8.5-10.1); Creatinine, Blood 0.72 mg/dL (0.40-1.00); Globulin, Blood 4.4 g/dL (2.2-4.0); Potassium, Blood 4.1 mmol/L (3.5-5.5); Total Protein, Blood 9.1 g/dL (6.4-8.2)
[2023-03-25 18:54] LABS: Base Excess Venous -7.3 mmol/L; Bicarbonate Venous 20.3 mmol/L (24.0-30.0); pH Blood Venous 7.43 (7.34-7.37)
[2023-03-25 19:53] LABS: Ethanol (Alcohol), Blood, Med <3 mg/dL
[2023-03-25 19:54] LABS: Source, Urine Clean Catch
[2023-03-25 19:56] LABS: Beta-hydroxybutyrate 60.2 mg/dL (0.2-2.8)
[2023-03-25 19:58] LABS: Appearance, Urine Hazy (Clear); Bilirubin, Urine Neg (Neg); Blood, Urine 1+ (Neg); Color, Urine Yellow (P-Yellow); Glucose Qualitative, Urine 4+ (Neg); Ketones, Urine 4+ (Neg); Leukocyte Esterase, Urine Neg (Neg); Nitrite, Urine Neg (Neg); Protein, Urine 3+ (Neg); Urobilinogen, Urine NORM (Normal)
[2023-03-25 20:15] LABS: U Amphetamine Screen Not Detected; U Barbituate Screen Not Detected; U Methamphetamine Screen Not Detected
[2023-03-25 20:16] LABS: U Benzodiazapine Screen DETECTED; U Buprenorphine Screen Not Detected; U Cannabinoids Screen DETECTED; U Cocaine Screen Not Detected; U Methadone Screen Not Detected; U Opiates Screen Not Detected; U Oxycodone Screen Not Detected; U Phencyclidine Screen Not Detected; U Propoxyphene Screen Not Detected
[2023-03-25 20:23] LABS: Hyaline Casts 0-2 /lpf (0-2); Red Blood Cells, Urine 0-2 /hpf (0-2); Renal Epithelial Rare /hpf (0-Rare); Squamous Epithelial Cells Few /hpf (Few); Transitional Epithelial Cells Rare /hpf (0-Rare); White Blood Cells, Urine 0-2 /hpf (0-5)
[2023-03-25 20:24] LABS: Amorphous Light (0-Heavy); Bacteria Few /hpf
[2023-03-25] MEDS ORDERED: PRED5 PO (22:44)
[2023-03-25] MEDS ORDERED: ISOSORBIDE MONO30 MG PO (22:49)
[2023-03-25] MEDS ORDERED: NOVOLOG100 UNIT/2 SC (22:49)
[2023-03-25] MEDS ORDERED: SEMGLEE (Y100 UNIT/2 SC (22:52)
[2023-03-25] MEDS ORDERED: COMPAZINE10 MG PO (23:42)
[2023-03-25] MEDS ORDERED: METR500 PO (23:44)
[2023-03-25] MEDS ORDERED: Cipro500 MG PO (23:45)
[2023-03-26 00:04] VITALS: BP 129/72
--- NOTE | 2023-03-26 01:18 | NUR ---
0049 PT ARRIVED TO ROOM FROM ER IN STABLE CONDITION. PT REPORTS PAIN IN HEAD AND ABD THAT IS SHARP AND A 9/10, SHE WAS GIVEN FENTANYL 50 MCG IN ER AT 2344. PT REPORTS NAUSEA, LAST NAUSEA MED IN ER ZOFRAN GIVEN AT 2228, JUST GAVE REGLAN. WILL EVAL FOR EFFECT. PT TOLD ER DR THAT HER BS 03/24 WAS 527, IN ER IT WAS 461 AT 1650, LAST CHECK WAS AT 2340 AND THE BS WAS 407. NOTHING GIVEN FOR BS IN ER, NO ORDERS FOR COVERAGE AT THIS TIME. WILL CALL THE DR TO GET ORDERS FOR PAIN AND NAUSEA MEDS WHAT HAS BEEN GIVEN UP TO THIS TIME DOES NOT APPEARS TO BE WORKING WELL SOME COVERAGE FOR HER ELEVATED BLOOD SUGARS.
--- NOTE | 2023-03-26 01:39 | NUR ---
TELE IS ST 112
--- NOTE | 2023-03-26 04:07 | NUR ---
0330 PT LYING IN BED, EYES CLOSED, APPEARS TO BE RESTING BREATHING IS EVEN, UNLABORED. NO APPARENT SIGNS OF DISTRESS. CALL LIGHT IS IN REACH.
--- NOTE | 2023-03-26 04:07 | NUR ---
PT REQUESTED AND RECIEVED PAIN AND NAUSEA MEDS, WILL EVAL FOR EFFECT. NO OTHER APPARENT SIGNS OF DISTRESS. CALL LIGHT IS IN REACH.
--- NOTE | 2023-03-26 04:08 | NUR ---
PT IS AAO X 4, ON RA. REPORTS PAIN IN ABD AND HEAD, NAUSES. GOT MULT DOSES OF PAIN AND NAUSEA MEDS. TELE ST 110'S.
[2023-03-26 04:18] VITALS: BP 135/82
[2023-03-26 05:48] LABS: BASOPHILS ABSOLUTE AUTO 0.06 K/mm3 (0.00-0.23); BASOPHILS PERCENT AUTO 0 % (0-2); EOSINOPHILS ABSOLUTE AUTO 0.04 K/mm3 (0.00-0.68); EOSINOPHILS PERCENT AUTO 0 % (0-6); Hematocrit 45.5 % (33.0-51.0); Hemoglobin 14.5 g/dL (11.5-16.0); IMMATURE GRAN ABSOLUTE AUTO 0.05 K/mm3 (0.00-0.10); IMMATURE GRAN PERCENT AUTO 0 % (0-1); LYMPHOCYTES ABSOLUTE AUTO 3.65 K/mm3 (0.84-5.20); LYMPHOCYTES PERCENT AUTO 27 % (21-46); MONOCYTES PERCENT AUTO 7 % (4-13); Mean Corpuscular HGB 25.3 pg (26.0-34.0); Mean Corpuscular HGB Conc 31.9 g/dL (31.5-36.5); Mean Corpuscular Volume 80 fL (80-100); Mean Platelet Volume 10.2 fL (9.1-12.4); NEUTROPHILS ABSOLUTE AUTO 8.89 K/mm3 (1.96-9.15); NEUTROPHILS PERCENT AUTO 65 % (41-73); Platelet Count 405 K/mm3 (150-400); RDW Coefficient Variation 19.6 % (11.7-14.2); Red Blood Cell Count 5.72 M/mm3 (3.80-5.20); White Blood Cell Count 13.69 K/mm3 (4.00-11.30)
[2023-03-26 06:08] LABS: Albumin, Blood 3.5 g/dL (3.4-5.0); Albumin/Globulin Ratio 0.9 (0.8-1.8); Bilirubin, Total 0.5 mg/dL (0.1-1.0); Bun/Creatinine Ratio 23.4 (12.0-20.0); Calcium, Blood 8.9 mg/dL (8.5-10.1); Creatinine, Blood 0.68 mg/dL (0.40-1.00); Globulin, Blood 3.9 g/dL (2.2-4.0); Potassium, Blood 3.8 mmol/L (3.5-5.5); Total Protein, Blood 7.4 g/dL (6.4-8.2)
--- NOTE | 2023-03-26 06:21 | NUR ---
PT REQUESTED AND RECIEVING PAIN AND NAUSEA MEDS, ANOTHER RN, JAMAL HOLT ASSESSING PT'S IV IT KEEPS OCCLUDING. WILL LET UPCOMING RN KNOW TO EVAL FOR EFFECT OF MEDS AND CHECK IV STATUS. NO OTHER APPARENT SIGNS OF DISTRESS. CALL LIGHT IS IN REACH. NO OTHER CHANGES THIS SHIFT.
[2023-03-26 08:15] VITALS: BP 163/88
--- NOTE | 2023-03-26 09:00 | NUR ---
pt laying in bed states she's nauseated, reglan given, a/ox4, pleasant and cooperative with care, follows commands well, lungs are clear t/o, resp even and unlabored, no cough noted, hrr, no edema noted, piv is clear and patent, btx4, abd flat soft nontender, voids without diff, skin c/w/d, maew, katerine, gordo light in reach.
[2023-03-26 15:36] VITALS: BP 112/76
--- NOTE | 2023-03-26 19:43 | NUR ---
pt started out very nauseated this am, but better this evening, she required one time of dilaudid for stomach pain, was effective, started eating a bit of soft food, wanted mashed potates, she is going slow. no further changes, call light in reach.
[2023-03-26 20:57] VITALS: BP 115/53
[2023-03-27 05:00] VITALS: BP 124/73
--- NOTE | 2023-03-27 05:32 | NUR ---
SHIFT SUMMARY 52 YR F ADMITTED ON 03/26/23 FOR INTRACTABLE NAUSEA AND VOMITING. FULL CODE. PT C/O NAUSEA AND PAIN THROUGHOUT SHIFT. REGLAN AND DILAUDID WERE GIVEN BUT NOT VERY AFFECTIVE. LATER SHE WAS GIVEN PHENEGRAN AND FENTANYL WITH BETTER RESULTS AND PT WAS ABLE TO SLEEP FOR SEVERAL HOURS. SHE STATES THAT SHE JUST FEELS AWFUL IN GENERAL. SHE IS A VERY PLEASANT WOMAN AND IS COOPERATIVE. CALLS APPROPRIATELY FOR ASSISTANCE. BED IN LOW POSITION AND CALL LIGHT IN REACH.
[2023-03-27 06:29] LABS: Calcium, Blood 8.2 mg/dL (8.5-10.1); Creatinine, Blood 0.63 mg/dL (0.40-1.00); Potassium, Blood 3.4 mmol/L (3.5-5.5)
[2023-03-27 06:46] LABS: BASOPHILS ABSOLUTE AUTO 0.05 K/mm3 (0.00-0.23); BASOPHILS PERCENT AUTO 1 % (0-2); EOSINOPHILS ABSOLUTE AUTO 0.12 K/mm3 (0.00-0.68); EOSINOPHILS PERCENT AUTO 2 % (0-6); Hematocrit 41.6 % (33.0-51.0); Hemoglobin 13.2 g/dL (11.5-16.0); IMMATURE GRAN ABSOLUTE AUTO 0.01 K/mm3 (0.00-0.10); IMMATURE GRAN PERCENT AUTO 0 % (0-1); LYMPHOCYTES ABSOLUTE AUTO 2.46 K/mm3 (0.84-5.20); LYMPHOCYTES PERCENT AUTO 36 % (21-46); MONOCYTES ABSOLUTE AUTO 0.53 K/mm3 (0.16-1.47); MONOCYTES PERCENT AUTO 8 % (4-13); Mean Corpuscular HGB 25.4 pg (26.0-34.0); Mean Corpuscular HGB Conc 31.7 g/dL (31.5-36.5); Mean Corpuscular Volume 80 fL (80-100); Mean Platelet Volume 10.3 fL (9.1-12.4); NEUTROPHILS ABSOLUTE AUTO 3.59 K/mm3 (1.96-9.15); NEUTROPHILS PERCENT AUTO 53 % (41-73); Platelet Count 317 K/mm3 (150-400); RDW Coefficient Variation 19.3 % (11.7-14.2); RDW Standard Deviation 54.9 fL (35.1-46.3); Red Blood Cell Count 5.19 M/mm3 (3.80-5.20); White Blood Cell Count 6.76 K/mm3 (4.00-11.30)
[2023-03-27 07:32] VITALS: BP 90/64
[2023-03-27] MEDS ORDERED: NOVOLOG100 UNIT/2 INJ (13:29)
[2023-03-27] MEDS ORDERED: VISBIOME 112.51 EACH PO (13:29)
--- NOTE | 2023-03-27 14:49 | NUR ---
Patient doing well, improvement in N/V. MD assessed patient at bedside and plan is to DC home and f/u with GI for gastoparesis. Reviewed discharge teaching, patient verbalized understanding. Vitals stable. Left medical unit at 1400.
== END 2023-03-27 14:20 | disposition home health service (06) | DRG 74 ==
LOC: ER 16:00 → MEDS 16:01 → ENPENDDIS 03-27 13:40 → MEDS 03-27 14:20
PROVIDERS: Emergency Medicine; Physician Assistant; Student in an Organized Health Care Education/Training Program; ADMIT Internal Medicine
DX: E10.43 Type 1 diabetes mellitus with diabetic autonomic (poly)neuropathy (principal); E10.10 Type 1 diabetes mellitus with ketoacidosis without coma; K31.84 Gastroparesis; G89.4 Chronic pain syndrome; E86.0 Dehydration; F41.9 Anxiety disorder, unspecified; F32.A Depression, unspecified; G40.909 Epilepsy, unspecified, not intractable, without status epilepticus; K21.9 Gastro-esophageal reflux disease without esophagitis; M79.7 Fibromyalgia; E66.9 Obesity, unspecified; M19.90 Unspecified osteoarthritis, unspecified site; F17.210 Nicotine dependence, cigarettes, uncomplicated; I10 Essential (primary) hypertension; I35.0 Nonrheumatic aortic (valve) stenosis; I25.2 Old myocardial infarction; Z90.710 Acquired absence of both cervix and uterus; Z95.5 Presence of coronary angioplasty implant and graft; Z88.8 Allergy status to other drugs, medicaments and biological substances; Z88.5 Allergy status to narcotic agent; Z98.890 Other specified postprocedural states; Z79.82 Long term (current) use of aspirin; Z79.01 Long term (current) use of anticoagulants; Z79.4 Long term (current) use of insulin; Z79.899 Other long term (current) drug therapy; Z68.34 Body mass index [BMI] 34.0-34.9, adult; Z90.13 Acquired absence of bilateral breasts and nipples
CPT/HCPCS: 36415; 74022; 74177; 80048; 80053; 81001; 82010; 82803; 82947; 83605; 83690; 85025; 96361; 96365; 96372-59; 96374-59; 96375; 96376; 99285-25; A9270; G0378; G0480; J0780; J1170; J1200; J1650; J1815; J1953; J2405; J2765; J3010; J7030; J7120; Q9967

== ENCOUNTER 2023-04-09 12:15 | Inpatient (IN) | payer OTHER ==
[~2023-04-09] VITALS: Ht 162.6 cm; Wt 92.2 kg
[~2023-04-09 12:15] MED LIST changes: +COMPAZINE10 MG PO; +Cipro500 MG PO; +ISOSORBIDE MONO30 MG PO; +NOVOLOG100 UNIT/2 INJ; +SEMGLEE (Y100 UNIT/2 SC; +VISBIOME 112.51 EACH PO
[2023-04-09 12:56] LABS: BASOPHILS ABSOLUTE AUTO 0.08 K/mm3 (0.00-0.23); BASOPHILS PERCENT AUTO 1 % (0-2); EOSINOPHILS ABSOLUTE AUTO 0.04 K/mm3 (0.00-0.68); EOSINOPHILS PERCENT AUTO 0 % (0-6); Hematocrit 48.5 % (33.0-51.0); Hemoglobin 16.1 g/dL (11.5-16.0); IMMATURE GRAN ABSOLUTE AUTO 0.05 K/mm3 (0.00-0.10); IMMATURE GRAN PERCENT AUTO 0 % (0-1); LYMPHOCYTES ABSOLUTE AUTO 2.23 K/mm3 (0.84-5.20); LYMPHOCYTES PERCENT AUTO 17 % (21-46); MONOCYTES ABSOLUTE AUTO 0.49 K/mm3 (0.16-1.47); MONOCYTES PERCENT AUTO 4 % (4-13); Mean Corpuscular HGB 26.2 pg (26.0-34.0); Mean Corpuscular HGB Conc 33.2 g/dL (31.5-36.5); Mean Corpuscular Volume 79 fL (80-100); Mean Platelet Volume 10.2 fL (9.1-12.4); NEUTROPHILS ABSOLUTE AUTO 10.44 K/mm3 (1.96-9.15); NEUTROPHILS PERCENT AUTO 78 % (41-73); Platelet Count 494 K/mm3 (150-400); RDW Standard Deviation 53.4 fL (35.1-46.3); Red Blood Cell Count 6.15 M/mm3 (3.80-5.20); White Blood Cell Count 13.33 K/mm3 (4.00-11.30)
[2023-04-09 13:31] LABS: Albumin, Blood 3.9 g/dL (3.4-5.0); Albumin/Globulin Ratio 0.8 (0.8-1.8); Bilirubin, Total 0.8 mg/dL (0.1-1.0); Bun/Creatinine Ratio 29.1 (12.0-20.0); Creatinine, Blood 0.52 mg/dL (0.40-1.00); Globulin, Blood 4.8 g/dL (2.2-4.0); Potassium, Blood 4.9 mmol/L (3.5-5.5); Total Protein, Blood 8.7 g/dL (6.4-8.2)
[2023-04-09 19:02] LABS: Source, Urine Clean Catch
[2023-04-09 19:07] LABS: Appearance, Urine Clear (Clear); Bilirubin, Urine Neg (Neg); Blood, Urine 1+ (Neg); Color, Urine Yellow (P-Yellow); Glucose Qualitative, Urine 4+ (Neg); Ketones, Urine 3+ (Neg); Leukocyte Esterase, Urine 2+ (Neg); Nitrite, Urine Neg (Neg); Protein, Urine 3+ (Neg); Specific Gravity, Urine 1.015 (1.003-1.022); Urobilinogen, Urine NORM (Normal)
[2023-04-09 19:19] LABS: Squamous Epithelial Cells Mod /hpf (Few)
[2023-04-09 19:20] LABS: Bacteria Few /hpf
[2023-04-09 20:44] LABS: Base Excess Venous -0.1 mmol/L; Bicarbonate Venous 23.9 mmol/L (24.0-30.0); PCO2 Venous 42.4 mmHg (38-42); pH Blood Venous 7.38 (7.34-7.37)
[2023-04-09 22:22] VITALS: BP 109/67
[2023-04-09 22:27] LABS: Source, Urine Straight Cath
[2023-04-09 22:35] LABS: Bilirubin, Urine Neg (Neg); Blood, Urine Neg (Neg); Glucose Qualitative, Urine 4+ (Neg); Ketones, Urine 2+ (Neg); Leukocyte Esterase, Urine Neg (Neg); Nitrite, Urine Neg (Neg); Protein, Urine 2+ (Neg); Urobilinogen, Urine NORM (Normal)
[2023-04-09 22:53] LABS: Appearance, Urine Clear (Clear); Color, Urine Yellow (P-Yellow)
[2023-04-09 22:54] LABS: Bacteria Rare /hpf; Red Blood Cells, Urine 0-2 /hpf (0-2); Squamous Epithelial Cells Few /hpf (Few); White Blood Cells, Urine 0-2 /hpf (0-5)
[2023-04-09 23:02] LABS: U Amphetamine Screen Not Detected; U Barbituate Screen Not Detected; U Benzodiazapine Screen DETECTED; U Buprenorphine Screen Not Detected; U Cannabinoids Screen DETECTED; U Cocaine Screen Not Detected; U Methadone Screen Not Detected; U Methamphetamine Screen Not Detected; U Opiates Screen DETECTED; U Oxycodone Screen Not Detected; U Phencyclidine Screen Not Detected; U Propoxyphene Screen Not Detected
--- NOTE | 2023-04-09 23:25 | NUR ---
ADMIT NOTE; PT ARRIVES FROM THE ED VIA GURNEY. THE PT IS TRANSFERED VIA SLIDER SHEET. THE PT IS AXO X4 AND COMPLAINS OF NAUSEA AND ABD PAIN UPON ADMIT. THE PT DENIES ANY OTHER ACUTE NEEDS. PTS SKIN IS OVERALL INTACT. PT ARRIVES W/ MAG INFUSING AND NS RUNNING TO GRAVITY. MAG TO FINISH AND INPATAIENT NS TO BE HUNG AFTER. CURRENTLY THE PT IS RESTING IN BED WITH THE BED IN THE LOWEST POSITION AND THE CALL LIGHT AT BEDSIDE. FIRE EDUCATION PROVIDED, THE PT DENIES HAVING ANY POSSIBLE IGNITION SOURCES IN POSSESSION AT THIS TIME.
[2023-04-10 03:01] VITALS: BP 110/72
--- NOTE | 2023-04-10 04:18 | NUR ---
SHIFT SUMMARY; NO ACUTE CHANGES SINCE ADMIT. THE PT HAS BEEN SLEEPING FOR THE MAJORITY OF THE NIGHT. THE PT IS AXO X4 AND HAS NOT ATTEMPTED TO GET OOB SINCE ADMIT. THE PT DID ENDORSE SOME NAUSEA AND ABD PAIN AT THE BEGINNING OF SHIFT. THE PT WAS PLACED ON 2L NC, SHE WAS SATTING 89% ON RA. PT IS NOW SATTING >92% ON 2L NC. THE PT DENIES ANY CHEST PAIN/PRESSURE OR NUMBNESS/TINGLING. CURRENTLY THE PT IS SLEEPING IN BED WITH THE BED IN THE LOWEST POSITION AND THE CALL LIGHT AT BEDSIDE. FIRE SAFETY MAINTAINED T/O THE NIGHT.
[2023-04-10 07:06] LABS: Magnesium, Blood 2.4 mg/dL (1.6-2.4)
[2023-04-10 07:16] LABS: Creatinine, Blood 0.54 mg/dL (0.40-1.00); Potassium, Blood 4.3 mmol/L (3.5-5.5)
[2023-04-10 07:37] VITALS: BP 110/61
[2023-04-10 10:13] LABS: Hemoglobin 13.1 g/dL (11.5-16.0); Mean Corpuscular HGB 25.9 pg (26.0-34.0); Mean Corpuscular HGB Conc 31.2 g/dL (31.5-36.5); Mean Corpuscular Volume 83 fL (80-100); Mean Platelet Volume 10.5 fL (9.1-12.4); Platelet Count 337 K/mm3 (150-400); RDW Coefficient Variation 20.1 % (11.7-14.2); Red Blood Cell Count 5.06 M/mm3 (3.80-5.20); White Blood Cell Count 7.34 K/mm3 (4.00-11.30)
[2023-04-10 15:16] VITALS: BP 110/72
--- NOTE | 2023-04-10 18:31 | NUR ---
SHIFT SUMMARY: A/O X 4, STANDBY ASSIST. PLEASANT AND COOPERATIVE. PT CONTINUES TO HAVE INTERMITTENT MID EPIGASTRIC PAIN. HYPOACTIVE BOWEL SOUND. PT DENIES PASSING GAS THROUGHOUT THE DAY TODAY. IS NOT TOLERATING MUCH ORAL INTAKE. PT TRIALED MASH POTATOES AND GRAVY WITH NO SUCCESS. PAIN MANAGED CURRENTLY WITH TRAMADOL AND NORCO. PT DID COMPLAIN OF NAUSEA WITHOUT VOMITING. ZOFRAN GIVEN ALONG WITH SCHEDULED REGLAN.
[2023-04-10 19:17] VITALS: BP 104/71
[2023-04-11 04:40] VITALS: BP 119/77
[2023-04-11 05:00] LABS: BASOPHILS ABSOLUTE AUTO 0.05 K/mm3 (0.00-0.23); BASOPHILS PERCENT AUTO 1 % (0-2); EOSINOPHILS PERCENT AUTO 2 % (0-6); Hematocrit 39.4 % (33.0-51.0); Hemoglobin 12.5 g/dL (11.5-16.0); IMMATURE GRAN ABSOLUTE AUTO 0.04 K/mm3 (0.00-0.10); IMMATURE GRAN PERCENT AUTO 1 % (0-1); LYMPHOCYTES ABSOLUTE AUTO 2.53 K/mm3 (0.84-5.20); LYMPHOCYTES PERCENT AUTO 43 % (21-46); MONOCYTES PERCENT AUTO 7 % (4-13); Mean Corpuscular HGB 26.2 pg (26.0-34.0); Mean Corpuscular HGB Conc 31.7 g/dL (31.5-36.5); Mean Corpuscular Volume 83 fL (80-100); NEUTROPHILS ABSOLUTE AUTO 2.79 K/mm3 (1.96-9.15); NEUTROPHILS PERCENT AUTO 47 % (41-73); RDW Coefficient Variation 19.7 % (11.7-14.2); Red Blood Cell Count 4.77 M/mm3 (3.80-5.20); White Blood Cell Count 5.91 K/mm3 (4.00-11.30)
[2023-04-11 05:02] LABS: Platelet Count 257 K/mm3 (150-400)
[2023-04-11 05:11] LABS: Albumin, Blood 2.9 g/dL (3.4-5.0); Anion Gap 5 mmol/L (6-16); Blood Urea Nitrogen 5 mg/dL (8-24); Bun/Creatinine Ratio 9.1 (12.0-20.0); CO2, Blood 25 mmol/L (21-32); Calcium, Blood 7.7 mg/dL (8.5-10.1); Chloride, Blood 115 mmol/L (98-108); Creatinine, Blood 0.55 mg/dL (0.40-1.00); Glomerular Filtration Rate 109 (60-); Glucose, Blood 97 mg/dL (70-99); Phosphorus, Blood 3.4 mg/dL (2.5-4.9); Potassium, Blood 3.6 mmol/L (3.5-5.5); Sodium, Blood 145 mmol/L (136-145)
[2023-04-11 07:49] VITALS: BP 132/76
--- NOTE | 2023-04-11 12:08 | NUR ---
VERBAL ORDER FROM DR MERINO; PO PHENERGAN 12.5MG PO Q6 HOURS; STOP IV FLUIDS; ADVANCE DIET TO FULL LIQUID DIET. DR REQUEST UPDATE THIS AFTERNOON TO EVALUATE FOR DISCHARGE.
[2023-04-11 15:32] VITALS: BP 120/73
--- NOTE | 2023-04-11 18:23 | NUR ---
SHIFT SUMMARY PT A/OX4. PT ABLE TO MAKE NEEDS KNOWN. PT C/O OF NAUSEA AND PAIN T/O THE DAY. REPORTING 10/10 PAIN IN HER ABDOMEN AND LOWER BACK. ABDOMEN IS FIRM AND TENDER; BOWEL SOUNDS HYPOACTIVE/ABSENT. PT MED PER EMAR FOR PAIN AND NAUSEA T/O THE DAY. SEE NOTE ON ORDER FROM DR MERINO; ADVANCED TO FULL LIQUID. PT REPORTS INCREASED PAIN WITH EATING. INTAKE IS VERY LOW. ENCOURAGING PT TO CONTINUE TO DRINK WATER. IV FLUIDS STOPPED THIS AFTERNOON. FINAL REPORT FOR SYD SHOWS BACTERIA SUSPICIOUS FOR CONTAMINATION--REQUEST NEW SAMPLE IF SUSPECT UTI. PT NO LONGER ON ABOX. PT ALSO REPORTS SHE TAKES LASIX AT HOME. PT NOT RECIEVING LASIX HERE. WILL UPDATE ONCOMING NURSE.
[2023-04-11 19:22] VITALS: BP 134/72
[2023-04-12 03:08] VITALS: BP 150/77
[2023-04-12 07:21] VITALS: BP 131/79
--- NOTE | 2023-04-12 07:26 | NUR ---
SHIFT SUMMARY PATIENT WITH ABDOMINAL PAIN AND NAUSEA THROUGHOUT SHIFT, MEDICATED PER EMAR WITH VERY LITTLE RELIEF, PATIENT STATES IT JUST TAKES THE EDGE OFF. OVER THE LAST COUPLE HOURS HER PAIN HAS CHANGED TO THE CENTER OF ABDOMEN AND RADIATES UNDER EACH BREAST AREA. NO VOMITING. PATIENT HAD 2 LOOS STOOLS THROUGHOUT SHIFT.
[2023-04-12] MEDS ORDERED: ONDA4ODT MM (11:06)
[2023-04-12] MEDS ORDERED: TRAM50 PO (11:08)
== END 2023-04-12 12:00 | disposition home or self-care (01) | DRG 74 ==
LOC: ER 12:15 → MEDS 12:16 → ENPENDDIS 04-12 10:02 → MEDS 04-12 12:00
PROVIDERS: Family Medicine; Nurse Practitioner Acute Care; Physician Assistant; Student in an Organized Health Care Education/Training Program; ADMIT Internal Medicine
DX: E10.43 Type 1 diabetes mellitus with diabetic autonomic (poly)neuropathy (principal); R65.10 Systemic inflammatory response syndrome (SIRS) of non-infectious origin without acute organ dysfunction; E87.20 Acidosis, unspecified; K31.84 Gastroparesis; R10.9 Unspecified abdominal pain; E10.40 Type 1 diabetes mellitus with diabetic neuropathy, unspecified; F41.9 Anxiety disorder, unspecified; F32.A Depression, unspecified; G89.4 Chronic pain syndrome; M79.7 Fibromyalgia; G40.909 Epilepsy, unspecified, not intractable, without status epilepticus; M19.90 Unspecified osteoarthritis, unspecified site; E78.5 Hyperlipidemia, unspecified; I25.10 Atherosclerotic heart disease of native coronary artery without angina pectoris; I10 Essential (primary) hypertension; K21.9 Gastro-esophageal reflux disease without esophagitis; F17.210 Nicotine dependence, cigarettes, uncomplicated; I35.0 Nonrheumatic aortic (valve) stenosis; M54.50 Low back pain, unspecified; Z85.841 Personal history of malignant neoplasm of brain; Z88.5 Allergy status to narcotic agent; Z88.8 Allergy status to other drugs, medicaments and biological substances; Z79.899 Other long term (current) drug therapy; Z79.52 Long term (current) use of systemic steroids; Z79.4 Long term (current) use of insulin; Z79.82 Long term (current) use of aspirin; Z79.02 Long term (current) use of antithrombotics/antiplatelets; I25.2 Old myocardial infarction; Z90.710 Acquired absence of both cervix and uterus; Z90.13 Acquired absence of bilateral breasts and nipples; Z95.5 Presence of coronary angioplasty implant and graft; Z98.890 Other specified postprocedural states
CPT/HCPCS: 36415; 71045; 74174; 76705; 80048; 80053; 80069; 81001; 82803; 82947; 83036; 83605; 83690; 83735; 84484; 85025; 85027; 87086; 93005; 93010; 96361; 96365; 96366; 96367; 96375; 96376; 99285-25; A9270; C9113; G0378; J0780; J1170; J1650; J1815; J2405; J2543; J2765; J3010; J3475; J7030; Q9967

== ENCOUNTER 2023-04-28 14:06 | Observation (INO) | payer OTHER ==
[~2023-04-28] VITALS: Ht 162.6 cm; Wt 80.4 kg
[2023-04-28 16:00] LABS: BASOPHILS ABSOLUTE AUTO 0.04 K/mm3 (0.00-0.23); BASOPHILS PERCENT AUTO 1 % (0-2); EOSINOPHILS ABSOLUTE AUTO 0.01 K/mm3 (0.00-0.68); EOSINOPHILS PERCENT AUTO 0 % (0-6); Hematocrit 43.8 % (33.0-51.0); Hemoglobin 14.3 g/dL (11.5-16.0); IMMATURE GRAN ABSOLUTE AUTO 0.04 K/mm3 (0.00-0.10); IMMATURE GRAN PERCENT AUTO 1 % (0-1); LYMPHOCYTES ABSOLUTE AUTO 1.23 K/mm3 (0.84-5.20); LYMPHOCYTES PERCENT AUTO 15 % (21-46); MONOCYTES ABSOLUTE AUTO 0.13 K/mm3 (0.16-1.47); MONOCYTES PERCENT AUTO 2 % (4-13); Mean Corpuscular HGB 26.6 pg (26.0-34.0); Mean Corpuscular HGB Conc 32.6 g/dL (31.5-36.5); Mean Corpuscular Volume 82 fL (80-100); NEUTROPHILS ABSOLUTE AUTO 6.54 K/mm3 (1.96-9.15); NEUTROPHILS PERCENT AUTO 82 % (41-73); Platelet Count 371 K/mm3 (150-400); RDW Coefficient Variation 19.6 % (11.7-14.2); RDW Standard Deviation 56.4 fL (35.1-46.3); Red Blood Cell Count 5.37 M/mm3 (3.80-5.20); White Blood Cell Count 7.99 K/mm3 (4.00-11.30)
[2023-04-28 16:25] LABS: Albumin, Blood 4.1 g/dL (3.4-5.0); Albumin/Globulin Ratio 0.9 (0.8-1.8); Bilirubin, Total 0.8 mg/dL (0.1-1.0); Bun/Creatinine Ratio 13.7 (12.0-20.0); Calcium, Blood 9.7 mg/dL (8.5-10.1); Creatinine, Blood 0.58 mg/dL (0.40-1.00); Globulin, Blood 4.4 g/dL (2.2-4.0); Potassium, Blood 4.3 mmol/L (3.5-5.5); Total Protein, Blood 8.5 g/dL (6.4-8.2)
[2023-04-28 22:19] VITALS: BP 143/79
[2023-04-28] MEDS ORDERED: TRANSDERM-SCOP1 EA13 TD ×2 (23:55)
[2023-04-28] MEDS ORDERED: PRED5 PO ×2 (23:56)
[2023-04-29] MEDS ORDERED: REGLAN1013 PO ×2
[2023-04-29] MEDS ORDERED: CYCL10 PO ×2 (00:03)
[2023-04-29] MEDS ORDERED: TRAZ50 PO ×2 (00:04)
[2023-04-29] MEDS ORDERED: ARIPIPRAZOLE10 M4 PO ×2 (00:05)
[2023-04-29 03:46] VITALS: BP 127/78
[2023-04-29 05:19] LABS: BASOPHILS ABSOLUTE AUTO 0.05 K/mm3 (0.00-0.23); BASOPHILS PERCENT AUTO 1 % (0-2); EOSINOPHILS ABSOLUTE AUTO 0.09 K/mm3 (0.00-0.68); EOSINOPHILS PERCENT AUTO 1 % (0-6); Hematocrit 39.1 % (33.0-51.0); Hemoglobin 12.3 g/dL (11.5-16.0); IMMATURE GRAN ABSOLUTE AUTO 0.03 K/mm3 (0.00-0.10); IMMATURE GRAN PERCENT AUTO 0 % (0-1); LYMPHOCYTES PERCENT AUTO 35 % (21-46); MONOCYTES ABSOLUTE AUTO 0.65 K/mm3 (0.16-1.47); MONOCYTES PERCENT AUTO 8 % (4-13); Mean Corpuscular HGB 26.8 pg (26.0-34.0); Mean Corpuscular HGB Conc 31.5 g/dL (31.5-36.5); Mean Corpuscular Volume 85 fL (80-100); Mean Platelet Volume 9.9 fL (9.1-12.4); NEUTROPHILS ABSOLUTE AUTO 4.43 K/mm3 (1.96-9.15); NEUTROPHILS PERCENT AUTO 55 % (41-73); Platelet Count 286 K/mm3 (150-400); RDW Coefficient Variation 19.4 % (11.7-14.2); RDW Standard Deviation 60.6 fL (35.1-46.3); Red Blood Cell Count 4.59 M/mm3 (3.80-5.20); White Blood Cell Count 8.05 K/mm3 (4.00-11.30)
[2023-04-29 05:56] LABS: Albumin, Blood 3.1 g/dL (3.4-5.0); Bilirubin, Total 0.5 mg/dL (0.1-1.0); Bun/Creatinine Ratio 14.2 (12.0-20.0); Calcium, Blood 8.3 mg/dL (8.5-10.1); Creatinine, Blood 0.57 mg/dL (0.40-1.00); Globulin, Blood 3.2 g/dL (2.2-4.0)
[2023-04-29 06:02] LABS: Total Protein, Blood 6.3 g/dL (6.4-8.2)
--- NOTE | 2023-04-29 06:25 | NUR ---
PT ARRIVED TO UNIT FROM ED. ABLE TO TRANSFER TO BED FROM CART WITH SBA. VSS PER PT TREND. ORIENTED X4. WEAK IN LOWER EXTREMITIES. PT REPORTING CONSISTENT NAUSEA. PRNS GIVEN WITH LITTLE RELIEF. PT ABLE TO TOLERATE SOME PO MEDS. SPOKE WITH DR. DUARTE, PT REQUESTING PHENERGAN. PER PHARMACY AND MD, CONTRAINDICATED WITH REGLAN USE. IV BENADRYL ORDERED. EKG OBTAINED PER MD ORDER FOR BASELINE QTC.
[2023-04-29 07:50] VITALS: BP 140/84
--- NOTE | 2023-04-29 15:00 | NUR ---
SHIFT SUMMARY AND DISCHARGE PATIENT DISCHARGED HOME PATIENT CONTINUES TO HAVE NAUSEA AND A HEADACHE BUT STATES THAT IT IS BETTER THAN WHEN SHE CAME IN. PATIENT STATES THAT SHE IS IN THE PROCESS OF HAVING A PORT PLACED AN OUTPATIENT SO SHE CAN MANAGE FLUIDS AND NAUSEA MEDICATIONS AT HOME. PATIENT INDEPENDENT IN THE ROOM AND EAGER TO GO HOME. IV DC'D. BELONGINGS RETURNED TO PATIENT. ROOM CHECK DONE BEFORE PATIENT DEPARTED. DISCHARGE INSTRUCTIONS REVIEWED WITH PATIENT. HOME HEALTH TO FOLLOW UP WITH PATIENT.
== END 2023-04-29 15:30 | disposition home or self-care (01) ==
LOC: ER 14:06 → MEDS 16:07
PROVIDERS: Physician Assistant; ADMIT Internal Medicine
DX: E10.43 Type 1 diabetes mellitus with diabetic autonomic (poly)neuropathy (principal); K31.84 Gastroparesis; E10.65 Type 1 diabetes mellitus with hyperglycemia; I25.2 Old myocardial infarction; I25.10 Atherosclerotic heart disease of native coronary artery without angina pectoris; Z95.5 Presence of coronary angioplasty implant and graft; I10 Essential (primary) hypertension; F41.9 Anxiety disorder, unspecified
CPT/HCPCS: 36415; 76705; 80053; 82947; 83690; 83880; 85025; 93005; 93010; 94660; 94762; 96361; 96365; 96372; 96372-59; 96374; 96375; 96376; 99285-25; A9270; C9113; G0378; J1200; J1650; J1790; J1815; J1953; J2270; J2405; J2765; J3010; J7030; J7120

== ENCOUNTER 2023-05-03 18:37 | Observation (INO) | payer OTHER ==
[~2023-05-03] VITALS: Ht 162.6 cm; Wt 86.5 kg
[~2023-05-03 18:37] MED LIST changes: +ARIPIPRAZOLE10 M4 PO; +REGLAN1013 PO; +TRANSDERM-SCOP1 EA13 TD; +TRAZ50 PO
[2023-05-03 19:48] LABS: BASOPHILS ABSOLUTE AUTO 0.03 K/mm3 (0.00-0.23); BASOPHILS PERCENT AUTO 0 % (0-2); EOSINOPHILS PERCENT AUTO 0 % (0-6); Hematocrit 43.3 % (33.0-51.0); Hemoglobin 14.4 g/dL (11.5-16.0); IMMATURE GRAN ABSOLUTE AUTO 0.03 K/mm3 (0.00-0.10); IMMATURE GRAN PERCENT AUTO 0 % (0-1); LYMPHOCYTES ABSOLUTE AUTO 1.35 K/mm3 (0.84-5.20); LYMPHOCYTES PERCENT AUTO 15 % (21-46); MONOCYTES ABSOLUTE AUTO 0.43 K/mm3 (0.16-1.47); MONOCYTES PERCENT AUTO 5 % (4-13); Mean Corpuscular HGB 26.9 pg (26.0-34.0); Mean Corpuscular HGB Conc 33.3 g/dL (31.5-36.5); Mean Corpuscular Volume 81 fL (80-100); Mean Platelet Volume 9.8 fL (9.1-12.4); NEUTROPHILS ABSOLUTE AUTO 6.92 K/mm3 (1.96-9.15); NEUTROPHILS PERCENT AUTO 79 % (41-73); Platelet Count 380 K/mm3 (150-400); RDW Coefficient Variation 18.9 % (11.7-14.2); RDW Standard Deviation 55.2 fL (35.1-46.3); Red Blood Cell Count 5.36 M/mm3 (3.80-5.20); White Blood Cell Count 8.76 K/mm3 (4.00-11.30)
[2023-05-03 20:00] LABS: Bilirubin, Total 0.8 mg/dL (0.1-1.0); Bun/Creatinine Ratio 7.7 (12.0-20.0); Calcium, Blood 9.5 mg/dL (8.5-10.1); Creatinine, Blood 0.52 mg/dL (0.40-1.00); Potassium, Blood 3.1 mmol/L (3.5-5.5)
[2023-05-03 20:39] LABS: Magnesium, Blood 1.9 mg/dL (1.6-2.4)
[2023-05-04 02:05] VITALS: BP 111/59
[2023-05-04 05:03] LABS: BASOPHILS ABSOLUTE AUTO 0.05 K/mm3 (0.00-0.23); BASOPHILS PERCENT AUTO 1 % (0-2); EOSINOPHILS PERCENT AUTO 2 % (0-6); Hematocrit 36.4 % (33.0-51.0); Hemoglobin 11.6 g/dL (11.5-16.0); IMMATURE GRAN ABSOLUTE AUTO 0.01 K/mm3 (0.00-0.10); IMMATURE GRAN PERCENT AUTO 0 % (0-1); LYMPHOCYTES ABSOLUTE AUTO 2.67 K/mm3 (0.84-5.20); LYMPHOCYTES PERCENT AUTO 39 % (21-46); MONOCYTES ABSOLUTE AUTO 0.55 K/mm3 (0.16-1.47); MONOCYTES PERCENT AUTO 8 % (4-13); Mean Corpuscular HGB 26.4 pg (26.0-34.0); Mean Corpuscular HGB Conc 31.9 g/dL (31.5-36.5); Mean Corpuscular Volume 83 fL (80-100); Mean Platelet Volume 9.9 fL (9.1-12.4); NEUTROPHILS ABSOLUTE AUTO 3.44 K/mm3 (1.96-9.15); NEUTROPHILS PERCENT AUTO 51 % (41-73); Platelet Count 295 K/mm3 (150-400); RDW Coefficient Variation 18.8 % (11.7-14.2); RDW Standard Deviation 57.4 fL (35.1-46.3); Red Blood Cell Count 4.39 M/mm3 (3.80-5.20); White Blood Cell Count 6.82 K/mm3 (4.00-11.30)
[2023-05-04 05:22] LABS: Albumin, Blood 3.1 g/dL (3.4-5.0); Bilirubin, Total 0.6 mg/dL (0.1-1.0); Bun/Creatinine Ratio 11.3 (12.0-20.0); Calcium, Blood 8.1 mg/dL (8.5-10.1); Creatinine, Blood 0.53 mg/dL (0.40-1.00); Globulin, Blood 3.1 g/dL (2.2-4.0); Potassium, Blood 3.4 mmol/L (3.5-5.5); Total Protein, Blood 6.2 g/dL (6.4-8.2)
[2023-05-04 07:11] VITALS: BP 147/74
--- NOTE | 2023-05-04 19:05 | NUR ---
SHIFT SUMMARY: ALESSIO IS A&OX4. VSS, NO ACUTE EVENTS THIS SHIFT. PT DENIES ANY EMESIS THIS SHIFT, BUT REPORTS SIGNIFICANT NAUSEA. PT HAS ALSO COMPLAINED OF PAIN IN HER ABDOMEN AND FEET. DISCUSSED WITH HOSPITALIST, PLEASE SEE MAR. PT IS INDEPENDENT IN THE ROOM, USES THE CALL LIGHT APPROPRIATELY, AND DENIES ANY DIFFICULTY URINATING. SHE STATES THAT SHE USUALLY HAS DIARRHEA, BUT HAS NOT HAD ANY BOWEL MOVEMENTS TODAY. IV TO LEFT UPPER ARM PATENT, SALINE LOCKED. SHE IS LYING IN BED WITH THE CALL LIGHT IN REACH. WCTM UNTIL REPORT IS GIVEN TO ASSEMBLY PRESS OPERATOR RN.
[2023-05-04 19:25] VITALS: BP 134/77
[2023-05-05 02:45] VITALS: BP 109/63
[2023-05-05 04:56] LABS: Hematocrit 39.9 % (33.0-51.0); Hemoglobin 12.7 g/dL (11.5-16.0); Mean Corpuscular HGB 26.5 pg (26.0-34.0); Mean Corpuscular HGB Conc 31.8 g/dL (31.5-36.5); Mean Corpuscular Volume 83 fL (80-100); Mean Platelet Volume 9.5 fL (9.1-12.4); Platelet Count 334 K/mm3 (150-400); RDW Coefficient Variation 18.7 % (11.7-14.2); White Blood Cell Count 6.52 K/mm3 (4.00-11.30)
[2023-05-05 05:26] LABS: Bun/Creatinine Ratio 7.2 (12.0-20.0); Calcium, Blood 8.8 mg/dL (8.5-10.1); Creatinine, Blood 0.55 mg/dL (0.40-1.00); Potassium, Blood 2.8 mmol/L (3.5-5.5)
[2023-05-05 07:47] VITALS: BP 132/83
[2023-05-05 14:13] LABS: Bun/Creatinine Ratio 8.9 (12.0-20.0); Calcium, Blood 8.8 mg/dL (8.5-10.1); Creatinine, Blood 0.56 mg/dL (0.40-1.00); Potassium, Blood 3.8 mmol/L (3.5-5.5)
[2023-05-05 14:30] VITALS: BP 132/72
--- NOTE | 2023-05-05 16:00 | NUR ---
PT DISCHARGED HOME. DISCHARGE INSTRUCTIONS GIVEN, HARD COPY SENT WITH PATIENT WELL PERSONAL BELONGINGS. PT TRANSPORTED OUTSIDE VIA WHEELCHAIR, PT'S GRANDDAUGHTER PROVIDING TRANSPORTATION HOME IN PERSONAL VEHICLE. IV REMOVED, CATHETER INTACT.
== END 2023-05-05 15:55 | disposition home or self-care (01) ==
LOC: ER 18:37 → MEDS 18:38
PROVIDERS: Family Medicine; Internal Medicine; Physician Assistant; ADMIT Internal Medicine
DX: R11.2 Nausea with vomiting, unspecified (principal); E10.43 Type 1 diabetes mellitus with diabetic autonomic (poly)neuropathy; K31.84 Gastroparesis; E86.9 Volume depletion, unspecified; I95.9 Hypotension, unspecified; R94.31 Abnormal electrocardiogram [ECG] [EKG]; K21.9 Gastro-esophageal reflux disease without esophagitis; M19.90 Unspecified osteoarthritis, unspecified site; F32.9 Major depressive disorder, single episode, unspecified; G89.4 Chronic pain syndrome; E10.40 Type 1 diabetes mellitus with diabetic neuropathy, unspecified; I25.2 Old myocardial infarction; F17.210 Nicotine dependence, cigarettes, uncomplicated; I25.10 Atherosclerotic heart disease of native coronary artery without angina pectoris; Z79.84 Long term (current) use of oral hypoglycemic drugs; M79.7 Fibromyalgia
CPT/HCPCS: 36415; 80048; 80053; 82947; 83690; 83735; 83880; 85025; 85027; 93005; 93010; 96361; 96365; 96366; 96367; 96375; 96376; 99285-25; A9270; G0008; G0378; J0780; J1170; J1720; J1815; J1953; J2060; J2405; J2765; J3010; J3475; J3480; J7030; J7050; Q2036

== ENCOUNTER 2023-05-15 13:19 | Emergency (ER) | payer OTHER ==
[~2023-05-15] VITALS: Ht 162.6 cm; Wt 86.2 kg
[2023-05-15 14:02] VITALS: BP 115/86
== END 2023-05-15 17:24 | disposition home or self-care (01) ==
LOC: ER 13:19
DX: K31.84 Gastroparesis (principal); F17.210 Nicotine dependence, cigarettes, uncomplicated; E10.40 Type 1 diabetes mellitus with diabetic neuropathy, unspecified; I10 Essential (primary) hypertension; I25.2 Old myocardial infarction; Z79.4 Long term (current) use of insulin; Z79.82 Long term (current) use of aspirin; Z79.02 Long term (current) use of antithrombotics/antiplatelets; Z79.899 Other long term (current) drug therapy; Z88.5 Allergy status to narcotic agent; Z88.8 Allergy status to other drugs, medicaments and biological substances
CPT/HCPCS: 96361; 96374; 96375; 99284-25; J1885; J2405; J2765; J7030

== ENCOUNTER 2023-05-19 16:49 | Emergency (ER) | payer OTHER ==
[~2023-05-19] VITALS: Ht 162.6 cm; Wt 86.2 kg
[2023-05-19 17:39] LABS: BASOPHILS ABSOLUTE AUTO 0.05 K/mm3 (0.00-0.23); BASOPHILS PERCENT AUTO 1 % (0-2); EOSINOPHILS ABSOLUTE AUTO 0.01 K/mm3 (0.00-0.68); EOSINOPHILS PERCENT AUTO 0 % (0-6); Hematocrit 47.8 % (33.0-51.0); Hemoglobin 15.6 g/dL (11.5-16.0); IMMATURE GRAN ABSOLUTE AUTO 0.01 K/mm3 (0.00-0.10); IMMATURE GRAN PERCENT AUTO 0 % (0-1); LYMPHOCYTES ABSOLUTE AUTO 1.56 K/mm3 (0.84-5.20); LYMPHOCYTES PERCENT AUTO 19 % (21-46); MONOCYTES ABSOLUTE AUTO 0.27 K/mm3 (0.16-1.47); MONOCYTES PERCENT AUTO 3 % (4-13); Mean Corpuscular HGB 26.8 pg (26.0-34.0); Mean Corpuscular HGB Conc 32.6 g/dL (31.5-36.5); Mean Corpuscular Volume 82 fL (80-100); Mean Platelet Volume 10.5 fL (9.1-12.4); NEUTROPHILS ABSOLUTE AUTO 6.45 K/mm3 (1.96-9.15); NEUTROPHILS PERCENT AUTO 77 % (41-73); Platelet Count 433 K/mm3 (150-400); RDW Coefficient Variation 17.3 % (11.7-14.2); RDW Standard Deviation 51.6 fL (35.1-46.3); Red Blood Cell Count 5.83 M/mm3 (3.80-5.20); White Blood Cell Count 8.35 K/mm3 (4.00-11.30)
[2023-05-19 18:08] LABS: Albumin, Blood 4.3 g/dL (3.4-5.0); Bilirubin, Total 0.8 mg/dL (0.1-1.0); Bun/Creatinine Ratio 11.3 (12.0-20.0); Creatinine, Blood 0.44 mg/dL (0.40-1.00); Globulin, Blood 4.5 g/dL (2.2-4.0); Potassium, Blood 3.7 mmol/L (3.5-5.5); Total Protein, Blood 8.8 g/dL (6.4-8.2)
[2023-05-19] MEDS ORDERED: PROM25 PO (19:55)
[2023-05-19] MEDS ORDERED: PROM12.5S PR (20:37)
[2023-05-19 21:30] VITALS: BP 150/81
== END 2023-05-19 21:42 | disposition home or self-care (01) ==
LOC: ER 16:49
PROVIDERS: Emergency Medicine
DX: R11.2 Nausea with vomiting, unspecified (principal); R10.811 Right upper quadrant abdominal tenderness; R10.816 Epigastric abdominal tenderness; E10.65 Type 1 diabetes mellitus with hyperglycemia; E10.43 Type 1 diabetes mellitus with diabetic autonomic (poly)neuropathy; K31.84 Gastroparesis; K21.9 Gastro-esophageal reflux disease without esophagitis; I10 Essential (primary) hypertension; I25.2 Old myocardial infarction; F17.210 Nicotine dependence, cigarettes, uncomplicated; Z95.5 Presence of coronary angioplasty implant and graft; Z79.4 Long term (current) use of insulin; Z79.82 Long term (current) use of aspirin; Z79.899 Other long term (current) drug therapy
CPT/HCPCS: 80053; 83690; 85025; 93005; 93010; 96361; 96374; 96375; 99285-25; J1790; J2765; J7030

== ENCOUNTER 2023-06-08 15:29 | Emergency (ER) | payer OTHER ==
[~2023-06-08] VITALS: Ht 165.1 cm; Wt 77.1 kg
[~2023-06-08 15:29] MED LIST changes: +PROM12.5S PR
[2023-06-08 16:46] LABS: BASOPHILS ABSOLUTE AUTO 0.03 K/mm3 (0.00-0.23); BASOPHILS PERCENT AUTO 0 % (0-2); EOSINOPHILS PERCENT AUTO 0 % (0-6); Hematocrit 46.8 % (33.0-51.0); Hemoglobin 15.2 g/dL (11.5-16.0); IMMATURE GRAN ABSOLUTE AUTO 0.03 K/mm3 (0.00-0.10); IMMATURE GRAN PERCENT AUTO 0 % (0-1); LYMPHOCYTES ABSOLUTE AUTO 1.29 K/mm3 (0.84-5.20); LYMPHOCYTES PERCENT AUTO 16 % (21-46); MONOCYTES ABSOLUTE AUTO 0.17 K/mm3 (0.16-1.47); MONOCYTES PERCENT AUTO 2 % (4-13); Mean Corpuscular HGB Conc 32.5 g/dL (31.5-36.5); Mean Corpuscular Volume 83 fL (80-100); NEUTROPHILS ABSOLUTE AUTO 6.66 K/mm3 (1.96-9.15); NEUTROPHILS PERCENT AUTO 81 % (41-73); Platelet Count 353 K/mm3 (150-400); RDW Coefficient Variation 16.9 % (11.7-14.2); RDW Standard Deviation 50.6 fL (35.1-46.3); Red Blood Cell Count 5.63 M/mm3 (3.80-5.20); White Blood Cell Count 8.18 K/mm3 (4.00-11.30)
[2023-06-08 17:27] LABS: Albumin, Blood 4.1 g/dL (3.4-5.0); Bun/Creatinine Ratio 7.7 (12.0-20.0); Calcium, Blood 10.2 mg/dL (8.5-10.1); Creatinine, Blood 0.52 mg/dL (0.40-1.00); Globulin, Blood 4.3 g/dL (2.2-4.0); Potassium, Blood 3.8 mmol/L (3.5-5.5); Total Protein, Blood 8.4 g/dL (6.4-8.2)
[2023-06-08] MEDS ORDERED: DICY20 PO (19:06)
[2023-06-08 19:35] VITALS: BP 105/70
== END 2023-06-08 19:35 | disposition home or self-care (01) ==
LOC: ER 15:29
PROVIDERS: Emergency Medicine
DX: R10.10 Upper abdominal pain, unspecified (principal); R11.2 Nausea with vomiting, unspecified; I10 Essential (primary) hypertension; E10.40 Type 1 diabetes mellitus with diabetic neuropathy, unspecified; K21.9 Gastro-esophageal reflux disease without esophagitis; I25.2 Old myocardial infarction; Z88.5 Allergy status to narcotic agent; Z88.8 Allergy status to other drugs, medicaments and biological substances; Z79.899 Other long term (current) drug therapy; Z79.84 Long term (current) use of oral hypoglycemic drugs; Z79.4 Long term (current) use of insulin; F17.210 Nicotine dependence, cigarettes, uncomplicated
CPT/HCPCS: 74022; 80053; 83690; 85025; 93005; 93010; 96361; 96374; 96375; 99284-25; J1200; J1790; J1885; J2405; J2765; J3010; J7030

== ENCOUNTER 2023-07-14 23:15 | Emergency (ER) | payer OTHER ==
[~2023-07-14] VITALS: Ht 162.6 cm; Wt 81.7 kg
[~2023-07-14 23:15] MED LIST changes: +DICY20 PO
[2023-07-15] MEDS ORDERED: FUROSEMIDE40 MG PO (00:15)
[2023-07-15 00:21] LABS: BASOPHILS ABSOLUTE AUTO 0.03 K/mm3 (0.00-0.23); BASOPHILS PERCENT AUTO 0 % (0-2); EOSINOPHILS PERCENT AUTO 0 % (0-6); Hematocrit 44.5 % (33.0-51.0); Hemoglobin 14.8 g/dL (11.5-16.0); IMMATURE GRAN ABSOLUTE AUTO 0.03 K/mm3 (0.00-0.10); IMMATURE GRAN PERCENT AUTO 0 % (0-1); LYMPHOCYTES ABSOLUTE AUTO 1.08 K/mm3 (0.84-5.20); LYMPHOCYTES PERCENT AUTO 10 % (21-46); MONOCYTES ABSOLUTE AUTO 0.47 K/mm3 (0.16-1.47); MONOCYTES PERCENT AUTO 4 % (4-13); Mean Corpuscular HGB 27.4 pg (26.0-34.0); Mean Corpuscular HGB Conc 33.3 g/dL (31.5-36.5); Mean Corpuscular Volume 82 fL (80-100); Mean Platelet Volume 9.9 fL (9.1-12.4); NEUTROPHILS PERCENT AUTO 85 % (41-73); Platelet Count 383 K/mm3 (150-400); RDW Coefficient Variation 16.6 % (11.7-14.2); RDW Standard Deviation 49.4 fL (35.1-46.3); White Blood Cell Count 10.71 K/mm3 (4.00-11.30)
[2023-07-15 00:43] LABS: Alanine Aminotransfer (ALT/SGP 22 U/L (12-78); Albumin, Blood 3.7 g/dL (3.4-5.0); Albumin/Globulin Ratio 0.9 (0.8-1.8); Alk Phos 152 U/L (50-136); Anion Gap 10 mmol/L (6-16); Aspartate Aminotrans (AST/SGOT 25 U/L (12-37); Bilirubin, Total 0.8 mg/dL (0.1-1.0); Blood Urea Nitrogen 11 mg/dL (8-24); Bun/Creatinine Ratio 19.7 (12.0-20.0); CO2, Blood 26 mmol/L (21-32); Calcium, Blood 9.3 mg/dL (8.5-10.1); Chloride, Blood 102 mmol/L (98-108); Creatinine, Blood 0.56 mg/dL (0.40-1.00); Globulin, Blood 4.1 g/dL (2.2-4.0); Glomerular Filtration Rate 108 (60-); Glucose, Blood 278 mg/dL (70-99); Potassium, Blood 4.3 mmol/L (3.5-5.5); Sodium, Blood 138 mmol/L (136-145); Total Protein, Blood 7.8 g/dL (6.4-8.2)
[2023-07-15 03:30] VITALS: BP 85/54
[2023-07-15] MEDS ORDERED: PROM12.5S PR (04:04)
== END 2023-07-15 04:16 | disposition home or self-care (01) ==
LOC: ER 23:15
PROVIDERS: Emergency Medicine
DX: R11.2 Nausea with vomiting, unspecified (principal); E86.0 Dehydration; F17.210 Nicotine dependence, cigarettes, uncomplicated; I10 Essential (primary) hypertension; E10.40 Type 1 diabetes mellitus with diabetic neuropathy, unspecified; I25.2 Old myocardial infarction; Z87.19 Personal history of other diseases of the digestive system; M19.90 Unspecified osteoarthritis, unspecified site; M79.7 Fibromyalgia; K21.9 Gastro-esophageal reflux disease without esophagitis; Z79.02 Long term (current) use of antithrombotics/antiplatelets; Z79.82 Long term (current) use of aspirin; Z79.899 Other long term (current) drug therapy; Z88.5 Allergy status to narcotic agent; Z88.8 Allergy status to other drugs, medicaments and biological substances
CPT/HCPCS: 80053; 85025; 93005; 93010; 96361; 96374; 99284; J1790; J7030

== ENCOUNTER 2023-07-16 12:59 | Emergency (ER) | payer OTHER ==
[~2023-07-16] VITALS: Ht 162.6 cm; Wt 81.7 kg
[~2023-07-16 12:59] MED LIST changes: +FUROSEMIDE40 MG PO
[2023-07-16 13:15] VITALS: BP 108/79
[2023-07-16 13:58] LABS: BASOPHILS ABSOLUTE AUTO 0.03 K/mm3 (0.00-0.23); BASOPHILS PERCENT AUTO 0 % (0-2); EOSINOPHILS ABSOLUTE AUTO 0.01 K/mm3 (0.00-0.68); EOSINOPHILS PERCENT AUTO 0 % (0-6); Hemoglobin 14.7 g/dL (11.5-16.0); IMMATURE GRAN ABSOLUTE AUTO 0.02 K/mm3 (0.00-0.10); IMMATURE GRAN PERCENT AUTO 0 % (0-1); LYMPHOCYTES ABSOLUTE AUTO 1.19 K/mm3 (0.84-5.20); LYMPHOCYTES PERCENT AUTO 14 % (21-46); MONOCYTES ABSOLUTE AUTO 0.28 K/mm3 (0.16-1.47); MONOCYTES PERCENT AUTO 3 % (4-13); Mean Corpuscular HGB 27.8 pg (26.0-34.0); Mean Corpuscular HGB Conc 32.7 g/dL (31.5-36.5); Mean Corpuscular Volume 85 fL (80-100); Mean Platelet Volume 9.6 fL (9.1-12.4); NEUTROPHILS ABSOLUTE AUTO 6.84 K/mm3 (1.96-9.15); NEUTROPHILS PERCENT AUTO 82 % (41-73); Platelet Count 342 K/mm3 (150-400); RDW Coefficient Variation 16.4 % (11.7-14.2); RDW Standard Deviation 51.2 fL (35.1-46.3); Red Blood Cell Count 5.29 M/mm3 (3.80-5.20); White Blood Cell Count 8.37 K/mm3 (4.00-11.30)
[2023-07-16 14:41] LABS: Albumin, Blood 3.7 g/dL (3.4-5.0); Bilirubin, Total 0.7 mg/dL (0.1-1.0); Bun/Creatinine Ratio 14.9 (12.0-20.0); Calcium, Blood 8.7 mg/dL (8.5-10.1); Creatinine, Blood 0.47 mg/dL (0.40-1.00); Globulin, Blood 3.8 g/dL (2.2-4.0); Potassium, Blood 3.6 mmol/L (3.5-5.5); Total Protein, Blood 7.5 g/dL (6.4-8.2)
== END 2023-07-16 14:11 ==
LOC: ER 12:59
PROVIDERS: Physician Assistant
DX: Z53.21 Procedure and treatment not carried out due to patient leaving prior to being seen by health care provider (principal)
CPT/HCPCS: 80053; 85025

== ENCOUNTER 2023-07-21 14:12 | Inpatient (IN) | payer OTHER ==
[~2023-07-21] VITALS: Ht 162.6 cm; Wt 81.7 kg
[~2023-07-21 14:12] MED LIST changes: +Keppra750 MG PO; -LEVE500 PO; -PREGABALIN PO
[2023-07-21 14:56] LABS: BASOPHILS ABSOLUTE AUTO 0.05 K/mm3 (0.00-0.23); BASOPHILS PERCENT AUTO 1 % (0-2); EOSINOPHILS ABSOLUTE AUTO 0.05 K/mm3 (0.00-0.68); EOSINOPHILS PERCENT AUTO 1 % (0-6); Hematocrit 48.6 % (33.0-51.0); Hemoglobin 16.1 g/dL (11.5-16.0); IMMATURE GRAN ABSOLUTE AUTO 0.04 K/mm3 (0.00-0.10); IMMATURE GRAN PERCENT AUTO 0 % (0-1); LYMPHOCYTES ABSOLUTE AUTO 1.71 K/mm3 (0.84-5.20); LYMPHOCYTES PERCENT AUTO 18 % (21-46); MONOCYTES ABSOLUTE AUTO 0.34 K/mm3 (0.16-1.47); MONOCYTES PERCENT AUTO 4 % (4-13); Mean Corpuscular HGB 27.6 pg (26.0-34.0); Mean Corpuscular HGB Conc 33.1 g/dL (31.5-36.5); Mean Corpuscular Volume 83 fL (80-100); Mean Platelet Volume 9.7 fL (9.1-12.4); NEUTROPHILS ABSOLUTE AUTO 7.29 K/mm3 (1.96-9.15); NEUTROPHILS PERCENT AUTO 77 % (41-73); Platelet Count 351 K/mm3 (150-400); RDW Coefficient Variation 16.3 % (11.7-14.2); RDW Standard Deviation 48.2 fL (35.1-46.3); Red Blood Cell Count 5.84 M/mm3 (3.80-5.20); White Blood Cell Count 9.48 K/mm3 (4.00-11.30)
[2023-07-21 15:15] LABS: Albumin, Blood 4.3 g/dL (3.4-5.0); Albumin/Globulin Ratio 1.1 (0.8-1.8); Bilirubin, Total 0.8 mg/dL (0.1-1.0); Bun/Creatinine Ratio 16.1 (12.0-20.0); Calcium, Blood 9.6 mg/dL (8.5-10.1); Creatinine, Blood 0.5 mg/dL (0.40-1.00); Potassium, Blood 3.8 mmol/L (3.5-5.5); Total Protein, Blood 8.3 g/dL (6.4-8.2)
[2023-07-22] MEDS ORDERED: PANT40 PO (02:49)
[2023-07-22] MEDS ORDERED: NITR.4SL SL (02:49)
[2023-07-22] MEDS ORDERED: TRAM50 PO (02:52)
[2023-07-22] MEDS ORDERED: ATORVASTATIN CA40 MG PO (02:55)
[2023-07-22] MEDS ORDERED: CYCL10 PO (02:55)
[2023-07-22] MEDS ORDERED: PREGABALIN50 MG PO (02:58)
--- NOTE | 2023-07-22 05:00 | NUR ---
SHIFT SUMMARY PT BROUGHT UP FROM ED PRIOR TO MIDNIGHT. NAUSEA PRESENT WITH PRN ZOFRAN AND ATIVAN. IV FLUID REPLACEMENT. CLEAR LIQUID DIET AND ORDER TO ADV TOLERATED. HAS NOT VOMITED THIS SHIFT. A/OX4. 2L NC OVERNIGHT TO SLEEP, WEARS CPAP AT HOME USUALLY. TOP DENTURES PRESENT ONLY. USES WALKER AND CANE AT BASELINE AT HOME, NOT PRESENT WITH PATIENT. ABLE TO MAKE NEEDS KNOWN. BED ALARM ON FOR GENERALIZED WEAKNESS. NONSKID SOCKS. CALL LIGHT IN REACH.
[2023-07-22 06:39] LABS: Bun/Creatinine Ratio 15.4 (12.0-20.0); Calcium, Blood 8.3 mg/dL (8.5-10.1); Creatinine, Blood 0.52 mg/dL (0.40-1.00); Potassium, Blood 3.6 mmol/L (3.5-5.5)
[2023-07-22 08:12] VITALS: BP 113/78
--- NOTE | 2023-07-22 15:07 | NUR ---
ASSUMED CARE OF PT. PT IS ALERT AND ORIENTED X4. C/O PAIN AND NAUSEA. ABSENT BOWEL SOUNDS. TREATED PER EMAR.
[2023-07-22 15:50] VITALS: BP 120/73
--- NOTE | 2023-07-22 18:16 | NUR ---
PT REFUSING PT TRAY. REPORTS UNABLE TO TOLORATE PO INTAKE. TREATED PAIN AND NAUSEA PER MAR, PT REPORTS NOT EFFECTIVE. IV FLUIDS CONT. SBA TO THE BATHROOM. NO ACUTE CHANGES AFTER TAKING OVER PT CARE AT 1430. CPAP IS SET UP AT BEDSIDE, 2L NC. NO INSULIN COVERAGE REQUIRED THIS SHIFT
[2023-07-22 19:25] VITALS: BP 110/73
[2023-07-22] MEDS ORDERED: PRED5 PO (19:58)
[2023-07-23 03:55] VITALS: BP 109/62
--- NOTE | 2023-07-23 04:02 | NUR ---
SHIFT SUMMARY ALESSIO WAS ALERT AND FULLY ORIENTED ON ASSESSMENT. PT HAS CONTINUING NAUSEA AND PAIN, BOTH POORLY CONTROLLED WITH CURRENT MEDS PER PT REPORT. EVENING LONG ACTING INSULIN HELD D/T CBG OF 97 PRIOR TO DINNER AND LITTLE TO NO PO INTAKE SINCE. SUBSEQUENT 0000 CBG 90. WILL CONTINUE TO MONITOR. PER PT REQUEST, DR OLIVAREZ CONTACTED FOR ADDITIONAL PAIN COVERAGE, DILAUDED ORDERED. PT RESTING IN BED AT THIS TIME AT A LOW POSITION WITH THE CALL LIGHT IN REACH.
[2023-07-23 08:15] VITALS: BP 118/68
[2023-07-23 09:59] VITALS: BP 111/73
--- NOTE | 2023-07-23 11:33 | NUR ---
PT DR. CASTILLO SKIP LONG ACTING INSULIN THIS MORNING. WILL POSSIBLE NEED TO REDUCE NIGHT DOSE TO 10 UNITS IF UNABLE TO TOLORATE PO INTAKE
[2023-07-23 15:35] VITALS: BP 100/73
--- NOTE | 2023-07-23 19:16 | NUR ---
NO CHANGES THIS SHIFT. PT STILL UNABLE TO TOLORATE PO INTAKE. ABLE TO DRINK WATER. FLUIDS CONTINUED. PAIN AND NAUSEA HAVE BEEN DIFFICULT TO TREAT WITH MEDICATIONS. PT REPORTS SHE FEELS "HORRIBLE". ABLE TO MAKE NEEDS KNOWN. SBA TO BATHROOM. 2-3L NC NEEDED TODAY PT SAT 88 ON R/A WHEN ATTEMPTED TO TITRATE. BED ALARM ON FOR SAFETY.
[2023-07-23 20:38] VITALS: BP 104/68
--- NOTE | 2023-07-24 05:04 | NUR ---
SHIFT SUMMARY ALESSIO WAS ALERT AND FULLY ORIENTED AT START OF SHIFT. PT SYMPTOMS SEEM TO HAVE WORSENED FROM PREVIOUS SHIFT. PT PAIN AND NAUSEA ARE DIFFICULT TO MANAGE TONIGHT, AND SHE CLAIMS TO FEEL A LITTLE WEAKER TODAY. STILL NOT TOLERATING PO INTAKE WELL, AND NOT REQUIRING COVERAGE FOR BLOOD SUGAR. PT HAS A DOCUMENTED BM ON 07/22/23, BUT DENIES THAT IT HAPPENED. PT STATES THAT SHE HAS NOT HAD A BM SINCE BEFORE COMING TO THE HOSPITAL. WILL NOTIFY HOSPITALIST AND TRY TO GET BOWEL CARE STARTED ON THIS PT.
[2023-07-24 05:17] VITALS: BP 109/66
[2023-07-24 07:53] VITALS: BP 126/75
[2023-07-24 15:36] VITALS: BP 122/77
--- NOTE | 2023-07-24 16:04 | NUR ---
NO ACUTE CHANGES. PT STILL EXPERIENCING SEVERE PAIN AND NAUSEA, HYPOACTIVE BOWEL SOUNDS. PAIN AND NAUSEA ARE DIFFICULT TO CONTROL WITH MEDICATIONS. POOR PO INTAKE. ABLE TO KEEP PO MEDICATIONS DOWN SO FAR. BED ALARM ON FOR SAFETY, PT IS ABLE TO MAKE NEEDS KNOWN.
[2023-07-24 19:57] VITALS: BP 145/74
[2023-07-25 03:41] VITALS: BP 135/78
--- NOTE | 2023-07-25 04:58 | NUR ---
SHIFT SUMMARY MS FIELDS HAS HAD A LOT OF PAIN AND NAUSEA THIS SHIFT. SHE DESCRIBES THE PAIN A "DEEP ACHE" IN HER UPPER ABDOMEN, BACK AND HIPS, BETWEEN 810 AND 04/28. PAIN WORSE ON DEEP BREATH. THE PAIN MEDICATIONS ARE TAKING THE EDGE OFF THE PAIN ONLY. NO VOMITING, NOT TOLERATING PO, NAUSEA MEDS ARE HELPING TO PREVENT THE VOMITING BUT NOT ALLOWING HER TO BE FREE OF NAUSEA. NS CONTINUES AT 75CC/HR. STAND BY ASSISTANCE TO THE BEDSIDE COMMODE, STEADY GAIT BUT BED ALARM SET DUE TO MEDICATIONS GIVEN. BED LOW, CALL LIGHT IN REACH.
[2023-07-25 06:24] LABS: Albumin, Blood 3.3 g/dL (3.4-5.0); Anion Gap 6 mmol/L (6-16); Blood Urea Nitrogen 2 mg/dL (8-24); Bun/Creatinine Ratio 3.7 (12.0-20.0); CO2, Blood 31 mmol/L (21-32); Calcium, Blood 8.7 mg/dL (8.5-10.1); Chloride, Blood 107 mmol/L (98-108); Creatinine, Blood 0.54 mg/dL (0.40-1.00); Glomerular Filtration Rate 109 (60-); Glucose, Blood 143 mg/dL (70-99); Magnesium, Blood 1.9 mg/dL (1.6-2.4); Phosphorus, Blood 3.2 mg/dL (2.5-4.9); Potassium, Blood 3.2 mmol/L (3.5-5.5); Sodium, Blood 144 mmol/L (136-145)
[2023-07-25 08:27] VITALS: BP 151/79
--- NOTE | 2023-07-25 12:43 | NUR ---
PT AWAKE AT START OF SHIFT, SITTING UP IN BED WATCHING TV. PT WEAK, BUT WANTING TO GO HOME. IV KCL INFUSING PER EMAR. PT NOT TOLERATING MUCH FOR PO YET. ONLY WATER AND GATORADE. DECLINED BROTH AND JELLO. DR CASTILLO IN TO SEE PT AND DISCUSS PLAN OF CARE. PT ENCOURAGE TO STAY UNTIL TOLERATING PO. PT REFUSING AND WANTING TO GO AMA. AMA FORM SIGNED AND DR CASTILLO UPDATED. PT LEFT AFTER IV ACCESS D/C'D, TAKING BELONGINGS WITH HER.
== END 2023-07-25 11:03 | disposition left against medical advice (07) | DRG 74 ==
LOC: ER 14:12 → ERHOLD 14:13 → MEDS 14:13
PROVIDERS: Nurse Practitioner Acute Care; Physician Assistant; Student in an Organized Health Care Education/Training Program; ADMIT Internal Medicine
DX: E10.43 Type 1 diabetes mellitus with diabetic autonomic (poly)neuropathy (principal); K31.84 Gastroparesis; G47.33 Obstructive sleep apnea (adult) (pediatric); G40.909 Epilepsy, unspecified, not intractable, without status epilepticus; K21.9 Gastro-esophageal reflux disease without esophagitis; F41.9 Anxiety disorder, unspecified; I25.10 Atherosclerotic heart disease of native coronary artery without angina pectoris; G89.4 Chronic pain syndrome; F32.A Depression, unspecified; I10 Essential (primary) hypertension; E10.40 Type 1 diabetes mellitus with diabetic neuropathy, unspecified; M79.7 Fibromyalgia; M19.90 Unspecified osteoarthritis, unspecified site; E87.6 Hypokalemia; Z53.29 Procedure and treatment not carried out because of patient's decision for other reasons; K29.70 Gastritis, unspecified, without bleeding; F17.210 Nicotine dependence, cigarettes, uncomplicated; Z79.02 Long term (current) use of antithrombotics/antiplatelets; Z79.899 Other long term (current) drug therapy; Z88.5 Allergy status to narcotic agent; Z99.89 Dependence on other enabling machines and devices; Z88.8 Allergy status to other drugs, medicaments and biological substances; Z79.4 Long term (current) use of insulin; Z79.82 Long term (current) use of aspirin; I25.2 Old myocardial infarction; Z98.890 Other specified postprocedural states; Z90.710 Acquired absence of both cervix and uterus; Z95.5 Presence of coronary angioplasty implant and graft; Z90.49 Acquired absence of other specified parts of digestive tract
CPT/HCPCS: 36415; 74177; 80048; 80053; 80069; 82947; 83735; 85025; 94660; 94762; 96365; 96366; 96372; 96375; 96376; 99285-25; A9270; C9113; G0378; J1170; J1200; J1650; J1790; J1815; J1953; J2060; J2405; J2765; J3010; J3480; J7030; J7050; Q9967

== ENCOUNTER 2023-08-12 03:29 | Emergency (ER) | payer OTHER ==
[~2023-08-12] VITALS: Ht 162.6 cm; Wt 79.4 kg
[~2023-08-12 03:29] MED LIST changes: +ATORVASTATIN CA40 MG PO; +PREGABALIN50 MG PO
[2023-08-12 03:45] LABS: BASOPHILS ABSOLUTE AUTO 0.04 K/mm3 (0.00-0.23); BASOPHILS PERCENT AUTO 0 % (0-2); EOSINOPHILS ABSOLUTE AUTO 0.01 K/mm3 (0.00-0.68); EOSINOPHILS PERCENT AUTO 0 % (0-6); Hematocrit 47.5 % (33.0-51.0); IMMATURE GRAN ABSOLUTE AUTO 0.02 K/mm3 (0.00-0.10); IMMATURE GRAN PERCENT AUTO 0 % (0-1); LYMPHOCYTES ABSOLUTE AUTO 2.22 K/mm3 (0.84-5.20); LYMPHOCYTES PERCENT AUTO 19 % (21-46); MONOCYTES ABSOLUTE AUTO 0.84 K/mm3 (0.16-1.47); MONOCYTES PERCENT AUTO 7 % (4-13); Mean Corpuscular HGB 27.8 pg (26.0-34.0); Mean Corpuscular HGB Conc 33.7 g/dL (31.5-36.5); Mean Corpuscular Volume 83 fL (80-100); Mean Platelet Volume 10.5 fL (9.1-12.4); NEUTROPHILS ABSOLUTE AUTO 8.29 K/mm3 (1.96-9.15); NEUTROPHILS PERCENT AUTO 73 % (41-73); Platelet Count 411 K/mm3 (150-400); RDW Coefficient Variation 16.4 % (11.7-14.2); RDW Standard Deviation 48.6 fL (35.1-46.3); Red Blood Cell Count 5.75 M/mm3 (3.80-5.20); White Blood Cell Count 11.42 K/mm3 (4.00-11.30)
[2023-08-12 03:58] LABS: Albumin, Blood 4.2 g/dL (3.4-5.0); Bun/Creatinine Ratio 17.9 (12.0-20.0); Calcium, Blood 9.7 mg/dL (8.5-10.1); Creatinine, Blood 0.62 mg/dL (0.40-1.00); Globulin, Blood 4.1 g/dL (2.2-4.0); Potassium, Blood 3.3 mmol/L (3.5-5.5); Total Protein, Blood 8.3 g/dL (6.4-8.2)
[2023-08-12 06:50] LABS: Source, Urine Condom Cath
[2023-08-12 06:55] LABS: Appearance, Urine Clear (Clear); Bilirubin, Urine Neg (Neg); Blood, Urine 1+ (Neg); Color, Urine Yellow (P-Yellow); Glucose Qualitative, Urine 4+ (Neg); Ketones, Urine 4+ (Neg); Leukocyte Esterase, Urine Neg (Neg); Nitrite, Urine Neg (Neg); Protein, Urine 3+ (Neg); Urobilinogen, Urine NORM (Normal)
[2023-08-12 07:07] LABS: Bacteria Few /hpf; Red Blood Cells, Urine 0-2 /hpf (0-2); Squamous Epithelial Cells Few /hpf (Few); White Blood Cells, Urine 0-2 /hpf (0-5)
[2023-08-12 08:30] VITALS: BP 122/83
[2023-08-12] MEDS ORDERED: PROM12.5S PR (08:58)
== END 2023-08-12 09:24 | disposition home or self-care (01) ==
LOC: ER 03:29
PROVIDERS: Emergency Medicine
DX: R11.2 Nausea with vomiting, unspecified (principal); E86.0 Dehydration; E10.65 Type 1 diabetes mellitus with hyperglycemia; E10.40 Type 1 diabetes mellitus with diabetic neuropathy, unspecified; E10.43 Type 1 diabetes mellitus with diabetic autonomic (poly)neuropathy; K31.84 Gastroparesis; K21.9 Gastro-esophageal reflux disease without esophagitis; I10 Essential (primary) hypertension; I25.2 Old myocardial infarction; F41.8 Other specified anxiety disorders; F17.210 Nicotine dependence, cigarettes, uncomplicated; Z79.899 Other long term (current) drug therapy; Z79.4 Long term (current) use of insulin
CPT/HCPCS: 80053; 81001; 82947; 85025; 93005; 93010; 96361; 96365; 96366; 96375; 96376; 99284-25; J0780; J1200; J1815; J2405; J2765; J3480; J7030

== ENCOUNTER 2023-08-15 00:23 | Emergency (ER) | payer OTHER ==
[~2023-08-15] VITALS: Ht 162.6 cm; Wt 69.8 kg
[2023-08-15 00:59] LABS: BASOPHILS ABSOLUTE AUTO 0.05 K/mm3 (0.00-0.23); BASOPHILS PERCENT AUTO 1 % (0-2); EOSINOPHILS ABSOLUTE AUTO 0.01 K/mm3 (0.00-0.68); EOSINOPHILS PERCENT AUTO 0 % (0-6); Hemoglobin 16.1 g/dL (11.5-16.0); IMMATURE GRAN ABSOLUTE AUTO 0.02 K/mm3 (0.00-0.10); IMMATURE GRAN PERCENT AUTO 0 % (0-1); LYMPHOCYTES ABSOLUTE AUTO 0.83 K/mm3 (0.84-5.20); LYMPHOCYTES PERCENT AUTO 9 % (21-46); MONOCYTES ABSOLUTE AUTO 0.22 K/mm3 (0.16-1.47); MONOCYTES PERCENT AUTO 2 % (4-13); Mean Corpuscular HGB 27.7 pg (26.0-34.0); Mean Corpuscular HGB Conc 33.5 g/dL (31.5-36.5); Mean Corpuscular Volume 83 fL (80-100); Mean Platelet Volume 10.2 fL (9.1-12.4); NEUTROPHILS ABSOLUTE AUTO 8.46 K/mm3 (1.96-9.15); NEUTROPHILS PERCENT AUTO 88 % (41-73); Platelet Count 356 K/mm3 (150-400); RDW Coefficient Variation 15.9 % (11.7-14.2); RDW Standard Deviation 47.5 fL (35.1-46.3); Red Blood Cell Count 5.81 M/mm3 (3.80-5.20); White Blood Cell Count 9.59 K/mm3 (4.00-11.30)
[2023-08-15 01:09] LABS: Source, Urine Clean Catch
[2023-08-15 01:17] LABS: Alanine Aminotransfer (ALT/SGP 23 U/L (12-78); Albumin, Blood 3.9 g/dL (3.4-5.0); Albumin/Globulin Ratio 1.1 (0.8-1.8); Alk Phos 135 U/L (50-136); Anion Gap 18 mmol/L (6-16); Aspartate Aminotrans (AST/SGOT 13 U/L (12-37); Bilirubin, Total 1.1 mg/dL (0.1-1.0); Blood Urea Nitrogen 16 mg/dL (8-24); Bun/Creatinine Ratio 28.7 (12.0-20.0); CO2, Blood 25 mmol/L (21-32); Calcium, Blood 9.5 mg/dL (8.5-10.1); Chloride, Blood 94 mmol/L (98-108); Creatinine, Blood 0.56 mg/dL (0.40-1.00); Ethanol (Alcohol), Blood, Med <3 mg/dL; Globulin, Blood 3.6 g/dL (2.2-4.0); Glomerular Filtration Rate 108 (60-); Glucose, Blood 556 mg/dL (70-99); Potassium, Blood 3.2 mmol/L (3.5-5.5); Sodium, Blood 137 mmol/L (136-145); Total Protein, Blood 7.5 g/dL (6.4-8.2)
[2023-08-15 01:20] LABS: Bilirubin, Urine Neg (Neg); Blood, Urine 1+ (Neg); Glucose Qualitative, Urine 4+ (Neg); Ketones, Urine 4+ (Neg); Leukocyte Esterase, Urine Neg (Neg); Nitrite, Urine Neg (Neg); Protein, Urine 2+ (Neg); Urobilinogen, Urine NORM (Normal)
[2023-08-15 01:32] LABS: Appearance, Urine Clear (Clear); Color, Urine Yellow (P-Yellow); U Amphetamine Screen Not Detected; U Barbituate Screen Not Detected; U Benzodiazapine Screen Not Detected; U Buprenorphine Screen Not Detected; U Cannabinoids Screen DETECTED; U Cocaine Screen Not Detected; U Methadone Screen Not Detected; U Methamphetamine Screen Not Detected; U Opiates Screen Not Detected; U Oxycodone Screen Not Detected; U Phencyclidine Screen Not Detected
[2023-08-15 01:35] LABS: Bacteria Not Seen /hpf; Red Blood Cells, Urine 0-2 /hpf (0-2); Squamous Epithelial Cells Not Seen /hpf (Few); White Blood Cells, Urine Not Seen /hpf (0-5)
[2023-08-15] MEDS ORDERED: COMPAZINE10 MG PO (02:28)
[2023-08-15 02:30] VITALS: BP 162/81
== END 2023-08-15 00:26 | disposition home or self-care (01) ==
LOC: ER 00:23
PROVIDERS: Emergency Medicine
DX: E10.65 Type 1 diabetes mellitus with hyperglycemia (principal); E86.0 Dehydration; K31.84 Gastroparesis; F12.188 Cannabis abuse with other cannabis-induced disorder; K21.9 Gastro-esophageal reflux disease without esophagitis; M19.90 Unspecified osteoarthritis, unspecified site; I10 Essential (primary) hypertension; I25.2 Old myocardial infarction; F17.210 Nicotine dependence, cigarettes, uncomplicated; Z79.02 Long term (current) use of antithrombotics/antiplatelets; Z79.82 Long term (current) use of aspirin; Z79.52 Long term (current) use of systemic steroids; Z79.899 Other long term (current) drug therapy; Z88.5 Allergy status to narcotic agent; Z88.8 Allergy status to other drugs, medicaments and biological substances
CPT/HCPCS: 80053; 81001; 82947; 83605; 83690; 85025; 96361; 96372; 96374; 96375; 99284-25; J0780; J1630; J1815; J1885; J7030

== ENCOUNTER 2023-08-17 03:13 | Observation (INO) | payer OTHER ==
[~2023-08-17] VITALS: Ht 162.6 cm; Wt 70.2 kg
[2023-08-17] VITALS (19 sets, daily range): BP systolic 102–174; BP diastolic 67–107
[2023-08-17 03:59] LABS: Bicarbonate Venous 17.8 mmol/L (24.0-30.0); pH Blood Venous 7.31 (7.34-7.37)
[2023-08-17 04:02] LABS: BASOPHILS ABSOLUTE AUTO 0.06 K/mm3 (0.00-0.23); BASOPHILS PERCENT AUTO 0 % (0-2); EOSINOPHILS PERCENT AUTO 0 % (0-6); Hematocrit 53.7 % (33.0-51.0); Hemoglobin 17.8 g/dL (11.5-16.0); IMMATURE GRAN ABSOLUTE AUTO 0.08 K/mm3 (0.00-0.10); IMMATURE GRAN PERCENT AUTO 1 % (0-1); LYMPHOCYTES ABSOLUTE AUTO 1.74 K/mm3 (0.84-5.20); LYMPHOCYTES PERCENT AUTO 10 % (21-46); MONOCYTES ABSOLUTE AUTO 0.68 K/mm3 (0.16-1.47); MONOCYTES PERCENT AUTO 4 % (4-13); Mean Corpuscular HGB 27.7 pg (26.0-34.0); Mean Corpuscular HGB Conc 33.1 g/dL (31.5-36.5); Mean Corpuscular Volume 84 fL (80-100); Mean Platelet Volume 10.7 fL (9.1-12.4); NEUTROPHILS ABSOLUTE AUTO 14.11 K/mm3 (1.96-9.15); NEUTROPHILS PERCENT AUTO 85 % (41-73); Platelet Count 419 K/mm3 (150-400); RDW Coefficient Variation 16.3 % (11.7-14.2); RDW Standard Deviation 48.3 fL (35.1-46.3); Red Blood Cell Count 6.42 M/mm3 (3.80-5.20); White Blood Cell Count 16.67 K/mm3 (4.00-11.30)
[2023-08-17 04:23] LABS: Albumin, Blood 4.2 g/dL (3.4-5.0); Bilirubin, Total 1.2 mg/dL (0.1-1.0); Bun/Creatinine Ratio 26.3 (12.0-20.0); Calcium, Blood 10.3 mg/dL (8.5-10.1); Creatinine, Blood 0.61 mg/dL (0.40-1.00); Globulin, Blood 4.3 g/dL (2.2-4.0); Potassium, Blood 3.2 mmol/L (3.5-5.5); Total Protein, Blood 8.5 g/dL (6.4-8.2)
[2023-08-17 05:35] LABS: Beta-hydroxybutyrate 83.5 mg/dL (0.2-2.8)
[2023-08-17 05:45] LABS: Magnesium, Blood 2.2 mg/dL (1.6-2.4)
--- NOTE | 2023-08-17 07:00 | NUR ---
CARE ASSUMPTION DURING BEDSIDE SHIFT REPORT W PENELOPE RN THE PT IS LYING IN BED ALERT AND ORIENTED COMMUNICATING APPROPRIATELY W STAFF. PT EXPRESSING ONGOING NAUSEA BUT NO EMESIS. PT'S MONITOR SHOWING ST 120'S. BP WNL AND STABLE. SPO2 >94% ON RM AIR. INSULIN GTT INFUSING AT 3 UNITS/HR AND KCL INFUSING AT 100ML/HR. CARE ASSUMED AT THIS TIME BY THIS RN
--- NOTE | 2023-08-17 07:19 | NUR ---
ARRIVAL TO ICU: PT ARRIVED TO ICU 02 FROM ER VIA GURNEY AT 0635. PT SLID ACROSS TO ICU BED WITH ASSISTANCE. PT ALERT AND ORIENTED X4. ABLE TO ANSWER QUESTIONS APPROPRIATELY. PT ON RA WITH SPO2 >95%. DENIES SOB. MEDICAL RECORDS CLERK IN PLACE, ST WITH HR 120'S. DENIES CHEST PAIN/PRESSURE. PT C/O NAUSEA AND ABDOMINAL PAIN. MEDICATED PER EMAR. PIV TO RAC INFUSING. PIV TO RIGHT HAND INFUSING. KCL AT 100 ML/HR. INSULIN AT 3 UNITS/HR. REPORT GIVEN TO ALINA NEGRON.
[2023-08-17 10:55] LABS: Calcium, Blood 8.9 mg/dL (8.5-10.1); Creatinine, Blood 0.59 mg/dL (0.40-1.00); Potassium, Blood 3.3 mmol/L (3.5-5.5)
--- NOTE | 2023-08-17 11:09 | NUR ---
PROVIDER CONTACT DR. MERINO CONTACTED AND UPDATED ON PT'S 1000 LABS. PROVIDER UPDQATED THAT THE ANION GAP IS CLOSED AND THAT THE CARBON DIOXIDE HAS NORMALIZED. PROVIDER UPDATED THAT THE PT CONTINUES TO C/O NAUSEA AND ABDOMINAL PAIN. PROVIDER UPDATED ON LOW POTASSIUM LEVEL. INSTRUCTIONS GIVEN TO KEEP INSULIN GTT ON UNTIL THE PT IS ABLE TO TOLERATE PO INTAKE. ORDERS GIVEN FOR POTASSIUM REPLACEMENT. INSTRUCTIONS TO REEVALUATE THE PT'S ABILITY TO TOLERATE PO INTAKE IN A COUPLE HOURS. MANAGER OF SALES KASIE UPDATED
--- NOTE | 2023-08-17 12:29 | NUR ---
PROVIDER CONTACT THIS RN CONTACTING DR. MERINO AND NOTIFIED HER THAT THE PT WAS UNABLE TO TOLERATE ANY PO INTAKE. INSTRUCTIONS TO CONTINUE INSULIN GTT AND REAVALUATE PT'S ABILTY TO TOLERATE PO INTAKE IN A COUPLE HOURS.
[2023-08-17] MEDS ORDERED: TRAM50 PO (15:29)
[2023-08-17] MEDS ORDERED: ROPI.25 PO (15:29)
--- NOTE | 2023-08-17 15:30 | NUR ---
FAMILY CONTACT THIS RN SPOKE WITH PT'S DAUGHTER SAMMIE WHO WAS ABLE TO ASSIST IN UPDATING THE PT'S MEDICATION RECORD.
[2023-08-17 16:54] LABS: Bun/Creatinine Ratio 22.8 (12.0-20.0); Calcium, Blood 8.8 mg/dL (8.5-10.1); Creatinine, Blood 0.53 mg/dL (0.40-1.00); Potassium, Blood 3.4 mmol/L (3.5-5.5)
--- NOTE | 2023-08-17 17:51 | NUR ---
DAY SHIFT SUMMARY PT HAS REMAINED ALERT AND ORIENTED THIS SHIFT COMMUNICATING APPROPRIATELY W STAFF. PT REMAINED NAUSEOUS ALL DAY W ONE EPISODE OF EMESIS BUT HER NAUSEA DID RESOLVE SLIGHTLY AT THE END OF THE SHIFT SHE WAS ABLE TO TOLERATE SMALL AMOUNTS OF PO INTAKE. PT TRANSITIONED OFF OF INSULIN GTT THIS AFTERNOON AND PLACED ON A AC/HS CHEMSTICKS W AC MEDIUM SS COVERAGE. PT'S MONITOR SHOWING ST 110'S THIS SHIFT. BP WNL AND STABLE. PT AFEBRILE. PT VOIDING WELL THIS SHIFT. PT FOUND TO HAVE THRUSH BY DENTAL HYGENTIST LARISA SO PROVIDER NOTIFIED AND PO NYSTATIN SUSPENSION ORDERED. PT ON RM AIR THIS SHIFT BUT ADMITS TO NONCOMPLIANCE TO HER CPAP AT HOME WHICH IS EVIDENT BY HER SPO2 DROPPING <90% WHILE ASLEEP SO 2L NC PLACED ON THE PT THIS AFTERNOON. PT'S POTASSIUM REPLACED THIS SHIFT. PT MADE MEDICAL STATUS BY PROVIDER THIS AFTERNOON, PT REQUESTING TO GO HOME BUT AGREES TO STAY THE NIGHT. WILL REPORT TO ONCOMING RN.
--- NOTE | 2023-08-17 20:51 | NUR ---
ASSUMPTION OF CARE: RECEIVED REPORT FROM ALINA NEGRON. PT ALERT AND ORIENTED X4. ABLE TO APPROPRIATELY ANSWER QUESTIONS AND MAKE NEEDS KNOWN. PT HAS C/O PAIN IN HER ABDOMEN AND SEVERE NAUSEA. CALL PLACED TO WITH NEW ORDERS FOR PAIN MEDICATION. PT MEDICATED WITH MILD RELIEF. PT ON RA WITH SPO2 >95% WHILE AWAKE. PT DESATS WITH SLEEP, 2L PLACED ON PT. DENIES SOB. FAX MACHINE OPERATOR IN PLACE, ST WITH HR 100'S. BP STABLE. DENIES CHEST PAIN OR PRESSURE. NS AT 100 ML/HR INFUSING. POWERGLIDE TO COLLEEN, PATENT. PT ABLE TO AMBULATE TO THE BATHROOM WITH MINIMAL ASSIST. TOLERATING SMALL SIPS OF WATER. VOIDING YELLOW URINE, NO BM. SHIFTS IN BED INDEPENDENTLY. CALL LIGHT IN REACH, BED LOW AND LOCKED.
[2023-08-17 22:37] LABS: Bun/Creatinine Ratio 18.1 (12.0-20.0); Calcium, Blood 8.4 mg/dL (8.5-10.1); Creatinine, Blood 0.55 mg/dL (0.40-1.00); Potassium, Blood 3.4 mmol/L (3.5-5.5)
[2023-08-18 04:09] VITALS: BP 131/80
[2023-08-18] MEDS ORDERED: ROPI1 PO (04:21)
[2023-08-18 04:25] LABS: BASOPHILS ABSOLUTE AUTO 0.05 K/mm3 (0.00-0.23); BASOPHILS PERCENT AUTO 1 % (0-2); EOSINOPHILS ABSOLUTE AUTO 0.08 K/mm3 (0.00-0.68); EOSINOPHILS PERCENT AUTO 1 % (0-6); Hematocrit 41.5 % (33.0-51.0); Hemoglobin 13.9 g/dL (11.5-16.0); IMMATURE GRAN ABSOLUTE AUTO 0.02 K/mm3 (0.00-0.10); IMMATURE GRAN PERCENT AUTO 0 % (0-1); LYMPHOCYTES ABSOLUTE AUTO 2.62 K/mm3 (0.84-5.20); LYMPHOCYTES PERCENT AUTO 29 % (21-46); MONOCYTES PERCENT AUTO 5 % (4-13); Mean Corpuscular HGB 28.3 pg (26.0-34.0); Mean Corpuscular HGB Conc 33.5 g/dL (31.5-36.5); Mean Corpuscular Volume 84 fL (80-100); Mean Platelet Volume 10.7 fL (9.1-12.4); NEUTROPHILS ABSOLUTE AUTO 5.91 K/mm3 (1.96-9.15); NEUTROPHILS PERCENT AUTO 65 % (41-73); Platelet Count 235 K/mm3 (150-400); RDW Coefficient Variation 16.2 % (11.7-14.2); RDW Standard Deviation 50.4 fL (35.1-46.3); Red Blood Cell Count 4.92 M/mm3 (3.80-5.20); White Blood Cell Count 9.18 K/mm3 (4.00-11.30)
[2023-08-18] MEDS ORDERED: PREG50 PO (04:36)
[2023-08-18 04:56] LABS: Bilirubin, Total 0.9 mg/dL (0.1-1.0); Bun/Creatinine Ratio 15.1 (12.0-20.0); Calcium, Blood 8.4 mg/dL (8.5-10.1); Creatinine, Blood 0.53 mg/dL (0.40-1.00); Potassium, Blood 3.5 mmol/L (3.5-5.5)
--- NOTE | 2023-08-18 06:13 | NUR ---
SHIFT SUMMARY/TRANSFER: PT REMAINS ALERT AND ORIENTED X4 T/O THE SHIFT. ABLE TO ANSWER QUESTIONS APPROPRIATELY AND MAKE NEEDS KNOWN. PT HAD FREQUENT C/O ABDOMINAL AND BACK PAIN T/O THE NIGHT. PT RESTLESS AND VISIBLY UNCOMFORTABLE. MEDICATED PER EMAR WITH VERY LITTLE RELIEF. PT ALSO HAD FREQUENT C/O NAUSEA, MEDICATED PER EMAR. PT ON 2L NC T/O THE NIGHT WITH SPO2 >95%. EPISODES OF DESATURATION WHEN NOT ON OXYGEN DOWN TO 88%. DENIES SOB. TECHNICAL PLANNER IN PLACE, SR WITH HR 90'S. SBP 130'S. DENIES CHEST PAIN OR PRESSURE. POWERGLIDE TO COLLEEN, SALINE LOCKED. ABLE TO VOID IN TOILET WITH MINIMAL ASSIST. ABLE TO TOLERATE SMALL SIPS OF WATER. PT TRANSFERRED TO MEDICAL FLOOR ROOM 341 AT 0600 VIA WHEELCHAIR. REPORT GIVEN TO CAROLINA NEGRON. ALL BELONGINGS SENT WITH THE PT.
[2023-08-18 06:21] VITALS: BP 130/76
--- NOTE | 2023-08-18 06:48 | NUR ---
T/F: REPORT RECIEVED FROM PENELOPE ([employer] WORKER) AND PT T/F TO ROOM 341 AT 0555. THIS RN AGREES TO REPORT/SHIFT ASSESSMENT FINDINGS. PT WAS ORIENTED TO NEW ROOM AND CALL SYSTEM. SHE C/O OF ABDO PAIN W/FENT 25MCG IV PROVIDED, AWAITING EFFECT. NO ACUTE CHANGES. VSS/AFEBRILE. WCTM AND REPORT TO DAY RN.
[2023-08-18 07:46] VITALS: BP 146/76
[2023-08-18 11:40] LABS: Source, Urine Clean Catch
[2023-08-18 11:57] LABS: Appearance, Urine Clear (Clear); Bilirubin, Urine Neg (Neg); Blood, Urine Neg (Neg); Color, Urine Yellow (P-Yellow); Glucose Qualitative, Urine 2+ (Neg); Ketones, Urine 4+ (Neg); Leukocyte Esterase, Urine 1+ (Neg); Nitrite, Urine Neg (Neg); Protein, Urine 1+ (Neg); Urobilinogen, Urine NORM (Normal)
[2023-08-18 12:31] LABS: Hyaline Casts 0-2 /lpf (0-2); Red Blood Cells, Urine 0-2 /hpf (0-2)
[2023-08-18 12:32] LABS: Bacteria Few /hpf; Mucus Light (0-Heavy); Squamous Epithelial Cells Few /hpf (Few)
--- NOTE | 2023-08-18 15:38 | NUR ---
PT AWAKE DURING SHIFT REPORT, RESTING QUIETLY. PT MEDICATED PER EMAR FOR C/O NAUSEA DURING THE NIGHT. PT ADMITTED FOR DKA; RESOLVED. UP INDEPENDENTLY IN AND TO [facility]. DR MERINO IN TO SEE PT AND DISCUSS PLAN OF CARE. PT MEDICALLY STABLE AND ABLE TO D/C HOME. D/C INSTRUCTIONS REVIEWED WITH PT. NO NEW MEDS ORDERED. PT CALLED DAUGHTER FOR RIDE HOME. ALL BELONGINGS WENT WITH PT.
== END 2023-08-18 16:03 | disposition home or self-care (01) ==
LOC: ER 03:13 → ICUE 03:14 → MEDS 03:14 → ICUE 03:14 → MEDS 08-18 06:20
PROVIDERS: Emergency Medicine; Family Medicine; ADMIT Internal Medicine
DX: E10.10 Type 1 diabetes mellitus with ketoacidosis without coma (principal); K21.9 Gastro-esophageal reflux disease without esophagitis; M19.90 Unspecified osteoarthritis, unspecified site; E87.6 Hypokalemia; D69.6 Thrombocytopenia, unspecified; F32.A Depression, unspecified; F41.9 Anxiety disorder, unspecified; Z79.02 Long term (current) use of antithrombotics/antiplatelets; Z79.4 Long term (current) use of insulin
CPT/HCPCS: 80048; 80053; 81001; 82010; 82803; 82947; 83690; 83735; 83880; 85025; 87086; 93005; 93010; 96365; 96366; 96372; 96374; 96375; 96376; 99285-25; A9270; C1751; C9113; G0378; J1650; J1790; J1815; J2405; J2765; J3010; J3480; J7030; J7050

== ENCOUNTER 2023-09-02 11:19 | Inpatient (IN) | payer OTHER ==
[2023-09-02] VITALS (17 sets, daily range): BP systolic 87–132; BP diastolic 58–98
[~2023-09-02] VITALS: Ht 162.6 cm; Wt 64.7 kg
[~2023-09-02 11:19] MED LIST changes: +PREG50 PO; +ROPI.25 PO
[2023-09-02] MEDS ORDERED: Ondansetron HCl 2 MG / ML 2ML Vial IV ONE (11:35)
[2023-09-02 11:58] LABS: BASOPHILS ABSOLUTE AUTO 0.05 K/mm3 (0.00-0.23); BASOPHILS PERCENT AUTO 1 % (0-2); EOSINOPHILS PERCENT AUTO 0 % (0-6); Hematocrit 51.3 % (33.0-51.0); Hemoglobin 17.7 g/dL (11.5-16.0); IMMATURE GRAN ABSOLUTE AUTO 0.04 K/mm3 (0.00-0.10); IMMATURE GRAN PERCENT AUTO 0 % (0-1); LYMPHOCYTES ABSOLUTE AUTO 0.93 K/mm3 (0.84-5.20); LYMPHOCYTES PERCENT AUTO 9 % (21-46); MONOCYTES ABSOLUTE AUTO 0.38 K/mm3 (0.16-1.47); MONOCYTES PERCENT AUTO 4 % (4-13); Mean Corpuscular HGB 28.5 pg (26.0-34.0); Mean Corpuscular HGB Conc 34.5 g/dL (31.5-36.5); Mean Corpuscular Volume 83 fL (80-100); Mean Platelet Volume 11.6 fL (9.1-12.4); NEUTROPHILS ABSOLUTE AUTO 9.34 K/mm3 (1.96-9.15); NEUTROPHILS PERCENT AUTO 87 % (41-73); Platelet Count 341 K/mm3 (150-400); RDW Coefficient Variation 16.4 % (11.7-14.2); RDW Standard Deviation 47.1 fL (35.1-46.3); White Blood Cell Count 10.74 K/mm3 (4.00-11.30)
[2023-09-02] MEDS ORDERED: Lactated Ringer's 2,000 ML IV ONE (12:10)
[2023-09-02] MEDS ORDERED: Ketorolac Tromethamine 30mg Vial IV ONE (12:10)
[2023-09-02] MEDS ORDERED: Droperidol 5 mg/2 ml Vial IV ONE (12:10)
[2023-09-02] MEDS ORDERED: PROC25S PR (12:13)
[2023-09-02] MEDS ORDERED: E.E.S. 200200 MG/5 M PO (12:13)
[2023-09-02 12:26] LABS: Bicarbonate Venous 19.2 mmol/L (24.0-30.0); PCO2 Venous 19.8 mmHg (38-42); pH Blood Venous 7.46 (7.34-7.37)
[2023-09-02 12:42] LABS: Albumin, Blood 4.4 g/dL (3.4-5.0); Albumin/Globulin Ratio 1.1 (0.8-1.8); Bilirubin, Total 1.1 mg/dL (0.1-1.0); Bun/Creatinine Ratio 13.6 (12.0-20.0); Calcium, Blood 10.4 mg/dL (8.5-10.1); Creatinine, Blood 0.96 mg/dL (0.40-1.00); Globulin, Blood 3.9 g/dL (2.2-4.0); Potassium, Blood 3.2 mmol/L (3.5-5.5); Total Protein, Blood 8.3 g/dL (6.4-8.2)
[2023-09-02] MEDS ORDERED: Magnesium Sulf 2 GM/Water 50ML 50 ML IV ONE (12:45)
[2023-09-02 12:52] LABS: Magnesium, Blood 2.5 mg/dL (1.6-2.4)
[2023-09-02] MEDS ORDERED: Calcium Gluconate 10% 2,000 MG in NS 100 ML IV ONE (12:55)
[2023-09-02] MEDS ORDERED: Insulin Human Regular 100 UNIT in NS 100 ML IV SCH (12:55)
[2023-09-02 13:06] LABS: Beta-hydroxybutyrate 104.7 mg/dL (0.2-2.8)
[2023-09-02] MEDS ORDERED: Metoclopramide HCl 5MG / ML 2ML Vial IV ONE (13:20)
[2023-09-02] MEDS ORDERED: Magnesium Hydroxide Conc 10 ML UDC PO PRN (13:50)
[2023-09-02] MEDS ORDERED: Ondansetron HCl 2 MG / ML 2ML Vial IV PRN (13:50)
[2023-09-02] MEDS ORDERED: FLU VACC QS2023-24(6MOS UP)/PF 60 MCG/0.5 ML SYRINGE IM SCH (13:55)
[2023-09-02] MEDS ORDERED: Lactated Ringer's 1,000 ML IV SCH (13:55)
[2023-09-02] MEDS ORDERED: Dextrose 50% 50 ML Syringe IV PRN (13:55)
[2023-09-02] MEDS ORDERED: Bisacodyl 10 MG Supp PR PRN (13:55)
[2023-09-02] MEDS ORDERED: Acetaminophen 650 MG Supp PR PRN (13:55)
[2023-09-02] MEDS ORDERED: TraZODone HCl 50 MG Tab PO PRN (14:00)
[2023-09-02] MEDS ORDERED: LORazepam 2 MG/ML 1ML Injection IV PRN (14:05)
[2023-09-02] MEDS ORDERED: Loperamide HCl 2 MG Cap PO PRN (14:20)
[2023-09-02] MEDS ORDERED: HYDROmorphone HCl/Pf 1MG SYR IV PRN (14:30)
[2023-09-02 14:55] LABS: Hematocrit 48.5 % (33.0-51.0); Hemoglobin 16.6 g/dL (11.5-16.0); Mean Corpuscular HGB 28.2 pg (26.0-34.0); Mean Corpuscular HGB Conc 34.2 g/dL (31.5-36.5); Mean Corpuscular Volume 82 fL (80-100); Mean Platelet Volume 11.4 fL (9.1-12.4); Platelet Count 266 K/mm3 (150-400); RDW Coefficient Variation 15.6 % (11.7-14.2); RDW Standard Deviation 46.9 fL (35.1-46.3); Red Blood Cell Count 5.89 M/mm3 (3.80-5.20)
[2023-09-02] MEDS ORDERED: levETIRAcetam 1,500 MG in NS 100 ML IV SCH (15:00)
[2023-09-02 15:26] LABS: Bun/Creatinine Ratio 16.6 (12.0-20.0); Calcium, Blood 9.8 mg/dL (8.5-10.1); Creatinine, Blood 0.84 mg/dL (0.40-1.00); Potassium, Blood 2.7 mmol/L (3.5-5.5)
--- NOTE | 2023-09-02 16:00 | NUR ---
INITIAL ASSESSMENT PATIENT ARRIVED TO ICU AT 1522. PATIENT ALERT AND ORIENTED X 4, AFEBRILE. PATIENT COMPLAINS OF CHRONIC PAIN IN HIPS AND ACUTE PAIN IN STOMACH. PATIENT STATES SHE HAS WALKER AT HOME TO GET AROUND BUT DOESN'T USE AT HOME BC "HOUSE IS TOO SMALL". PATIENT SATTING 90% AND GREATER ON RA. PATIENT STATES SHE SOMETIMES USES CPAP AT NIGHT AT HOME. PATIENT SR TO ST, HR 90S TO LOW 100S. SBP 120S TO 130S. ABD SOFT, MILD DISTENTION, TENDER, WITH NORMOACTIVE BOWEL SOUNDS NOTED. PATIENT COMPLAINING OF NAUSEA. PATIENT STATES LAST BM WAS 3 WEEKS AGO. PATIENT STATES "I AM NOT CONSTIPATED, I JUST HAVEN'T BEEN ABLE TO EAT LAST FEW WEEKS". PATIENT STATES SHE HAS LOST AROUND 70 POUNDS. WNL. INSULIN AT 7 UNITS/ HOUR. BED LOW, CALL LIGHT IN REACH. CARE CONTINUES.
[2023-09-02] MEDS ORDERED: Pantoprazole Sodium 40 MG Injection IV SCH (16:30)
[2023-09-02] MEDS ORDERED: Metoclopramide HCl 5MG / ML 2ML Vial IV SCH (18:00)
--- NOTE | 2023-09-02 19:00 | NUR ---
ASSUMED CARE OF PT AT 1900 PT RESTING IN BED A/O X4. C/O NAUSEA. VITALS WNL INITIATED 3LPM NC D/T DESATING WHILE SLEEPING WITH APNEIC EPISODES. PT DOES NOT WANT TO WEAR CPAP AT THIS TIME D/T NAUSEA. INSULIN AT 6 UNITS LR AT 150 MLS/HR. SEE FULL ASSESSMENT FOR FURTHER INFO.
--- NOTE | 2023-09-02 19:21 | NUR ---
REPORT GIVEN TO ASSUMING FANCY STITCHER NURSE.
[2023-09-02 20:44] LABS: Bun/Creatinine Ratio 14.9 (12.0-20.0); Calcium, Blood 9.4 mg/dL (8.5-10.1); Creatinine, Blood 0.81 mg/dL (0.40-1.00); Potassium, Blood 2.5 mmol/L (3.5-5.5)
[2023-09-02] MEDS ORDERED: rOPINIRole HCl 1 MG Tab PO SCH (21:00)
[2023-09-02] MEDS ORDERED: Docusate Sodium 100 MG Cap PO SCH (21:00)
[2023-09-02] MEDS ORDERED: Pregabalin 50 MG Capsule PO SCH (21:00)
[2023-09-02] MEDS ORDERED: BusPIRone HCl 10 MG Tab PO SCH (21:00)
[2023-09-02] MEDS ORDERED: D5W-1/2NS 1,000 ML IV SCH (21:30)
[2023-09-02 23:28] LABS: Bun/Creatinine Ratio 16.9 (12.0-20.0); Creatinine, Blood 0.71 mg/dL (0.40-1.00)
[2023-09-03] VITALS (17 sets, daily range): BP systolic 86–134; BP diastolic 52–86
[2023-09-03 03:21] LABS: Base Excess Venous 6.8 mmol/L; Bicarbonate Venous 29.1 mmol/L (24.0-30.0); PCO2 Venous 52.1 mmHg (38-42); pH Blood Venous 7.39 (7.34-7.37)
[2023-09-03 04:09] LABS: BASOPHILS ABSOLUTE AUTO 0.05 K/mm3 (0.00-0.23); BASOPHILS PERCENT AUTO 0 % (0-2); EOSINOPHILS ABSOLUTE AUTO 0.08 K/mm3 (0.00-0.68); EOSINOPHILS PERCENT AUTO 1 % (0-6); Hematocrit 39.4 % (33.0-51.0); Hemoglobin 13.7 g/dL (11.5-16.0); IMMATURE GRAN ABSOLUTE AUTO 0.02 K/mm3 (0.00-0.10); IMMATURE GRAN PERCENT AUTO 0 % (0-1); LYMPHOCYTES ABSOLUTE AUTO 2.96 K/mm3 (0.84-5.20); LYMPHOCYTES PERCENT AUTO 25 % (21-46); MONOCYTES ABSOLUTE AUTO 0.68 K/mm3 (0.16-1.47); MONOCYTES PERCENT AUTO 6 % (4-13); Mean Corpuscular HGB 28.6 pg (26.0-34.0); Mean Corpuscular HGB Conc 34.8 g/dL (31.5-36.5); Mean Corpuscular Volume 82 fL (80-100); Mean Platelet Volume 10.8 fL (9.1-12.4); NEUTROPHILS ABSOLUTE AUTO 8.17 K/mm3 (1.96-9.15); NEUTROPHILS PERCENT AUTO 68 % (41-73); Platelet Count 231 K/mm3 (150-400); RDW Coefficient Variation 15.8 % (11.7-14.2); RDW Standard Deviation 47.7 fL (35.1-46.3); Red Blood Cell Count 4.79 M/mm3 (3.80-5.20); White Blood Cell Count 11.96 K/mm3 (4.00-11.30)
[2023-09-03 04:28] LABS: Bun/Creatinine Ratio 15.9 (12.0-20.0); Calcium, Blood 8.9 mg/dL (8.5-10.1); Creatinine, Blood 0.69 mg/dL (0.40-1.00); Magnesium, Blood 2.3 mg/dL (1.6-2.4); Phosphorus, Blood 3.1 mg/dL (2.5-4.9); Potassium, Blood 2.6 mmol/L (3.5-5.5)
[2023-09-03] MEDS ORDERED: Potassium Chloride 40 MEQ in NS 250 ML IV ONE (04:35)
--- NOTE | 2023-09-03 05:41 | NUR ---
SHIFT SUMMARY A/O X4. PT C/O STOMACHE PAIN ALL SHIFT AND IS NOW FEELING HUNGRY. Q1 HOUR CBG WITH CURRENT RANGE 290'S. LR RUNNING AT 150 MLS/HR. KCL 40 MEQ INITIATED THIS AM. NO SQ INSULIN ORDERED AT THIS TIME. PRN DILAUDID SUFFICIENT FOR PAIN NEEDS. 3LPM NC INITIATED IN FARTUN OF CPAP. PT NAUSEATED AND DID NOT WANT TO WEAR CPAP. CONTINUING TO MONITOR UNTIL REPORT GIVEN TO AM RN.
[2023-09-03] MEDS ORDERED: Pantoprazole Sodium 40 MG Injection IV SCH (06:00)
[2023-09-03] MEDS ORDERED: Insulin Human Lispro 100 Units/ML 3ML Syringe SC SCH (07:30)
--- NOTE | 2023-09-03 08:15 | NUR ---
AM NOTE... ASSUMED CARE OF PT AT 0700. PT IS A&Ox4. LR WAS STOPPED BY PROVIDER, KCL IS RUNNING PER ORDERS. PT'S CBG WAS 273 AT THE TIME OF THIS ASSESSMENT. INSULIN DRIP HAS BEEN OFF SINCE 2139. VS ARE STABLE AT THIS TIME. PT WAS MEDICATED FOR PAIN PER EMAR. HE IS IN SR IN THE 80'S-90'S BP STABLE WITH MAPS>65. L/S CLEAR T/O DIM IN THE BASES. PT USES CPAP WHILE SLEEPING BUT WAS HAVING SOME NAUSEA SO PT IS ON 2L NC. CALL LIGHT IN REACH WILL CONTINUE TO MONITOR.
[2023-09-03] MEDS ORDERED: Atorvastatin 40 MG Tab PO SCH (09:00)
[2023-09-03] MEDS ORDERED: Clopidogrel Bisulfate 75 MG Tab PO SCH (09:00)
[2023-09-03] MEDS ORDERED: Aspirin 81 MG Chew PO SCH (09:00)
[2023-09-03] MEDS ORDERED: Insulin Glargine-Yfgn 100 Unit/mL 3 ML SYR SC SCH (09:00)
[2023-09-03] MEDS ORDERED: Enoxaparin 40 MG/0.4 ML SYR SC SCH (09:00)
[2023-09-03 10:25] LABS: Bun/Creatinine Ratio 13.3 (12.0-20.0); Calcium, Blood 8.6 mg/dL (8.5-10.1); Creatinine, Blood 0.68 mg/dL (0.40-1.00); Potassium, Blood 2.8 mmol/L (3.5-5.5)
[2023-09-03] MEDS ORDERED: Potassium Chl 10MEQ/Water100ML 100 ML IV SCH ×2 (10:40→15:35)
[2023-09-03 15:21] LABS: Bun/Creatinine Ratio 12.8 (12.0-20.0); Calcium, Blood 8.9 mg/dL (8.5-10.1); Creatinine, Blood 0.62 mg/dL (0.40-1.00); Potassium, Blood 2.9 mmol/L (3.5-5.5)
--- NOTE | 2023-09-03 17:29 | NUR ---
SHIFT SUMMARY... NO ACUTE NEGATIVE CHANGES NOTED THIS SHIFT. PT'S VS HAVE BEEN STABLE. PT HAS TOLERATED A CLEAR LIQUID DIET T/O THIS SHIFT, SHE HAS C/O OF SOME NAUSEA WHICH WAS MEDICATED PER EMAR WITH GOOD RESULTS. PT WAS MEDICATED FOR ABD PAIN PER EMAR WITH GOOD RESULTS WELL. PT HAS BEEN UP TO THE BSC WITH SBA TO VOID. NO BM THIS SHIFT. CALL LIGHT IN REACH WILL CONTINUE TO MONITOR UNTIL REPORT IS GIVEN TO ONCOMING RN.
--- NOTE | 2023-09-03 19:04 | NUR ---
ASSUMED CARE OF PT AT 1900 PT RESTING IN BED AT THIS TIME. VITALS WNL AT THIS TIME. SEE FULL ASSESSMENT FOR FURTHER INFORMATION.
[2023-09-03 20:48] LABS: Bun/Creatinine Ratio 9.1 (12.0-20.0); Calcium, Blood 8.5 mg/dL (8.5-10.1); Creatinine, Blood 0.66 mg/dL (0.40-1.00); Potassium, Blood 2.9 mmol/L (3.5-5.5)
[2023-09-03] MEDS ORDERED: Potassium Chloride 20 MEQ TabCR PO ONE (21:00)
[2023-09-04 03:43] LABS: BASOPHILS ABSOLUTE AUTO 0.04 K/mm3 (0.00-0.23); BASOPHILS PERCENT AUTO 1 % (0-2); EOSINOPHILS ABSOLUTE AUTO 0.08 K/mm3 (0.00-0.68); EOSINOPHILS PERCENT AUTO 1 % (0-6); Hematocrit 34.8 % (33.0-51.0); Hemoglobin 11.6 g/dL (11.5-16.0); IMMATURE GRAN ABSOLUTE AUTO 0.02 K/mm3 (0.00-0.10); IMMATURE GRAN PERCENT AUTO 0 % (0-1); LYMPHOCYTES ABSOLUTE AUTO 1.77 K/mm3 (0.84-5.20); LYMPHOCYTES PERCENT AUTO 28 % (21-46); MONOCYTES ABSOLUTE AUTO 0.37 K/mm3 (0.16-1.47); MONOCYTES PERCENT AUTO 6 % (4-13); Mean Corpuscular HGB 28.6 pg (26.0-34.0); Mean Corpuscular HGB Conc 33.3 g/dL (31.5-36.5); Mean Corpuscular Volume 86 fL (80-100); Mean Platelet Volume 10.8 fL (9.1-12.4); NEUTROPHILS ABSOLUTE AUTO 4.02 K/mm3 (1.96-9.15); NEUTROPHILS PERCENT AUTO 64 % (41-73); Platelet Count 165 K/mm3 (150-400); RDW Coefficient Variation 16.3 % (11.7-14.2); RDW Standard Deviation 51.8 fL (35.1-46.3); Red Blood Cell Count 4.05 M/mm3 (3.80-5.20)
[2023-09-04 04:02] LABS: Magnesium, Blood 2.2 mg/dL (1.6-2.4)
[2023-09-04 04:17] LABS: Anion Gap Unable to Calculate mmol/L (6-16); Blood Urea Nitrogen 5 mg/dL (8-24); Bun/Creatinine Ratio 7.1 (12.0-20.0); CO2, Blood 36 mmol/L (21-32); Calcium, Blood 8.4 mg/dL (8.5-10.1); Chloride, Blood 106 mmol/L (98-108); Creatinine, Blood 0.71 mg/dL (0.40-1.00); Glomerular Filtration Rate 100 (60-); Glucose, Blood 95 mg/dL (70-99); Potassium, Blood 3.6 mmol/L (3.5-5.5); Sodium, Blood 141 mmol/L (136-145)
[2023-09-04 05:31] VITALS: BP 102/76
--- NOTE | 2023-09-04 06:33 | NUR ---
SHIFT SUMMARY PT CONTINUES WITH C/O STOMACHE PAIN AND NAUSEA. MEDICATED PER EMAR. VITALS WNL. PT IS ABLE TO GET UP ON HER OWN WITH STANDBY ASSIST. PT IS DRINKING WATER AND ABLE TO EAT SMALL PORTIONS OF SNACKS AT A TIME. NO ACUTE CHANGES TO REPORT. CONTINUING TO MONITOR UNTIL REPORT GIVEN TO AM RN.
[2023-09-04] MEDS ORDERED: Potassium Phosphate Dibasic 10 MM in Dextrose 5% 250 ML IV STA (07:37)
[2023-09-04 08:14] VITALS: BP 95/79
--- NOTE | 2023-09-04 09:26 | NUR ---
ASSUMED CARE REPORT FROM CORNELIUS RN AT 0700. PT RESTING IN BED. WAKES c VERBAL STIMULI. A&O X 4. FOLLOWS COMMANDS. C/O ABD PAIN, 9/10, AND NAUSEA. NO VOMITING. TOLERATED JELLO AND ICE WATER. MEDICATED c DILAUDID ORDERED. LUNGS CLEAR. SR, RATE 80'S. BP STABLE. ABD ROUND, SOFT, GENERALIZED TENDERNESS, BT X 4. STANDBY ASSIST TO BSC. STATUS CHANGED TO MED s TELE. WILL CONTINUE PLAN OF CARE.
[2023-09-04] MEDS ORDERED: Trimethoprim/Sulfamethoxazole DS Tab PO SCH (10:51)
[2023-09-04] MEDS ORDERED: ALPRAZolam 0.25 MG Tab PO PRN (13:50)
[2023-09-04 14:50] VITALS: BP 88/59
[2023-09-04] MEDS ORDERED: Pantoprazole Sodium 40 MG Tab PO SCH (16:30)
[2023-09-04 18:05] VITALS: BP 99/63
--- NOTE | 2023-09-04 18:07 | NUR ---
SHIFT SUMMARY NO ACUTE CHANGES THIS SHIFT. STATUS CHANGED TO MED s TELE. IMPROVED APPETITE, TOLERATED DINNER WELL, ATE 75%. C/O INTERMITTANT NAUSEA AND ABD PAIN, NO EMESIS. UP TO SHOWER, ENCOURAGED SELF CARE AND MOVEMENT. VSS. WILL CONTINUE PLAN OF CARE UNTIL REPORT TO ONCOMING NURSE.
[2023-09-04 20:00] VITALS: BP 93/56
[2023-09-04 20:11] VITALS: BP 93/56
[2023-09-04] MEDS ORDERED: LevETIRAcetam 500 MG Tab PO SCH (21:00)
--- NOTE | 2023-09-05 00:32 | NUR ---
Initial note/update Report received, patient nauseated, however after receiving PM medications, nausea subsided. No acute concerns, stable on O2 sats, 2.5L NC. Clear lungs overall, no acute concerns, CBG stable, given Lantus as patient eating now. Given Xanax earlier per request, call light in reach, patient sleeping.
--- NOTE | 2023-09-05 02:09 | NUR ---
SHIFT SUMMARY/TRANSFER No acute changes, given Reglan earlier and patient requested to eat, food brought and report called to Med/Surg at present time, transfer in progress to room 333, no concerns prior to transfer.
[2023-09-05 04:12] VITALS: BP 123/74
--- NOTE | 2023-09-05 06:55 | NUR ---
PATIENT CAME IN FROM ICU4 PER WHEELCHAIR. ALERT AND ORIENTED. TRANSFERRED TO BED COMFORTABLY. ON SBA X1. WITH O2 AT 2.5 LPM/NASAL CANNULA. WITH POWERGLIDE ON LEFT FA PATENT AND INTACT. COMPLAINT OF NAUSEA, MEDICATED ACCORDINGLY. BLOOD SUGAR CHECK ACHS. NEEDS ATTENDED. CALL LIGHT WITHIN PATIENT'S REACH. WILL CONTINUE TO MONITOR.
[2023-09-05 07:26] VITALS: BP 96/64
[2023-09-05 08:50] LABS: Bun/Creatinine Ratio 10.3 (12.0-20.0); Calcium, Blood 8.6 mg/dL (8.5-10.1); Creatinine, Blood 0.58 mg/dL (0.40-1.00); Magnesium, Blood 2.1 mg/dL (1.6-2.4); Phosphorus, Blood 1.9 mg/dL (2.5-4.9)
[2023-09-05] MEDS ORDERED: Potassium Chloride 20 MEQ TabCR PO ONE (10:00)
[2023-09-05] MEDS ORDERED: SULTRIDS PO (10:04)
[2023-09-05] MEDS ORDERED: TRAM50 PO (10:05)
--- NOTE | 2023-09-05 11:23 | NUR ---
DISCHARGE SUMMARY IV REMOVED WITHOUT COMPLICATION. DISCHARGE PACKET GIVEN AND REVIEWED, QUESTIONS ANSWERED, VERBALIZED UNDERSTANDING. SCRIPT FOR ULTRAM GIVEN, OTHER MEDS FAXED TO [facility]. DAUGHTER TO DRIVE PATIENT HOME.
== END 2023-09-05 10:43 | disposition home or self-care (01) | DRG 74 ==
LOC: ER 11:19 → ICUE 13:48 → ER 15:11 → ICUE 15:42 → MEDS 09-05 02:35
PROVIDERS: Nurse Practitioner Acute Care; Student in an Organized Health Care Education/Training Program; ADMIT Hospitalist
DX: E10.43 Type 1 diabetes mellitus with diabetic autonomic (poly)neuropathy (principal); E87.3 Alkalosis; E10.10 Type 1 diabetes mellitus with ketoacidosis without coma; K29.70 Gastritis, unspecified, without bleeding; R56.9 Unspecified convulsions; F41.9 Anxiety disorder, unspecified; F32.A Depression, unspecified; M79.7 Fibromyalgia; K21.9 Gastro-esophageal reflux disease without esophagitis; K31.84 Gastroparesis; I10 Essential (primary) hypertension; M19.90 Unspecified osteoarthritis, unspecified site; I25.2 Old myocardial infarction; G89.4 Chronic pain syndrome; E86.0 Dehydration; G25.81 Restless legs syndrome; Z88.5 Allergy status to narcotic agent; Z88.8 Allergy status to other drugs, medicaments and biological substances; Z79.02 Long term (current) use of antithrombotics/antiplatelets; Z79.4 Long term (current) use of insulin; Z79.899 Other long term (current) drug therapy; Z79.82 Long term (current) use of aspirin; Z90.710 Acquired absence of both cervix and uterus; Z98.890 Other specified postprocedural states; Z95.5 Presence of coronary angioplasty implant and graft; Z90.13 Acquired absence of bilateral breasts and nipples
CPT/HCPCS: 36415; 74177; 80048; 80053; 82010; 82330; 82803; 82947; 83036; 83605; 83690; 83735; 84100; 85025; 85027; 93005; 93010; 94760; 94762; 96361; 96365-59; 96368; 96375; 99285-25; A9270; C1751; C9113; J0612; J1170; J1650; J1790; J1815; J1885; J1953; J2405; J2765; J3475; J3480; J7040; J7042; J7050; J7060; J7120; Q9967

== ENCOUNTER 2023-09-08 13:51 | Emergency (ER) | payer OTHER ==
[~2023-09-08] VITALS: Ht 167.6 cm; Wt 65.8 kg
[~2023-09-08 13:51] MED LIST changes: +E.E.S. 200200 MG/5 M PO; +PROC25S PR
[2023-09-08] MEDS ORDERED: Ondansetron HCl 2 MG / ML 2ML Vial IV PRN (16:05)
[2023-09-08 16:59] LABS: BASOPHILS ABSOLUTE AUTO 0.04 K/mm3 (0.00-0.23); BASOPHILS PERCENT AUTO 1 % (0-2); EOSINOPHILS ABSOLUTE AUTO 0.04 K/mm3 (0.00-0.68); EOSINOPHILS PERCENT AUTO 1 % (0-6); IMMATURE GRAN ABSOLUTE AUTO 0.01 K/mm3 (0.00-0.10); IMMATURE GRAN PERCENT AUTO 0 % (0-1); LYMPHOCYTES ABSOLUTE AUTO 2.12 K/mm3 (0.84-5.20); LYMPHOCYTES PERCENT AUTO 41 % (21-46); MONOCYTES PERCENT AUTO 12 % (4-13); Mean Corpuscular HGB 28.3 pg (26.0-34.0); Mean Corpuscular HGB Conc 33.3 g/dL (31.5-36.5); Mean Corpuscular Volume 85 fL (80-100); Mean Platelet Volume 10.9 fL (9.1-12.4); NEUTROPHILS ABSOLUTE AUTO 2.38 K/mm3 (1.96-9.15); NEUTROPHILS PERCENT AUTO 46 % (41-73); Platelet Count 317 K/mm3 (150-400); RDW Coefficient Variation 17.3 % (11.7-14.2); RDW Standard Deviation 53.3 fL (35.1-46.3); Red Blood Cell Count 4.94 M/mm3 (3.80-5.20); White Blood Cell Count 5.19 K/mm3 (4.00-11.30)
[2023-09-08 17:25] LABS: Albumin, Blood 3.2 g/dL (3.4-5.0); Albumin/Globulin Ratio 0.8 (0.8-1.8); Bilirubin, Total 0.7 mg/dL (0.1-1.0); Bun/Creatinine Ratio 10.6 (12.0-20.0); Calcium, Blood 9.6 mg/dL (8.5-10.1); Creatinine, Blood 0.66 mg/dL (0.40-1.00); Globulin, Blood 4.2 g/dL (2.2-4.0); Potassium, Blood 4.6 mmol/L (3.5-5.5); Total Protein, Blood 7.4 g/dL (6.4-8.2)
[2023-09-08] MEDS ORDERED: NS 1,000 ML IV SCH (17:40)
[2023-09-08] MEDS ORDERED: Mag Hydrox/AL Hydrox/Simeth 30 ML UDC PO ONE (17:55)
[2023-09-08] MEDS ORDERED: Morphine Sulfate 10 MG/ML 1MLSYR IV ONE (17:55)
[2023-09-08] MEDS ORDERED: Lidocaine 2% Viscous Soln 15 ML UDC PO ONE (17:55)
[2023-09-08] MEDS ORDERED: Droperidol 5 mg/2 ml Vial IV PRN (17:55)
[2023-09-08] MEDS ORDERED: Pantoprazole Sodium 40 MG Injection IV ONE (17:55)
[2023-09-08] MEDS ORDERED: Metoclopramide HCl 5MG / ML 2ML Vial IV ONE (17:55)
[2023-09-08] MEDS ORDERED: Lactated Ringer's 1,000 ML IV ONE ×2 (19:05→21:20)
[2023-09-08] MEDS ORDERED: Droperidol 5 mg/2 ml Vial IV ONE ×3 (19:25→22:00)
[2023-09-08] MEDS ORDERED: Capsaicin 0.025% Cream TOP ONE (19:25)
[2023-09-08 21:45] LABS: Calcium, Ionized (POC) 0.95 mmol/L (1.10-1.46); Chloride (POC) 98 mmol/L (98-108); Creatinine (POC) 0.5 mg/dL (0.6-1.0); Glucose (ISTAT POC) 234 mg/dL (70-99); Hemoglobin (POC) 12.2 g/dL (12.0-16.0); Potassium (POC) 3.5 mmol/L (3.5-5.5); Sodium (POC) 136 mmol/L (135-148); Total CO2 (POC) 29 mmol/L (21-32)
[2023-09-08] MEDS ORDERED: HYDROmorphone HCl/Pf 1MG SYR IV ONE (22:00)
[2023-09-08] MEDS ORDERED: Prochlorperazine Edisylate 10 mg Vial IV ONE (22:00)
[2023-09-08 23:31] VITALS: BP 102/54
== END 2023-09-08 23:53 | disposition home or self-care (01) ==
LOC: ER 13:51
PROVIDERS: Physician Assistant; Student in an Organized Health Care Education/Training Program
DX: R10.13 Epigastric pain (principal); R11.2 Nausea with vomiting, unspecified; E10.65 Type 1 diabetes mellitus with hyperglycemia; E10.40 Type 1 diabetes mellitus with diabetic neuropathy, unspecified; K21.9 Gastro-esophageal reflux disease without esophagitis; M19.90 Unspecified osteoarthritis, unspecified site; I10 Essential (primary) hypertension; I35.0 Nonrheumatic aortic (valve) stenosis; F32.A Depression, unspecified; F41.9 Anxiety disorder, unspecified; G89.4 Chronic pain syndrome; I25.2 Old myocardial infarction; F17.210 Nicotine dependence, cigarettes, uncomplicated; Z88.5 Allergy status to narcotic agent; Z88.8 Allergy status to other drugs, medicaments and biological substances; Z79.899 Other long term (current) drug therapy; Z79.02 Long term (current) use of antithrombotics/antiplatelets; Z79.82 Long term (current) use of aspirin
CPT/HCPCS: 74174; 80047; 80053; 82947; 83605; 83690; 85014; 85025; 96361; 96374-59; 96375-59; 96376-59; 99284-25; A9270; C9113; J0780; J1170; J1790; J2270; J2405; J2765; J7030; J7120; Q9967

== ENCOUNTER 2023-11-25 14:18 | Emergency (ER) | payer OTHER ==
[~2023-11-25] VITALS: Ht 162.6 cm; Wt 65.8 kg
[2023-11-25 17:45] VITALS: BP 103/65
== END 2023-11-25 17:56 | disposition home or self-care (01) ==
LOC: ER 14:18
DX: E10.43 Type 1 diabetes mellitus with diabetic autonomic (poly)neuropathy (principal); K31.84 Gastroparesis; E10.65 Type 1 diabetes mellitus with hyperglycemia; I10 Essential (primary) hypertension; I25.2 Old myocardial infarction; K21.9 Gastro-esophageal reflux disease without esophagitis; F17.210 Nicotine dependence, cigarettes, uncomplicated; Z79.899 Other long term (current) drug therapy; Z79.4 Long term (current) use of insulin; Z79.82 Long term (current) use of aspirin; Z88.5 Allergy status to narcotic agent; Z88.8 Allergy status to other drugs, medicaments and biological substances; Z95.5 Presence of coronary angioplasty implant and graft

== ENCOUNTER 2024-01-15 11:02 | Emergency (ER) | payer OTHER ==
[~2024-01-15] VITALS: Ht 162.6 cm; Wt 57.6 kg
[~2024-01-15 11:02] MED LIST changes: +ONDA4ODT SL
[2024-01-15] MEDS ORDERED: Ondansetron HCl 2 MG / ML 2ML Vial IV PRN (11:20)
[2024-01-15] MEDS ORDERED: NS 1,000 ML IV SCH (14:10)
[2024-01-15] MEDS ORDERED: Morphine Sulfate 4 MG/1 ML Injection IV ONE (14:10)
[2024-01-15] MEDS ORDERED: Metoclopramide HCl 5MG / ML 2ML Vial IV ONE (14:10)
[2024-01-15 14:23] LABS: BASOPHILS ABSOLUTE AUTO 0.04 K/mm3 (0.00-0.23); BASOPHILS PERCENT AUTO 0 % (0-2); EOSINOPHILS ABSOLUTE AUTO 0.04 K/mm3 (0.00-0.68); EOSINOPHILS PERCENT AUTO 0 % (0-6); Hematocrit 46.9 % (33.0-51.0); Hemoglobin 16.6 g/dL (11.5-16.0); IMMATURE GRAN PERCENT AUTO 1 % (0-1); LYMPHOCYTES ABSOLUTE AUTO 2.28 K/mm3 (0.84-5.20); LYMPHOCYTES PERCENT AUTO 13 % (21-46); MONOCYTES ABSOLUTE AUTO 1.24 K/mm3 (0.16-1.47); MONOCYTES PERCENT AUTO 7 % (4-13); Mean Corpuscular HGB 30.6 pg (26.0-34.0); Mean Corpuscular HGB Conc 35.4 g/dL (31.5-36.5); Mean Corpuscular Volume 86 fL (80-100); NEUTROPHILS ABSOLUTE AUTO 13.59 K/mm3 (1.96-9.15); NEUTROPHILS PERCENT AUTO 79 % (41-73); NRBC ABSOLUTE 0.02 K/mm3 (0.00-0.02); NRBC Auto 0.1 /100 WBC (0.0-0.2); RDW Coefficient Variation 12.7 % (11.7-14.2); RDW Standard Deviation 39.9 fL (35.1-46.3); Red Blood Cell Count 5.43 M/mm3 (3.80-5.20); White Blood Cell Count 17.29 K/mm3 (4.00-11.30)
[2024-01-15 14:39] LABS: Source, Urine Voided
[2024-01-15 14:42] LABS: Albumin, Blood 4.7 g/dL (3.4-5.0); Albumin/Globulin Ratio 1.1 (0.8-1.8); Bilirubin, Total 1.3 mg/dL (0.1-1.0); Bun/Creatinine Ratio 23.9 (12.0-20.0); Calcium, Blood 10.9 mg/dL (8.5-10.1); Creatinine, Blood 0.75 mg/dL (0.40-1.00); Globulin, Blood 4.1 g/dL (2.2-4.0); Potassium, Blood 3.3 mmol/L (3.5-5.5); Total Protein, Blood 8.8 g/dL (6.4-8.2)
[2024-01-15 14:47] LABS: Bilirubin, Urine Neg (Neg); Blood, Urine Neg (Neg); Color, Urine Yellow (P-Yellow); Glucose Qualitative, Urine 4+ (Neg); Ketones, Urine 4+ (Neg); Leukocyte Esterase, Urine 1+ (Neg); Nitrite, Urine Neg (Neg); Protein, Urine 3+ (Neg); Urobilinogen, Urine NORM (Normal)
[2024-01-15 14:58] LABS: Appearance, Urine Hazy (Clear)
[2024-01-15 15:00] LABS: Amorphous Light (0-Heavy); Bacteria Mod /hpf; Granular Casts 0-2 /lpf (0); Mucus Light (0-Heavy); Red Blood Cells, Urine 0-2 /hpf (0-2); Squamous Epithelial Cells Few /hpf (Few)
[2024-01-15] MEDS ORDERED: Droperidol 5 mg/2 ml Vial IV ONE (15:20)
[2024-01-15 15:33] LABS: Bicarbonate Venous 23.7 mmol/L (24.0-30.0); PCO2 Venous 27.7 mmHg (38-42); pH Blood Venous 7.49 (7.34-7.37)
[2024-01-15 17:05] VITALS: BP 132/85
[2024-01-15] MEDS ORDERED: PHENERGAN25 MG PR (17:06)
== END 2024-01-15 17:10 | disposition home or self-care (01) ==
LOC: ER 11:02
PROVIDERS: Emergency Medicine
DX: E10.43 Type 1 diabetes mellitus with diabetic autonomic (poly)neuropathy (principal); E10.40 Type 1 diabetes mellitus with diabetic neuropathy, unspecified; K21.9 Gastro-esophageal reflux disease without esophagitis; M19.90 Unspecified osteoarthritis, unspecified site; I10 Essential (primary) hypertension; I25.2 Old myocardial infarction; F17.210 Nicotine dependence, cigarettes, uncomplicated; Z79.82 Long term (current) use of aspirin; Z79.02 Long term (current) use of antithrombotics/antiplatelets; Z79.4 Long term (current) use of insulin; Z79.899 Other long term (current) drug therapy; Z88.5 Allergy status to narcotic agent; Z88.8 Allergy status to other drugs, medicaments and biological substances
CPT/HCPCS: 76705; 80053; 81001; 81025; 82803; 82947; 83690; 85025; 87086; 96361; 96374; 96375; 99284-25; J1790; J2270; J2405; J2765; J7030

== ENCOUNTER 2024-01-17 15:30 | Emergency (ER) | payer OTHER ==
[~2024-01-17] VITALS: Ht 165.1 cm; Wt 70.3 kg
[2024-01-17 15:46] VITALS: BP 154/110
[2024-01-17] MEDS ORDERED: NS 1,000 ML IV SCH (15:50)
[2024-01-17 16:11] LABS: BASOPHILS ABSOLUTE AUTO 0.04 K/mm3 (0.00-0.23); BASOPHILS PERCENT AUTO 0 % (0-2); EOSINOPHILS ABSOLUTE AUTO 0.02 K/mm3 (0.00-0.68); EOSINOPHILS PERCENT AUTO 0 % (0-6); Hematocrit 47.3 % (33.0-51.0); Hemoglobin 16.7 g/dL (11.5-16.0); IMMATURE GRAN ABSOLUTE AUTO 0.03 K/mm3 (0.00-0.10); IMMATURE GRAN PERCENT AUTO 0 % (0-1); LYMPHOCYTES ABSOLUTE AUTO 1.83 K/mm3 (0.84-5.20); LYMPHOCYTES PERCENT AUTO 19 % (21-46); MONOCYTES ABSOLUTE AUTO 0.45 K/mm3 (0.16-1.47); MONOCYTES PERCENT AUTO 5 % (4-13); Mean Corpuscular HGB 30.4 pg (26.0-34.0); Mean Corpuscular HGB Conc 35.3 g/dL (31.5-36.5); Mean Corpuscular Volume 86 fL (80-100); Mean Platelet Volume 8.9 fL (9.1-12.4); NEUTROPHILS ABSOLUTE AUTO 7.36 K/mm3 (1.96-9.15); NEUTROPHILS PERCENT AUTO 76 % (41-73); Platelet Count 360 K/mm3 (150-400); RDW Coefficient Variation 12.4 % (11.7-14.2); RDW Standard Deviation 39.4 fL (35.1-46.3); White Blood Cell Count 9.73 K/mm3 (4.00-11.30)
[2024-01-17 16:30] LABS: Albumin, Blood 4.9 g/dL (3.4-5.0); Albumin/Globulin Ratio 1.3 (0.8-1.8); Bilirubin, Total 1.6 mg/dL (0.1-1.0); Bun/Creatinine Ratio 18.2 (12.0-20.0); Calcium, Blood 9.8 mg/dL (8.5-10.1); Creatinine, Blood 0.55 mg/dL (0.40-1.00); Globulin, Blood 3.7 g/dL (2.2-4.0); Potassium, Blood 3.5 mmol/L (3.5-5.5); Total Protein, Blood 8.6 g/dL (6.4-8.2)
== END 2024-01-17 18:44 | disposition left against medical advice (07) ==
LOC: ER 15:30
PROVIDERS: Student in an Organized Health Care Education/Training Program
DX: R10.9 Unspecified abdominal pain (principal); R11.2 Nausea with vomiting, unspecified; Z53.21 Procedure and treatment not carried out due to patient leaving prior to being seen by health care provider
CPT/HCPCS: 80053; 85025; 99283

== ENCOUNTER 2024-03-06 21:50 | Observation (INO) | payer OTHER ==
[~2024-03-06] VITALS: Ht 162.6 cm; Wt 58.1 kg
[2024-03-06] MEDS ORDERED: NS 1,000 ML IV SCH (22:25)
[2024-03-06] MEDS ORDERED: Metoclopramide HCl 5MG / ML 2ML Vial IV ONE (22:25)
[2024-03-06] MEDS ORDERED: Magnesium Sulf 2 GM/Water 50ML 50 ML IV ONE (22:25)
[2024-03-06 22:34] LABS: BASOPHILS ABSOLUTE AUTO 0.04 K/mm3 (0.00-0.23); BASOPHILS PERCENT AUTO 0 % (0-2); EOSINOPHILS PERCENT AUTO 0 % (0-6); Hematocrit 46.2 % (33.0-51.0); IMMATURE GRAN ABSOLUTE AUTO 0.04 K/mm3 (0.00-0.10); IMMATURE GRAN PERCENT AUTO 0 % (0-1); LYMPHOCYTES ABSOLUTE AUTO 2.02 K/mm3 (0.84-5.20); LYMPHOCYTES PERCENT AUTO 18 % (21-46); MONOCYTES ABSOLUTE AUTO 0.51 K/mm3 (0.16-1.47); MONOCYTES PERCENT AUTO 5 % (4-13); Mean Corpuscular HGB 30.9 pg (26.0-34.0); Mean Corpuscular HGB Conc 34.6 g/dL (31.5-36.5); Mean Corpuscular Volume 89 fL (80-100); Mean Platelet Volume 10.2 fL (9.1-12.4); NEUTROPHILS PERCENT AUTO 77 % (41-73); Platelet Count 393 K/mm3 (150-400); RDW Coefficient Variation 13.4 % (11.7-14.2); Red Blood Cell Count 5.17 M/mm3 (3.80-5.20); White Blood Cell Count 11.21 K/mm3 (4.00-11.30)
[2024-03-06] MEDS ORDERED: levETIRAcetam 1,500 MG in NS 100 ML IV ONE (22:35)
[2024-03-06 22:49] LABS: Base Excess Venous -2.1 mmol/L; Bicarbonate Venous 24.7 mmol/L (24.0-30.0); PCO2 Venous 22.2 mmHg (38-42)
[2024-03-06 22:50] LABS: pH Blood Venous 7.57 (7.34-7.37)
[2024-03-06 22:55] LABS: Alanine Aminotransfer (ALT/SGP 35 U/L (12-78); Albumin, Blood 4.3 g/dL (3.4-5.0); Albumin/Globulin Ratio 1.1 (0.8-1.8); Alk Phos 120 U/L (50-136); Anion Gap 28 mmol/L (3-11); Aspartate Aminotrans (AST/SGOT 21 U/L (12-37); Bilirubin, Total 1.3 mg/dL (0.1-1.0); Blood Urea Nitrogen 14 mg/dL (8-24); Bun/Creatinine Ratio 18.8 (12.0-20.0); CO2, Blood 15 mmol/L (21-32); Calcium, Blood 9.5 mg/dL (8.5-10.1); Chloride, Blood 94 mmol/L (98-108); Creatinine, Blood 0.74 mg/dL (0.40-1.00); Globulin, Blood 3.8 g/dL (2.2-4.0); Glomerular Filtration Rate 95 (60-); Glucose, Blood 622 mg/dL (70-99); Potassium, Blood 4.5 mmol/L (3.5-5.5); Sodium, Blood 132 mmol/L (136-145); Total Protein, Blood 8.1 g/dL (6.4-8.2)
[2024-03-06] MEDS ORDERED: CALCIUM GLUC IN NACL, ISO-OSM 100 ML IV ONE (22:55)
[2024-03-06 23:10] LABS: Beta-hydroxybutyrate 58.9 mg/dL (0.2-2.8)
[2024-03-06] MEDS ORDERED: Ketorolac Tromethamine 15mg Vial IM ONE (23:15)
[2024-03-06 23:36] LABS: Calcium, Ionized (POC) 0.99 mmol/L (1.10-1.46); Chloride (POC) 98 mmol/L (98-108); Creatinine (POC) 0.7 mg/dL (0.6-1.0); Glucose (ISTAT POC) 556 mg/dL (70-99); Hemoglobin (POC) 15.3 g/dL (12.0-16.0); Potassium (POC) 4.9 mmol/L (3.5-5.5); Sodium (POC) 136 mmol/L (135-148); Total CO2 (POC) 22 mmol/L (21-32)
[2024-03-06] MEDS ORDERED: Insulin Human Regular 100 UNIT in NS 100 ML IV SCH (23:40)
[2024-03-06 23:43] LABS: PCO2 Venous 28.4 mmHg (38-42); pH Blood Venous 7.51 (7.34-7.37)
[2024-03-06 23:44] LABS: Base Excess Venous -0.5 mmol/L
[2024-03-06 23:54] LABS: Influenza A, PCR NEGATIVE (NEGATIVE); Influenza B, PCR NEGATIVE (NEGATIVE); Resp Syncytial Virus, PCR NEGATIVE (NEGATIVE); SARS-Cov-2 (COVID-19) PCR, MMC NEGATIVE (NEGATIVE)
[2024-03-07] VITALS (23 sets, daily range): BP systolic 86–121; BP diastolic 54–79
[2024-03-07 00:01] LABS: Bun/Creatinine Ratio 21.5 (12.0-20.0); Calcium, Blood 8.4 mg/dL (8.5-10.1); Creatinine, Blood 0.65 mg/dL (0.40-1.00); Potassium, Blood 4.8 mmol/L (3.5-5.5)
[2024-03-07] MEDS ORDERED: NS KCl 20mEq 1,000 ML IV SCH (00:55)
[2024-03-07] MEDS ORDERED: Insulin Human Regular 100 UNIT in NS 100 ML IV SCH (01:00)
[2024-03-07 04:04] LABS: Bun/Creatinine Ratio 24.4 (12.0-20.0); Calcium, Blood 9.3 mg/dL (8.5-10.1); Creatinine, Blood 0.66 mg/dL (0.40-1.00); Potassium, Blood 3.8 mmol/L (3.5-5.5)
[2024-03-07 04:38] LABS: Magnesium, Blood 2.7 mg/dL (1.6-2.4)
[2024-03-07] MEDS ORDERED: Promethazine HCl 25 MG Tab PO PRN (04:40)
[2024-03-07] MEDS ORDERED: Ondansetron 4 MG SoluTab MM PRN (04:40)
[2024-03-07] MEDS ORDERED: D5W-1/2NS KCl 40mEq 1,000 ML IV SCH ×2 (04:40→06:00)
[2024-03-07] MEDS ORDERED: FentaNYL Citrate 50 MCG/ML 2 ML Injection IV PRN (04:40)
[2024-03-07] MEDS ORDERED: Acetaminophen 650 MG Supp PR PRN (04:45)
[2024-03-07] MEDS ORDERED: OxyCODONE HCL 5 MG TAB PO PRN (04:45)
[2024-03-07] MEDS ORDERED: rOPINIRole HCl 1 MG Tab PO SCH (05:50)
--- NOTE | 2024-03-07 06:04 | NUR ---
TRANSFER TO ICU PT ARRIVES TO ICU AT 0400, PT TRANSITIONED SELF TO ICU BED WITH MINIMAL ASSISTANCE. PT ASNWERS QUESTIONS APPROPRAITELY, FOLLOWS DIRECTION WHEN PROMPTED AND IS ABLET O MAEK HER NEEDS KNOWN. PT MOVES ALL EXTREMITIES EQUALLY BILATERALLY. HR 80'S SINUS, MAP >65. PT ON RA, OXYGEN SATURATION >95%. ABDOMEN SOFT AND TENDER, BOWEL TONES ACTIVE IN ALL FOUR QUADRANTS. PT COMPLAINING OF NAUSEA, MEDICATED PER EMAR. PT AMBUALTES TO TOILET TO VOID WITH ARA ASSISTANCE WITH LINE MANAGEMENT. PIV IN PLACE TO LAC AND LFA. POWERGLIDE PLACED IN COLLEEN. INSULIN INFUSING AT 6UNITS/HR ON ARRIVAL TO UNIT, TITRATED DOWN TO 2UNITS/HR. D5 WITH 40MEQ KCL INFUSING AT 250MLS/HR. BED IN LOWEST POSITION, CALL LIGHT WITHIN REACH, CARE CONTINUES.
[2024-03-07 08:18] LABS: Bun/Creatinine Ratio 27.1 (12.0-20.0); Calcium, Blood 8.2 mg/dL (8.5-10.1); Creatinine, Blood 0.55 mg/dL (0.40-1.00); Potassium, Blood 3.8 mmol/L (3.5-5.5)
--- NOTE | 2024-03-07 08:30 | NUR ---
ASSUMED CARE / DR MARIE: REPORT RECEIVED FROM MIGDALIA KNAPP. ASSUMED CARE OF THIS PT AT APPROX 0700. ON ASSESSMENT, THE PT IS RESTING QUIETLY & AWAKENS EASILY TO VERBAL STIMULUS. SHE IS A&O TO ALL AT THAT TIME, ENDORSES HAVING 8/10 STOMACH PAIN/ DISCOMFORT THAT SHE STS IS "A LITTLE" WORSE THAN THE PAIN SHE EXPERIENCES AT HOME R/T CHRONIC GASTROPARESIS. LS DIM, PT DESATTING TO 70s WHILE SLEEPING, STS THAT SHE IS "SUPPOSED" TO USE A CPAP AT HOME BUT RARELY DOES. WHEN ASKED IF SHE WOULD USE A CPAP WHILE HOSPITALIZED SHE REFUSES, 2L NC PLACED BY THIS RN & RT HAS BEEN UPDATED. MONITOR SHOWS SR W/ HR 80s, BP STABLE. ABD COMPLAINTS NOTED ABOVE, NO BM SINCE ADMISSION REPORTED. PT VOIDS URINE WITHOUT DIFFICULTY, SBA FOR CORD/ LINE MANAGEMENT WHEN OOB FOR BRP. SKIN CONDITION OVERALL INTACT, PT REPOSITIONS SELF PRN FOR COMFORT. DR MARIE HAS ROUNDED THIS AM & DISCUSSED POC WITH PT. HE WOULD LIKE TO BE NOTIFIED WHEN AM LABS ARE RESULTED. THIS RN HAS CONTACTED DR AMRIE WHEN LABS ARE RESULTED & HE HAS PLACED ORDERS FOR LANTUS & SLIDING SCALE COVERAGE INSULIN. 1.5 HOURS AFTER LANTUS GIVEN, THE PT MAY BE TRANSITIONED OFF OF INSULIN DRIP & CONTINUES D5 INFUSION. THIS RN WILL REQUEST STATUS CHANGE IF PT's BLOOD SUGAR REMAINS STABLE AFTER NOTED INTERVENTIONS. WILL CONTINUE TO MONITOR & UPDATE NEEDED.
[2024-03-07] MEDS ORDERED: Insulin Glargine-Yfgn 100 Unit/mL 3 ML SYR SC SCH (09:00)
[2024-03-07] MEDS ORDERED: Enoxaparin 40 MG/0.4 ML SYR SC SCH (09:00)
[2024-03-07] MEDS ORDERED: Insulin Human Lispro 100 Units/ML 3ML Syringe SC SCH (11:30)
[2024-03-07] MEDS ORDERED: Ondansetron HCl 2 MG / ML 2ML Vial IV PRN (14:55)
--- NOTE | 2024-03-07 18:57 | NUR ---
SHIFT SUMMARY: NO ACUTE CHANGES SINCE PRIOR UPDATES. THE PT REMAINS A&O TO ALL, IS ABLE TO COMMUNICATE NEEDS WITHOUT DIFFICULTY. LS DIM, PT ON 2L NC WHILE SLEEPING. PT IS NOW MEDICAL NO TELE STATUS, BP REMAINS STABLE. SHE IS LESS NAUSEOUS THIS EVENING & HAS BEEN ABLE TO TOLERATE PO INTAKE AFTER RECEIVING SOME PRN PAIN MEDICATION IN ADDITION TO ANTIEMETIC. VOIDING URINE WITHOUT DIFFICULTY, AMBULATES TO TOILET WITH SBA. SKIN CONDITION OVERALL INTACT, PT REPOSITIONS SELF FOR COMFORT. WILL CONTINUE TO MONITOR & REPORT OFF TO ONCOMING RN.
--- NOTE | 2024-03-07 19:55 | NUR ---
ASSUMED CARE OF PATIENT AT 1900. REPORT RECEIVED FROM STEVAN Wheatley RN. PT RESTING IN BED, DINNER TRAY AT BEDSIDE. A/0X4. PT STATES SHE WAS ONLY ABLE TO EAT A COUPLE BITES OF BREAD AND IS NO LONGER HUNGRY, BUT WISHES TO KEEP HER FOOD AVAILABLE TO BE REWARMED AND EATEN LATER IF SHE FEELS UP TO IT. ON ROOM AIR WITH O2 SATURATION OF 95%. REPORTS PAIN BUT DECLINES INTERVENTION FOR IT AT THIS TIME, STATING "IT WILL BE FINE". NO ACUTE NEEDS IDENTIFIED. SEE SHIFT ASSESSMENT FOR FURTHER DETAILS.
--- NOTE | 2024-03-07 21:36 | NUR ---
CBG OF 68 HS CBG RESULT AT 2048 OF 68. PT PROVIDED WITH ORANGE JUICE, MICHELE CRACKERS, AND PEANUT BUTTER. RECHECK AT 2112 SHOWED CBG OF 151.
[2024-03-08 03:47] LABS: Bun/Creatinine Ratio 19.2 (12.0-20.0); Calcium, Blood 8.3 mg/dL (8.5-10.1); Creatinine, Blood 0.57 mg/dL (0.40-1.00); Potassium, Blood 3.8 mmol/L (3.5-5.5)
[2024-03-08 04:00] VITALS: BP 86/59
[2024-03-08 04:01] VITALS: BP 86/59
--- NOTE | 2024-03-08 05:02 | NUR ---
SHIFT SUMMARY PT REMAINED ALERT AND ORIENTED X 4 T/O ENTIRETY OF SHIFT. ABLE TO FOLLOW COMMANDS, MAKE PURPOSEFUL MOVEMENTS, AND MAKE NEEDS KNOWN. AFEBRILE. REPORTED 3 EPISODES PAIN, MEDICATED PER EMAR WITH GOOD BENEFIT. MED NO TELE STATUS, BP STABLE WITH MAP > 65. ON ROOM AIR UNTIL PT WENT TO SLEEP, AT THIS TIME 2LPM O2 VIA NC APPLIED FOR DESATURATIONS. NO BM THIS SHIFT. MEDICATED PER EMAR FOR NAUSEA WITH GOOD BENEFIT. SEE NOTE FOR 2048 CBG. AMBULATED TO TOILET WITH SBA, ONE VOID WITH 650 mL OF DARK YELLOW URINE OUT. PIV'S SALINE LOCKED. WILL CONTINUE TO MONITOR AND REPORT TO ONCOMING RN.
[2024-03-08 07:30] VITALS: BP 118/77
--- NOTE | 2024-03-08 08:10 | NUR ---
ASSUMED CARE / DR MARIE: REPORT RECEIVED FROM MIGDALIA MALDONADO. ASSUMED CARE OF THIS PT AT APPROX 0700. ON ASSESSMENT, THE PT IS A&O TO ALL, STS THAT SHE IS HAVING PAIN & CONTINUES TO FEEL NAUSEOUS, MEDS GIVEN PER EMAR. LS DIM T/O, PT ON 2L NC WHILE SLEEPING FOR DESATS, REFUSING OFFERED HOSPITAL CPAP. NO TELE MONITOR, MEDICAL STATUS. TOLERATING SMALL AMNTS OF PO INTAKE WHEN NAUSEA WELL-MANAGED. VOIDS URINE WITHOUT DIFFICULTY, AMBULATES TO BATHROOM WITH SBA. SKIN OVERALL INTACT, PT REPOSITIONS SELF PRN FOR COMFORT. DR MARIE HAS BEEN AT BEDSIDE THIS AM TO EVAL PT. HE PLANS TO DISCHARGE HER HOME. DISCUSSED LOW CBG READING OF 69 LAST NIGHT, LANTUS DOSE DECREASED FOR THIS AM. HE WOULD LIKE THIS RN TO UPDATE PT's HOME MED LIST IF POSSIBLE PRIOR TO DISCHARGE - THE PT IS A POOR HISTORIAN & STS HER DAUGHTER MANAGES HER MEDICATIONS. THIS RN WILL ATTEMPT TO CONTACT HER THIS AM. NO OTHER CHANGES AT THIS TIME. WILL CONTINUE TO MONITOR & UPDATE NEEDED.
[2024-03-08] MEDS ORDERED: Prochlorperazine Maleate 5 MG Tab PO PRN (08:35)
[2024-03-08] MEDS ORDERED: Insulin Glargine-Yfgn 100 Unit/mL 3 ML SYR SC SCH (09:00)
[2024-03-08] MEDS ORDERED: Nystatin 100,000 Unit/ML Susp 5 ML UDC MT SCH (09:00)
[2024-03-08] MEDS ORDERED: ROPI1 PO (11:02)
[2024-03-08] MEDS ORDERED: CYCL10 PO (11:03)
[2024-03-08] MEDS ORDERED: BRINTELLIX20 MG PO (11:05)
[2024-03-08] MEDS ORDERED: TRAM50 PO (11:05)
[2024-03-08] MEDS ORDERED: NOVOLOG100 UNIT/2 IV (11:20)
[2024-03-08] MEDS ORDERED: HUMALOG MI100 UNIT/1 SC (12:49)
[2024-03-08] MEDS ORDERED: PROC5 PO (12:54)
--- NOTE | 2024-03-08 14:12 | NUR ---
DISCHARGE TO HOME: DISCHARGE PACKET HAS BEEN COMPLETED BY THIS RN & REVIEWED WITH THE PT. SHE STS HAVING NO FURTHER QUESTIONS & HAS NO C/O NAUSEA OR ABDOMINAL DISCOMFORT AT THE TIME OF DISCHARGE. ALL MONITORS & IV ACCESS HAS BEEN REMOVED, PT STS HAVING GATHERED ALL BELONGINGS & IS ABLE TO DRESS HERSELF. THIS RN HAS TAKEN HER OUT TO MEET HER DAUGHTER VIA WC AT 1400.
== END 2024-03-08 14:11 | disposition home or self-care (01) ==
LOC: ER 21:50 → ERHOLD 21:51 → ICUE 21:51
PROVIDERS: Internal Medicine; Physician Assistant; Student in an Organized Health Care Education/Training Program; ADMIT Family Medicine
DX: E10.10 Type 1 diabetes mellitus with ketoacidosis without coma (principal); K21.9 Gastro-esophageal reflux disease without esophagitis; E10.43 Type 1 diabetes mellitus with diabetic autonomic (poly)neuropathy; K31.84 Gastroparesis; E83.51 Hypocalcemia; I11.0 Hypertensive heart disease with heart failure; I50.9 Heart failure, unspecified; Z88.5 Allergy status to narcotic agent; Z88.8 Allergy status to other drugs, medicaments and biological substances; Z79.899 Other long term (current) drug therapy; Z79.4 Long term (current) use of insulin
CPT/HCPCS: 0241U; 71046; 80047; 80048; 80053; 82010; 82330; 82803; 82947; 83735; 85014; 85025; 93005; 93010; 94762; 96361; 96365; 96367; 96368; 96372; 96372-59; 96375; 96376; 99285-25; A9270; C1751; G0378; J0612; J1650; J1815; J1885; J1953; J2405; J2765; J3010; J3475; J3480; J7030; Q0164

== ENCOUNTER 2024-03-10 06:27 | Inpatient (IN) | payer OTHER ==
[~2024-03-10] VITALS: Ht 162.6 cm; Wt 60.6 kg
[~2024-03-10 06:27] MED LIST changes: +HUMALOG MI100 UNIT/1 SC; +NOVOLOG100 UNIT/2 IV
[2024-03-10] MEDS ORDERED: Lactated Ringer's 1,000 ML IV ONE ×2 (06:35→06:45)
[2024-03-10] MEDS ORDERED: Insulin Human Regular 100 UNIT in NS 100 ML IV SCH (06:45)
[2024-03-10 06:51] LABS: PCO2 Venous 30 mmHg (38-42)
[2024-03-10 06:52] LABS: Base Excess Venous 7.8 mmol/L
[2024-03-10 06:55] LABS: BASOPHILS ABSOLUTE AUTO 0.04 K/mm3 (0.00-0.23); BASOPHILS PERCENT AUTO 0 % (0-2); EOSINOPHILS ABSOLUTE AUTO 0.01 K/mm3 (0.00-0.68); EOSINOPHILS PERCENT AUTO 0 % (0-6); Hematocrit 46.6 % (33.0-51.0); Hemoglobin 16.3 g/dL (11.5-16.0); IMMATURE GRAN ABSOLUTE AUTO 0.03 K/mm3 (0.00-0.10); IMMATURE GRAN PERCENT AUTO 0 % (0-1); LYMPHOCYTES ABSOLUTE AUTO 2.09 K/mm3 (0.84-5.20); LYMPHOCYTES PERCENT AUTO 22 % (21-46); MONOCYTES ABSOLUTE AUTO 0.45 K/mm3 (0.16-1.47); MONOCYTES PERCENT AUTO 5 % (4-13); Mean Corpuscular HGB 30.8 pg (26.0-34.0); Mean Corpuscular Volume 88 fL (80-100); Mean Platelet Volume 10.1 fL (9.1-12.4); NEUTROPHILS ABSOLUTE AUTO 6.86 K/mm3 (1.96-9.15); NEUTROPHILS PERCENT AUTO 73 % (41-73); Platelet Count 376 K/mm3 (150-400); RDW Coefficient Variation 13.3 % (11.7-14.2); RDW Standard Deviation 43.3 fL (35.1-46.3); Red Blood Cell Count 5.29 M/mm3 (3.80-5.20); White Blood Cell Count 9.48 K/mm3 (4.00-11.30)
[2024-03-10 07:10] LABS: Albumin, Blood 4.8 g/dL (3.4-5.0); Albumin/Globulin Ratio 1.1 (0.8-1.8); Bilirubin, Total 1.7 mg/dL (0.1-1.0); Bun/Creatinine Ratio 18.8 (12.0-20.0); Calcium, Blood 10.3 mg/dL (8.5-10.1); Creatinine, Blood 0.59 mg/dL (0.40-1.00); Globulin, Blood 4.4 g/dL (2.2-4.0); Potassium, Blood 5.6 mmol/L (3.5-5.5); Total Protein, Blood 9.2 g/dL (6.4-8.2)
[2024-03-10] MEDS ORDERED: Droperidol 5 mg/2 ml Vial IV ONE (08:00)
[2024-03-10] MEDS ORDERED: HYDROmorphone HCl/Pf 1MG SYR IV ONE (08:05)
[2024-03-10] MEDS ORDERED: Metoclopramide HCl 5MG / ML 2ML Vial IV PRN (09:15)
[2024-03-10] MEDS ORDERED: HYDROmorphone HCl/Pf 1MG SYR IV PRN (09:15)
[2024-03-10] MEDS ORDERED: Ondansetron HCl 2 MG / ML 2ML Vial IV PRN (09:15)
[2024-03-10] MEDS ORDERED: Acetaminophen 325 MG TABLET PO PRN (09:20)
[2024-03-10] MEDS ORDERED: Metoclopramide HCl 5MG / ML 2ML Vial IV ONE (09:20)
[2024-03-10] MEDS ORDERED: Insulin Glargine-Yfgn 100 Unit/mL 3 ML SYR SC SCH (10:15)
[2024-03-10 11:15] LABS: Bun/Creatinine Ratio 16.6 (12.0-20.0); Creatinine, Blood 0.6 mg/dL (0.40-1.00)
[2024-03-10 11:16] LABS: Potassium, Blood 3.4 mmol/L (3.5-5.5)
[2024-03-10] MEDS ORDERED: Potassium Chloride 20 MEQ TabCR PO ONE (11:29)
[2024-03-10] MEDS ORDERED: Insulin Human Lispro 100 Units/ML 3ML Syringe SC SCH ×2 (11:30→12:30)
[2024-03-10] MEDS ORDERED: Potassium Chloride 40 MEQ in NS 250 ML IV STA (12:11)
[2024-03-10] MEDS ORDERED: NS 1,000 ML IV ONE (13:00)
[2024-03-10] MEDS ORDERED: FentaNYL Citrate 50 MCG/ML 2 ML Injection IV PRN (13:50)
--- NOTE | 2024-03-10 15:37 | NUR ---
REPORT RECIEVED FROM MANDY NEGRON [facility] ED AT 1523.
[2024-03-10 15:46] LABS: Bun/Creatinine Ratio 19.5 (12.0-20.0); Calcium, Blood 8.4 mg/dL (8.5-10.1); Creatinine, Blood 0.56 mg/dL (0.40-1.00); Potassium, Blood 4.1 mmol/L (3.5-5.5)
[2024-03-10 15:56] VITALS: BP 110/71
--- NOTE | 2024-03-10 19:00 | NUR ---
ASSUMED CARE OF PT AT THIS TIME. PT RESTING IN BED. C/O PAIN 02/26. PT MEDICATED PER EMAR.
[2024-03-10 19:24] VITALS: BP 138/95
[2024-03-10] MEDS ORDERED: LevETIRAcetam 500 MG Tab PO SCH (21:00)
[2024-03-11] VITALS (7 sets, daily range): BP systolic 84–138; BP diastolic 61–99
[2024-03-11 04:22] LABS: BASOPHILS ABSOLUTE AUTO 0.04 K/mm3 (0.00-0.23); BASOPHILS PERCENT AUTO 1 % (0-2); EOSINOPHILS ABSOLUTE AUTO 0.15 K/mm3 (0.00-0.68); EOSINOPHILS PERCENT AUTO 2 % (0-6); Hematocrit 38.7 % (33.0-51.0); Hemoglobin 12.6 g/dL (11.5-16.0); IMMATURE GRAN ABSOLUTE AUTO 0.01 K/mm3 (0.00-0.10); IMMATURE GRAN PERCENT AUTO 0 % (0-1); LYMPHOCYTES PERCENT AUTO 48 % (21-46); MONOCYTES ABSOLUTE AUTO 0.44 K/mm3 (0.16-1.47); MONOCYTES PERCENT AUTO 6 % (4-13); Mean Corpuscular HGB 30.6 pg (26.0-34.0); Mean Corpuscular HGB Conc 32.6 g/dL (31.5-36.5); Mean Platelet Volume 9.6 fL (9.1-12.4); NEUTROPHILS ABSOLUTE AUTO 2.97 K/mm3 (1.96-9.15); NEUTROPHILS PERCENT AUTO 43 % (41-73); Platelet Count 237 K/mm3 (150-400); RDW Coefficient Variation 13.7 % (11.7-14.2); RDW Standard Deviation 47.5 fL (35.1-46.3); Red Blood Cell Count 4.12 M/mm3 (3.80-5.20); White Blood Cell Count 6.91 K/mm3 (4.00-11.30)
[2024-03-11 04:25] LABS: Mean Corpuscular Volume 94 fL (80-100)
[2024-03-11 04:55] LABS: Albumin, Blood 3.2 g/dL (3.4-5.0); Albumin/Globulin Ratio 1.1 (0.8-1.8); Bilirubin, Total 1.1 mg/dL (0.1-1.0); Bun/Creatinine Ratio 18.6 (12.0-20.0); Calcium, Blood 8.4 mg/dL (8.5-10.1); Creatinine, Blood 0.59 mg/dL (0.40-1.00); Globulin, Blood 2.9 g/dL (2.2-4.0); Potassium, Blood 3.2 mmol/L (3.5-5.5); Total Protein, Blood 6.1 g/dL (6.4-8.2)
--- NOTE | 2024-03-11 05:09 | NUR ---
END OF SHIFT SUMMARY PT CONTINUES TO HAVE NAUSEA AND ABD PAIN. MEDICATED PER EMAR THROUGHOUT SHIFT. PT ONLY UP TO RESTROOM ONE TIME THIS SHIFT. PT RESTED MOST THE SHIFT WITH ONLY THE ABOVE COMPLAINTS. VS WNL. BED IN LOW POSITION. CALL LIGHT WITHIN REACH. A/O X4. 2 LPM NC AFTER IV PAIN MEDICATIONS GIVEN D/T DESAT TO LOW 80'S. PT ALSO REPORTS HAVING SLEEP APNEA. WILL CONTINUE TO MONITOR UNTIL REPORT GIVEN TO AM RN.
--- NOTE | 2024-03-11 06:26 | NUR ---
PT C/O / ABD PAIN. MEDICATED PER EMAR WITH OXYGEN VIA NC AT LPM.
[2024-03-11] MEDS ORDERED: Potassium Chloride 40 MEQ in NS 250 ML IV ONE (06:35)
[2024-03-11] MEDS ORDERED: Lactated Ringer's 1,000 ML IV SCH (07:00)
[2024-03-11] MEDS ORDERED: FentaNYL Citrate 50 MCG/ML 2 ML Injection IV PRN (07:25)
[2024-03-11] MEDS ORDERED: Insulin Human Lispro 100 Units/ML 3ML Syringe SC SCH (07:30)
[2024-03-11] MEDS ORDERED: NS 1,000 ML IV SCH (08:00)
[2024-03-11] MEDS ORDERED: Enoxaparin 40 MG/0.4 ML SYR SC SCH (09:00)
[2024-03-11] MEDS ORDERED: Cyclobenzaprine HCl 10 MG Tab PO PRN (09:25)
[2024-03-11] MEDS ORDERED: ALPRAZolam 0.25 MG Tab PO PRN (09:25)
[2024-03-11] MEDS ORDERED: Pantoprazole Sodium 40 MG Tab PO ONE (09:50)
[2024-03-11] MEDS ORDERED: Ketorolac Tromethamine 15mg Vial IV PRN (10:15)
[2024-03-11] MEDS ORDERED: TraZODone HCl 50 MG Tab PO PRN (10:20)
[2024-03-11] MEDS ORDERED: Ondansetron HCl 2 MG / ML 2ML Vial IV PRN ×2 (10:50→15:00)
[2024-03-11] MEDS ORDERED: Prochlorperazine Maleate 5 MG Tab PO SCH ×2 (11:00→11:30)
[2024-03-11] MEDS ORDERED: Metoclopramide HCl 10 MG Tab PO SCH (11:30)
--- NOTE | 2024-03-11 17:20 | NUR ---
SHIFT SUMMARY NO ACUTE CHANGES THIS SHIFT. PT HAS REMAINED ALERT AND ORIENTED WHEN AWAKE. PT RESTING OFF AND ON THROUGHOUT THE AFTERNOON. PT WITH CONTINUED NAUSEA, ABDOMINAL/HIP/BACK PAIN THROUGHOUT THE SHIFT. PT MED PER EMAR AND DR BROWN AND DR ANGEL AWARE OF PT CONTINUED PAIN/NAUSEA. PT WITH POOR APPEITITE THROUGHOUT THE SHIFT. PT ABLE TO TOLERATE SMALL AMOUNT OF PO INTAKE THIS EVENING. VITAL SIGNS REMAIN STABLE. PT ON ROOM AIR. PT DANGLED AT BEDSIDE ONCE THIS SHIFT. PT NEEDS FREQUENT ENCOURAGEMENT TO PARTICIPATE IN CARE. PT TURNS SELF SIDE TO SIDE IN BED INDEPENDENTLY. NS INFUSING AT 100 ML/HR TO LAC. NO FAMILY AT BEDSIDE. WILL CONTINUE TO MONITOR AND REPORT OFF TO ONCOMING RN.
[2024-03-12 04:52] VITALS: BP 97/58
--- NOTE | 2024-03-12 04:56 | NUR ---
SHIFT SUMMARY PATIENT IS ALERT AND ORIENTED X4. SP02 100% ON RA, DENIES SOB. HR SR 70s, BP STABLE, DENIES CP/PRESSURE. MEDICATED FOR ABDOMINAL PAIN PRN THROUGH THE NIGHT. CALL LIGHT IN REACH
[2024-03-12 05:20] LABS: BASOPHILS ABSOLUTE AUTO 0.05 K/mm3 (0.00-0.23); BASOPHILS PERCENT AUTO 1 % (0-2); EOSINOPHILS ABSOLUTE AUTO 0.15 K/mm3 (0.00-0.68); EOSINOPHILS PERCENT AUTO 3 % (0-6); Hematocrit 40.6 % (33.0-51.0); Hemoglobin 13.2 g/dL (11.5-16.0); IMMATURE GRAN ABSOLUTE AUTO 0.01 K/mm3 (0.00-0.10); IMMATURE GRAN PERCENT AUTO 0 % (0-1); LYMPHOCYTES ABSOLUTE AUTO 2.99 K/mm3 (0.84-5.20); LYMPHOCYTES PERCENT AUTO 55 % (21-46); MONOCYTES ABSOLUTE AUTO 0.38 K/mm3 (0.16-1.47); MONOCYTES PERCENT AUTO 7 % (4-13); Mean Corpuscular HGB 31.4 pg (26.0-34.0); Mean Corpuscular HGB Conc 32.5 g/dL (31.5-36.5); Mean Corpuscular Volume 96 fL (80-100); Mean Platelet Volume 9.6 fL (9.1-12.4); NEUTROPHILS ABSOLUTE AUTO 1.87 K/mm3 (1.96-9.15); NEUTROPHILS PERCENT AUTO 34 % (41-73); Platelet Count 214 K/mm3 (150-400); RDW Coefficient Variation 13.4 % (11.7-14.2); RDW Standard Deviation 47.9 fL (35.1-46.3); Red Blood Cell Count 4.21 M/mm3 (3.80-5.20); White Blood Cell Count 5.45 K/mm3 (4.00-11.30)
[2024-03-12] MEDS ORDERED: Pantoprazole Sodium 40 MG Tab PO SCH (06:00)
[2024-03-12] MEDS ORDERED: Pantoprazole Sodium 40 MG Injection IV SCH (06:00)
[2024-03-12 06:01] LABS: Bun/Creatinine Ratio 14.4 (12.0-20.0); Calcium, Blood 8.4 mg/dL (8.5-10.1); Creatinine, Blood 0.56 mg/dL (0.40-1.00); Potassium, Blood 3.6 mmol/L (3.5-5.5)
[2024-03-12] MEDS ORDERED: Insulin Glargine-Yfgn 100 Unit/mL 3 ML SYR SC SCH (09:00)
[2024-03-12] MEDS ORDERED: Clopidogrel Bisulfate 75 MG Tab PO SCH (09:00)
[2024-03-12] MEDS ORDERED: Atorvastatin 40 MG Tab PO SCH (09:00)
[2024-03-12] MEDS ORDERED: Aspirin 81 MG Chew PO SCH (09:00)
[2024-03-12 09:51] VITALS: BP 119/83
[2024-03-12] MEDS ORDERED: Scopolamine Hydrobromide Patch TOP SCH (11:00)
[2024-03-12] MEDS ORDERED: TRANSDERM-SCOP1 EA10 TD (12:24)
[2024-03-12 13:30] VITALS: BP 130/88
--- NOTE | 2024-03-12 15:14 | NUR ---
DISCHARGE SUMMARY PT ALERT AND ORIENTED. VSS. DISCHARGE EDUCATION PROVIDED: DISCUSSED MEDICATIONS. NO QUESTIONS OR CONCERNS. IV REMOVED WITH NO COMPLAINTS, PRESSURE APPLIED AND DRESSED WITH GAUZE/COBAN. PT TOLERATED WELL. PT LEFT VIA WHEELCHAIR AT 13:53.
== END 2024-03-12 13:59 | disposition home or self-care (01) | DRG 48 ==
LOC: ER 06:27 → ERHOLD 09:27 → PCU 15:46
PROVIDERS: Emergency Medicine; ADMIT Internal Medicine
DX: E10.43 Type 1 diabetes mellitus with diabetic autonomic (poly)neuropathy (principal); K31.84 Gastroparesis; E87.6 Hypokalemia; E87.3 Alkalosis; G40.909 Epilepsy, unspecified, not intractable, without status epilepticus; K21.9 Gastro-esophageal reflux disease without esophagitis; I25.2 Old myocardial infarction; F41.9 Anxiety disorder, unspecified; Z88.8 Allergy status to other drugs, medicaments and biological substances; Z88.5 Allergy status to narcotic agent; Z95.5 Presence of coronary angioplasty implant and graft; I11.0 Hypertensive heart disease with heart failure; I50.9 Heart failure, unspecified; M19.90 Unspecified osteoarthritis, unspecified site; F17.210 Nicotine dependence, cigarettes, uncomplicated; Z79.82 Long term (current) use of aspirin; Z79.02 Long term (current) use of antithrombotics/antiplatelets; Z79.899 Other long term (current) drug therapy
CPT/HCPCS: 36415; 76700; 80048; 80053; 82010; 82803; 82947; 83605; 83690; 84484; 85025; 93005; 93010; 94762; 96361; 96374; 96375; 99285-25; A9270; J1170; J1650; J1790; J1815; J2405; J2765; J3010; J3480; J7030; J7050; J7120; Q0164

== ENCOUNTER 2024-03-15 11:07 | Emergency (ER) | payer OTHER ==
[~2024-03-15] VITALS: Ht 162.6 cm; Wt 56.7 kg
[2024-03-15] MEDS ORDERED: Metoclopramide HCl 5MG / ML 2ML Vial IV ONE ×2 (11:20→15:50)
[2024-03-15] MEDS ORDERED: NS 2,000 ML IV SCH (11:20)
[2024-03-15] MEDS ORDERED: DiphenhydrAMINE HCl 50 MG/ML 1ML Vial IV ONE (11:25)
[2024-03-15] MEDS ORDERED: Droperidol 5 mg/2 ml Vial IV ONE ×2 (11:25→12:25)
[2024-03-15 11:40] LABS: Base Excess Venous 7.6 mmol/L; Bicarbonate Venous 32.9 mmol/L (24.0-30.0); PCO2 Venous 23.4 mmHg (38-42); pH Blood Venous 7.68 (7.34-7.37)
[2024-03-15 11:44] LABS: BASOPHILS ABSOLUTE AUTO 0.06 K/mm3 (0.00-0.23); BASOPHILS PERCENT AUTO 0 % (0-2); EOSINOPHILS ABSOLUTE AUTO 0.02 K/mm3 (0.00-0.68); EOSINOPHILS PERCENT AUTO 0 % (0-6); Hematocrit 45.1 % (33.0-51.0); Hemoglobin 15.6 g/dL (11.5-16.0); IMMATURE GRAN ABSOLUTE AUTO 0.06 K/mm3 (0.00-0.10); IMMATURE GRAN PERCENT AUTO 0 % (0-1); LYMPHOCYTES ABSOLUTE AUTO 2.34 K/mm3 (0.84-5.20); LYMPHOCYTES PERCENT AUTO 17 % (21-46); MONOCYTES ABSOLUTE AUTO 0.78 K/mm3 (0.16-1.47); MONOCYTES PERCENT AUTO 6 % (4-13); Mean Corpuscular HGB 30.8 pg (26.0-34.0); Mean Corpuscular HGB Conc 34.6 g/dL (31.5-36.5); Mean Corpuscular Volume 89 fL (80-100); Mean Platelet Volume 9.5 fL (9.1-12.4); NEUTROPHILS ABSOLUTE AUTO 10.25 K/mm3 (1.96-9.15); NEUTROPHILS PERCENT AUTO 76 % (41-73); Platelet Count 376 K/mm3 (150-400); RDW Coefficient Variation 13.1 % (11.7-14.2); RDW Standard Deviation 42.6 fL (35.1-46.3); Red Blood Cell Count 5.07 M/mm3 (3.80-5.20); White Blood Cell Count 13.51 K/mm3 (4.00-11.30)
[2024-03-15 11:48] LABS: Calcium, Ionized (POC) 1.06 mmol/L (1.10-1.46); Chloride (POC) 98 mmol/L (98-108); Creatinine (POC) 0.5 mg/dL (0.6-1.0); Glucose (ISTAT POC) 323 mg/dL (70-99); Potassium (POC) 3.2 mmol/L (3.5-5.5); Sodium (POC) 137 mmol/L (135-148); Total CO2 (POC) 28 mmol/L (21-32)
[2024-03-15] MEDS ORDERED: CALCIUM GLUC IN NACL, ISO-OSM 100 ML IV ONE (12:15)
[2024-03-15 12:16] LABS: Albumin, Blood 4.3 g/dL (3.4-5.0); Albumin/Globulin Ratio 1.2 (0.8-1.8); Beta-hydroxybutyrate 6.6 mg/dL (0.2-2.8); Bilirubin, Total 0.9 mg/dL (0.1-1.0); Bun/Creatinine Ratio 18.6 (12.0-20.0); Calcium, Blood 10.2 mg/dL (8.5-10.1); Creatinine, Blood 0.43 mg/dL (0.40-1.00); Globulin, Blood 3.7 g/dL (2.2-4.0); Magnesium, Blood 1.7 mg/dL (1.6-2.4); Potassium, Blood 3.3 mmol/L (3.5-5.5)
[2024-03-15] MEDS ORDERED: Potassium Chl 20MEQ/Water100ML 100 ML IV ONE (12:20)
[2024-03-15] MEDS ORDERED: Mag Hydrox/AL Hydrox/Simeth 30 ML UDC PO ONE (12:25)
[2024-03-15] MEDS ORDERED: PROM12.5S PR (14:06)
[2024-03-15 14:23] LABS: Base Excess Venous 2.6 mmol/L; Bicarbonate Venous 26.5 mmol/L (24.0-30.0); PCO2 Venous 39.8 mmHg (38-42); pH Blood Venous 7.44 (7.34-7.37)
[2024-03-15] MEDS ORDERED: NS 1,000 ML IV SCH (14:45)
[2024-03-15] MEDS ORDERED: Ondansetron HCl 2 MG / ML 2ML Vial IV ONE (15:50)
[2024-03-15 16:24] VITALS: BP 121/84
== END 2024-03-15 16:24 | disposition home or self-care (01) ==
LOC: ER 11:07
PROVIDERS: Student in an Organized Health Care Education/Training Program
DX: E83.51 Hypocalcemia (principal); E87.6 Hypokalemia; E86.0 Dehydration; R11.2 Nausea with vomiting, unspecified; K21.9 Gastro-esophageal reflux disease without esophagitis; E10.43 Type 1 diabetes mellitus with diabetic autonomic (poly)neuropathy; I10 Essential (primary) hypertension; M19.90 Unspecified osteoarthritis, unspecified site; I25.2 Old myocardial infarction; E11.42 Type 2 diabetes mellitus with diabetic polyneuropathy; Z87.19 Personal history of other diseases of the digestive system; F17.210 Nicotine dependence, cigarettes, uncomplicated; Z79.82 Long term (current) use of aspirin; Z79.4 Long term (current) use of insulin; Z79.899 Other long term (current) drug therapy; Z79.02 Long term (current) use of antithrombotics/antiplatelets; Z88.5 Allergy status to narcotic agent; Z88.8 Allergy status to other drugs, medicaments and biological substances
CPT/HCPCS: 80047; 80053; 82010; 82803; 83690; 83735; 85014; 85025; 93005; 93010; 96361; 96365; 96366; 96375; 96376; 99284-25; A9270; J0612; J1200; J1790; J2405; J2765; J3480; J7030

== ENCOUNTER 2024-05-09 15:30 | Inpatient (IN) | payer OTHER ==
[~2024-05-09] VITALS: Ht 162.6 cm; Wt 57.1 kg
[~2024-05-09 15:30] MED LIST changes: +Enoxaparin 40 MG/0.4 ML SYR SC SCH; +Ropinirole HCl0.5 MG PO
[2024-05-09] MEDS ORDERED: Ondansetron HCl 2 MG / ML 2ML Vial IV ONE (15:40)
[2024-05-09 17:58] LABS: BASOPHILS ABSOLUTE AUTO 0.08 K/mm3 (0.00-0.23); BASOPHILS PERCENT AUTO 1 % (0-2); EOSINOPHILS ABSOLUTE AUTO 0.14 K/mm3 (0.00-0.68); EOSINOPHILS PERCENT AUTO 1 % (0-6); Hematocrit 50.9 % (33.0-51.0); Hemoglobin 17.8 g/dL (11.5-16.0); IMMATURE GRAN ABSOLUTE AUTO 0.05 K/mm3 (0.00-0.10); IMMATURE GRAN PERCENT AUTO 0 % (0-1); LYMPHOCYTES ABSOLUTE AUTO 3.44 K/mm3 (0.84-5.20); LYMPHOCYTES PERCENT AUTO 24 % (21-46); MONOCYTES ABSOLUTE AUTO 0.96 K/mm3 (0.16-1.47); MONOCYTES PERCENT AUTO 7 % (4-13); Mean Corpuscular HGB 31.8 pg (26.0-34.0); Mean Corpuscular Volume 91 fL (80-100); Mean Platelet Volume 9.5 fL (9.1-12.4); NEUTROPHILS ABSOLUTE AUTO 9.93 K/mm3 (1.96-9.15); NEUTROPHILS PERCENT AUTO 68 % (41-73); Platelet Count 452 K/mm3 (150-400); RDW Coefficient Variation 12.2 % (11.7-14.2); RDW Standard Deviation 40.6 fL (35.1-46.3)
[2024-05-09 18:12] LABS: Albumin, Blood 4.6 g/dL (3.4-5.0); Albumin/Globulin Ratio 1.2 (0.8-1.8); Bilirubin, Total 1.2 mg/dL (0.1-1.0); Bun/Creatinine Ratio 39.4 (12.0-20.0); Calcium, Blood 10.2 mg/dL (8.5-10.1); Creatinine, Blood 0.91 mg/dL (0.40-1.00); Potassium, Blood 3.8 mmol/L (3.5-5.5); Total Protein, Blood 8.6 g/dL (6.4-8.2)
[2024-05-09] MEDS ORDERED: levETIRAcetam 1,500 MG in NS 100 ML IV ONE (19:50)
[2024-05-09] MEDS ORDERED: Metoclopramide HCl 5MG / ML 2ML Vial IV ONE (19:50)
[2024-05-09] MEDS ORDERED: Lactated Ringer's 1,000 ML IV ONE ×2 (19:50→22:00)
[2024-05-09] MEDS ORDERED: DiphenhydrAMINE HCl 50 MG/ML 1ML Vial IV ONE (19:50)
[2024-05-09 21:33] LABS: Beta-hydroxybutyrate 61.9 mg/dL (0.2-2.8)
[2024-05-09] MEDS ORDERED: Morphine Sulfate 4 MG/1 ML Injection IV ONE (21:35)
[2024-05-09] MEDS ORDERED: Potassium Chl 20MEQ/Water100ML 100 ML IV ONE (22:00)
[2024-05-09] MEDS ORDERED: Insulin Human Regular 100 UNIT in NS 100 ML IV SCH ×2 (22:00→23:50)
[2024-05-09 22:17] LABS: Base Excess Venous -4.3 mmol/L; Bicarbonate Venous 21.4 mmol/L (24.0-30.0); PCO2 Venous 35.7 mmHg (38-42); pH Blood Venous 7.38 (7.34-7.37)
[2024-05-09] MEDS ORDERED: Ondansetron HCl 2 MG / ML 2ML Vial IV PRN (23:35)
[2024-05-09] MEDS ORDERED: Metoclopramide HCl 5MG / ML 2ML Vial IV PRN (23:35)
[2024-05-09] MEDS ORDERED: FentaNYL Citrate 50 MCG/ML 2 ML Injection IV PRN (23:40)
[2024-05-09] MEDS ORDERED: FLU VACC TS2024-25(6MOS UP)/PF 45 MCG/0.5 ML SYRINGE IM SCH (23:40)
[2024-05-09 23:55] LABS: Bun/Creatinine Ratio 39.8 (12.0-20.0); Calcium, Blood 8.9 mg/dL (8.5-10.1); Creatinine, Blood 0.98 mg/dL (0.40-1.00)
[2024-05-10] VITALS (16 sets, daily range): BP systolic 91–122; BP diastolic 57–82
--- NOTE | 2024-05-10 01:40 | NUR ---
Pt arrives to unit at 0140 from ER. Pt is alert and oriented. C/o abdominal pain and nausea. Insulin infusing at 5.7units/hr. Additional staff to room to place powerglide d/t limited iv access. Pt up to bsc, c/o feeling dizzy when standing. Urine specimen collected and sent to lab for analysis. Dr. Irizarry to room for pt eval. Call light provided, plan of care ongoing.
[2024-05-10] MEDS ORDERED: D5W-1/2NS 1,000 ML IV SCH (02:30)
[2024-05-10 02:45] LABS: Source, Urine Clean Catch
[2024-05-10] MEDS ORDERED: FentaNYL Citrate 50 MCG/ML 2 ML Injection IV PRN ×2 (02:50→05:30)
[2024-05-10 03:00] LABS: Bilirubin, Urine Neg (Neg); Blood, Urine 1+ (Neg); Glucose Qualitative, Urine 4+ (Neg); Ketones, Urine 4+ (Neg); Leukocyte Esterase, Urine 1+ (Neg); Nitrite, Urine Neg (Neg); Protein, Urine 2+ (Neg); Specific Gravity, Urine 1.025 (1.003-1.022); Urobilinogen, Urine NORM (Normal)
[2024-05-10 03:17] LABS: Appearance, Urine Clear (Clear); Color, Urine Yellow (P-Yellow); Red Blood Cells, Urine 0-2 /hpf (0-2)
[2024-05-10 03:18] LABS: Bacteria Mod /hpf; Squamous Epithelial Cells Few /hpf (Few)
[2024-05-10 05:10] LABS: BASOPHILS ABSOLUTE AUTO 0.03 K/mm3 (0.00-0.23); BASOPHILS PERCENT AUTO 0 % (0-2); EOSINOPHILS ABSOLUTE AUTO 0.15 K/mm3 (0.00-0.68); EOSINOPHILS PERCENT AUTO 2 % (0-6); Hemoglobin 13.3 g/dL (11.5-16.0); IMMATURE GRAN ABSOLUTE AUTO 0.02 K/mm3 (0.00-0.10); IMMATURE GRAN PERCENT AUTO 0 % (0-1); LYMPHOCYTES ABSOLUTE AUTO 3.96 K/mm3 (0.84-5.20); LYMPHOCYTES PERCENT AUTO 42 % (21-46); MONOCYTES ABSOLUTE AUTO 0.84 K/mm3 (0.16-1.47); MONOCYTES PERCENT AUTO 9 % (4-13); Mean Corpuscular HGB 31.7 pg (26.0-34.0); Mean Corpuscular Volume 91 fL (80-100); Mean Platelet Volume 9.3 fL (9.1-12.4); NEUTROPHILS PERCENT AUTO 47 % (41-73); Platelet Count 318 K/mm3 (150-400); RDW Coefficient Variation 12.2 % (11.7-14.2); RDW Standard Deviation 40.6 fL (35.1-46.3); Red Blood Cell Count 4.19 M/mm3 (3.80-5.20)
[2024-05-10] MEDS ORDERED: Prochlorperazine Edisylate 10 mg Vial IV PRN (05:25)
[2024-05-10 05:35] LABS: Albumin, Blood 3.4 g/dL (3.4-5.0); Albumin/Globulin Ratio 1.2 (0.8-1.8); Bilirubin, Total 0.8 mg/dL (0.1-1.0); Bun/Creatinine Ratio 40.3 (12.0-20.0); Calcium, Blood 8.7 mg/dL (8.5-10.1); Creatinine, Blood 0.84 mg/dL (0.40-1.00); Globulin, Blood 2.9 g/dL (2.2-4.0); Potassium, Blood 3.5 mmol/L (3.5-5.5)
[2024-05-10 05:59] LABS: Total Protein, Blood 6.3 g/dL (6.4-8.2)
--- NOTE | 2024-05-10 06:14 | NUR ---
End of shift summary No acute events overnight. Provider contacted regarding persistent nausea and abdominal pain despite prn medications. Additional orders recieved. Insulin at 2units/hr. D5 1/2 ns running at 100ml/hr. Pt using call light appropriately. Plan of care ongoing.
[2024-05-10] MEDS ORDERED: NS 1,000 ML IV SCH (06:20)
[2024-05-10] MEDS ORDERED: Insulin Glargine-Yfgn 100 Unit/mL 3 ML SYR SC ONE (08:50)
--- NOTE | 2024-05-10 10:31 | NUR ---
ALESSIO REFUSED ANY EDUCATION FROM PIANO TEACHER, SHE REFUSED A PROTEIN DRINK OFFERED BY HER WELL. SHE REQUESTED PEANUT BUTTER. CONTINUES WITH A CHILDLIKE MOAN WITH ANY CONVERSATION, ALMOST A WHINE WHEN SHE SPEAKS. PG TO PEGGY, IV FLUIDS @ 75ML/HR.
[2024-05-10 10:40] LABS: Phosphorus, Blood 3.6 mg/dL (2.5-4.9)
[2024-05-10] MEDS ORDERED: Insulin Regular 100 UNIT/ML 10ML Vial SC SCH ×2 (11:30→12:00)
[2024-05-10] MEDS ORDERED: Metoclopramide HCl 5MG / ML 2ML Vial IV SCH (12:00)
[2024-05-10] MEDS ORDERED: levETIRAcetam 750 MG TABLET PO SCH (12:00)
[2024-05-10 12:04] LABS: Calcium, Blood 8.2 mg/dL (8.5-10.1); Creatinine, Blood 0.85 mg/dL (0.40-1.00); Potassium, Blood 3.6 mmol/L (3.5-5.5)
[2024-05-10] MEDS ORDERED: Prochlorperazine Maleate 5 MG Tab PO PRN (16:05)
[2024-05-10] MEDS ORDERED: TraMADol HCl 50 MG Tab PO PRN (16:10)
[2024-05-10] MEDS ORDERED: ALPRAZolam 0.25 MG Tab PO PRN (16:10)
--- NOTE | 2024-05-10 17:03 | NUR ---
PT IS SLEEPING AFTER HAVING BEEN AWAKE AND ASKING FOR TOMATO SOUP WITH CRACKERS AND SALT AND PEPPER. SHE HAD JUST REPORTED NOT FEELING WELL AND HAVING A LOT OF BELLY PAIN. SHE TOOK IN THE SOUP AND LAID BACK DOWN. SHE HAS BEEN RESTING SINCE.
[2024-05-10 18:50] LABS: Calcium, Blood 8.3 mg/dL (8.5-10.1); Creatinine, Blood 0.82 mg/dL (0.40-1.00); Potassium, Blood 3.2 mmol/L (3.5-5.5)
[2024-05-10] MEDS ORDERED: Potassium Chl 20MEQ/Water100ML 100 ML IV SCH (21:00)
[2024-05-10] MEDS ORDERED: rOPINIRole HCl 1 MG Tab PO SCH (21:00)
[2024-05-10] MEDS ORDERED: BusPIRone HCl 10 MG Tab PO SCH (21:00)
[2024-05-10] MEDS ORDERED: Atorvastatin 40 MG Tab PO SCH (21:00)
[2024-05-11 03:42] VITALS: BP 113/83
[2024-05-11 07:06] VITALS: BP 114/69
[2024-05-11 07:10] LABS: Bun/Creatinine Ratio 29.4 (12.0-20.0); Creatinine, Blood 0.58 mg/dL (0.40-1.00); Potassium, Blood 4.2 mmol/L (3.5-5.5)
--- NOTE | 2024-05-11 07:40 | NUR ---
SHIFT SUMMARY ALESSIO ARRIVED TO ROOM 334 FROM ICU AROUND 2100 VIA WHEELCHAIR. PT IS A&OX4. VSS ON RA. C/O PAIN IN HER ABD, MEDICATED WITH PRN 50 MG PO TRAMADOL. PT ALSO C/O NAUSEA, MEDICATED WITH SCHEDULED AND PRN MEDICATIONS. TOLERATING SMALL SIPS OF FLUIDS, POOR PO INTAKE. IVF INFUSING PER EMAR. SBA FOR LINE MANAGEMENT TO BR. BED IN LOWEST POSITION, CALL LIGHT WITHIN REACH.
[2024-05-11] MEDS ORDERED: Famotidine 20 MG Tab PO SCH (08:00)
[2024-05-11] MEDS ORDERED: Aspirin 81 MG Chew PO SCH (09:00)
[2024-05-11] MEDS ORDERED: rOPINIRole HCl 0.25 MG Tab PO SCH (09:00)
[2024-05-11] MEDS ORDERED: Clopidogrel Bisulfate 75 MG Tab PO SCH (09:00)
[2024-05-11] MEDS ORDERED: Pantoprazole Sodium 20 MG Tab PO SCH (10:30)
[2024-05-11 14:58] VITALS: BP 102/77
--- NOTE | 2024-05-11 17:58 | NUR ---
SHIFT SUMMARY MS FIELDS C/O FEELING NAUSEAUS AND GENERALLY UNCOMFORTABLE. SHE DID KEEP DOWN 2 CUPS OF TOMATO SOUP AND CRACKERS, 2 CUPS OF COFFEE AND A SMALL AMOUNT OF WATER TODAY. ENCOURAGED TO DRINK MORE WATER. SHE DOZES A LOT. IVF CONTINUE AT 75CC/HR. SHE HAS BEEN ENCOURAGED TO GET UP AND MOVE AROUND MORE. SHE WALKED INTO THE BATHROOM, STEADY WITH GAIT BELT, FWW AND S/B ASSIST. SHE SAT UP IN THE CHAIR FOR LUNCH AND HAS AGREED TO SIT IN THE CHAIR FOR SUPPER. BED LOW, CALL LIGHT IN REACH.
--- NOTE | 2024-05-11 18:48 | NUR ---
NURSE NOTE 03/29 RUQ ABDOMINAL PAIN SHE DESCRIBES LIKE A "STITCH". SHE ASSOCIATES IT WITH THE PAIN SHE HAS HAD WITH THE GASTROPORESIS. IT STARTED AFTER SHE ATE SUPPER OF CHICKEN BREAD AND APPLES. ALSO C/O NAUSEA SUDDEN ONSET ALONG WITH PAIN.
[2024-05-11 19:20] VITALS: BP 97/69
[2024-05-11] MEDS ORDERED: ARIPIPRAZOLE10 M4 PO (20:43)
[2024-05-12 03:02] VITALS: BP 119/69
--- NOTE | 2024-05-12 05:51 | NUR ---
SHIFT SUMMARY PT WITH INTERMITTENT NAUSEA AND PAIN TO ABDOMEN THROUGH THE NIGHT. MEDICATED WITH PRN MEDS- SEE EMAR. SLEPT OFF/ON. GAIT REMAINS WEAK AND UNSTEADY- UP WITH 1 ASSIST. ONLY INTAKE HAS BEEN SIPS OF WATER AND ICE CHIPS. CALL LIGHT WITHIN REACH, SIDE RAILS UP X2.
[2024-05-12 07:05] VITALS: BP 125/84
[2024-05-12] MEDS ORDERED: Insulin Glargine-Yfgn 100 Unit/mL 3 ML SYR SC SCH (08:00)
[2024-05-12] MEDS ORDERED: Metoclopramide HCl 10 MG Tab PO SCH (11:30)
--- NOTE | 2024-05-12 14:23 | NUR ---
PT DISCHARGED PT WAS GIVEN DC INSTRUCTIONS AND VERBALIZED UNDERSTANDING. THE PT WAS TRANSFERED VIA WHEELCHAIR ACCOMPANIED BY THE CAREER DEVELOPMENT ASSOCIATE TO MEET HER RIDE AT THE FRONT, BELONGINGS RELEASED TO THE PATIENT
== END 2024-05-12 14:25 | disposition home health service (06) | DRG 74 ==
LOC: ER 15:30 → ICUE 15:31 → ERHOLD 15:31 → ICUE 05-10 01:20 → MEDS 05-10 14:32 → ICUE 05-10 14:32 → MEDS 05-10 21:16 → ENPENDDIS 05-12 13:33 → MEDS 05-12 14:25
PROVIDERS: Emergency Medicine; Internal Medicine; Nurse Practitioner Acute Care; Student in an Organized Health Care Education/Training Program; ADMIT Internal Medicine
DX: E10.43 Type 1 diabetes mellitus with diabetic autonomic (poly)neuropathy (principal); F41.9 Anxiety disorder, unspecified; F32.A Depression, unspecified; I25.10 Atherosclerotic heart disease of native coronary artery without angina pectoris; E10.11 Type 1 diabetes mellitus with ketoacidosis with coma; E78.5 Hyperlipidemia, unspecified; G40.909 Epilepsy, unspecified, not intractable, without status epilepticus; K21.9 Gastro-esophageal reflux disease without esophagitis; F17.210 Nicotine dependence, cigarettes, uncomplicated; M79.7 Fibromyalgia; E86.0 Dehydration; I35.0 Nonrheumatic aortic (valve) stenosis; G89.29 Other chronic pain; M19.90 Unspecified osteoarthritis, unspecified site; E10.42 Type 1 diabetes mellitus with diabetic polyneuropathy; I25.2 Old myocardial infarction; Z79.02 Long term (current) use of antithrombotics/antiplatelets; Z88.8 Allergy status to other drugs, medicaments and biological substances; Z88.5 Allergy status to narcotic agent; Z79.899 Other long term (current) drug therapy; Z79.82 Long term (current) use of aspirin
CPT/HCPCS: 36415; 71045; 80048; 80053; 81001; 82010; 82803; 82947; 83036; 83690; 83735; 84100; 84484; 85025; 93005; 93010; 96365; 96366; 96367; 96375; 97110; 97116; 97162; 99285-25; A9270; C1751; G0378; J0780; J1200; J1650; J1815; J1953; J2270; J2405; J2470; J2765; J3010; J3480; J7030; J7042; J7120; Q0164

== ENCOUNTER 2024-06-14 15:14 | Emergency (ER) | payer OTHER ==
[~2024-06-14] VITALS: Ht 162.6 cm; Wt 56.7 kg
[~2024-06-14 15:14] MED LIST changes: -Enoxaparin 40 MG/0.4 ML SYR SC SCH
[2024-06-14] MEDS ORDERED: NS 1,000 ML IV SCH (15:45)
[2024-06-14] MEDS ORDERED: Ondansetron HCl 2 MG / ML 2ML Vial IV ONE ×2 (15:45→17:55)
[2024-06-14] MEDS ORDERED: Metoclopramide HCl 5MG / ML 2ML Vial IV ONE (15:50)
[2024-06-14] MEDS ORDERED: DiphenhydrAMINE HCl 50 MG/ML 1ML Vial IV ONE (15:50)
[2024-06-14] MEDS ORDERED: Droperidol 5 mg/2 ml Vial IV ONE (15:50)
[2024-06-14 16:07] LABS: Base Excess Venous -1.6 mmol/L; Bicarbonate Venous 23.9 mmol/L (24.0-30.0); PCO2 Venous 30.2 mmHg (38-42); pH Blood Venous 7.47 (7.34-7.37)
[2024-06-14 16:08] LABS: Hematocrit 45.8 % (33.0-51.0); Hemoglobin 15.5 g/dL (11.5-16.0); Mean Corpuscular HGB 31.6 pg (26.0-34.0); Mean Corpuscular HGB Conc 33.8 g/dL (31.5-36.5); Mean Corpuscular Volume 94 fL (80-100); Mean Platelet Volume 9.3 fL (9.1-12.4); Platelet Count 413 K/mm3 (150-400); RDW Coefficient Variation 12.4 % (11.7-14.2); White Blood Cell Count 7.55 K/mm3 (4.00-11.30)
[2024-06-14 16:38] LABS: BASOPHILS PERCENT MAN 0 % (0-2); EOSINOPHILS PERCENT MAN 0 % (0-6); LYMPHOCYTES ABSOLUTE MAN 1.51 K/mm3 (0.84-5.20); LYMPHOCYTES PERCENT MAN 20 % (21-46); MONOCYTES PERCENT MAN 0 % (4-13); NEUTROPHILS ABSOLUTE MAN 6.04 K/mm3 (1.96-9.15); SEG NEUTROPHILS PERCENT MAN 80 % (41-73); TOTAL CELLS COUNTED 100
[2024-06-14 16:43] LABS: Magnesium, Blood 1.7 mg/dL (1.6-2.4)
[2024-06-14 16:52] LABS: Albumin, Blood 4.2 g/dL (3.4-5.0); Bilirubin, Total 0.9 mg/dL (0.1-1.0); Bun/Creatinine Ratio 16.4 (12.0-20.0); Calcium, Blood 9.8 mg/dL (8.5-10.1); Creatinine, Blood 0.49 mg/dL (0.40-1.00); Globulin, Blood 4.2 g/dL (2.2-4.0); Potassium, Blood 4.4 mmol/L (3.5-5.5); Total Protein, Blood 8.4 g/dL (6.4-8.2)
[2024-06-14] MEDS ORDERED: Morphine Sulfate 4 MG/1 ML Injection IV ONE (17:55)
[2024-06-14] MEDS ORDERED: Famotidine 20 MG Tab PO ONE (18:15)
[2024-06-14] MEDS ORDERED: Metoclopramide HCl 10 MG Tab PO ONE (18:15)
[2024-06-14] MEDS ORDERED: Dicyclomine HCl 20 MG Tab PO ONE (18:15)
[2024-06-14] MEDS ORDERED: ONDA4 PO (18:45)
[2024-06-14] MEDS ORDERED: DICY20 PO (18:45)
[2024-06-14 19:18] VITALS: BP 124/65
== END 2024-06-14 19:18 | disposition home or self-care (01) ==
LOC: ER 15:14
PROVIDERS: Emergency Medicine
DX: E10.43 Type 1 diabetes mellitus with diabetic autonomic (poly)neuropathy (principal); K31.84 Gastroparesis; K21.9 Gastro-esophageal reflux disease without esophagitis; M19.90 Unspecified osteoarthritis, unspecified site; I10 Essential (primary) hypertension; I25.2 Old myocardial infarction; E10.42 Type 1 diabetes mellitus with diabetic polyneuropathy; F17.210 Nicotine dependence, cigarettes, uncomplicated; Z79.4 Long term (current) use of insulin; Z79.02 Long term (current) use of antithrombotics/antiplatelets; Z79.899 Other long term (current) drug therapy; Z88.5 Allergy status to narcotic agent; Z88.8 Allergy status to other drugs, medicaments and biological substances
CPT/HCPCS: 74176; 80053; 82010; 82803; 83690; 83735; 85025; 96361; 96374; 96375; 99284-25; A9270; J1200; J1790; J2405; J7030

== ENCOUNTER 2024-08-11 11:14 | Observation (INO) | payer OTHER ==
[~2024-08-11] VITALS: Ht 162.6 cm; Wt 67.1 kg
[2024-08-11] MEDS ORDERED: NS 1,000 ML IV SCH (11:35)
[2024-08-11] MEDS ORDERED: Metoclopramide HCl 5MG / ML 2ML Vial IV ONE ×2 (11:35→14:00)
[2024-08-11] MEDS ORDERED: FentaNYL Citrate 50 MCG/ML 2 ML Injection IV ONE ×2 (11:35→13:20)
[2024-08-11 12:26] LABS: BASOPHILS ABSOLUTE AUTO 0.07 K/mm3 (0.00-0.23); BASOPHILS PERCENT AUTO 1 % (0-2); EOSINOPHILS ABSOLUTE AUTO 0.11 K/mm3 (0.00-0.68); EOSINOPHILS PERCENT AUTO 1 % (0-6); Hematocrit 45.3 % (33.0-51.0); Hemoglobin 15.6 g/dL (11.5-16.0); IMMATURE GRAN ABSOLUTE AUTO 0.06 K/mm3 (0.00-0.10); IMMATURE GRAN PERCENT AUTO 1 % (0-1); LYMPHOCYTES ABSOLUTE AUTO 1.92 K/mm3 (0.84-5.20); LYMPHOCYTES PERCENT AUTO 18 % (21-46); MONOCYTES ABSOLUTE AUTO 0.29 K/mm3 (0.16-1.47); MONOCYTES PERCENT AUTO 3 % (4-13); Mean Corpuscular HGB 31.3 pg (26.0-34.0); Mean Corpuscular HGB Conc 34.4 g/dL (31.5-36.5); Mean Corpuscular Volume 91 fL (80-100); NEUTROPHILS PERCENT AUTO 77 % (41-73); RDW Coefficient Variation 12.4 % (11.7-14.2); RDW Standard Deviation 41.4 fL (35.1-46.3); Red Blood Cell Count 4.98 M/mm3 (3.80-5.20); White Blood Cell Count 10.65 K/mm3 (4.00-11.30)
[2024-08-11 12:41] LABS: Beta-hydroxybutyrate 12.4 mg/dL (0.2-2.8)
[2024-08-11 12:46] LABS: Albumin, Blood 4.3 g/dL (3.4-5.0); Bilirubin, Total 1.1 mg/dL (0.1-1.0); Bun/Creatinine Ratio 24.2 (12.0-20.0); Calcium, Blood 10.4 mg/dL (8.5-10.1); Creatinine, Blood 0.41 mg/dL (0.40-1.00); Globulin, Blood 4.2 g/dL (2.2-4.0); Magnesium, Blood 2.1 mg/dL (1.6-2.4); Potassium, Blood 5.4 mmol/L (3.5-5.5); Total Protein, Blood 8.5 g/dL (6.4-8.2)
[2024-08-11] MEDS ORDERED: Insulin Human Lispro 100 Units/ML 3ML Syringe SC ONE (13:20)
[2024-08-11 13:33] LABS: Mean Platelet Volume 9.6 fL (9.1-12.4); Platelet Count 338 K/mm3 (150-400)
[2024-08-11] MEDS ORDERED: FLU VACC TS2024-25(6MOS UP)/PF 45 MCG/0.5 ML SYRINGE IM PRN (14:50)
[2024-08-11] MEDS ORDERED: Lactated Ringer's 1,000 ML IV SCH ×3 (14:55→16:30)
[2024-08-11] MEDS ORDERED: Insulin Glargine-Yfgn 100 Unit/mL 3 ML SYR SC SCH (16:00)
[2024-08-11] MEDS ORDERED: Metoclopramide HCl 5MG / ML 2ML Vial IV PRN (16:00)
[2024-08-11] MEDS ORDERED: FentaNYL Citrate 50 MCG/ML 2 ML Injection IV PRN (16:20)
[2024-08-11] MEDS ORDERED: ALPRAZolam 0.25 MG Tab PO PRN (16:25)
[2024-08-11 16:55] LABS: pH Blood Arterial 7.41 (7.35-7.45)
[2024-08-11 18:30] LABS: Bun/Creatinine Ratio 23.5 (12.0-20.0); Calcium, Blood 8.9 mg/dL (8.5-10.1); Creatinine, Blood 0.47 mg/dL (0.40-1.00)
[2024-08-11 18:56] VITALS: BP 120/82
[2024-08-11] MEDS ORDERED: Insulin Human Lispro 100 Units/ML 3ML Syringe SC SCH (20:00)
--- NOTE | 2024-08-11 20:11 | NUR ---
PROVIDER CONTACT NOTE KIRILL WOULD LIKE Q6 INSULIN DOSING TO BE USED FOR Q4 CBG/INSULIN CHECKS.
[2024-08-11] MEDS ORDERED: LevETIRAcetam 500 MG Tab PO SCH (21:00)
[2024-08-11] MEDS ORDERED: BusPIRone HCl 5 MG Tab PO SCH (21:00)
[2024-08-11] MEDS ORDERED: rOPINIRole HCl 0.25 MG Tab PO SCH (21:00)
[2024-08-11] MEDS ORDERED: Atorvastatin 40 MG Tab PO SCH (21:00)
[2024-08-11 21:24] LABS: Calcium, Blood 8.8 mg/dL (8.5-10.1); Creatinine, Blood 0.45 mg/dL (0.40-1.00); Potassium, Blood 3.6 mmol/L (3.5-5.5)
[2024-08-12 04:24] VITALS: BP 108/75
--- NOTE | 2024-08-12 05:02 | NUR ---
SHIFT SUMMARY PATIENT IS ALERT AND ORIENTED. PATIENT HAS HAD NO ACUTE EVENTS THIS SHIFT. VITAL SIGNS REVIEWED. PATIENT HAS REPORTED NAUSEA THIS SHIFT AND MEDICATED PER EMAR. PATIENT HAS NO REPORTS OF VOMITTING, SOB THIS SHIFT. PATIENT HAS REPORTED PAIN AND MEDICATED PER EMAR. IV FLUIDS INFUSING ORDERED. CBG HAS TRENDED LOWER. BED IN LOCKED AND LOWEST POSITION. CALL LIGHT IN PLACE.
[2024-08-12 05:21] LABS: BASOPHILS ABSOLUTE AUTO 0.04 K/mm3 (0.00-0.23); BASOPHILS PERCENT AUTO 1 % (0-2); EOSINOPHILS ABSOLUTE AUTO 0.17 K/mm3 (0.00-0.68); EOSINOPHILS PERCENT AUTO 2 % (0-6); Hematocrit 35.7 % (33.0-51.0); Hemoglobin 12.1 g/dL (11.5-16.0); IMMATURE GRAN ABSOLUTE AUTO 0.03 K/mm3 (0.00-0.10); IMMATURE GRAN PERCENT AUTO 0 % (0-1); LYMPHOCYTES ABSOLUTE AUTO 3.56 K/mm3 (0.84-5.20); LYMPHOCYTES PERCENT AUTO 45 % (21-46); MONOCYTES PERCENT AUTO 6 % (4-13); Mean Corpuscular HGB 31.1 pg (26.0-34.0); Mean Corpuscular HGB Conc 33.9 g/dL (31.5-36.5); Mean Corpuscular Volume 92 fL (80-100); Mean Platelet Volume 9.4 fL (9.1-12.4); NEUTROPHILS ABSOLUTE AUTO 3.55 K/mm3 (1.96-9.15); NEUTROPHILS PERCENT AUTO 45 % (41-73); Platelet Count 301 K/mm3 (150-400); RDW Coefficient Variation 12.6 % (11.7-14.2); Red Blood Cell Count 3.89 M/mm3 (3.80-5.20); White Blood Cell Count 7.85 K/mm3 (4.00-11.30)
[2024-08-12] MEDS ORDERED: Pantoprazole Sodium 40 MG Injection IV SCH (06:00)
[2024-08-12 06:30] LABS: Albumin, Blood 3.1 g/dL (3.4-5.0); Bilirubin, Total 0.7 mg/dL (0.1-1.0); Calcium, Blood 8.9 mg/dL (8.5-10.1); Creatinine, Blood 0.39 mg/dL (0.40-1.00); Globulin, Blood 3.1 g/dL (2.2-4.0); Potassium, Blood 3.3 mmol/L (3.5-5.5)
[2024-08-12 06:31] LABS: Total Protein, Blood 6.2 g/dL (6.4-8.2)
[2024-08-12] MEDS ORDERED: Potassium Chloride 20 MEQ in NS 90 ML IV ONE (07:20)
[2024-08-12 07:27] VITALS: BP 138/84
[2024-08-12] MEDS ORDERED: NS 250 ML IV PRN (08:15)
[2024-08-12] MEDS ORDERED: Insulin Human Lispro 100 Units/ML 3ML Syringe SC SCH ×2 (08:30→11:30)
[2024-08-12] MEDS ORDERED: Acetaminophen 500 MG Tab PO PRN (08:55)
[2024-08-12] MEDS ORDERED: Enoxaparin 40 MG/0.4 ML SYR SC SCH (09:00)
[2024-08-12] MEDS ORDERED: Clopidogrel Bisulfate 75 MG Tab PO SCH (09:00)
[2024-08-12] MEDS ORDERED: ARIPiprazole 10 MG Tab PO SCH (09:00)
[2024-08-12] MEDS ORDERED: rOPINIRole HCl 0.25 MG Tab PO SCH (09:00)
[2024-08-12] MEDS ORDERED: VORTIOXETINE 20 MG PO SCH (09:00)
[2024-08-12] MEDS ORDERED: Mag Hydrox/Al Hydrox/Simeth 18 ML,Lidocaine 2% Viscous Soln 9 ML,Atropine/Scopalam/Hyos... PO ONE (11:35)
[2024-08-12 14:23] VITALS: BP 121/77
[2024-08-12] MEDS ORDERED: Potassium Chloride 20 MEQ/15 ML UDC PO SCH (17:00)
--- NOTE | 2024-08-12 17:01 | NUR ---
SHIFT SUMMARY PT AOX4, COOPERATIVE, ABLE TO MAKE NEEDS KNOWN. PT HAS NOT HAD BM SINCE 39908/11/23, INFORMED AND DC'D ORDER FOR ISOLATION OF C-DIFF RULE OUT. PT HAS NOT PAZ OUT OF BED FOR SHIFT FAR THIS RN IS AWARE. STILL EXPRESSED ABDOMENAL PAIN 01/26 FOR SHIFT. DID NOT HAVE BREAKFAST OR LUNCH, BUT DID HAVE HALF A YOGURT, PEANUT BUTTER WITH CRACKER, AND 120ML OF MILK WITHOUT EMESIS, MEDICATED WITH REGLAN BEFOREHAND. POTASSIUM WAS 3.3, IV ORDERED, FINISHED PARTIAL ORDER BUT IV ACCESS WAS UNREALIABLE, SWITCHED TO PO LIQUID POTASSIUM. CHARGE NURSE INFORMED PT STAYING OVERNIGHT AND WILL NEED BETTER IV PLACEMENT, POSSIBLY POWERGLIDE. BED IN LOWEST POSITION, CALL LIGHT WITHIN REACH.
[2024-08-12 20:03] VITALS: BP 123/80
[2024-08-13 03:59] VITALS: BP 143/85
--- NOTE | 2024-08-13 05:12 | NUR ---
SHIFT SUMMARY PATIENT IS ALERT AND ORIENTED. PATIENT HAS HAD NO ACUTE EVENTS THIS SHIFT. PATIENT HAS NOT BEEN ABLE TO TOLERATE PO INTAKE MUCH THIS SHIFT. PATIENT HAS COMPLAINED OF PAIN, NAUSEA THIS SHIFT. MEDICATED PER EMAR. PATIENT HAS NO COMPLAINTS OF SOB OR VOMITTING. VITAL SIGNS REVIEWED. BED IN LOCKED AND LOWEST POSITION. CALL LIGHT IN PLACE.
[2024-08-13 05:17] LABS: BASOPHILS ABSOLUTE AUTO 0.06 K/mm3 (0.00-0.23); BASOPHILS PERCENT AUTO 1 % (0-2); EOSINOPHILS ABSOLUTE AUTO 0.18 K/mm3 (0.00-0.68); EOSINOPHILS PERCENT AUTO 3 % (0-6); Hematocrit 40.8 % (33.0-51.0); Hemoglobin 13.7 g/dL (11.5-16.0); IMMATURE GRAN ABSOLUTE AUTO 0.01 K/mm3 (0.00-0.10); IMMATURE GRAN PERCENT AUTO 0 % (0-1); LYMPHOCYTES ABSOLUTE AUTO 2.99 K/mm3 (0.84-5.20); LYMPHOCYTES PERCENT AUTO 49 % (21-46); MONOCYTES ABSOLUTE AUTO 0.42 K/mm3 (0.16-1.47); MONOCYTES PERCENT AUTO 7 % (4-13); Mean Corpuscular HGB 31.4 pg (26.0-34.0); Mean Corpuscular HGB Conc 33.6 g/dL (31.5-36.5); Mean Corpuscular Volume 93 fL (80-100); NEUTROPHILS ABSOLUTE AUTO 2.48 K/mm3 (1.96-9.15); NEUTROPHILS PERCENT AUTO 40 % (41-73); Platelet Count 276 K/mm3 (150-400); RDW Coefficient Variation 12.3 % (11.7-14.2); Red Blood Cell Count 4.37 M/mm3 (3.80-5.20); White Blood Cell Count 6.14 K/mm3 (4.00-11.30)
[2024-08-13 05:57] LABS: Bun/Creatinine Ratio 13.7 (12.0-20.0); Calcium, Blood 8.9 mg/dL (8.5-10.1); Creatinine, Blood 0.44 mg/dL (0.40-1.00); Potassium, Blood 3.5 mmol/L (3.5-5.5)
[2024-08-13] MEDS ORDERED: FentaNYL Citrate 50 MCG/ML 2 ML Injection IV PRN (08:00)
[2024-08-13 08:11] VITALS: BP 122/88
[2024-08-13] MEDS ORDERED: Scopolamine Hydrobromide Patch TOP SCH (10:35)
[2024-08-13] MEDS ORDERED: Mag Hydrox/Al Hydrox/Simeth 18 ML,Lidocaine 2% Viscous Soln 9 ML,Atropine/Scopalam/Hyos... PO ONE (10:40)
[2024-08-13] MEDS ORDERED: TRANSDERM-SCOP1 EA10 TD (16:07)
--- NOTE | 2024-08-13 17:10 | NUR ---
DISCHARGE SUMMARY PT A&0X4 AND ANSWERS QUESTIONS APPROPRIATELY. PT SEEN BY PHYSICIAN IN THE AM AND CLEARED FOR DC. PT RECEIVED SCHEDULED AND PRN MEDICATIONS. PT VSS, NO COMPLAINTS OF CP/PRESSURE OR SOB. PT STILL VERBALIZES NAUSEA AND PAIN, BUT ARE CONTROLLED BY MEDICATION. NO ACUTE EVENTS AT THIS TIME. PT IV REMOVED, ALL BELONGINGS ARE WITH THE PT AND OOR. PT DISCHARGED HOME VIA W/C TO [facility].
== END 2024-08-13 17:12 | disposition home or self-care (01) ==
LOC: ER 11:14 → ERHOLD 11:15 → MEDS 11:15
PROVIDERS: Emergency Medicine; Student in an Organized Health Care Education/Training Program; ADMIT Hospitalist
DX: E10.43 Type 1 diabetes mellitus with diabetic autonomic (poly)neuropathy (principal); K31.84 Gastroparesis; E10.10 Type 1 diabetes mellitus with ketoacidosis without coma; R94.31 Abnormal electrocardiogram [ECG] [EKG]; E87.1 Hypo-osmolality and hyponatremia; G40.909 Epilepsy, unspecified, not intractable, without status epilepticus; I10 Essential (primary) hypertension; I25.10 Atherosclerotic heart disease of native coronary artery without angina pectoris; I25.2 Old myocardial infarction; G89.4 Chronic pain syndrome; M79.7 Fibromyalgia; K21.9 Gastro-esophageal reflux disease without esophagitis; F41.9 Anxiety disorder, unspecified; F32.A Depression, unspecified; F17.210 Nicotine dependence, cigarettes, uncomplicated; Z96.82 Presence of neurostimulator; Z79.02 Long term (current) use of antithrombotics/antiplatelets; Z79.899 Other long term (current) drug therapy; Z88.5 Allergy status to narcotic agent; Z88.8 Allergy status to other drugs, medicaments and biological substances; Z95.5 Presence of coronary angioplasty implant and graft; Z90.710 Acquired absence of both cervix and uterus
CPT/HCPCS: 36415; 36600; 74176; 80048; 80053; 82010; 82803; 82947; 83036; 83690; 83735; 85025; 93005; 93010; 96361; 96365; 96366; 96372; 96374; 96375; 96376; 99285-25; A9270; G0378; J1650; J1815; J2470; J2765; J3010; J3480; J7030; J7050; J7120

== ENCOUNTER 2024-08-19 14:08 | Observation (INO) | payer OTHER ==
[~2024-08-19] VITALS: Ht 162.6 cm; Wt 58.9 kg
[2024-08-19 14:52] LABS: BASOPHILS ABSOLUTE AUTO 0.04 K/mm3 (0.00-0.23); BASOPHILS PERCENT AUTO 0 % (0-2); EOSINOPHILS ABSOLUTE AUTO 0.01 K/mm3 (0.00-0.68); EOSINOPHILS PERCENT AUTO 0 % (0-6); Hematocrit 41.7 % (33.0-51.0); Hemoglobin 14.8 g/dL (11.5-16.0); IMMATURE GRAN ABSOLUTE AUTO 0.05 K/mm3 (0.00-0.10); IMMATURE GRAN PERCENT AUTO 0 % (0-1); LYMPHOCYTES ABSOLUTE AUTO 2.34 K/mm3 (0.84-5.20); LYMPHOCYTES PERCENT AUTO 19 % (21-46); MONOCYTES ABSOLUTE AUTO 0.87 K/mm3 (0.16-1.47); MONOCYTES PERCENT AUTO 7 % (4-13); Mean Corpuscular HGB 31.6 pg (26.0-34.0); Mean Corpuscular HGB Conc 35.5 g/dL (31.5-36.5); Mean Corpuscular Volume 89 fL (80-100); Mean Platelet Volume 9.6 fL (9.1-12.4); NEUTROPHILS ABSOLUTE AUTO 9.24 K/mm3 (1.96-9.15); NEUTROPHILS PERCENT AUTO 74 % (41-73); Platelet Count 414 K/mm3 (150-400); RDW Coefficient Variation 12.7 % (11.7-14.2); RDW Standard Deviation 41.4 fL (35.1-46.3); Red Blood Cell Count 4.68 M/mm3 (3.80-5.20); White Blood Cell Count 12.55 K/mm3 (4.00-11.30)
[2024-08-19 15:08] LABS: Base Excess Venous 6.8 mmol/L; Bicarbonate Venous 31.9 mmol/L (24.0-30.0); PCO2 Venous 24.1 mmHg (38-42); pH Blood Venous 7.66 (7.34-7.37)
[2024-08-19] MEDS ORDERED: CYCL10 PO (15:25)
[2024-08-19] MEDS ORDERED: REGLAN1013 PO (15:26)
[2024-08-19] MEDS ORDERED: NOVOLOG100 UNIT/2 SC (15:29)
[2024-08-19 15:36] LABS: Albumin, Blood 3.6 g/dL (3.4-5.0); Albumin/Globulin Ratio 1.1 (0.8-1.8); Beta-hydroxybutyrate 33.2 mg/dL (0.2-2.8); Bilirubin, Total 0.9 mg/dL (0.1-1.0); Bun/Creatinine Ratio 40.6 (12.0-20.0); Calcium, Blood 8.8 mg/dL (8.5-10.1); Creatinine, Blood 0.52 mg/dL (0.40-1.00); Globulin, Blood 3.3 g/dL (2.2-4.0); Potassium, Blood 2.8 mmol/L (3.5-5.5); Total Protein, Blood 6.9 g/dL (6.4-8.2)
[2024-08-19] MEDS ORDERED: Metoclopramide HCl 5MG / ML 2ML Vial IV ONE (16:05)
[2024-08-19] MEDS ORDERED: FentaNYL Citrate 50 MCG/ML 2 ML Injection IV ONE (16:05)
[2024-08-19] MEDS ORDERED: Lactated Ringer's 1,000 ML IV SCH ×2 (16:10→16:40)
[2024-08-19 16:13] LABS: Source, Urine Clean Catch
[2024-08-19 16:27] LABS: Appearance, Urine Clear (Clear); Bilirubin, Urine Neg (Neg); Blood, Urine Neg (Neg); Color, Urine Yellow (P-Yellow); Glucose Qualitative, Urine 4+ (Neg); Ketones, Urine 4+ (Neg); Leukocyte Esterase, Urine Neg (Neg); Nitrite, Urine Neg (Neg); Protein, Urine 2+ (Neg); Urobilinogen, Urine NORM (Normal)
[2024-08-19] MEDS ORDERED: Potassium Chloride 20 MEQ/15 ML UDC PO ONE (16:35)
[2024-08-19] MEDS ORDERED: Potassium Chl 20MEQ/Water100ML 100 ML IV ONE (16:40)
[2024-08-19 16:46] LABS: Magnesium, Blood 1.4 mg/dL (1.6-2.4)
[2024-08-19 16:53] LABS: Bacteria Few /hpf; Red Blood Cells, Urine 0-2 /hpf (0-2); Squamous Epithelial Cells Rare /hpf (Few); White Blood Cells, Urine 0-2 /hpf (0-5)
[2024-08-19 16:54] LABS: Hyaline Casts 0-2 /lpf (0-2)
[2024-08-19] MEDS ORDERED: NS 1,000 ML IV SCH (17:10)
[2024-08-19] MEDS ORDERED: Ondansetron HCl 2 MG / ML 2ML Vial IV PRN (17:10)
[2024-08-19] MEDS ORDERED: FentaNYL Citrate 50 MCG/ML 2 ML Injection IV PRN (17:10)
[2024-08-19] MEDS ORDERED: Metoclopramide HCl 5MG / ML 2ML Vial IV PRN (17:15)
[2024-08-19] MEDS ORDERED: FLU VACC TS2024-25(6MOS UP)/PF 45 MCG/0.5 ML SYRINGE IM SCH (17:15)
[2024-08-19] MEDS ORDERED: Magnesium Sulf 2 GM/Water 50ML 50 ML IV ONE (17:20)
[2024-08-19] MEDS ORDERED: Enoxaparin 40 MG/0.4 ML SYR SC SCH (18:00)
[2024-08-19] MEDS ORDERED: Insulin Glargine-Yfgn 100 Unit/mL 3 ML SYR SC SCH (18:00)
[2024-08-19 18:29] LABS: Bun/Creatinine Ratio 39.2 (12.0-20.0); Calcium, Blood 8.3 mg/dL (8.5-10.1); Creatinine, Blood 0.41 mg/dL (0.40-1.00); Potassium, Blood 3.6 mmol/L (3.5-5.5)
[2024-08-19 18:55] LABS: CORONAVIRUS COVID-19 AG Negative (NEGATIVE); INFLUENZA A AG Negative (NEGATIVE); INFLUENZA B AG Negative (NEGATIVE)
[2024-08-19 20:24] VITALS: BP 137/89
--- NOTE | 2024-08-19 22:17 | NUR ---
ADMIT NOTE FOR 08/19/242019 REPORT WAS RECEIVED FROM ER AND PT WAS BROUGHT DOWN TO THE FLOOR TO ROOM 330 AT 2019 PT ALERT ORIENTED X 4 ABLE TO VERBALIZE NEEDS SHE WAS ORIENTED TO ROOM AND STAFF. C/O ABD PAIN MEDICATED WITH FENTANYL WITH GOOD RELIEF C/O NAUSEA MEDICATED WITH REGLAN WITH GOOD RELIEF. SHE AMBULATED TO BATHROOM WITH 1 PERSON SBA REMAINS ON NS AT 125. VSS ON RA SATTING AT 96%. SHE HAD HER LACTIC DRAWN AT 195 WHICH WAS 1.2. SHE HAS A ORDER FOR A BMP Q6HR AND ITS DUE AT 0000. SHES RESTING IN BED AT THIS TIME WITH CALL LIGHT IN REACH
[2024-08-19] MEDS ORDERED: TraZODone HCl 50 MG Tab PO PRN (23:45)
[2024-08-20 00:15] LABS: Bun/Creatinine Ratio 33.5 (12.0-20.0); Calcium, Blood 8.9 mg/dL (8.5-10.1); Creatinine, Blood 0.54 mg/dL (0.40-1.00)
[2024-08-20 00:28] VITALS: BP 122/78
--- NOTE | 2024-08-20 05:07 | NUR ---
SHIFT SUMMARY PT WAS ADMITTED TO US AT 2019 FROM THE ER WITH A DX OF PROTRACTED N/V R/T DIABETIC GASTROPARESIS, DEHYDRATION, AND HYPOKALEMIA. PT ALERT ORIENTED X 4 ABLE TO VERBALIZE NEEDS CALLS APROPRIATELY. GETS UP TO BATHROOM WITH 1 PERSON SBA. C/O ABD PAIN MEDICATED WITH FENTANYL AND NAUSEA MEDICATED WITH REGLAN. SHE STATED THAT SHE CANT TAKE ZOFRAN. VSS ON RA SATTING AT 96%. REMAINS ON FS Q6HR. SHES CURRENTLY NPO AT THIS TIME SHE GOT PO AND IV POTASSIUM. SHES RESTING AT THIS TIME WITH CALL LIGHT IN REACH
[2024-08-20 05:16] VITALS: BP 110/77
[2024-08-20] MEDS ORDERED: Pantoprazole Sodium 40 MG Tab PO SCH (06:00)
[2024-08-20 06:46] LABS: BASOPHILS ABSOLUTE AUTO 0.07 K/mm3 (0.00-0.23); BASOPHILS PERCENT AUTO 1 % (0-2); EOSINOPHILS ABSOLUTE AUTO 0.17 K/mm3 (0.00-0.68); EOSINOPHILS PERCENT AUTO 2 % (0-6); Hematocrit 34.5 % (33.0-51.0); IMMATURE GRAN ABSOLUTE AUTO 0.05 K/mm3 (0.00-0.10); IMMATURE GRAN PERCENT AUTO 1 % (0-1); LYMPHOCYTES ABSOLUTE AUTO 3.38 K/mm3 (0.84-5.20); LYMPHOCYTES PERCENT AUTO 41 % (21-46); MONOCYTES ABSOLUTE AUTO 0.62 K/mm3 (0.16-1.47); MONOCYTES PERCENT AUTO 8 % (4-13); Mean Corpuscular HGB 31.7 pg (26.0-34.0); Mean Corpuscular HGB Conc 34.8 g/dL (31.5-36.5); Mean Corpuscular Volume 91 fL (80-100); NEUTROPHILS ABSOLUTE AUTO 3.87 K/mm3 (1.96-9.15); NEUTROPHILS PERCENT AUTO 47 % (41-73); RDW Coefficient Variation 12.8 % (11.7-14.2); RDW Standard Deviation 42.4 fL (35.1-46.3); Red Blood Cell Count 3.79 M/mm3 (3.80-5.20); White Blood Cell Count 8.16 K/mm3 (4.00-11.30)
[2024-08-20 06:58] LABS: Albumin, Blood 3.1 g/dL (3.4-5.0); Albumin/Globulin Ratio 1.1 (0.8-1.8); Bilirubin, Total 0.9 mg/dL (0.1-1.0); Bun/Creatinine Ratio 30.4 (12.0-20.0); Calcium, Blood 8.4 mg/dL (8.5-10.1); Creatinine, Blood 0.53 mg/dL (0.40-1.00); Globulin, Blood 2.8 g/dL (2.2-4.0); Potassium, Blood 3.9 mmol/L (3.5-5.5); Total Protein, Blood 5.9 g/dL (6.4-8.2)
[2024-08-20 07:17] LABS: Mean Platelet Volume 9.4 fL (9.1-12.4); Platelet Count 299 K/mm3 (150-400)
[2024-08-20 07:23] VITALS: BP 110/71
[2024-08-20] MEDS ORDERED: Insulin Human Lispro 100 Units/ML 3ML Syringe SC SCH ×3 (07:30→17:30)
[2024-08-20] MEDS ORDERED: Misc. Tablet PO SCH (09:00)
[2024-08-20] MEDS ORDERED: Clopidogrel Bisulfate 75 MG Tab PO SCH (09:00)
[2024-08-20] MEDS ORDERED: LevETIRAcetam 500 MG Tab PO SCH (09:00)
[2024-08-20] MEDS ORDERED: BusPIRone HCl 10 MG Tab PO SCH (09:00)
[2024-08-20] MEDS ORDERED: ARIPiprazole 10 MG Tab PO SCH (09:00)
[2024-08-20] MEDS ORDERED: TraMADol HCl 50 MG Tab PO PRN (12:55)
[2024-08-20 15:10] VITALS: BP 99/68
[2024-08-20 20:31] VITALS: BP 114/72
[2024-08-21 05:45] VITALS: BP 124/84
[2024-08-21 06:31] LABS: Creatinine, Blood 0.58 mg/dL (0.40-1.00); Potassium, Blood 3.8 mmol/L (3.5-5.5)
[2024-08-21 07:10] VITALS: BP 93/68
[2024-08-21] MEDS ORDERED: Metoclopramide HCl 10 MG Tab PO SCH (07:30)
[2024-08-21] MEDS ORDERED: ONDA4ODT MM (11:32)
[2024-08-21] MEDS ORDERED: TRAM50 PO (11:33)
--- NOTE | 2024-08-21 11:47 | NUR ---
DISCHARGE NOTE PATIENT EDUCATED ON DISCHARGE PACKET AND EDUCATION FORMS. NEW PRESCRIPTIONS WERE FAXED TO [facility] WHICH PATIENT IS AWARE IS NOT OPEN ON SUNDAYS, WILL SLIPCOVER CUTTER ON THURSDAY. IV'S WERE REMOVED. TELE DC'D. ESCORTED DOWNSTAIRS VIA WHEELCHAIR BY LABEL PASTER TO PATIENT ENTRANCE WHERE A [facility] WAS CALLED AND WILL SLIPCOVER CUTTER PATIENT AT 1230. NO NEW QUESTIONS OR CONCERNS.
== END 2024-08-21 11:53 | disposition home or self-care (01) ==
LOC: ER 14:08 → MEDS 14:09
PROVIDERS: Internal Medicine; Student in an Organized Health Care Education/Training Program; ADMIT Internal Medicine
DX: E10.43 Type 1 diabetes mellitus with diabetic autonomic (poly)neuropathy (principal); K31.84 Gastroparesis; E86.0 Dehydration; E87.6 Hypokalemia; E83.42 Hypomagnesemia; E10.65 Type 1 diabetes mellitus with hyperglycemia; K21.9 Gastro-esophageal reflux disease without esophagitis; I10 Essential (primary) hypertension; I25.10 Atherosclerotic heart disease of native coronary artery without angina pectoris; I25.2 Old myocardial infarction; F17.210 Nicotine dependence, cigarettes, uncomplicated; Z88.5 Allergy status to narcotic agent; Z88.8 Allergy status to other drugs, medicaments and biological substances; Z79.4 Long term (current) use of insulin; Z79.02 Long term (current) use of antithrombotics/antiplatelets; Z79.899 Other long term (current) drug therapy
CPT/HCPCS: 36415; 80048; 80053; 81001; 82010; 82803; 82947; 83605; 83690; 83735; 83880; 84100; 85025; 87428-QW; 96372; 96372-59; 96374; 96375; 96376; 99285-25; A9270; G0378; J1650; J1815; J2405; J2765; J3010; J3475; J3480; J7030; J7120

== ENCOUNTER 2024-08-25 15:56 | Observation (INO) | payer OTHER ==
[~2024-08-25] VITALS: Ht 162.6 cm; Wt 58.3 kg
[2024-08-25 16:20] LABS: Base Excess Venous 1.7 mmol/L; Bicarbonate Venous 26.6 mmol/L (24.0-30.0); PCO2 Venous 30.3 mmHg (38-42); pH Blood Venous 7.52 (7.34-7.37)
[2024-08-25 16:55] LABS: Albumin, Blood 4.3 g/dL (3.4-5.0); Albumin/Globulin Ratio 1.2 (0.8-1.8); Bilirubin, Total 0.9 mg/dL (0.1-1.0); Bun/Creatinine Ratio 13.9 (12.0-20.0); Calcium, Blood 9.9 mg/dL (8.5-10.1); Creatinine, Blood 0.43 mg/dL (0.40-1.00); Globulin, Blood 3.6 g/dL (2.2-4.0); Potassium, Blood 3.5 mmol/L (3.5-5.5); Total Protein, Blood 7.9 g/dL (6.4-8.2)
[2024-08-25 17:02] LABS: BASOPHILS ABSOLUTE AUTO 0.06 K/mm3 (0.00-0.23); BASOPHILS PERCENT AUTO 1 % (0-2); EOSINOPHILS ABSOLUTE AUTO 0.07 K/mm3 (0.00-0.68); EOSINOPHILS PERCENT AUTO 1 % (0-6); Hematocrit 43.9 % (33.0-51.0); Hemoglobin 15.2 g/dL (11.5-16.0); IMMATURE GRAN PERCENT AUTO 1 % (0-1); LYMPHOCYTES ABSOLUTE AUTO 1.62 K/mm3 (0.84-5.20); LYMPHOCYTES PERCENT AUTO 20 % (21-46); MONOCYTES PERCENT AUTO 4 % (4-13); Mean Corpuscular HGB 31.3 pg (26.0-34.0); Mean Corpuscular HGB Conc 34.6 g/dL (31.5-36.5); Mean Corpuscular Volume 91 fL (80-100); Mean Platelet Volume 9.6 fL (9.1-12.4); NEUTROPHILS ABSOLUTE AUTO 5.97 K/mm3 (1.96-9.15); NEUTROPHILS PERCENT AUTO 74 % (41-73); Platelet Count 346 K/mm3 (150-400); RDW Coefficient Variation 12.2 % (11.7-14.2); RDW Standard Deviation 40.2 fL (35.1-46.3); Red Blood Cell Count 4.85 M/mm3 (3.80-5.20); White Blood Cell Count 8.12 K/mm3 (4.00-11.30)
[2024-08-25] MEDS ORDERED: Morphine Sulfate 4 MG/1 ML Injection IV ONE (19:25)
[2024-08-25] MEDS ORDERED: Metoclopramide HCl 5MG / ML 2ML Vial IV ONE (19:25)
[2024-08-25] MEDS ORDERED: Lactated Ringer's 1,000 ML IV ONE (19:40)
[2024-08-25] MEDS ORDERED: Prochlorperazine Edisylate 10 mg Vial IV ONE (21:35)
[2024-08-25 22:10] LABS: Source, Urine Clean Catch
[2024-08-25 22:25] LABS: Appearance, Urine Clear (Clear); Bilirubin, Urine Neg (Neg); Blood, Urine Neg (Neg); Glucose Qualitative, Urine 4+ (Neg); Ketones, Urine 3+ (Neg); Leukocyte Esterase, Urine Neg (Neg); Nitrite, Urine Neg (Neg); Protein, Urine 2+ (Neg); Urobilinogen, Urine NORM (Normal); pH, Urine 6.5 (5.0-8.0)
[2024-08-25 22:42] LABS: Color, Urine Pale Yellow (P-Yellow)
[2024-08-25 22:43] LABS: Bacteria Few /hpf; Red Blood Cells, Urine 0-2 /hpf (0-2); Squamous Epithelial Cells Few /hpf (Few); White Blood Cells, Urine 0-2 /hpf (0-5)
[2024-08-25] MEDS ORDERED: Metoclopramide HCl 5MG / ML 2ML Vial IV PRN (23:15)
[2024-08-25] MEDS ORDERED: NS 1,000 ML IV SCH (23:15)
[2024-08-25] MEDS ORDERED: Ondansetron HCl 2 MG / ML 2ML Vial IV PRN (23:15)
[2024-08-25] MEDS ORDERED: FLU VACC TS2024-25(6MOS UP)/PF 45 MCG/0.5 ML SYRINGE IM ONE (23:15)
[2024-08-25] MEDS ORDERED: FentaNYL Citrate 50 MCG/ML 2 ML Injection IV PRN (23:20)
[2024-08-25] MEDS ORDERED: Enoxaparin 40 MG/0.4 ML SYR SC SCH (23:38)
[2024-08-26] MEDS ORDERED: Insulin Glargine-Yfgn 100 Unit/mL 3 ML SYR SC ONE ×2 (00:20→21:40)
[2024-08-26 05:06] LABS: BASOPHILS ABSOLUTE AUTO 0.06 K/mm3 (0.00-0.23); BASOPHILS PERCENT AUTO 1 % (0-2); EOSINOPHILS ABSOLUTE AUTO 0.12 K/mm3 (0.00-0.68); EOSINOPHILS PERCENT AUTO 1 % (0-6); Hematocrit 34.1 % (33.0-51.0); Hemoglobin 11.9 g/dL (11.5-16.0); IMMATURE GRAN ABSOLUTE AUTO 0.02 K/mm3 (0.00-0.10); IMMATURE GRAN PERCENT AUTO 0 % (0-1); LYMPHOCYTES ABSOLUTE AUTO 3.95 K/mm3 (0.84-5.20); LYMPHOCYTES PERCENT AUTO 46 % (21-46); MONOCYTES ABSOLUTE AUTO 0.56 K/mm3 (0.16-1.47); MONOCYTES PERCENT AUTO 7 % (4-13); Mean Corpuscular HGB 31.8 pg (26.0-34.0); Mean Corpuscular HGB Conc 34.9 g/dL (31.5-36.5); Mean Corpuscular Volume 91 fL (80-100); Mean Platelet Volume 9.4 fL (9.1-12.4); NEUTROPHILS ABSOLUTE AUTO 3.84 K/mm3 (1.96-9.15); NEUTROPHILS PERCENT AUTO 45 % (41-73); Platelet Count 301 K/mm3 (150-400); RDW Coefficient Variation 12.5 % (11.7-14.2); RDW Standard Deviation 41.8 fL (35.1-46.3); Red Blood Cell Count 3.74 M/mm3 (3.80-5.20); White Blood Cell Count 8.55 K/mm3 (4.00-11.30)
[2024-08-26 05:23] LABS: Albumin, Blood 3.1 g/dL (3.4-5.0); Albumin/Globulin Ratio 1.1 (0.8-1.8); Bilirubin, Total 0.6 mg/dL (0.1-1.0); Calcium, Blood 8.6 mg/dL (8.5-10.1); Creatinine, Blood 0.57 mg/dL (0.40-1.00); Globulin, Blood 2.9 g/dL (2.2-4.0); Potassium, Blood 3.1 mmol/L (3.5-5.5)
[2024-08-26] MEDS ORDERED: TraZODone HCl 50 MG Tab PO PRN (06:10)
[2024-08-26] MEDS ORDERED: Scopolamine Hydrobromide Patch TOP SCH (06:15)
[2024-08-26] MEDS ORDERED: FentaNYL Citrate 50 MCG/ML 2 ML Injection IV PRN (07:00)
[2024-08-26] MEDS ORDERED: Pantoprazole Sodium 40 MG Tab PO SCH (07:30)
[2024-08-26] MEDS ORDERED: Potassium Chl 20MEQ/Water100ML 100 ML IV SCH (08:35)
[2024-08-26] MEDS ORDERED: ARIPiprazole 10 MG Tab PO SCH (09:00)
[2024-08-26] MEDS ORDERED: Clopidogrel Bisulfate 75 MG Tab PO SCH (09:00)
[2024-08-26] MEDS ORDERED: Insulin Glargine-Yfgn 100 Unit/mL 3 ML SYR SC SCH (09:00)
[2024-08-26] MEDS ORDERED: LevETIRAcetam 500 MG Tab PO SCH (09:00)
[2024-08-26] MEDS ORDERED: BusPIRone HCl 10 MG Tab PO SCH (09:00)
[2024-08-26] MEDS ORDERED: NS 1,000 ML IV ONE (11:36)
[2024-08-26 14:55] VITALS: BP 121/76
--- NOTE | 2024-08-26 15:00 | NUR ---
PT ADMITTED FROM THE ED. ARRIVED VIA WHEELCHAIR.
[2024-08-26] MEDS ORDERED: Insulin Human Lispro 100 Units/ML 3ML Syringe SC SCH (16:30)
--- NOTE | 2024-08-26 18:43 | NUR ---
SHIFT SUMMARY PT IS A/OX4. SBA. PT ADMITTED FROM ED THIS AFTERNOON. RECIEVING IV POTASSIUM. PT ATTEMPING TO TOLERATING EATING A CC DIET, HOWEVER AFTER EATTING A FEW BITES STARTED EXPERIENCING ABDOMINAL PAIN. MEDICATED WITH FENTANYL PER SEP. PT CALLS APPROPRIATELY USING THE CALL LIGHT.
[2024-08-26 19:53] VITALS: BP 115/75
[2024-08-26 23:06] VITALS: BP 112/69
[2024-08-27 03:28] VITALS: BP 115/76
--- NOTE | 2024-08-27 03:31 | NUR ---
ENGINE REPAIRER SUMMARY VSS. MED TELE SR. ACCU CHECK AT HS WAS 89, NOTIFIED AND ORDERED 6 UNITS HUMAN RESOURCES OFFICER INSULIN RATHER THAN 12 U X 1. TOLERATING SMALL AMTS OF "PENUT BUTTER AND CRACKERS". ALERT AND ORIENTED. UP AD OLIVERIO. INTERMITTENT NAUSEA, REQUESTING AND RECEIVING IV ZOFRAN, MED EFFECTIVE. HAS BEEN RESTING QUIETLY WITH INTERMITTENT EPISODES OF NAUSEA - MENTIONED ABOVE. CALL LIGHT IN REACH, RAILS UP X 2 AND BED IN LOW POSITION FOR SAFETY. AABLE TO REPOSITOIN SELF IN BED WITHOUT ASSIST FOR COMFORT. WILL CONTINUE TO MONITOR
[2024-08-27 07:21] LABS: Hematocrit 36.7 % (33.0-51.0); Hemoglobin 12.5 g/dL (11.5-16.0); Mean Corpuscular HGB 32.1 pg (26.0-34.0); Mean Corpuscular HGB Conc 34.1 g/dL (31.5-36.5); Mean Corpuscular Volume 94 fL (80-100); Mean Platelet Volume 9.2 fL (9.1-12.4); Platelet Count 287 K/mm3 (150-400); RDW Coefficient Variation 12.9 % (11.7-14.2); RDW Standard Deviation 44.4 fL (35.1-46.3)
[2024-08-27] MEDS ORDERED: Metoclopramide HCl 10 MG Tab PO SCH (07:30)
[2024-08-27 07:39] VITALS: BP 127/82
[2024-08-27 07:39] LABS: Albumin, Blood 3.4 g/dL (3.4-5.0); Albumin/Globulin Ratio 1.1 (0.8-1.8); Bilirubin, Total 0.5 mg/dL (0.1-1.0); Bun/Creatinine Ratio 14.6 (12.0-20.0); Creatinine, Blood 0.48 mg/dL (0.40-1.00); Potassium, Blood 3.8 mmol/L (3.5-5.5); Total Protein, Blood 6.4 g/dL (6.4-8.2)
[2024-08-27] MEDS ORDERED: Acetaminophen 325 MG TABLET PO PRN (08:05)
[2024-08-27] MEDS ORDERED: Scopolamine Hydrobromide Patch TOP SCH (09:00)
[2024-08-27] MEDS ORDERED: PREG75 PO (13:37)
--- NOTE | 2024-08-27 15:00 | NUR ---
PT DISCHARGED TO HOME WITH HOME HEALTH. PT PROVIDED AND INSTRUCTED ON DISCHARGE INSTRUCTIONS PRIOR TO DISCHARGE. MEDICATIONS FAXED TO [facility] IN [place]. ALL VALUABLES RETURNED AND SENT HOME WITH THE PT.
== END 2024-08-27 15:15 | disposition home health service (06) ==
LOC: ER 15:56 → ERHOLD 15:57 → MEDS 08-26 14:52
PROVIDERS: Family Medicine; Student in an Organized Health Care Education/Training Program; ADMIT Internal Medicine
DX: E10.43 Type 1 diabetes mellitus with diabetic autonomic (poly)neuropathy (principal); K31.84 Gastroparesis; E10.65 Type 1 diabetes mellitus with hyperglycemia; E87.6 Hypokalemia; I10 Essential (primary) hypertension; E78.5 Hyperlipidemia, unspecified; G89.4 Chronic pain syndrome; G40.909 Epilepsy, unspecified, not intractable, without status epilepticus; I25.10 Atherosclerotic heart disease of native coronary artery without angina pectoris; I25.2 Old myocardial infarction; K21.9 Gastro-esophageal reflux disease without esophagitis; M79.7 Fibromyalgia; F41.8 Other specified anxiety disorders; F17.210 Nicotine dependence, cigarettes, uncomplicated; Z95.5 Presence of coronary angioplasty implant and graft; Z79.02 Long term (current) use of antithrombotics/antiplatelets; Z79.899 Other long term (current) drug therapy; Z88.5 Allergy status to narcotic agent; Z88.8 Allergy status to other drugs, medicaments and biological substances; Z90.710 Acquired absence of both cervix and uterus; Z90.49 Acquired absence of other specified parts of digestive tract
CPT/HCPCS: 36415; 74177; 80053; 81001; 82803; 82947; 83690; 83880; 85025; 85027; 96361; 96365; 96366; 96372; 96375; 96376; 99285-25; A9270; G0378; J0780; J1650; J1815; J2270; J2405; J2765; J3010; J3480; J7030; J7120; Q9967

== ENCOUNTER 2024-10-06 10:24 | Inpatient (IN) | payer OTHER ==
[~2024-10-06] VITALS: Ht 162.6 cm; Wt 56.7 kg
[~2024-10-06 10:24] MED LIST changes: +PREG75 PO
[2024-10-06] MEDS ORDERED: Metoclopramide HCl 5MG / ML 2ML Vial IV ONE (10:40)
[2024-10-06] MEDS ORDERED: Lactated Ringer's 1,000 ML IV ONE ×2 (10:40→11:30)
[2024-10-06 10:53] LABS: Base Excess Venous 3.1 mmol/L; PCO2 Venous 29.5 mmHg (38-42)
[2024-10-06 10:53] LABS: BASOPHILS ABSOLUTE AUTO 0.07 K/mm3 (0.00-0.23); BASOPHILS PERCENT AUTO 1 % (0-2); EOSINOPHILS ABSOLUTE AUTO 0.06 K/mm3 (0.00-0.68); EOSINOPHILS PERCENT AUTO 1 % (0-6); Hematocrit 41.1 % (33.0-51.0); Hemoglobin 14.3 g/dL (11.5-16.0); IMMATURE GRAN ABSOLUTE AUTO 0.04 K/mm3 (0.00-0.10); IMMATURE GRAN PERCENT AUTO 0 % (0-1); LYMPHOCYTES ABSOLUTE AUTO 1.82 K/mm3 (0.84-5.20); LYMPHOCYTES PERCENT AUTO 15 % (21-46); MONOCYTES ABSOLUTE AUTO 0.37 K/mm3 (0.16-1.47); MONOCYTES PERCENT AUTO 3 % (4-13); Mean Corpuscular HGB 31.3 pg (26.0-34.0); Mean Corpuscular HGB Conc 34.8 g/dL (31.5-36.5); Mean Corpuscular Volume 90 fL (80-100); Mean Platelet Volume 9.5 fL (9.1-12.4); NEUTROPHILS ABSOLUTE AUTO 9.56 K/mm3 (1.96-9.15); NEUTROPHILS PERCENT AUTO 80 % (41-73); Platelet Count 313 K/mm3 (150-400); RDW Coefficient Variation 12.5 % (11.7-14.2); Red Blood Cell Count 4.57 M/mm3 (3.80-5.20); White Blood Cell Count 11.92 K/mm3 (4.00-11.30)
[2024-10-06 10:54] LABS: pH Blood Venous 7.55 (7.34-7.37)
[2024-10-06 11:17] LABS: Albumin, Blood 4.1 g/dL (3.4-5.0); Albumin/Globulin Ratio 1.1 (0.8-1.8); Beta-hydroxybutyrate 8.9 mg/dL (0.2-2.8); Bilirubin, Total 0.9 mg/dL (0.1-1.0); Bun/Creatinine Ratio 19.2 (12.0-20.0); Calcium, Blood 9.3 mg/dL (8.5-10.1); Creatinine, Blood 0.57 mg/dL (0.40-1.00); Globulin, Blood 3.6 g/dL (2.2-4.0); Magnesium, Blood 1.9 mg/dL (1.6-2.4); Total Protein, Blood 7.7 g/dL (6.4-8.2)
[2024-10-06] MEDS ORDERED: Prochlorperazine Edisylate 10 mg Vial IV ONE ×2 (11:30→12:30)
[2024-10-06] MEDS ORDERED: DiphenhydrAMINE HCl 50 MG/ML 1ML Vial IV ONE (12:35)
[2024-10-06] MEDS ORDERED: NS 1,000 ML IV SCH (14:20)
[2024-10-06] MEDS ORDERED: FLU VACC TS2024-25(6MOS UP)/PF 45 MCG/0.5 ML SYRINGE IM PRN (14:20)
[2024-10-06] MEDS ORDERED: Ondansetron HCl 2 MG / ML 2ML Vial IV PRN (14:20)
[2024-10-06 15:50] VITALS: BP 102/63
[2024-10-06] MEDS ORDERED: ROPI.25 PO (15:57)
[2024-10-06] MEDS ORDERED: CYCL10 PO (16:00)
--- NOTE | 2024-10-06 16:26 | NUR ---
Pt arrived to 362 via gurney from ED, she is a/ox4, cooperative with care, follows commands well, reports pain in stomach and nausea, lungs are clear t/o, resp even and unlabored, on r/a, no cough noted, hrr, no edema noted, ppp+1, cap refill<1 sec, vs stable, afebrile, piv to rac site is clear and patent, bt very hypoactive, abd tender t/o, no active vomiting, but states she is nauseated, skin c/w/d, katerine mariee, oriented to room layout and call system, call light in reach.
[2024-10-06] MEDS ORDERED: Metoclopramide HCl 5MG / ML 2ML Vial IV SCH (16:30)
[2024-10-06] MEDS ORDERED: Ketorolac Tromethamine 15mg Vial IV PRN (16:40)
[2024-10-06] MEDS ORDERED: Scopolamine Hydrobromide Patch TOP SCH (17:25)
[2024-10-06] MEDS ORDERED: TraZODone HCl 50 MG Tab PO PRN (17:25)
[2024-10-06] MEDS ORDERED: Cyclobenzaprine HCl 10 MG Tab PO PRN (17:30)
[2024-10-06] MEDS ORDERED: Insulin Human Lispro 100 Units/ML 3ML Syringe SC ONE (18:30)
[2024-10-06 19:45] VITALS: BP 98/67
[2024-10-06] MEDS ORDERED: LORazepam 2 MG/ML 1ML Injection IV PRN (20:00)
[2024-10-06] MEDS ORDERED: Famotidine 10 MG/ML 2ML Vial IV SCH (21:00)
[2024-10-06] MEDS ORDERED: Atorvastatin 40 MG Tab PO SCH (21:00)
[2024-10-06] MEDS ORDERED: Pregabalin 75 MG Cap PO SCH (21:00)
[2024-10-06] MEDS ORDERED: BusPIRone HCl 10 MG Tab PO SCH (21:00)
[2024-10-06] MEDS ORDERED: Insulin Glargine-Yfgn 100 Unit/mL 3 ML SYR SC SCH (21:00)
[2024-10-06] MEDS ORDERED: Insulin Human Lispro 100 Units/ML 3ML Syringe SC SCH ×2 (21:00)
[2024-10-06] MEDS ORDERED: LevETIRAcetam 500 MG Tab PO SCH (21:00)
[2024-10-06] MEDS ORDERED: Magnesium Sulf 2 GM/Water 50ML 50 ML IV ONE (21:40)
[2024-10-07 05:28] VITALS: BP 102/69
[2024-10-07 05:32] LABS: Calcium, Blood 8.3 mg/dL (8.5-10.1); Creatinine, Blood 0.55 mg/dL (0.40-1.00); Magnesium, Blood 2.6 mg/dL (1.6-2.4); Potassium, Blood 3.8 mmol/L (3.5-5.5)
--- NOTE | 2024-10-07 06:19 | NUR ---
Shift Summary Pt very nauseous at the start of shift. She recieved her scheduled regalin which she stated did not help very much. I called the hospitalist who ordered PRN IV Ativan for N/V. I gave her one dose of 0.5mg and she was able to sleep t/o most of the night. She woke up this AM with a painful abdomen, I gave her Toradol and she fell back to sleep. Pt was somewhat difficult to wake up t/o the night after the Ativan. Her Zofran was D/C'd yesterday d/t concerns of QT prolongation, EKG in the chart showing QTc of 489 ms.
[2024-10-07 07:22] VITALS: BP 129/77
[2024-10-07] MEDS ORDERED: Pantoprazole Sodium 40 MG Tab PO SCH (07:30)
[2024-10-07] MEDS ORDERED: Insulin Human Lispro 100 Units/ML 3ML Syringe SC SCH (07:30)
[2024-10-07] MEDS ORDERED: Clopidogrel Bisulfate 75 MG Tab PO SCH (09:00)
[2024-10-07] MEDS ORDERED: Misc. Tablet PO SCH (09:00)
[2024-10-07] MEDS ORDERED: Enoxaparin 40 MG/0.4 ML SYR SC SCH (09:00)
[2024-10-07] MEDS ORDERED: ARIPiprazole 10 MG Tab PO SCH (09:00)
[2024-10-07] MEDS ORDERED: rOPINIRole HCl 0.25 MG Tab PO SCH (09:00)
[2024-10-07] MEDS ORDERED: LORazepam 2 MG/ML 1ML Injection IV PRN (11:55)
[2024-10-07] MEDS ORDERED: Prochlorperazine Edisylate 10 mg Vial IV PRN (13:30)
[2024-10-07 15:18] VITALS: BP 113/77
--- NOTE | 2024-10-07 18:12 | NUR ---
PT SLOW TO AWAKEN THIS AM. DOING OKAY REST OF THIS DAY. DISCUSSED CUTTING ATIVAN BACK WITH DR BROWN. DONE. DR ADDED ADDITIONAL NAUSEA MEDS. GIVEN. PT STATES SOME IMPROVEMENT OVERALL TODAY. SLEEPING MUCH OF DAY. NO OTHER CONCERNS NOTED. BED IN LOW POSITION, CALL LITE IN REACH, CALLS APPROP
[2024-10-07 19:24] VITALS: BP 122/75
--- NOTE | 2024-10-08 04:37 | NUR ---
SHIFT SUMM: PT IS A 54 YO FULL CODE WHO WAS ADMITTED FOR NAUSEA/VOMIT. PT HAS HAD SOME NAUSEA THIS SHIFT AND PAIN THAT HAS BEEN MEDICATED PER EMAR. PT REFUSED HER LANTUS TONIGHT DUE TO HER BLOOD SUGARS BEING ON THE LOWER SIDE. PT HAS PROGRESSED TO A ADA DIET AND HAS BEEN ABLE TO TOLERATE SOME FOOD WITHOUT VOMITING. PT HAS BEEN RESTING MOST OF THE SHIFT AND CALLS TO MAKE NEEDS KNOWN.
[2024-10-08 05:30] VITALS: BP 133/72
[2024-10-08 06:47] LABS: BASOPHILS ABSOLUTE AUTO 0.06 K/mm3 (0.00-0.23); BASOPHILS PERCENT AUTO 1 % (0-2); EOSINOPHILS ABSOLUTE AUTO 0.13 K/mm3 (0.00-0.68); EOSINOPHILS PERCENT AUTO 3 % (0-6); Hematocrit 38.8 % (33.0-51.0); Hemoglobin 13.1 g/dL (11.5-16.0); IMMATURE GRAN ABSOLUTE AUTO 0.01 K/mm3 (0.00-0.10); IMMATURE GRAN PERCENT AUTO 0 % (0-1); LYMPHOCYTES ABSOLUTE AUTO 2.29 K/mm3 (0.84-5.20); LYMPHOCYTES PERCENT AUTO 52 % (21-46); MONOCYTES ABSOLUTE AUTO 0.31 K/mm3 (0.16-1.47); MONOCYTES PERCENT AUTO 7 % (4-13); Mean Corpuscular HGB 31.6 pg (26.0-34.0); Mean Corpuscular HGB Conc 33.8 g/dL (31.5-36.5); Mean Corpuscular Volume 94 fL (80-100); Mean Platelet Volume 8.9 fL (9.1-12.4); NEUTROPHILS PERCENT AUTO 36 % (41-73); Platelet Count 251 K/mm3 (150-400); RDW Coefficient Variation 12.8 % (11.7-14.2); RDW Standard Deviation 43.8 fL (35.1-46.3); Red Blood Cell Count 4.14 M/mm3 (3.80-5.20)
[2024-10-08 07:02] LABS: Bun/Creatinine Ratio 25.2 (12.0-20.0); Calcium, Blood 8.6 mg/dL (8.5-10.1); Creatinine, Blood 0.52 mg/dL (0.40-1.00); Potassium, Blood 3.5 mmol/L (3.5-5.5)
[2024-10-08 07:41] VITALS: BP 124/72
[2024-10-08] MEDS ORDERED: Prochlorperazine Maleate 5 MG Tab PO PRN (10:30)
[2024-10-08] MEDS ORDERED: Metoclopramide HCL Soln 10 MG/10 ML UDC PO SCH (11:30)
[2024-10-08] MEDS ORDERED: Lactated Ringer's 1,000 ML IV ONE (14:00)
[2024-10-08 15:49] VITALS: BP 128/83
--- NOTE | 2024-10-08 16:23 | NUR ---
MET WITH PATIENT TO DISCUSS DM MANAGMENT. ZANE EXPRESSED THAT SHE HAS STRUGGLED WITH N/V AND HASNT TAKEN HER LONG LASTING INSULIN THE WAY SHE SHOULD. SHE IS SUPPOSE TO GET AN INSULIN PUMP, BUT WILL DISCUSS HER LONG LASTING INSULIN WITH HER COBOL APPLICATION DEVELOPER. SHE HAS A GASTRO-NERVE STIMULATOR THAT HAS BEEN TURNED UP ONCE AND SHE WILL CALL TO HAVE IT ADJUSTED AFTER THIS HOSPITILIZATION. SHE IS HOPEFUL THAT SHE WILL BE ABLE TO MANAGE HER SYMPTOMS OUTPATIENT AND NOT MAKE MANY HOSPITAL TRIPS. SHE REPORTS THAT SHE IS FEELING BETTER AND WANTS TO GO HOME TODAY.
[2024-10-08] MEDS ORDERED: FAMO20 PO (17:55)
[2024-10-08] MEDS ORDERED: PROC5 PO (17:56)
--- NOTE | 2024-10-08 18:11 | NUR ---
SHIFT SUMMARY PATIENT A/O X4. ABLE TO TRANSFER INDEPENDENTLY, ABLE TO MAKE NEEDS KNOWN. DECLINED INSULIN COVERAGE PRIOR TO DISCHARGE, STATED SHE WILL RECHECK AT HOME AND COVER WHEN SHE IS GOING TO HAVE DINNER. IV REMOVED PRIOR WITHOUT COMPLICATION. DISCHARGE PACKET GIVEN AND REVIEWED, QUESTIONS ANSWERED, VERBALIZED UNDERSTANDING. MEDS CALLED IN TO [facility], INFORMED PATIENT OF IMPORTANCE OF TAKING MEDS DIRECTED AND THE AVAILABILITY FROM [facility] ON THE WEEKEND, PATIENT INSISTED ON THIS PHARMACY IT IS THE ONLY WAY FOR HER TO PHYSICALLY GET THE MEDS AT ALL. WHEELED OUT TO WAIT FOR [facility]AXI TO DRIVE HER HOME.
[2024-10-08] MEDS ORDERED: Famotidine 20 MG Tab PO SCH (21:00)
== END 2024-10-08 18:05 | disposition home or self-care (01) | DRG 74 ==
LOC: ER 10:24 → MEDS 10:25
PROVIDERS: Emergency Medicine; ADMIT Internal Medicine
DX: E10.43 Type 1 diabetes mellitus with diabetic autonomic (poly)neuropathy (principal); E87.21 Acute metabolic acidosis; E87.1 Hypo-osmolality and hyponatremia; E87.3 Alkalosis; G40.109 Localization-related (focal) (partial) symptomatic epilepsy and epileptic syndromes with simple partial seizures, not intractable, without status epilepticus; K31.84 Gastroparesis; F41.9 Anxiety disorder, unspecified; F32.A Depression, unspecified; G89.4 Chronic pain syndrome; E78.5 Hyperlipidemia, unspecified; M79.7 Fibromyalgia; I25.10 Atherosclerotic heart disease of native coronary artery without angina pectoris; I10 Essential (primary) hypertension; M62.838 Other muscle spasm; R94.31 Abnormal electrocardiogram [ECG] [EKG]; K21.9 Gastro-esophageal reflux disease without esophagitis; M19.90 Unspecified osteoarthritis, unspecified site; E10.65 Type 1 diabetes mellitus with hyperglycemia; G47.33 Obstructive sleep apnea (adult) (pediatric); F17.210 Nicotine dependence, cigarettes, uncomplicated; E10.42 Type 1 diabetes mellitus with diabetic polyneuropathy; Z96.82 Presence of neurostimulator; I25.2 Old myocardial infarction; Z95.5 Presence of coronary angioplasty implant and graft; Z79.02 Long term (current) use of antithrombotics/antiplatelets; Z88.8 Allergy status to other drugs, medicaments and biological substances; Z88.5 Allergy status to narcotic agent; Z79.4 Long term (current) use of insulin; Z90.49 Acquired absence of other specified parts of digestive tract
CPT/HCPCS: 36415; 80048; 80053; 82010; 82803; 82947; 83605; 83690; 83735; 84484; 85025; 93005; 93010; 96361; 96365; 96372; 96374; 96375; 96376; 99285-25; A9270; G0378; J0780; J1200; J1650; J1815; J1885; J2060; J2765; J3475; J7030; J7120; Q0164

== ENCOUNTER 2024-11-21 14:40 | Emergency (ER) | payer OTHER ==
[~2024-11-21] VITALS: Ht 162.6 cm; Wt 59.0 kg
[~2024-11-21 14:40] MED LIST changes: +FAMO20 PO
[2024-11-21] MEDS ORDERED: NS 1,000 ML IV SCH (14:50)
[2024-11-21] MEDS ORDERED: Ondansetron HCl 2 MG / ML 2ML Vial IV ONE (14:50)
[2024-11-21] MEDS ORDERED: Metoclopramide HCl 5MG / ML 2ML Vial IV ONE (14:50)
[2024-11-21] MEDS ORDERED: Morphine Sulfate 4 MG/1 ML Injection IV ONE ×2 (14:50→18:15)
[2024-11-21 15:44] LABS: Albumin, Blood 4.2 g/dL (3.4-5.0); Bilirubin, Total 1.1 mg/dL (0.1-1.0); Bun/Creatinine Ratio 21.7 (12.0-20.0); Calcium, Blood 10.4 mg/dL (8.5-10.1); Creatinine, Blood 0.41 mg/dL (0.40-1.00); Globulin, Blood 4.2 g/dL (2.2-4.0); Potassium, Blood 4.1 mmol/L (3.5-5.5); Total Protein, Blood 8.4 g/dL (6.4-8.2)
[2024-11-21] MEDS ORDERED: Prochlorperazine Edisylate 10 mg Vial IV ONE (18:15)
[2024-11-21 18:57] LABS: Source, Urine Voided
[2024-11-21 18:59] LABS: Appearance, Urine Clear (Clear); Bilirubin, Urine Neg (Neg); Blood, Urine 1+ (Neg); Glucose Qualitative, Urine 4+ (Neg); Ketones, Urine 4+ (Neg); Leukocyte Esterase, Urine Neg (Neg); Nitrite, Urine Neg (Neg); Protein, Urine 2+ (Neg); Urobilinogen, Urine NORM (Normal)
[2024-11-21 19:05] LABS: Color, Urine Pale Yellow (P-Yellow)
[2024-11-21 19:06] LABS: Bacteria Rare /hpf; Squamous Epithelial Cells Few /hpf (Few); White Blood Cells, Urine 0-2 /hpf (0-5)
[2024-11-21 19:07] LABS: BASOPHILS ABSOLUTE AUTO 0.04 K/mm3 (0.00-0.23); BASOPHILS PERCENT AUTO 1 % (0-2); EOSINOPHILS ABSOLUTE AUTO 0.01 K/mm3 (0.00-0.68); EOSINOPHILS PERCENT AUTO 0 % (0-6); Hematocrit 43.9 % (33.0-51.0); IMMATURE GRAN ABSOLUTE AUTO 0.03 K/mm3 (0.00-0.10); IMMATURE GRAN PERCENT AUTO 0 % (0-1); LYMPHOCYTES ABSOLUTE AUTO 1.29 K/mm3 (0.84-5.20); LYMPHOCYTES PERCENT AUTO 15 % (21-46); MONOCYTES PERCENT AUTO 2 % (4-13); Mean Corpuscular HGB 31.3 pg (26.0-34.0); Mean Corpuscular HGB Conc 34.2 g/dL (31.5-36.5); Mean Corpuscular Volume 92 fL (80-100); Mean Platelet Volume 9.9 fL (9.1-12.4); NEUTROPHILS ABSOLUTE AUTO 7.11 K/mm3 (1.96-9.15); NEUTROPHILS PERCENT AUTO 82 % (41-73); Platelet Count 406 K/mm3 (150-400); RDW Coefficient Variation 12.6 % (11.7-14.2); White Blood Cell Count 8.68 K/mm3 (4.00-11.30)
[2024-11-21 19:46] LABS: Base Excess Venous -4.8 mmol/L; PCO2 Venous 36.1 mmHg (38-42); pH Blood Venous 7.36 (7.34-7.37)
[2024-11-21 20:00] VITALS: BP 104/63
== END 2024-11-21 20:22 | disposition home or self-care (01) ==
LOC: ER 14:40
PROVIDERS: Emergency Medicine
DX: E10.43 Type 1 diabetes mellitus with diabetic autonomic (poly)neuropathy (principal); K31.84 Gastroparesis; K21.9 Gastro-esophageal reflux disease without esophagitis; E10.9 Type 1 diabetes mellitus without complications; I25.2 Old myocardial infarction; I10 Essential (primary) hypertension; F17.210 Nicotine dependence, cigarettes, uncomplicated; Z88.5 Allergy status to narcotic agent; Z88.8 Allergy status to other drugs, medicaments and biological substances; Z79.899 Other long term (current) drug therapy; Z79.4 Long term (current) use of insulin; Z95.5 Presence of coronary angioplasty implant and graft
CPT/HCPCS: 80053; 81001; 82803; 83690; 84484; 85025; 93005; 93010; 96361; 96374; 96375; 99284-25; J0780; J2270; J2405; J2765; J7030

== ENCOUNTER 2024-11-23 11:55 | Observation (INO) | payer OTHER ==
[~2024-11-23] VITALS: Ht 266.7 cm; Wt 59.0 kg
[2024-11-23 13:50] LABS: Source, Urine Clean Catch
[2024-11-23 14:03] LABS: Appearance, Urine Clear (Clear); Bilirubin, Urine Neg (Neg); Blood, Urine 1+ (Neg); Glucose Qualitative, Urine 4+ (Neg); Ketones, Urine 4+ (Neg); Leukocyte Esterase, Urine Neg (Neg); Nitrite, Urine Neg (Neg); Protein, Urine 2+ (Neg); Urobilinogen, Urine NORM (Normal)
[2024-11-23] MEDS ORDERED: Metoclopramide HCl 5MG / ML 2ML Vial IV ONE (14:05)
[2024-11-23] MEDS ORDERED: Lactated Ringer's 1,000 ML IV SCH ×3 (14:10→19:05)
[2024-11-23 14:27] LABS: Color, Urine Pale Yellow (P-Yellow); White Blood Cells, Urine 0-2 /hpf (0-5)
[2024-11-23 14:28] LABS: Bacteria Rare /hpf; Red Blood Cells, Urine 0-2 /hpf (0-2); Squamous Epithelial Cells Rare /hpf (Few)
[2024-11-23 14:41] LABS: Base Excess Venous -10.4 mmol/L; Bicarbonate Venous 17.7 mmol/L (24.0-30.0); PCO2 Venous 26.1 mmHg (38-42); pH Blood Venous 7.37 (7.34-7.37)
[2024-11-23 14:58] LABS: BASOPHILS ABSOLUTE AUTO 0.04 K/mm3 (0.00-0.23); BASOPHILS PERCENT AUTO 0 % (0-2); EOSINOPHILS ABSOLUTE AUTO 0.02 K/mm3 (0.00-0.68); EOSINOPHILS PERCENT AUTO 0 % (0-6); Hematocrit 43.8 % (33.0-51.0); Hemoglobin 15.2 g/dL (11.5-16.0); IMMATURE GRAN ABSOLUTE AUTO 0.04 K/mm3 (0.00-0.10); IMMATURE GRAN PERCENT AUTO 0 % (0-1); LYMPHOCYTES ABSOLUTE AUTO 1.43 K/mm3 (0.84-5.20); LYMPHOCYTES PERCENT AUTO 12 % (21-46); MONOCYTES PERCENT AUTO 2 % (4-13); Mean Corpuscular HGB 31.6 pg (26.0-34.0); Mean Corpuscular HGB Conc 34.7 g/dL (31.5-36.5); Mean Corpuscular Volume 91 fL (80-100); Mean Platelet Volume 9.6 fL (9.1-12.4); NEUTROPHILS ABSOLUTE AUTO 9.82 K/mm3 (1.96-9.15); NEUTROPHILS PERCENT AUTO 85 % (41-73); Platelet Count 447 K/mm3 (150-400); RDW Coefficient Variation 12.8 % (11.7-14.2); RDW Standard Deviation 42.4 fL (35.1-46.3); Red Blood Cell Count 4.81 M/mm3 (3.80-5.20); White Blood Cell Count 11.55 K/mm3 (4.00-11.30)
[2024-11-23 15:24] LABS: Albumin, Blood 4.2 g/dL (3.4-5.0); Albumin/Globulin Ratio 0.9 (0.8-1.8); Bun/Creatinine Ratio 29.2 (12.0-20.0); Calcium, Blood 9.8 mg/dL (8.5-10.1); Creatinine, Blood 0.58 mg/dL (0.40-1.00); Globulin, Blood 4.5 g/dL (2.2-4.0); Potassium, Blood 3.7 mmol/L (3.5-5.5); Total Protein, Blood 8.7 g/dL (6.4-8.2)
[2024-11-23] MEDS ORDERED: FentaNYL Citrate 50 MCG/ML 2 ML Injection IV ONE (15:45)
[2024-11-23] MEDS ORDERED: Potassium Chloride 20 MEQ/15 ML UDC PO ONE (16:40)
[2024-11-23] MEDS ORDERED: Droperidol 5 mg/2 ml Vial IV ONE (16:55)
[2024-11-23] MEDS ORDERED: Insulin Regular 100 Unit/ML 1ML Dose IV ONE ×2 (17:00→19:00)
[2024-11-23] MEDS ORDERED: Potassium Chl 20MEQ/Water100ML 100 ML IV STA (17:07)
[2024-11-23 18:20] LABS: Albumin, Blood 3.8 g/dL (3.4-5.0); Albumin/Globulin Ratio 1.1 (0.8-1.8); Bilirubin, Total 0.7 mg/dL (0.1-1.0); Bun/Creatinine Ratio 31.9 (12.0-20.0); Calcium, Blood 9.4 mg/dL (8.5-10.1); Creatinine, Blood 0.6 mg/dL (0.40-1.00); Globulin, Blood 3.6 g/dL (2.2-4.0); Magnesium, Blood 2.6 mg/dL (1.6-2.4); Phosphorus, Blood 3.8 mg/dL (2.5-4.9); Potassium, Blood 3.7 mmol/L (3.5-5.5); Total Protein, Blood 7.4 g/dL (6.4-8.2)
[2024-11-23] MEDS ORDERED: TraZODone HCl 50 MG Tab PO PRN (18:55)
[2024-11-23] MEDS ORDERED: Ondansetron HCl 2 MG / ML 2ML Vial IV PRN (19:00)
[2024-11-23] MEDS ORDERED: Metoclopramide HCl 5MG / ML 2ML Vial IV PRN (19:00)
[2024-11-23] MEDS ORDERED: FentaNYL Citrate 50 MCG/ML 2 ML Injection IV PRN (19:15)
[2024-11-23] MEDS ORDERED: Lactated Ringer's 1,000 ML IV ONE (19:20)
[2024-11-23] MEDS ORDERED: Insulin Glargine-Yfgn 100 Unit/mL 3 ML SYR SC ONE (20:00)
[2024-11-23] MEDS ORDERED: Insulin Human Lispro 100 Units/ML 3ML Syringe SC SCH (20:00)
[2024-11-23] MEDS ORDERED: Insulin Glargine-Yfgn 100 Unit/mL 3 ML SYR SC SCH ×2 (20:00→21:00)
[2024-11-23] MEDS ORDERED: OMEP20ER PO (20:58)
[2024-11-23] MEDS ORDERED: Pregabalin 75 MG Cap PO SCH (21:00)
[2024-11-23] MEDS ORDERED: levETIRAcetam 750 MG TABLET PO SCH (21:00)
[2024-11-23] MEDS ORDERED: Famotidine 10 MG/ML 2ML Vial IV SCH (21:00)
[2024-11-23] MEDS ORDERED: ROPI1 PO (21:03)
[2024-11-23] MEDS ORDERED: ROPI.25 PO (21:04)
[2024-11-23] MEDS ORDERED: ONDA8 PO (21:06)
[2024-11-23 22:03] LABS: Calcium, Blood 8.6 mg/dL (8.5-10.1); Creatinine, Blood 0.59 mg/dL (0.40-1.00); Potassium, Blood 4.2 mmol/L (3.5-5.5)
[2024-11-24 00:41] VITALS: BP 98/60
[2024-11-24] MEDS ORDERED: FentaNYL Citrate 50 MCG/ML 2 ML Injection IV PRN (01:00)
--- NOTE | 2024-11-24 01:35 | NUR ---
PT ARRIVES TO UNIT AT 2050, REPORT RECEIVED FROM PROGRAM MANAGER RNMIGDALIA RHODES. PT IS A/OX4, PLEASANT AND COOPERATIVE WITH CARE. ABLE TO TRANSFER HERSELF FROM [facility] TO HOSPITAL BED. SHE APPEARS WEAK. SHE ENDORSES 8/10 RUQ PAIN. TREATING PER EMAR. SHE IS ON TELEMETRY, IN A SINUS RHYTHM, HR IN THE 70'S. SHE DENIES CHEST PAIN/PRESSURE AT THIS TIME. SHE HAS A CAREGIVER AT HOME WHO HELPS HER WITH HER MEDICATIONS AND OTHER TASKS. NO EDEMA NOTED. ON RA, SATS ABOVE 95%. HX OF JOANNE, HAS A CPAP BUT RARELY USES AT HOME. SKIN IS INTACT T/O. SHE IS CONTINENT OF URINE AND STOOL, REPORTS DIARRHEA X4 DAYS, BUT NONE SINCE ADMISSION. SHE AMBULATES INDEPENDENTLY WITH A SBA FOR WEAKNESS AND LINE MANAGEMENT. CBGS Q4, LABS Q4, PT REMAINS NPO AT THIS TIME PER PROTOCOL.
[2024-11-24 01:57] LABS: Bun/Creatinine Ratio 24.5 (12.0-20.0); Calcium, Blood 8.8 mg/dL (8.5-10.1); Creatinine, Blood 0.53 mg/dL (0.40-1.00); Potassium, Blood 3.9 mmol/L (3.5-5.5)
[2024-11-24 04:00] VITALS: BP 122/70
[2024-11-24 05:39] LABS: Hematocrit 38.1 % (33.0-51.0); Hemoglobin 12.7 g/dL (11.5-16.0); Mean Corpuscular HGB 31.1 pg (26.0-34.0); Mean Corpuscular HGB Conc 33.3 g/dL (31.5-36.5); Mean Corpuscular Volume 93 fL (80-100); Mean Platelet Volume 9.2 fL (9.1-12.4); Platelet Count 271 K/mm3 (150-400); RDW Coefficient Variation 12.9 % (11.7-14.2); Red Blood Cell Count 4.09 M/mm3 (3.80-5.20); White Blood Cell Count 7.31 K/mm3 (4.00-11.30)
[2024-11-24 05:57] LABS: Bun/Creatinine Ratio 23.3 (12.0-20.0); Calcium, Blood 8.8 mg/dL (8.5-10.1); Creatinine, Blood 0.52 mg/dL (0.40-1.00); Magnesium, Blood 1.9 mg/dL (1.6-2.4); Phosphorus, Blood 2.7 mg/dL (2.5-4.9); Potassium, Blood 3.6 mmol/L (3.5-5.5)
[2024-11-24] MEDS ORDERED: Pantoprazole Sodium 40 MG Injection IV SCH (06:00)
--- NOTE | 2024-11-24 06:14 | NUR ---
SHIFT SUMMARY - PT NEWLY ADMITTED THIS SHIFT FROM ER. SHE IS A/OX4, PLEASANT, COOPERATIVE WITH CARE, VERBALIZES NEEDS, FOLLOWS COMMANDS. SHE ENDORSES 8/10 RUQ PAIN. FENTANYL DOSE INCREASED FOR EFFICACY PER MD. ON ROOM AIR, SATS ABOVE 90%. BREATHING IS SHALLOW AND UNLABORED. SHE REPORTS JOANNE DIAGNOSIS. HAS CPAP AT HOME, BUT DOES NOT USE IF OFTEN. IN A SINUS RHYTHM WITH HR IN THE 60 S-70 S. PULSES PALPABLE. NO EDEMA NOTED. SKIN IS INTACT, PT ABLE TO AMBULATE TO BATHROOM WITH SBA ASSIST FOR LINE/CORD MANAGEMENT. REPOSITIONING HERSELF IN BED. CONTINENT OF URINE AND STOOL. REPORTS DIARRHEA X3-4 DAYS, BUT NO BM SINCE ADMISSION. PT HAS GASTRIC STIMULATOR PLACED LAST YEAR. ABDOMEN TENDER TO PALPATION. PT MOVED FROM NPO TO CONSISTENT CARB DIET. PT COMPLAINS OF NAUSEA, TREATING PER EMAR. PT ATTEMPTING TO EAT SMALL AMOUNTS OF FOOD.
[2024-11-24 07:40] VITALS: BP 125/84
[2024-11-24 07:54] VITALS: BP 156/86
[2024-11-24] MEDS ORDERED: OxyCODONE HCL 5 MG TAB PO PRN (08:40)
[2024-11-24] MEDS ORDERED: ARIPiprazole 10 MG Tab PO SCH (09:00)
[2024-11-24] MEDS ORDERED: Lactated Ringer's 1,000 ML IV SCH (09:00)
[2024-11-24] MEDS ORDERED: Insulin Glargine-Yfgn 100 Unit/mL 3 ML SYR SC SCH (09:00)
[2024-11-24] MEDS ORDERED: Enoxaparin 40 MG/0.4 ML SYR SC SCH (09:00)
[2024-11-24] MEDS ORDERED: Atorvastatin 40 MG Tab PO SCH (09:00)
[2024-11-24] MEDS ORDERED: Clopidogrel Bisulfate 75 MG Tab PO SCH (09:00)
[2024-11-24] MEDS ORDERED: Acetaminophen 325 MG TABLET PO PRN (09:10)
[2024-11-24 09:47] LABS: Bun/Creatinine Ratio 20.7 (12.0-20.0); Calcium, Blood 8.7 mg/dL (8.5-10.1); Creatinine, Blood 0.48 mg/dL (0.40-1.00); Potassium, Blood 3.5 mmol/L (3.5-5.5)
--- NOTE | 2024-11-24 10:54 | NUR ---
Bedside shift report was not done this morning as the pt was sleeping. Pt was assessed at 0730. She was asking for medication for abdominal pain and nausea. Given reglan, and at 0800 given IV fentanyl per prn orders. At this time, the pt is saying that she is wanting more pain medication; medicated with oxycodone and tylenol. She insists that she feels ready for discharge and wants to go home today; states that she has an appointment for her gastric stimulator tomorrow and does not want to miss it.
[2024-11-24] MEDS ORDERED: Insulin Human Lispro 100 Units/ML 3ML Syringe SC SCH (11:30)
--- NOTE | 2024-11-24 12:49 | NUR ---
Pt was discharged from care at 1120. Given follow up information to make PCP appointment. Pt was also provided with recommendations from provider and this student RN regarding home care. Pt was also given a printout of home medications. The change in dosage of ropinarole was highlighted in the packet. Pt was wheeled out to [facility] by this student RN. Pt expressed no further questions or concerns regarding home care or follow-up.
== END 2024-11-24 12:23 | disposition home or self-care (01) ==
LOC: ER 11:55 → ERHOLD 11:56 → PCU 11:56
PROVIDERS: Nurse Practitioner Acute Care; Student in an Organized Health Care Education/Training Program; ADMIT Student in an Organized Health Care Education/Training Program
DX: E10.10 Type 1 diabetes mellitus with ketoacidosis without coma (principal); E10.43 Type 1 diabetes mellitus with diabetic autonomic (poly)neuropathy; K31.84 Gastroparesis; G47.33 Obstructive sleep apnea (adult) (pediatric); M79.7 Fibromyalgia; K21.9 Gastro-esophageal reflux disease without esophagitis; I10 Essential (primary) hypertension; F41.8 Other specified anxiety disorders; I25.10 Atherosclerotic heart disease of native coronary artery without angina pectoris; F17.210 Nicotine dependence, cigarettes, uncomplicated; Z79.4 Long term (current) use of insulin; Z88.8 Allergy status to other drugs, medicaments and biological substances; Z88.5 Allergy status to narcotic agent
CPT/HCPCS: 36415; 71046; 80048; 80053; 81001; 82010; 82803; 82947; 83690; 83735; 84100; 84484; 85025; 85027; 93005; 93010; 96361; 96372; 96374; 96375; 96376; 99285-25; A9270; G0378; J1650; J1790; J1815; J2405; J2470; J2765; J3010; J3480; J7120

== ENCOUNTER 2024-11-25 16:24 | Emergency (ER) | payer OTHER ==
[~2024-11-25] VITALS: Ht 162.6 cm; Wt 59.0 kg
[2024-11-25 16:27] VITALS: BP 164/93
== END 2024-11-25 18:40 | disposition left against medical advice (07) ==
LOC: ER 16:24
DX: R10.9 Unspecified abdominal pain (principal); R11.2 Nausea with vomiting, unspecified; R07.9 Chest pain, unspecified; R06.02 Shortness of breath; Z53.21 Procedure and treatment not carried out due to patient leaving prior to being seen by health care provider
CPT/HCPCS: 93005; 93010; 99282-25

== ENCOUNTER 2025-02-20 13:09 | Emergency (ER) | payer OTHER ==
[~2025-02-20] VITALS: Ht 162.6 cm; Wt 65.8 kg
[2025-02-20] MEDS ORDERED: NS 1,000 ML IV SCH ×2 (13:30→19:15)
[2025-02-20] MEDS ORDERED: Metoclopramide HCl 5MG / ML 2ML Vial IV ONE (13:50)
[2025-02-20] MEDS ORDERED: Pantoprazole Sodium 40 MG Injection IV ONE (13:50)
[2025-02-20] MEDS ORDERED: DiphenhydrAMINE HCl 50 MG/ML 1ML Vial IV ONE (13:55)
[2025-02-20] MEDS ORDERED: Magnesium Sulf 2 GM/Water 50ML 50 ML IV ONE (14:10)
[2025-02-20 14:16] LABS: BASOPHILS ABSOLUTE AUTO 0.08 K/mm3 (0.00-0.23); BASOPHILS PERCENT AUTO 1 % (0-2); EOSINOPHILS ABSOLUTE AUTO 0.15 K/mm3 (0.00-0.68); EOSINOPHILS PERCENT AUTO 2 % (0-6); Hematocrit 40.3 % (33.0-51.0); Hemoglobin 13.8 g/dL (11.5-16.0); IMMATURE GRAN ABSOLUTE AUTO 0.04 K/mm3 (0.00-0.10); IMMATURE GRAN PERCENT AUTO 0 % (0-1); LYMPHOCYTES ABSOLUTE AUTO 1.64 K/mm3 (0.84-5.20); LYMPHOCYTES PERCENT AUTO 17 % (21-46); MONOCYTES ABSOLUTE AUTO 0.32 K/mm3 (0.16-1.47); MONOCYTES PERCENT AUTO 3 % (4-13); Mean Corpuscular HGB Conc 34.2 g/dL (31.5-36.5); Mean Corpuscular Volume 89 fL (80-100); NEUTROPHILS ABSOLUTE AUTO 7.21 K/mm3 (1.96-9.15); NEUTROPHILS PERCENT AUTO 76 % (41-73); NRBC ABSOLUTE 0.00 K/mm3 (0.00-0.02); NRBC Auto 0.0 /100 WBC (0.0-0.2); Platelet Count 335 K/mm3 (150-400); RDW Coefficient Variation 13.0 % (11.7-14.2); RDW Standard Deviation 42.5 fL (35.1-46.3)
[2025-02-20 14:31] LABS: Alanine Aminotransfer (ALT/SGP 30.0 U/L (12-78); Albumin, Blood 4.2 g/dL (3.4-5.0); Albumin/Globulin Ratio 1.1 (0.8-1.8); Anion Gap 13.0 mmol/L (3-11); Aspartate Aminotrans (AST/SGOT 24.0 U/L (12-37); Bilirubin, Total 0.9 mg/dL (0.1-1.0); Blood Urea Nitrogen 8.0 mg/dL (8-24); CO2, Blood 23.0 mmol/L (21-32); Calcium, Blood 9.9 mg/dL (8.5-10.1); Chloride, Blood 102.0 mmol/L (98-108); Creatinine, Blood 0.53 mg/dL (0.40-1.00); Globulin, Blood 3.9 g/dL (2.2-4.0); Glucose, Blood 205.0 mg/dL (70-99); Potassium, Blood 3.7 mmol/L (3.5-5.5); Sodium, Blood 134.0 mmol/L (136-145); Total Protein, Blood 8.1 g/dL (6.4-8.2)
[2025-02-20] MEDS ORDERED: FentaNYL Citrate 50 MCG/ML 2 ML Injection IV ONE ×2 (15:50→18:20)
[2025-02-20] MEDS ORDERED: Prochlorperazine Edisylate 10 mg Vial IV ONE ×2 (15:50→18:15)
[2025-02-20 15:59] LABS: Source, Urine Clean Catch
[2025-02-20 16:31] LABS: Bilirubin, Urine Neg (Neg); Glucose Qualitative, Urine 3+ (Neg); Ketones, Urine 3+ (Neg); Leukocyte Esterase, Urine Neg (Neg); Protein, Urine 1+ (Neg); Specific Gravity, Urine 1.015 (1.003-1.022); Urobilinogen, Urine NORM (Normal)
[2025-02-20 17:53] LABS: Color, Urine Pale Yellow (P-Yellow)
[2025-02-20] MEDS ORDERED: Haloperidol Lactate Inj. 5 MG/ML Injection IV ONE (19:15)
[2025-02-20] MEDS ORDERED: PROC25S PR (20:06)
[2025-02-20] MEDS ORDERED: ONDA4ODT MM (20:06)
[2025-02-20 20:39] VITALS: BP 112/76
== END 2025-02-20 20:40 | disposition home or self-care (01) ==
LOC: ER 13:09
PROVIDERS: Emergency Medicine
DX: R10.13 Epigastric pain (principal); R11.2 Nausea with vomiting, unspecified; R74.8 Abnormal levels of other serum enzymes; I10 Essential (primary) hypertension; E10.43 Type 1 diabetes mellitus with diabetic autonomic (poly)neuropathy; K31.84 Gastroparesis; K21.9 Gastro-esophageal reflux disease without esophagitis; E78.5 Hyperlipidemia, unspecified; I25.2 Old myocardial infarction; G40.909 Epilepsy, unspecified, not intractable, without status epilepticus; F17.210 Nicotine dependence, cigarettes, uncomplicated; Z88.5 Allergy status to narcotic agent; Z88.6 Allergy status to analgesic agent; Z88.8 Allergy status to other drugs, medicaments and biological substances; Z79.899 Other long term (current) drug therapy
CPT/HCPCS: 80053; 83605; 83690; 85025; 93005; 93010; 96361; 96365; 96366; 96375; 99284-25; J0780; J1200; J1630; J1790; J2470; J2765; J3010; J3475; J7030

== ENCOUNTER 2025-04-16 15:27 | Inpatient (IN) | payer OTHER ==
[~2025-04-16] VITALS: Ht 162.6 cm; Wt 76.8 kg
[~2025-04-16 15:27] MED LIST changes: +Ondansetron Odt8 MG MM
[2025-04-16] MEDS ORDERED: HYDROmorphone HCl/Pf 1MG SYR IV ONE ×2 (15:50→17:15)
[2025-04-16] MEDS ORDERED: NS 1,000 ML IV SCH ×3 (15:50→21:15)
[2025-04-16] MEDS ORDERED: Metoclopramide HCl 5MG / ML 2ML Vial IV ONE (15:50)
[2025-04-16 16:58] LABS: BASOPHILS ABSOLUTE AUTO 0.05 K/mm3 (0.00-0.23); BASOPHILS PERCENT AUTO 1 % (0-2); EOSINOPHILS ABSOLUTE AUTO 0.06 K/mm3 (0.00-0.68); EOSINOPHILS PERCENT AUTO 1 % (0-6); Hematocrit 41.3 % (33.0-51.0); Hemoglobin 14.2 g/dL (11.5-16.0); IMMATURE GRAN ABSOLUTE AUTO 0.02 K/mm3 (0.00-0.10); IMMATURE GRAN PERCENT AUTO 0 % (0-1); LYMPHOCYTES ABSOLUTE AUTO 1.67 K/mm3 (0.84-5.20); LYMPHOCYTES PERCENT AUTO 17 % (21-46); MONOCYTES ABSOLUTE AUTO 0.41 K/mm3 (0.16-1.47); MONOCYTES PERCENT AUTO 4 % (4-13); Mean Corpuscular HGB Conc 34.4 g/dL (31.5-36.5); Mean Corpuscular Volume 86 fL (80-100); NEUTROPHILS ABSOLUTE AUTO 7.53 K/mm3 (1.96-9.15); NEUTROPHILS PERCENT AUTO 77 % (41-73); NRBC ABSOLUTE 0.00 K/mm3 (0.00-0.02); NRBC Auto 0.0 /100 WBC (0.0-0.2); Platelet Count 391 K/mm3 (150-400); RDW Coefficient Variation 13.2 % (11.7-14.2); RDW Standard Deviation 41.7 fL (35.1-46.3)
[2025-04-16 17:05] LABS: Influenza A, PCR NEGATIVE (NEGATIVE); Influenza B, PCR NEGATIVE (NEGATIVE); Resp Syncytial Virus, PCR NEGATIVE (NEGATIVE); SARS-Cov-2 (COVID-19) PCR, MMC NEGATIVE (NEGATIVE)
[2025-04-16] MEDS ORDERED: Prochlorperazine Edisylate 10 mg Vial IV ONE (17:15)
[2025-04-16 17:16] LABS: Source, Urine Clean Catch
[2025-04-16 17:34] LABS: Alanine Aminotransfer (ALT/SGP 38.0 U/L (12-78); Albumin, Blood 4.4 g/dL (3.4-5.0); Albumin/Globulin Ratio 1.0 (0.8-1.8); Anion Gap 17.0 mmol/L (3-11); Aspartate Aminotrans (AST/SGOT 23.0 U/L (12-37); Bilirubin, Total 1.3 mg/dL (0.1-1.0); Blood Urea Nitrogen 9.0 mg/dL (8-24); CO2, Blood 23.0 mmol/L (21-32); Calcium, Blood 10.3 mg/dL (8.5-10.1); Chloride, Blood 100.0 mmol/L (98-108); Creatinine, Blood 0.63 mg/dL (0.40-1.00); Globulin, Blood 4.2 g/dL (2.2-4.0); Glucose, Blood 295.0 mg/dL (70-99); Potassium, Blood 3.8 mmol/L (3.5-5.5); Sodium, Blood 136.0 mmol/L (136-145); Total Protein, Blood 8.6 g/dL (6.4-8.2)
[2025-04-16 17:37] LABS: Bilirubin, Urine Neg (Neg); Glucose Qualitative, Urine 4+ (Neg); Ketones, Urine 4+ (Neg); Leukocyte Esterase, Urine Neg (Neg); Protein, Urine 2+ (Neg); Specific Gravity, Urine 1.010 (1.003-1.022); Urobilinogen, Urine NORM (Normal)
[2025-04-16 17:50] LABS: Color, Urine Pale Yellow (P-Yellow)
[2025-04-16 17:52] LABS: Red Blood Cells, Urine 0-2 /hpf (0-2); White Blood Cells, Urine 0-2 /hpf (0-5)
[2025-04-16 18:31] LABS: pH Blood Venous 7.35 (7.34-7.37)
[2025-04-16] MEDS ORDERED: FLU VACC TS2025-26(6MOS UP)/PF 45 MCG/0.5 ML SYRINGE IM SCH (21:10)
[2025-04-16] MEDS ORDERED: LORazepam 2 MG/ML 1ML Injection IV PRN (21:15)
[2025-04-16] MEDS ORDERED: Metoclopramide HCl 5MG / ML 2ML Vial IV PRN (21:15)
[2025-04-16] MEDS ORDERED: Ondansetron HCl 2 MG / ML 2ML Vial IV PRN (21:15)
[2025-04-16] MEDS ORDERED: HYDROmorphone HCl/Pf 1MG SYR IV PRN (21:20)
[2025-04-16 21:26] LABS: Anion Gap 11.0 mmol/L (3-11); Blood Urea Nitrogen 10.0 mg/dL (8-24); CO2, Blood 25.0 mmol/L (21-32); Calcium, Blood 8.3 mg/dL (8.5-10.1); Chloride, Blood 107.0 mmol/L (98-108); Creatinine, Blood 0.62 mg/dL (0.40-1.00); Glucose, Blood 281.0 mg/dL (70-99); Potassium, Blood 3.5 mmol/L (3.5-5.5); Sodium, Blood 139.0 mmol/L (136-145)
[2025-04-16] MEDS ORDERED: Insulin Glargine 100 Unit/ML 3 ML SYR SC SCH (22:00)
[2025-04-16 23:36] VITALS: BP 126/78
[2025-04-17] MEDS ORDERED: Insulin Human Lispro 100 Units/ML 3ML Syringe SC SCH
[2025-04-17 02:01] VITALS: BP 98/68
--- NOTE | 2025-04-17 03:18 | NUR ---
PT ADMITTED DURING FOR NAUSEA AND VOMITING. PATIENT IS ALERT AND ORIENTED X4, ABLE TO MAKE NEEDS KNOWN. PATIENT ON NS RUNNNG AT 100 ML/H. PATIENT MEDICATED FOR PAIN AND NAUSEA-SEE EMAR. PATIENT REPORTS SHE IS UP AT HOME WITH WALKER OR CANE. PATIENT IS 1 ASSIST TO THE BATHROOM. PATIENT ON 2 L NC SATING >92 %. BED IN LOW POSITION WITH WHEELS LOCKED. CALLL LIGHT WITHIN REAC.
[2025-04-17 04:14] VITALS: BP 102/90
[2025-04-17 06:23] VITALS: BP 104/71
[2025-04-17 06:31] LABS: Anion Gap 8.0 mmol/L (3-11); Blood Urea Nitrogen 12.0 mg/dL (8-24); CO2, Blood 24.0 mmol/L (21-32); Calcium, Blood 8.1 mg/dL (8.5-10.1); Chloride, Blood 110.0 mmol/L (98-108); Creatinine, Blood 0.66 mg/dL (0.40-1.00); Glucose, Blood 135.0 mg/dL (70-99); Magnesium, Blood 2.0 mg/dL (1.6-2.4); Potassium, Blood 3.5 mmol/L (3.5-5.5); Sodium, Blood 138.0 mmol/L (136-145)
[2025-04-17 07:27] VITALS: BP 93/65
[2025-04-17] MEDS ORDERED: Pantoprazole Sodium 40 MG Injection IV SCH (09:00)
[2025-04-17] MEDS ORDERED: Enoxaparin 40 MG/0.4 ML SYR SC SCH (09:00)
[2025-04-17] MEDS ORDERED: ROPINIROLE HCL0.5 MG PO (13:14)
[2025-04-17 16:10] VITALS: BP 111/63
[2025-04-17] MEDS ORDERED: Insulin Glargine 100 Unit/ML 3 ML SYR SC SCH (18:00)
[2025-04-17 19:34] VITALS: BP 140/76
--- NOTE | 2025-04-17 19:34 | NUR ---
shift summary very pleasent pt a/o x 4 having gastric pain and nausea, md aware and at bedside. pt medicated for pain and nausea. blood sugars have been consistently under 100, all diabetic medications held at this time, poor intake. Pt has CGM and phone ester so is able to let me know if blood sugar is falling. CGM has been verified with hospital Blood sugar monitor. Pt noted BS was dropping to pepsi and jello were given. i notified MD for further instruction. Pt sugar to be controlled orally unless unable to michele. thoughout shift BS rasied and lowered and at times was at 50. MD notified and 1/2 amp D50 given. currently blood sugar at 106 and raising. pain waxing and weaning, with dilaudid given for pain. cont to monitor
[2025-04-17] MEDS ORDERED: VORTIOXETINE HYDROBROMIDE 20 MG TABLET PO SCH (22:30)
[2025-04-18] MEDS ORDERED: FentaNYL Citrate 50 MCG/ML 2 ML Injection IV PRN (01:00)
[2025-04-18 04:31] VITALS: BP 135/87
[2025-04-18 06:16] LABS: BASOPHILS ABSOLUTE AUTO 0.04 K/mm3 (0.00-0.23); BASOPHILS PERCENT AUTO 1 % (0-2); EOSINOPHILS ABSOLUTE AUTO 0.25 K/mm3 (0.00-0.68); EOSINOPHILS PERCENT AUTO 5 % (0-6); Hematocrit 32.4 % (33.0-51.0); Hemoglobin 10.3 g/dL (11.5-16.0); IMMATURE GRAN ABSOLUTE AUTO 0.01 K/mm3 (0.00-0.10); IMMATURE GRAN PERCENT AUTO 0 % (0-1); LYMPHOCYTES ABSOLUTE AUTO 2.12 K/mm3 (0.84-5.20); LYMPHOCYTES PERCENT AUTO 39 % (21-46); MONOCYTES ABSOLUTE AUTO 0.48 K/mm3 (0.16-1.47); MONOCYTES PERCENT AUTO 9 % (4-13); Mean Corpuscular HGB Conc 31.8 g/dL (31.5-36.5); NEUTROPHILS ABSOLUTE AUTO 2.49 K/mm3 (1.96-9.15); NEUTROPHILS PERCENT AUTO 46 % (41-73); NRBC ABSOLUTE 0.00 K/mm3 (0.00-0.02); NRBC Auto 0.0 /100 WBC (0.0-0.2); Platelet Count 248 K/mm3 (150-400); RDW Coefficient Variation 13.5 % (11.7-14.2); RDW Standard Deviation 45.6 fL (35.1-46.3)
[2025-04-18 06:26] LABS: Mean Corpuscular Volume 92 fL (80-100)
[2025-04-18 06:46] LABS: Magnesium, Blood 1.9 mg/dL (1.6-2.4)
[2025-04-18 07:07] LABS: Alanine Aminotransfer (ALT/SGP 30.0 U/L (12-78); Albumin, Blood 3.0 g/dL (3.4-5.0); Albumin/Globulin Ratio 1.0 (0.8-1.8); Anion Gap 6.0 mmol/L (3-11); Aspartate Aminotrans (AST/SGOT 25.0 U/L (12-37); Bilirubin, Total 0.4 mg/dL (0.1-1.0); Blood Urea Nitrogen 4.0 mg/dL (8-24); CO2, Blood 26.0 mmol/L (21-32); Calcium, Blood 7.6 mg/dL (8.5-10.1); Chloride, Blood 113.0 mmol/L (98-108); Creatinine, Blood 0.64 mg/dL (0.40-1.00); Globulin, Blood 2.9 g/dL (2.2-4.0); Glucose, Blood 106.0 mg/dL (70-99); Phosphorus, Blood 3.1 mg/dL (2.5-4.9); Potassium, Blood 3.1 mmol/L (3.5-5.5); Sodium, Blood 142.0 mmol/L (136-145); Total Protein, Blood 5.9 g/dL (6.4-8.2)
[2025-04-18] MEDS ORDERED: Potassium Chl 20MEQ/Water100ML 100 ML IV SCH (07:40)
[2025-04-18 09:59] VITALS: BP 129/63
[2025-04-18] MEDS ORDERED: Metoclopramide HCl 5MG / ML 2ML Vial IV SCH (12:00)
[2025-04-18 12:58] VITALS: BP 159/74
[2025-04-18 16:11] VITALS: BP 125/81
[2025-04-18] MEDS ORDERED: Insulin Human Lispro 100 Units/ML 3ML Syringe SC SCH (16:30)
--- NOTE | 2025-04-18 17:13 | NUR ---
PT CONTINUES TO ENDOSE 8-9/10 PAIN IN ABDOMEN. PAIN MEDICATION REGIMEN HAS BEEN UPDATED TO HOPEFULLY PROVIDE THE PT WITH SOME RELIEF. PT HAS BEEN NAUSEOUS THROUGHOUT SHIFT WITH NO RELIEF FROM MEDICAITONS. REGLAN CHANGED TO THIS SHIFT. POOR INTAKE. PT HAS NOT SLEPT MORE THAT 2 HOURS AT A TIME. ALERT AND ORIENTED X4 WITH INTERMITTENT CONFUSION. PT STATES THIS IS BASELINE. INDEPENDENT IN THE ROOM, CALLS FOR ASSISTANCE WHEN NEEDED. IV FLUIDS CONTINUED. CBGS HAVE BEEN IN LOW 100S.
[2025-04-18 19:07] LABS: Hematocrit 32.4 % (33.0-51.0); Hemoglobin 10.6 g/dL (11.5-16.0)
[2025-04-18 20:07] VITALS: BP 169/91
--- NOTE | 2025-04-19 04:17 | NUR ---
NURSING NOTE: PT AOX3-4 WITH SOME CONFUSION, THINKING THAT WE ARE NOT AT THE HOSPITAL DESPITE ATTEMPTS AT REORIENTATON AND EDUCATION. PT EXPRESSES SHE WISHES TO LEAVE AMA AND THAT SHE HAS CALLED HER DAUGHTER TO COME PICK HER UP. I EXPRESSED THE CONCERNS AND DANGERS OF LEAVING AMA. PT AGREED. I CALLED THE DAUGHTER TO MAKE SURE SHE IS ACTUALLY COMING AND IF SHE IS AWARE OF THE SITUATION. DAUGHTER EXPRESSES THAT SHE UNDERSTANDS THE RISKS, AND THAT SHE IS STILL GOING TO COME PICK HER UP. PROVIDER NOTIFIED, AND EXPRESSED THE SAME RISKS WHICH WERE WRITTEN ON THE AMA PAPERS. PT SIGNED THE PAPERS, POWERGLIDE REMOVED AND IS WAITING FOR THE DAUGHTER TO PICK HER UP. PT IS ABLE TO AMBULATE WITHOUT ASSIST.
== END 2025-04-19 04:24 | disposition left against medical advice (07) | DRG 74 ==
LOC: ER 15:27 → MEDS 15:28
PROVIDERS: Nurse Practitioner Acute Care; Student in an Organized Health Care Education/Training Program; ADMIT Internal Medicine
DX: E10.43 Type 1 diabetes mellitus with diabetic autonomic (poly)neuropathy (principal); E87.20 Acidosis, unspecified; K31.84 Gastroparesis; I10 Essential (primary) hypertension; K21.9 Gastro-esophageal reflux disease without esophagitis; M79.7 Fibromyalgia; M19.90 Unspecified osteoarthritis, unspecified site; F41.9 Anxiety disorder, unspecified; F32.A Depression, unspecified; G89.4 Chronic pain syndrome; I25.2 Old myocardial infarction; Z53.29 Procedure and treatment not carried out because of patient's decision for other reasons; G40.909 Epilepsy, unspecified, not intractable, without status epilepticus; F17.210 Nicotine dependence, cigarettes, uncomplicated; R00.0 Tachycardia, unspecified; E10.65 Type 1 diabetes mellitus with hyperglycemia; G47.33 Obstructive sleep apnea (adult) (pediatric); I35.0 Nonrheumatic aortic (valve) stenosis; G25.81 Restless legs syndrome; Z79.4 Long term (current) use of insulin; Z79.02 Long term (current) use of antithrombotics/antiplatelets; Z79.899 Other long term (current) drug therapy; Z85.841 Personal history of malignant neoplasm of brain; Z90.710 Acquired absence of both cervix and uterus; Z90.49 Acquired absence of other specified parts of digestive tract; Z98.890 Other specified postprocedural states; Z88.6 Allergy status to analgesic agent; Z88.8 Allergy status to other drugs, medicaments and biological substances
CPT/HCPCS: 36415; 71046; 74177; 80048; 80053; 81001; 82010; 82803; 82947; 83605; 83690; 83735; 84100; 84484; 85014; 85018; 85025; 87637; 93005; 93010; 96361; 96372; 96374-59; 96375; 96376; 99285-25; A9270; G0378; J0780; J1171; J1650; J1815; J1953; J2060; J2405; J2470; J2765; J3010; J3480; J7030; Q9967

== ENCOUNTER 2025-04-21 13:41 | Emergency (ER) | payer OTHER ==
[~2025-04-21] VITALS: Ht 162.6 cm; Wt 68.0 kg
[~2025-04-21 13:41] MED LIST changes: +ROPINIROLE HCL0.5 MG PO
[2025-04-21] MEDS ORDERED: Ondansetron HCl 2 MG / ML 2ML Vial IV PRN (14:00)
[2025-04-21 14:21] LABS: BASOPHILS ABSOLUTE AUTO 0.06 K/mm3 (0.00-0.23); BASOPHILS PERCENT AUTO 1 % (0-2); EOSINOPHILS ABSOLUTE AUTO 0.09 K/mm3 (0.00-0.68); EOSINOPHILS PERCENT AUTO 1 % (0-6); Hematocrit 42.9 % (33.0-51.0); Hemoglobin 14.5 g/dL (11.5-16.0); IMMATURE GRAN ABSOLUTE AUTO 0.05 K/mm3 (0.00-0.10); IMMATURE GRAN PERCENT AUTO 0 % (0-1); LYMPHOCYTES ABSOLUTE AUTO 1.91 K/mm3 (0.84-5.20); LYMPHOCYTES PERCENT AUTO 16 % (21-46); MONOCYTES ABSOLUTE AUTO 0.60 K/mm3 (0.16-1.47); MONOCYTES PERCENT AUTO 5 % (4-13); Mean Corpuscular HGB Conc 33.8 g/dL (31.5-36.5); Mean Corpuscular Volume 86 fL (80-100); NEUTROPHILS ABSOLUTE AUTO 8.99 K/mm3 (1.96-9.15); NEUTROPHILS PERCENT AUTO 77 % (41-73); NRBC ABSOLUTE 0.00 K/mm3 (0.00-0.02); NRBC Auto 0.0 /100 WBC (0.0-0.2); Platelet Count 442 K/mm3 (150-400); RDW Coefficient Variation 13.2 % (11.7-14.2); RDW Standard Deviation 41.0 fL (35.1-46.3)
[2025-04-21 14:24] LABS: pH Blood Venous 7.60 (7.34-7.37)
[2025-04-21 14:43] LABS: Alanine Aminotransfer (ALT/SGP 28.0 U/L (12-78); Albumin, Blood 4.3 g/dL (3.4-5.0); Albumin/Globulin Ratio 1.0 (0.8-1.8); Anion Gap 14.0 mmol/L (3-11); Aspartate Aminotrans (AST/SGOT 15.0 U/L (12-37); Bilirubin, Total 1.0 mg/dL (0.1-1.0); Blood Urea Nitrogen 4.0 mg/dL (8-24); CO2, Blood 25.0 mmol/L (21-32); Calcium, Blood 9.9 mg/dL (8.5-10.1); Chloride, Blood 100.0 mmol/L (98-108); Creatinine, Blood 0.57 mg/dL (0.40-1.00); Globulin, Blood 4.4 g/dL (2.2-4.0); Glucose, Blood 224.0 mg/dL (70-99); Potassium, Blood 3.2 mmol/L (3.5-5.5); Sodium, Blood 136.0 mmol/L (136-145); Total Protein, Blood 8.7 g/dL (6.4-8.2)
[2025-04-21] MEDS ORDERED: Pantoprazole Sodium 40 MG Injection IV ONE (15:40)
[2025-04-21] MEDS ORDERED: Metoclopramide HCl 5MG / ML 2ML Vial IV ONE (15:40)
[2025-04-21] MEDS ORDERED: HYDROmorphone HCl/Pf 1MG SYR IV ONE (15:40)
[2025-04-21] MEDS ORDERED: NS 1,000 ML IV SCH (15:40)
[2025-04-21] MEDS ORDERED: Prochlorperazine Edisylate 10 mg Vial IV ONE (17:25)
[2025-04-21] MEDS ORDERED: Sucralfate 1000MG / 10ML UD BTL PO ONE (18:35)
[2025-04-21] MEDS ORDERED: SUCR1 PO (19:14)
[2025-04-21 19:15] VITALS: BP 105/72
== END 2025-04-21 19:49 | disposition home or self-care (01) ==
LOC: ER 13:41
PROVIDERS: Emergency Medicine
DX: R10.11 Right upper quadrant pain (principal); K21.9 Gastro-esophageal reflux disease without esophagitis; E10.42 Type 1 diabetes mellitus with diabetic polyneuropathy; I25.2 Old myocardial infarction; I10 Essential (primary) hypertension; M19.90 Unspecified osteoarthritis, unspecified site; F17.210 Nicotine dependence, cigarettes, uncomplicated; Z87.19 Personal history of other diseases of the digestive system; Z79.4 Long term (current) use of insulin; Z79.899 Other long term (current) drug therapy; Z88.5 Allergy status to narcotic agent; Z88.6 Allergy status to analgesic agent; Z88.8 Allergy status to other drugs, medicaments and biological substances
CPT/HCPCS: 80053; 82803; 82947; 83690; 85025; 93005; 93010; 96361; 96374; 96375; 99284-25; A9270; J0780; J1171; J2405; J2470; J2765; J7030

== ENCOUNTER 2025-05-07 14:52 | Emergency (ER) | payer OTHER ==
[~2025-05-07] VITALS: Ht 160 cm; Wt 68.0 kg
[2025-05-07] MEDS ORDERED: NS 1,000 ML IV SCH (15:15)
[2025-05-07 15:39] LABS: BASOPHILS ABSOLUTE AUTO 0.07 K/mm3 (0.00-0.23); BASOPHILS PERCENT AUTO 1 % (0-2); EOSINOPHILS ABSOLUTE AUTO 0.16 K/mm3 (0.00-0.68); EOSINOPHILS PERCENT AUTO 2 % (0-6); Hematocrit 39.1 % (33.0-51.0); Hemoglobin 13.3 g/dL (11.5-16.0); IMMATURE GRAN ABSOLUTE AUTO 0.02 K/mm3 (0.00-0.10); IMMATURE GRAN PERCENT AUTO 0 % (0-1); LYMPHOCYTES ABSOLUTE AUTO 2.27 K/mm3 (0.84-5.20); LYMPHOCYTES PERCENT AUTO 24 % (21-46); MONOCYTES ABSOLUTE AUTO 0.46 K/mm3 (0.16-1.47); MONOCYTES PERCENT AUTO 5 % (4-13); Mean Corpuscular HGB Conc 34.0 g/dL (31.5-36.5); Mean Corpuscular Volume 84 fL (80-100); NEUTROPHILS ABSOLUTE AUTO 6.46 K/mm3 (1.96-9.15); NEUTROPHILS PERCENT AUTO 69 % (41-73); NRBC ABSOLUTE 0.00 K/mm3 (0.00-0.02); NRBC Auto 0.0 /100 WBC (0.0-0.2); Platelet Count 342 K/mm3 (150-400); RDW Coefficient Variation 13.2 % (11.7-14.2); RDW Standard Deviation 40.8 fL (35.1-46.3); pH Blood Venous 7.57 (7.34-7.37)
[2025-05-07] MEDS ORDERED: DiphenhydrAMINE HCl 50 MG/ML 1ML Vial IV ONE (16:00)
[2025-05-07 16:39] LABS: Alanine Aminotransfer (ALT/SGP 22.0 U/L (12-78); Albumin, Blood 3.7 g/dL (3.4-5.0); Albumin/Globulin Ratio 1.0 (0.8-1.8); Anion Gap 15.0 mmol/L (3-11); Aspartate Aminotrans (AST/SGOT 13.0 U/L (12-37); Bilirubin, Total 0.8 mg/dL (0.1-1.0); Blood Urea Nitrogen 9.0 mg/dL (8-24); CO2, Blood 21.0 mmol/L (21-32); Calcium, Blood 8.9 mg/dL (8.5-10.1); Chloride, Blood 103.0 mmol/L (98-108); Creatinine, Blood 0.67 mg/dL (0.40-1.00); Globulin, Blood 3.6 g/dL (2.2-4.0); Glucose, Blood 306.0 mg/dL (70-99); Potassium, Blood 3.9 mmol/L (3.5-5.5); Sodium, Blood 135.0 mmol/L (136-145); Total Protein, Blood 7.3 g/dL (6.4-8.2)
[2025-05-07] MEDS ORDERED: Insulin Regular 100 Unit/ML 1ML Dose IV ONE (16:45)
[2025-05-07 17:15] VITALS: BP 111/73
== END 2025-05-07 17:37 | disposition home or self-care (01) ==
LOC: ER 14:52
PROVIDERS: Emergency Medicine
DX: E10.43 Type 1 diabetes mellitus with diabetic autonomic (poly)neuropathy (principal); K31.84 Gastroparesis; E10.10 Type 1 diabetes mellitus with ketoacidosis without coma; G89.29 Other chronic pain; K21.9 Gastro-esophageal reflux disease without esophagitis; M19.90 Unspecified osteoarthritis, unspecified site; I10 Essential (primary) hypertension; I25.2 Old myocardial infarction; F17.210 Nicotine dependence, cigarettes, uncomplicated; Z79.4 Long term (current) use of insulin; Z79.899 Other long term (current) drug therapy; Z79.02 Long term (current) use of antithrombotics/antiplatelets; Z88.5 Allergy status to narcotic agent; Z88.6 Allergy status to analgesic agent; Z88.8 Allergy status to other drugs, medicaments and biological substances
CPT/HCPCS: 80053; 82010; 82803; 82947; 83690; 85025; 93005; 93010; 96374; 99284-25; J1790